=== PATIENT | female | born 1955 | race Caucasian/White ===

== ENCOUNTER 2018-08-04 16:24 | Emergency (ER) | payer OTHER ==
[~2018-08-04] VITALS: Ht 175.3 cm; Wt 81.7 kg
[2018-08-04] MEDS ORDERED: ACID REDUCER20 M1 PO (16:39)
[2018-08-04] MEDS ORDERED: BUPROPION XL300 MG PO (16:40)
[2018-08-04] MEDS ORDERED: OMEPRAZOLE20 MG PO (16:40)
[2018-08-04] MEDS ORDERED: ENALAPRIL-HCTZ1 EACH PO (16:40)
[2018-08-04] MEDS ORDERED: NITROFURANTOIN100 M1 PO (16:40)
--- NOTE | 2018-08-05 00:34 | EKG ---
[facility] [address] [facility] [place] [address] Signed Normal sinus rhythm Left axis deviation Pulmonary disease pattern Abnormal ECG No previous ECGs available Confirmed by NATE BEACH MD ([id number]) on 08/05/2018 12:34:41 AM Electronically Signed By: NATE BEACH MD 08/05/18 0034 PATIENT NAME: QAMAR VALDEZ Electrocardiogram DATE OF : 55 PHYSICIAN: NATE BEACH MD REPORT #: [id number] REPORT IS CONFIDENTIAL AND NOT TO BE RELEASED WITHOUT AUTHORIZATION
== END 2018-08-04 17:39 | disposition home or self-care (01) ==
LOC: ED 16:24
DX: R07.9 Chest pain, unspecified (principal); I10 Essential (primary) hypertension; Z85.3 Personal history of malignant neoplasm of breast; Z87.891 Personal history of nicotine dependence; Z88.2 Allergy status to sulfonamides; Z79.899 Other long term (current) drug therapy
CPT/HCPCS: 71045; 80053; 84484; 85025; 93005; 93010; 99285-25

== ENCOUNTER 2018-08-11 08:47 | Observation (INO) | payer OTHER ==
[~2018-08-11] VITALS: Ht 175.3 cm; Wt 86.8 kg
[~2018-08-11 08:47] MED LIST: ACID REDUCER20 M1 PO; BUPROPION XL300 MG PO; ENALAPRIL-HCTZ1 EACH PO; NITROFURANTOIN100 M1 PO; OMEPRAZOLE20 MG PO
--- OUTSIDE RECORDS SUMMARY | 2018-08-11 08:50 | XMS ---
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 Sanjana VISIT COUNT (12 MO.) 2 ELISE Nicolas HYanira TOTAL 2 NOTE: Visits indicate total known visits. ED/UCC VISIT TRACKING (12 MO.) 08/11/2018 08:47 ELISE Rocha [place] TYPE: Emergency COMPLAINT: - RAPID HEARTRATE 08/04/2018 16:24 ELISE Rocha [place] TYPE: Emergency COMPLAINT: - CHEST PAIN DIAGNOSES: - Personal history of nicotine dependence - Chest pain, unspecified - Precordial pain - Allergy status to sulfonamides status - Chest pain, unspecified - Personal history of malignant neoplasm of breast - Other skilled nursing (current) drug therapy - Essential (primary) hypertension INPATIENT VISIT TRACKING (12 MO.) No inpatient visits to display in this time frame [email or web address]
--- NOTE | 2018-08-11 12:50 | NUR ---
63 YR OLD FEMALE PATIENT ADMITTED TO CCU FROM ED VIA STRETCHER UNDER DR. FLYNN WITH DX OF AFIB W/RVR, PNEUMONIA PATIENT STATES SHE WOKE THIS AM AT APPROX 500 AM WITH NAUSEA, AND PALPATIONS. SHE RECIEVED CARDIZEM 10 MG IV PUSH IN ED AND STARTED ON CARDIZEM GTT. UPON ADMIT PATIENT IS AWAKE, ALERT AND COOPERATIVE. CARDIZEM GTT AT 10 MG/HR, INCREAED TO 15 MG HR 130. PATIENT DENIES CHAST PAIN, C/O MILD SOB. ADMISSION PROCESS STARTED.
--- NOTE | 2018-08-11 13:30 | NUR ---
TOOK 1/2 SANDWISH, DENIES NAUSEA. CARDIZEM GTT REMAINS AT 15 MG/HR.
--- NOTE | 2018-08-11 15:00 | NUR ---
CARDIZEM GTT DECREASED TO 10 MG HR. HR < 100. DENIES DIZZINESS.
--- NOTE | 2018-08-11 15:25 | NUR ---
UP TO COMMODE WITH ASSIST. HR WITH ACTIVITY 132, AT REST 100.
--- NOTE | 2018-08-11 16:47 | NUR ---
CARDIZEM GTT DECREASED TO 5 MG/HR.
--- NOTE | 2018-08-11 16:51 | NUR ---
LAB HERE FOR BLOOD DRAW. PATIENT DENEIS PROBLEMS.
--- NOTE | 2018-08-11 18:00 | NUR ---
CONTINUE WITH INCREASED WORK OF BREATHING. DR. DIEGO FLOREZ.
--- NOTE | 2018-08-11 19:00 | NUR ---
REPORT TO NEXT SHIFT. CARDIZEM GTT AT 5 MG/HR.
--- NOTE | 2018-08-11 19:45 | NUR ---
REPORT TO NEXT SHIFT.
--- NOTE | 2018-08-11 20:00 | NUR ---
PATIENT RESTFUL WITH EYES CLOSED, BREATHING IS EVEN AND UNLABORED. SPO2 98% ON 2L O2 VIA NC. HEART RATE WELL CONTROLLED, CARDIZEM GTT AT 5 MG/HR. CALL LIGHT WITHIN REACH.
--- NOTE | 2018-08-11 21:00 | NUR ---
PATIENT RESTFUL IN BED WATCHING TV, BREATHING IS EVEN AND UNLABORED, SPO2 98% ON 2L O2 VIA NC, TITRATED O2 TO 1L NC.PATIENT DENIES NEEDS AT THIS TIME, DENIES PAIN. ASSESSMENT DONE, ALERT AND ORIENTED X4, FOLLOWS COMMANDS, HEART RATE AND BP WNL, NOTED THAT PATIENT NOW IN SINUS RHYTHM, CARDIZEM GTT TURNED OFF. DR. CORTEZ IN UNIT, AWARE PATIENT IN SINUS RHYTHM, PO CARDIZEM DISCONTINUED. LUNGS ARE CLEAR THROUGHOUT, DIM IN BASES. IVF INFUSING PER ODER. CALL LIGHT WITHIN REACH.
--- NOTE | 2018-08-11 22:01 | NUR ---
PATIENT REMAINS RESTFUL, BREATHING IS EVEN AND UNLABORED. DENIES NEEDS AT THIS TIME. CALL LIGHT WITHIN REACH.
--- NOTE | 2018-08-11 23:55 | NUR ---
PATIENT ASSISTED TO BEDSIDE COMMODE, SBA, DENIES FEELING LIGHT HEADED WITH ACTIVITY. NOW RESTING COMFORTABLY IN BED AGAIN, BREATHING IS EVEN AND UNLABORED. SPO2 95% ON 1L O2 VIA NC, TURNED O2 OFF. DENIES FURTHER NEEDS AT THIS TIME. CALL LIGHT WITHIN REACH.
--- NOTE | 2018-08-12 00:58 | NUR ---
PATIENT SPO2 BETWEEN 88 AND 89% ON ROOM AIR, STARTED AGAIN ON 1L O2 VIA NC, RR 23, BREATHING IS EVEN AND UNLABORED. RESTFUL WITH EYES CLOSED. CALL LIGHT WITHIN REACH.
--- NOTE | 2018-08-12 02:11 | NUR ---
PATIENT REPOSITIONED IN BED. R BETWEEN 2 AND 30, SPO2 94% ON VAPOTHERM 30L, 70% FIO2, TITRATED TO 60% FIO2. FLACC SCORE 0, FASS SCORE 0. BROWN REMAINS INTACT, URINE OUTPUT INCREASING, IVF INFUSING AT 200 ML/HR. CALL LIGHT WITHIN REACH, WITHIN VIEW OF N FROM NURSE'S STATION.
--- NOTE | 2018-08-12 03:10 | NUR ---
PATIENT RESTFUL WITH EYES CLOSED, BREATHING IS EVEN AND UNLABORED, SPO2 94% ON 1L O2 VIA NC. FLACC SCORE OF 0. REMAINS IN SINUS RHYTHM. CALL LIGHT WITHIN REACH.
--- NOTE | 2018-08-12 04:30 | NUR ---
PATIENT RESTFUL WITH EYES CLOSED, BREATHING IS EVEN AND UNLABORED. CALL LIGHT WITHIN REACH.
--- NOTE | 2018-08-12 06:01 | NUR ---
SPO2 DOWN TO 82% AFTER PATIENT TAKES OFF VAPOTHERM, ONCE VAPOTHERM PUT BACK ON, SPO2 BETWEEN 86 AND 88, INCREASED FIO2 TO 70%. PATIENT NOW BETWEEN 90 AND 93%. REPOSITIONED IN BED. NO CHANGES IN BREATHING OR LUNG SOUNDS.
--- NOTE | 2018-08-12 06:36 | NUR ---
ASSISTED PATIENT TO BEDSIDE COMMODE, SBA, DENIES FEELING SOB, NO CHEST PAIN WITH ACTIVITY. NOW RESTING IN BED AGAIN, BREATHING IS EVEN AND UNLABORED. DENIES FURTHER NEEDS AT THIS TIME. CALL LIGHT WITHIN REACH.
--- NOTE | 2018-08-12 09:02 | NUR ---
PT SITTING UP IN BED ALERT AND ORIENTED X4. PT VISITING WITH DAUGHTER. PT DENIES PAIN, NAUSEA, AND SOB AT THIS TIME. PT ABLE TO DEMARIO 100% OF REGULAR BREAKFAST.
[2018-08-12] MEDS ORDERED: CRANBERRY CONC500 MG PO (10:05)
[2018-08-12] MEDS ORDERED: CALCIUM + VITA1 EACH PO (10:06)
[2018-08-12] MEDS ORDERED: ASPIR 8181 MG PO (10:07)
--- NOTE | 2018-08-12 10:07 | NUR ---
MED REC COMPLETE
--- NOTE | 2018-08-12 12:41 | NUR ---
IV SITE INTACT, NO SWELLING OR REDNESS NOTED, FLUSHES EASILY. PT DENIES PAIN WITH FLUSH. PT DENIES PAIN, NAUSEA, AND SOB AT THIS TIME. PT AWAKE AND ALERT X4, COOPERATIVE AND POLITE. PT DECLINES LUNCH AT THIS TIME, GIVEN HOUSE PHONE AND MENUE, EDUCATED ON HOW TO ORDER FOR SELF. PT AGREABLE TO THIS.
[2018-08-12] MEDS ORDERED: ASPIRIN325 MG PO (13:39)
--- NOTE | 2018-08-12 14:58 | NUR ---
PHARMACY HAS BEEN IN TO REVIEW ALL OF PTS MEDICATIONS. STUDENT NURSE TO D/C IVS FOR PT
--- NOTE | 2018-08-12 15:03 | NUR ---
PT GIVEN DISCHARGE INSTRUCTIONS. VERBALIZED UNDERSTANDING. PT DENIES QUESTIONS AT THIS TIME. STATES SHE UNDERSTANDS THE NEED TO START A FULL STRENGTH ASPIRIN. PT UNDERSTANDS SHE IS TO FOLLOW UP WITH HER PRIMARY CARE PROVIDER. PT TO DRESS AND CALL WHEN SHE IS READY FOR A RIDE.
--- NOTE | 2018-08-12 16:50 | EKG ---
[facility] [address] [facility] [place] [address] Signed Atrial fibrillation with rapid ventricular response Left axis deviation Moderate voltage criteria for LVH, may be normal variant Marked ST abnormality, possible lateral subendocardial injury Abnormal ECG When compared with ECG of 04-AUG-2018 16:34, Atrial fibrillation has replaced Sinus rhythm Vent. rate has increased BY [address] now depressed in Lateral leads T wave inversion now evident in Lateral leads Confirmed by CHU CORTEZ DO ([id number]) on 08/12/2018 4:50:29 PM Electronically Signed By: CHU CORTEZ DO 08/12/18 1650 PATIENT NAME: QAMAR VALDEZ Electrocardiogram DATE OF : 55 PHYSICIAN: CHU CORTEZ DO REPORT #: [id number] REPORT IS CONFIDENTIAL AND NOT TO BE RELEASED WITHOUT AUTHORIZATION
== END 2018-08-12 15:15 | disposition home or self-care (01) ==
LOC: ED 08:47 → CCU 08:48
PROVIDERS: ADMIT Internal Medicine
DX: I48.91 Unspecified atrial fibrillation (principal); R91.8 Other nonspecific abnormal finding of lung field; E87.6 Hypokalemia; K52.9 Noninfective gastroenteritis and colitis, unspecified; I10 Essential (primary) hypertension; E83.42 Hypomagnesemia; F39 Unspecified mood [affective] disorder; Z85.3 Personal history of malignant neoplasm of breast; Z87.891 Personal history of nicotine dependence; Z79.899 Other long term (current) drug therapy; Z88.2 Allergy status to sulfonamides; Z79.82 Long term (current) use of aspirin
CPT/HCPCS: 36415; 71045; 80048; 80053; 81001; 83605; 83735; 83880; 84484; 85025; 85379; 87040; 93005; 93010; 96361; 96367; 96372; 96374; 96375; 96376; 99285-25; G0378; J0456; J0696; J1650; J3475; J3480; J7030; J7050; J7120

== ENCOUNTER 2019-05-02 12:37 | Emergency (ER) | payer OTHER ==
[~2019-05-02] VITALS: Ht 175.3 cm; Wt 86.8 kg
--- OUTSIDE RECORDS SUMMARY | ~2019-05-02 | XMS | Encounter Summary ---
Demographics + + + | Address | [address] [facility] | | | [place] [address] | + + + | Home Phone | | + + + | Preferred Language | Unknown | + + + | Marital Status | | + + + | Mandaen Affiliation | UNK | + + + | Race | White | + + + | Ethnic Group | Not or | + + + Author + + + | Author | [facility] | + + + | Organization | [facility] | + + + | Address | Unknown | + + + | Phone | Unavailable | + + + Support + + + + + | Name | Relationship | Address | Phone | + + + + + ECON | Unknown | Unavailable | + + + + + | Kayla Meléndez | ECON | [address] | | | | | [place] | | | | | [address] | | + + + + + Care Team Providers + +------+ + | Care Police Inspector Name | Role | Phone | + +------+ + | Ayala Glasgow MD | PCP | | + +------+ + Encounter Details +--------+ + + + + | Date | Type | Department | Care Team | Description | +--------+ + + + + | 03/12/ | Procedure - | [facility] [address] | Juan Ballard | Operative Report | | 2006 | | E The | MD [address] | | | | Transcribed | [place] | [facility] [address] | | | | | [address] | [place] [address] | | | | | | [phone] | | | | | | | | +--------+ + + + + Social History + +-------+ +--------+------+ | Tobacco Use | Types | Packs/Day | Years | Date | | | | | Used | | + +-------+ +--------+------+ | Never Assessed | | | | | + +-------+ +--------+------+ + + + | Sex Assigned at | Date Recorded | | | | + + + | Not on file | | + + + + + + + | Job Start Date | Occupation | Industry | + + + + | Not on file | Not on file | Not on file | + + + + + + + + | Travel History | Travel Start | Travel End | + + + + + + | No recent travel history available. | + + documented as of this encounter Plan of Treatment Not on filedocumented as of this encounter Procedures + +--------+ + + + | Procedure Name | Priori | Date/Time | Associated Diagnosis | Comments | | | ty | | | | + +--------+ + + + | OPERATION RECORD | | 03/12/2007 | | Results for this | | | | 10:35 AM | | procedure are in the | | | | PDT | | results section. | + +--------+ + + + documented in this encounter Results OPERATION RECORD (03/12/2007 10:35 AM PDT) + + | Transcriptions | + + | Juan Ballard MD - 03/15/2007 8:20 AM [facility] | | REPORT OF [id number] [place] [id number] | | REGLA DANIEL EDATE OF OPERATION: 03/12/2007SURGEON: Juan | | Chandni BallardANESTHESIOLOGIST: CHERI DavisREPROCEDURE DIAGNOSIS: Acute calculous | | cholecystitis.POSTOPERATIVE DIAGNOSIS: Acute calculous cholecystitis.PROCEDURE: | | Laparoscopic cholecystectomy.SURGEON: Juan Ballard M.D.ANESTHESIA: General | | endotracheal.ESTIMATED BLOOD LOSS: Minimal.PREOPERATIVE ANTIBIOTICS: 1 gram of | | Ancef.SPECIMEN: Gallbladder.SPONGE, NEEDLE AND INSTRUMENT COUNTS: | | Correct.INTRAOPERATIVE COMPLICATIONS: Nil.DESCRIPTION OF THE PROCEDURE: The patient | | was taken to the operative suite and placedcomfortably in the supine position on the | | operative suite table. Bilateral lowerextremity compression stockings were put in place | | and activated. The patient thenunderwent general endotracheal anesthesia without | | difficulty. The lower chest, abdomenand pelvis were prepped and draped sterilely. A | | supraumbilical midline incision wasmade with a knife, and access was gained to the | | intra-abdominal cavity utilizing theopen Mendez technique. Pneumoperitoneum was | | established and under direct cameravisualization a 10-mm subxiphoid, and two 5-mm right | | upper quadrant trocars were placed.The gallbladder was identified and found to be | | markedly inflamed and distended and wasdecompressed with a large needle, aspirating | | approximately 100 mL of clear fluidconsistent with hydrops of the gallbladder. This | | needle was then removed and thegallbladder was then able to be grasped at the fundus and | | retracted in a cephaladlateral manner, allowing for dissection in the triangle of | | Calot. The cystic artery wasfirst identified controlled with two proximal clips and one | | distal clip, and dividedwith scissors. The cystic duct was then identified posterior | | to the artery, controlledwith three proximal clips, one distal clip and divided with | | scissors. The gallbladderwas then removed from its intrahepatic position, with a mild | | amount of difficulty due toperitoneal edema, with electrocautery and then removed | | through the umbilical incisionsite in an EndoCatch bag and sent for permanent section. | | The right upper quadrant wasirrigated with saline until the aspirate returned clear. | | The gallbladder fossa wasfound to be hemostatic, and the clips were found to be in good | | position on the cysticduct and arterial stumps. The sponge, needle and instrument | | counts were correct x2.The pneumoperitoneum was evacuated. The four working trocars | | were removed from theabdomen. The fascia was closed at the supraumbilical incision site | | with a REGLA Sinha [id number] DATE: 03/12/07eight 0 Vicryl | | suture. All four incisions were injected with 0.25% Marcaine withepinephrine for | | postoperative comfort and closed with subcuticular 4-0 Monocryl sutures.Sterile | | dressings were applied.The patient tolerated the procedure well, was extubated in the | | operative suite withoutdifficulty, and transferred to the recovery area where she | | remained in stable condition.LISSETTE/JuaniDD: 03/12/2007 22:36:05DT: 03/15/2007 08:09:50Job | | #: [id number]: Melinda Munoz | | Chandni | | | | | | Electronically | | Signed | | | | | | | | | | | | | | Juan BallardREGLA DANIEL [id number] DATE: | | 03/12/07 | |found to be hemostatic, and the clips were found to be in good position on the cystic | |duct and arterial stumps. The sponge, needle and instrument counts were correct x2. | |The pneumoperitoneum was evacuated. The four working trocars were removed from the | |abdomen. The fascia was closed at the supraumbilical incision site with a figure-of- | | | | | |REGLA DANIEL E | |[id number] | |[id number] | |ADMIT DATE: 03/12/07 | | | |eight 0 Vicryl suture. All four incisions were injected with 0.25% Marcaine with | |epinephrine for postoperative comfort and closed with subcuticular 4-0 Monocryl sutures. | |Sterile dressings were applied. | | | |The patient tolerated the procedure well, was extubated in the operative suite without | |difficulty, and transferred to the recovery area where she remained in stable condition. | | | | | | | |LISSETTE/Juani | | | | | | /[id number] | | | | | |cc: Melinda Munoz M.D. | | | | | | Electronically Signed | | | | | | | | Juan Ballard | | | | | | | | | | | | | | | | | | | | | | | | | | | | | | | | | | | | | | | | | | | | | | | | | | | | | | | | | | | | | | | | | | | | | | | | | |REGLA DANIEL | |[id number] | |[id number] | |ADMIT DATE: 03/12/07 | + + documented in this encounter Visit Diagnoses Not on filedocumented in this encounter"
--- OUTSIDE RECORDS SUMMARY | ~2019-05-02 | XMS | Encounter Summary ---
Demographics + + + | Address | [address] [facility] | | | [place] [address] | + + + | Home Phone | | + + + | Preferred Language | Unknown | + + + | Marital Status | | + + + | Mandaeism Affiliation | UNK | + + + | Race | White | + + + | Ethnic Group | Not or | + + + Author + + + | Author | [facility] | + + + | Organization | [facility] | + + + | Address | [...] [address] | | | | | [facility] | | | | | [address] | | + + + + + Care Team Providers + +------+ + | Care Bilingual Office Assistant Name | Role | Phone | + +------+ + | Loreta Pierre | PCP | | + +------+ + Encounter Details +--------+ + + + + | Date | Type | Department | Care Team | Description | +--------+ + + + + | 10/19/ | Document-Sc | UNKNOWN DEPARTMENT | Unknown . | | | 2013 | anned | [address] | | | | | | [address] | | | | | | [place] | | | | | | [address] | | | +--------+ + + + + Social History + +-------+ +--------+------+ | Tobacco Use | Types | Packs/Day | Years | Date | | | | | Used | | + +-------+ +--------+------+ | Former Smoker | | | | | + +-------+ +--------+------+ + +---+---+---+ | Smokeless Tobacco: | | | | | Never Used | | | | + +---+---+---+ + + + + + | Alcohol Use | Drinks/Week | oz/Week | Comments | + + + + + | Yes | 48-50 Standard | 40.0 - 41.7 | | | | drinks or equivalent | | | + + + + + + + + | Sex Assigned at [...] | + +--------+ + + + | LAB REPORTS | | 08/25/2012 | | Results for this | | | | 12:00 AM | | procedure are in the | | | | PST | | results section. | + +--------+ + + + | RADIOLOGY | | 07/26/2012 | | Results for this | | | | 12:00 AM | | procedure are in the | | | | PST | | results section. | + +--------+ + + + | PATHOLOGY | | 07/26/2012 | | Results for this | | | | 12:00 AM | | procedure are in the | | | | PST | | results section. | + +--------+ + + + documented in this encounter Results LAB REPORTS (08/25/2012 12:00 AM PST) + + + | Narrative | Performed At | + + + | | | | | | + + + + + | Procedure Note | + + | Richard De Jesus - 10/13/2012 4:06 PM PDT | + + PATHOLOGY (07/26/2012 12:00 AM PST) + + + | Narrative | Performed At | + + + | | | | | | + + + + + | Procedure Note | + + | Richard De Jesus - 10/13/2012 4:06 PM PDT | + + RADIOLOGY (07/26/2012 12:00 AM PST) + + + | Narrative | Performed At | + + + | | | | | | + + + + + | Procedure Note | + + | Richard eD Jesus - 10/13/2012 4:06 PM PDT | + + documented in this encounter Visit Diagnoses Not on filedocumented in this encounter"
--- OUTSIDE RECORDS SUMMARY | ~2019-05-02 | XMS | Encounter Summary ---
Demographics + + + | Address | [address] [facility] | | | [place] [address] | + + + | Home Phone | | + + + | Preferred Language | Unknown | + + + | Marital Status | | + + + | Advent Affiliation | UNK | + + + | Race | White | + + + | Ethnic Group | Not or | + + + Author + + + | Author | [facility] | + + + | Organization | [facility] | + + + | Address | [...] [address] | | | | | [facility] [place] | | | | | [address] | | + + + + + Care Team Providers + +------+ + | Care Ignition Mechanic Name | Role | Phone | + +------+ + | Loreta Pierre | PCP | | + +------+ + Encounter Details +--------+ + + + + | Date | Type | Department | Care Team | Description | +--------+ + + + + | 08/30/ | Results | NON-[facility] EPIC | Aileen Cuadra MD | | | 2015 | Only | Department | [address] | | | | | | [place] [address] | | | | | | [address] | | | | | | [place] [address] | | | | | | [phone] | | | | | | | [...] | + +--------+ + + + | MAMMOGRAPHY MAG VIEW | Routin | 08/30/2014 | | Results for this | | [place] [id number] | e | 10:04 AM | | procedure are in the | | | | PST | | results section. | + +--------+ + + + | UA, DIPSTICK ONLY | Routin | 08/30/2014 | | Results for this | | | e | 9:50 AM | | procedure are in the | | | | PST | | results section. | + +--------+ + + + | COMPLETE METABOLIC | Routin | 08/30/2014 | | Results for this | | SET | e | 9:50 AM | | procedure are in the | | (NA,K,CL,CO2,BUN,CRE | | PST | | results section. | | AT,GLUC,CA,AST,ALT,B | | | | | | STEVEN TOTAL,ALK | | | | | | PHOS,ALB,PROT TOTAL) | | | | | + +--------+ + + + documented in this encounter Results [facility] [id number] (08/30/2014 10:04 AM PST) + + | Specimen | + + | | + + + + + | Narrative | Performed At | + + + | EXAMINATION: ADDITIONAL MAMMOGRAPHIC VIEWS CLINICAL HISTORY: | [facility] | | Focal asymmetric density in the upper left breast on screening | DEPARTMENT OF | | mammogram COMPARISON: Screening mammogram from 08/23/2014. | RADIOLOGY | | TECHNIQUE: Spot compression MLO view and an ML view of the left | | | breast were obtained. FINDINGS: Spot compression MLO view | | | demonstrates effacement of the focal asymmetric density into normal | | | background parenchyma with no definite correlate on the MLO view. | | | Findings are likely secondary to underlying parenchymal artifact. | | | Scattered benign calcifications are present elsewhere within the | | | left breast. IMPRESSION: BIRADS 2 - Benign findings. Recommend | | | annual followup. BIRADS 2: BENIGN. The final assessment is a benign | | | finding, negative study. The findings reported have no likelihood of | | | malignancy. No further evaluation is needed at this time, however, | | | recommend routine annual screening mammography. A negative | | | mammography report should not delay biopsy if a dominant mass is | | | present. 15% of breast cancers are not identified by mammography. | | + + + + + | Procedure Note | + + | Interface, Radiology Results - 03/22/2015 11:04 AM PDT EXAMINATION: ADDITIONAL | | MAMMOGRAPHIC VIEWSCLINICAL HISTORY: Focal asymmetric density in the upper left breaston | | screening mammogramCOMPARISON: Screening mammogram from 08/23/2014.TECHNIQUE: Spot | | compression MLO view and an ML view of the leftbreast were obtained.FINDINGS: Spot | | compression MLO view demonstrates effacement of thefocal asymmetric density into normal | | background parenchyma with nodefinite correlate on the MLO view. Findings are likely | | secondary tounderlying parenchymal artifact. Scattered benign calcifications arepresent | | elsewhere within the left breast.IMPRESSION:BIRADS 2 - Benign findings. Recommend | | annual followup.BIRADS 2: BENIGN. The final assessment is a benign finding, | | negativestudy. The findings reported have no likelihood of malignancy. Nofurther | | evaluation is needed at this time, however, recommend routineannual screening | | mammography.A negative mammography report should not delay biopsy if a dominantmass is | | present. 15% of breast cancers are not identified bymammography. | |BIRADS 2: BENIGN. The final assessment is a benign finding, negative | |study. The findings reported have no likelihood of malignancy. No | |further evaluation is needed at this time, however, recommend routine | |annual screening mammography. | |A negative mammography report should not delay biopsy if a dominant | |mass is present. 15% of breast cancers are not identified by | |mammography. | + + + +---------+ + + | Performing | Address | City/State/Zipcode | Phone Number | | Organization | | | | + +---------+ + + | [facility] DEPARTMENT OF | | | | | RADIOLOGY | | | | + +---------+ + + UA, DIPSTICK ONLY (08/30/2014 9:50 AM PST) + + + + + + | Component | Value | Ref Range | Performed | Pathologist | | | | | At | Signature | + + + + + + | COLOR(UR) | Yellow | YELLOW | [facility] | | | | | | A MEDICAL | | | | | | CENTER | | + + + + + + | APPEARANCE | Clear | CLEAR | [facility] | | | | | | A MEDICAL | | | | | | CENTER | | + + + + + + | SPECIFIC | 1.007 | 1.005 - 1.030 | [facility] | | | GRAVITY | | | A MEDICAL | | | | | | CENTER | | + + + + + + | PH(UR) | 6.0 | 5.0 - 8.0 | [facility] | | | | | | A MEDICAL | | | | | | CENTER | | + + + + + + | PROTEIN, UA | NEG | NEGATIVE | [facility] | | | | | | A MEDICAL | | | | | | CENTER | | + + + + + + | GLUCOSE, UA | NEG | NEGATIVE | [facility] | | | | | | A MEDICAL | | | | | | CENTER | | + + + + + + | KETONES, UA | NEG | NEGATIVE | [facility] | | | | | | A MEDICAL | | | | | | CENTER | | + + + + + + | BILIRUBIN | NEG | NEGATIVE | [facility] | | | | | | A MEDICAL | | | | | | CENTER | | + + + + + + | BLOOD | NEG | NEGATIVE | [facility] | | | | | | A MEDICAL | | | | | | CENTER | | + + + + + + | NITRITES | NEG | NEGATIVE | [facility] | | | | | | A MEDICAL | | | | | | CENTER | | + + + + + + | LEUKOCYTE | NEG | NEGATIVE | [facility] | | | ESTERASE | | | A MEDICAL | | | | | | CENTER | | + + + + + + | UROBILINOGE | NEG | NEGATIVE MG/DL | [facility] | | | N | | | A MEDICAL | | | | | | CENTER | | + + + + + + | SOURCE | CLEAN CATCH | | [facility] | | | | | | A MEDICAL | | | | | | CENTER | | + + + + + + + + | Specimen | + + | | + + + + + + + | Performing | Address | City/State/Zipcode | Phone Number | | Organization | | | | + + + + + | [facility] | And | [place] [address] | [phone] | | MEDICAL [facility]ENTER | Streets | | | + + + + + COMPLETE METABOLIC SET (NA,K,CL,CO2,BUN,CREAT,GLUC,CA,AST,ALT,BILI TOTAL,ALK PHOS,ALB,PROT TOTAL) (08/30/2014 9:50 AM PST) + + + + + + | Component | Value | Ref Range | Performed | Pathologist | | | | | At | Signature | + + + + + + | SODIUM, | 142 | 137 - 146 MEQ/L | [facility] | | | PLASMA | | | A MEDICAL | | | (LAB) | | | CENTER | | + + + + + + | POTASSIUM, | 3.6 | 3.5 - 5.2 MEQ/L | [facility] | | | PLASMA | | | A MEDICAL | | | (LAB) | | | CENTER | | + + + + + + | CO2 | 32 (H) | 22 - 28 MEQ/L | [facility] | | | | | | A MEDICAL | | | | | | CENTER | | + + + + + + | CHLORIDE, | 105 | 98 - 106 MEQ/L | [facility] | | | PLASMA | | | A MEDICAL | | | (LAB) | | | CENTER | | + + + + + + | ANION GAP | 8.6 | 8 - 16 MEQ/L | [facility] | | | | | | A MEDICAL | | | | | | CENTER | | + + + + + + | GLUCOSE, | 83 | 70 - 105 MG/DL | [facility] | | | PLASMA | | | A MEDICAL | | | (LAB) | | | CENTER | | + + + + + + | BUN, PLASMA | 11 | 8 - 30 MG/DL | [facility] | | | (LAB) | | | A MEDICAL | | | | | | CENTER | | + + + + + + | CREATININE | 0.58 (L) | 0.6 - 1.1 MG/DL | [facility] | | | PLASMA | | | A MEDICAL | | | (LAB) | | | CENTER | | + + + + + + | BUN/CREATIN | 18 | 6 - 20 RATIO | [facility] | | | INE RATIO | | | A MEDICAL | | | | | | CENTER | | + + + + + + | CALCIUM, | 9.1 | 8.5 - 10.8 | [facility] | | | PLASMA | | MG/DL | A MEDICAL | | | (LAB) | | | CENTER | | + + + + + + | AST(SGOT) | 31 | 10 - 41 U/L | [facility] | | | | | | A MEDICAL | | | | | | CENTER | | + + + + + + | ALT (SGPT) | 34 | 7 - 51 U/L | [facility] | | | | | | A MEDICAL | | | | | | CENTER | | + + + + + + | ALK PHOS | 92 | 40 - 180 U/L | [facility] | | | | | | A MEDICAL | | | | | | CENTER | | + + + + + + | TOTAL | 7.0 | 6.7 - 8.5 G/DL | [facility] | | | PROTEIN, | | | A MEDICAL | | | PLASMA | | | CENTER | | | (LAB) | | | | | + + + + + + | ALBUMIN, | 4.1 | 3.5 - 5.0 G/DL | [facility] | | | PLASMA | | | A MEDICAL | | | (LAB) | | | CENTER | | + + + + + + | BILIRUBIN | 0.9 | 0.2 - 1.6 MG/DL | [facility] | | | TOTAL | | | A MEDICAL | | | | | | CENTER | | + + + + + + | TRIGLYCERID | 220 (H) | 45 - 150 MG/DL | [facility] | | | ES | | | A MEDICAL | | | | | | CENTER | | + + + + + + | CHOLESTEROL | 145 | 101 - 199 MG/DL | [facility] | | | (LAB) | | | A MEDICAL | | | | | | CENTER | | + + + + + + | HDL | 44 | 35 - 95 MG/DL | [facility] | | | CHOLESTEROL | | | A MEDICAL | | | | | | CENTER | | + + + + + + | LDL CHOLEST | 57 | 0 - 129 MG/DL | [facility] | | | | | | A MEDICAL | | | | | | CENTER | | + + + + + + | NON-HDL | 101 | | [facility] | | | CHOLESTEROL | | | A MEDICAL | | | | | | CENTER | | + + + + + + | VLDL | 44 (H) | 9 - 30 MG/DL | [facility] | | | CHOLESTEROL | | | A MEDICAL | | | | | | CENTER | | + + + + + + | CARDIAC | 3.3 | RATIO | [facility] | | | RISK RATIO | | | A MEDICAL | | | | | | CENTER | | + + + + + + | TSH | 0.42 | 0.34 - 5.6 | [facility] | | | | | UIU/ML | A MEDICAL | | | | | | CENTER | | + + + + + + | ESTIMATED | >60.0 | >60 | [facility] | | | GFR | | | A MEDICAL | | | | | | CENTER | | + + + + + + | FASTING? | 12 PC | HR | [facility] | | | | | | A MEDICAL | | | | | | CENTER | | + + + + + + + + | Specimen | + + | | + + + + + + + | Performing | Address | City/State/Zipcode | Phone Number | | Organization | | | | + + + + + | [facility] | And | [place] [address] | [phone] | | MEDICAL CENTER | Streets | | | + + + + + documented in this encounter Visit Diagnoses Not on filedocumented in this encounter"
--- OUTSIDE RECORDS SUMMARY | ~2019-05-02 | XMS | Encounter Summary ---
Demographics + + + | Address | [address] [facility] | | | [place] [address] | + + + | Home Phone | | + + + | Preferred Language | Unknown | + + + | Marital Status | | + + + | Mosque Affiliation | UNK | + + + | Race | White | + + + | Ethnic Group | Not or | + + + Author + + + | Author | [facility] | + + + | Organization | [facility] | + + + | Address | [...] [address] | | | | | [facility] [place] | | | | | [address] | | + + + + + Care Team Providers + +------+ + | Care Used Building Materials Yard Worker Name | Role | Phone | + +------+ + | Loreta Pierre | PCP | | + +------+ + Reason for Visit + + + | Reason | Comments | + + + | Prescription | | | Clarification | | + + + Encounter Details +--------+ + + + + | Date | Type | Department | Care Team | Description | +--------+ + + + + | 12/23/ | Telephone | Hematology/Medical | Hung, | Prescription | | 2012 | | Oncology at [facility] | Nayana Velásquez MD | Clarification | | | | [address] | | | | | | Mailcode: CH7M | | | | | | [facility] | | | | | | and Healing, | | | | | | Building | | | | | | Floor [place], [place] | | | | | | [address] | | | | | | [phone] | | | +--------+ + + + [...] Not on filedocumented as of this encounter Visit Diagnoses Not on filedocumented in this encounter"
--- OUTSIDE RECORDS SUMMARY | ~2019-05-02 | XMS | Encounter Summary ---
Demographics + + + | Address | [address] [facility] | | | [place] [address] | + + + | Home Phone | | + + + | Preferred Language | Unknown | + + + | Marital Status | | + + + | Buddhist Affiliation | UNK | + + + | Race | White | + + + | Ethnic Group | Not or | + + + Author + + + | Author | [facility] | + + + | Organization | [facility] | + + + | [...] [place] | | | | | [address] | | + + + + + Care Team Providers + +------+ + | Care Box Repairer Name | Role | Phone | + +------+ + | Ayala Glasgow MD | PCP | | + +------+ + Encounter Details +--------+ + + + + | Date | Type | Department | Care Team | Description | +--------+ + + + + | 03/09/ | Procedure - | EPIC AT [facility] [address] | Aileen Cuadra MD | Operative Report | | 2012 | | E The | [facility] | | | | Transcribed | [place] | [facility] [address] | | | | | [address] | [address] | | | | | | [place] [address] | | | | | | [phone] | | | | | | | [...] + + | OPERATION RECORD | | 03/09/2013 | | Results for this | | | | 8:07 AM | | procedure are in the | | | | PDT | | results section. | + +--------+ + + + documented in this encounter Results OPERATION RECORD (03/09/2013 8:07 AM PDT) + + | Transcriptions | + + | MD Khalif, Aileen - 03/09/2013 11:30 AM [facility] | | REPORT OF [id number] [place] [address] | | REGLA DANIEL EDATE OF OPERATION: 03/09/2013SURGEON: Aileen Cuadra, | | M.D.PREOPERATIVE DIAGNOSES:1. Failed proton pump inhibitors therapy with | | gastroesophageal reflux disease.2. Colorectal screening.POSTOPERATIVE DIAGNOSES:1. | | Failed proton pump inhibitors therapy with gastroesophageal reflux disease.2. Colorectal | | screening.3. Hiatal hernia.4. Gastritis.PROCEDURE PERFORMED:1. | | Esophagogastroduodenoscopy with biopsy of duodenum and gastric antrum, CLOtest for | | Helicobacter pylori.2. Colonoscopy.FINDINGS: Patient had an EGD performed. Posterior | | oropharynx was withoutsignificant abnormality. The esophagus was without significant | | abnormality alongits length. Upon entering the stomach, mild global gastritis was seen, | | worse inthe antrum and proximal. Passage into the duodenum was without difficulty. | | Nosignificant abnormalities were seen. Retroflexion revealed a moderate-sized | | hiatalhernia. Biopsies of duodenum, gastric antrum, CLOtest for H pylori were | | obtained.A colonoscopy was completed from the anal verge to the cecal valve. No | | masses,polyps, diverticula or other significant abnormalities were noted throughout | | theentire colon. The patient had an excellent prep.REASON FOR PROCEDURE: Regla is a very | | pleasant patient of [place] whohas failed PPI therapy with ongoing reflux | | disease who is also in need forcolorectal screening.PROCEDURE DETAIL:ANESTHESIA: IV | | sedation with fentanyl and Versed.PREOPERATIVE DISCUSSION: PAR conference was held with | | the patient and thepermission slip was signed prior to beginning the procedure and | | initial vital signswere recorded on the anesthesia record. Vital signs were stable | | throughout theprocedure.DESCRIPTION OF PROCEDURE: With the patient on the endoscopy | | table in the supineposition, an IV was started. The patient's sedation was titrated | | with fentanyl andVersed, as per the anesthesia record. The patient was monitored with | | the pulseoximeter, BP cuff and EKG. The patient was then placed in the left | | lateraldecubitus position. T he Pentax colonoscope was passed through the anus into | | REGLA Eugene [id number] : [id number] DATE:rectum and distally through | | the remainder of the colon until the cecum wasidentified. The cecum was identified by | | visualizing the ileocecal valve,coalescence of tinea and the appendiceal orifice, as | | well as localization of thelight in the right lower quadrant. The colonoscope was then | | gradually removed,examining the mucosa circumferentially. Please see findings for | | details ofabnormalities or any manipulations performed. After the colonoscope was | | completed,the scope was removed. The patient tolerated the procedure well.The patient | | was discharged home to the care of family without having suffered anyapparent | | complications. Followup arrangements were made. They were informed tocall us if there | | was any vomiting, fever or abdominal pain.AR/MedQDD: 03/09/2013 10:30:29DT: 03/09/2013 | | 11:03:02Job #: [id number] Signed 03/12/13 | | 0909 | | | | | | | | | | | | | | Aileen Cuadra, | | REGLA WALL [id number] : [id number] DATE: | |permission slip was signed prior to beginning the procedure and initial vital signs | |were recorded on the anesthesia record. Vital signs were stable throughout the | |procedure. | | | |DESCRIPTION OF PROCEDURE: With the patient on the endoscopy table in the supine | |position, an IV was started. The patient's sedation was titrated with fentanyl and | |Versed, as per the anesthesia record. The patient was monitored with the pulse | |oximeter, BP cuff and EKG. The patient was then placed in the left lateral | |decubitus position. T he Pentax colonoscope was passed through the anus into the | |REGLA DANIEL | |[id number] : 55 | |[id number] | |ADMIT DATE: | | | |rectum and distally through the remainder of the colon until the cecum was | |identified. The cecum was identified by visualizing the ileocecal valve, | |coalescence of tinea and the appendiceal orifice, as well as localization of the | |light in the right lower quadrant. The colonoscope was then gradually removed, | |examining the mucosa circumferentially. Please see findings for details of | |abnormalities or any manipulations performed. After the colonoscope was completed, | |the scope was removed. The patient tolerated the procedure well. | | | |The patient was discharged home to the care of family without having suffered any | |apparent complications. Followup arrangements were made. They were informed to | |call us if there was any vomiting, fever or abdominal pain. | | | | | |KARINA/Juani | | | | | | /[id number] | |Electronically Signed 03/12/13 0909 | | | | | | Aileen Cuadra MD | | | | | | | [...] | | | | |REGLA DANIEL | |[id number] : 55 | |[id number] | |ADMIT DATE: | + + documented in this encounter Visit Diagnoses Not on filedocumented in this encounter"
--- OUTSIDE RECORDS SUMMARY | ~2019-05-02 | XMS | Encounter Summary ---
Demographics + + + | Address | [address] [facility] | | | [place] [address] | + + + | Home Phone | | + + + | Preferred Language | Unknown | + + + | Marital Status | | + + + | Hinduism Affiliation | UNK | + + + | Race | White | + + + | Ethnic Group | Not or | + + + Author + + + | Author | [facility] | + + + | Organization | [facility] | + + + | [...] [place] | | | | | [address] | | + + + + + Care Team Providers + +------+ + | Care Dev Manager Name | Role | Phone | + +------+ + | Ayala Glasgow MD | PCP | | + +------+ + Encounter Details +--------+ + + + + | Date | Type | Department | Care Team | Description | +--------+ + + + + | 07/04/ | H&P-Transcr | EPIC AT [facility] [address] | Alexys Lu | History & Physical | | 2004 | ibed | [address] | M, MD [place] | | | | | [place], [place] | Orthopedics [facility] | | | | | [address] | [facility] [address] | | | | | | St [place], [place] | | | | | | [address] | | | | | | | [...]
--- OUTSIDE RECORDS SUMMARY | ~2019-05-02 | XMS | Encounter Summary ---
Demographics + + + | Address | [address] [facility] | | | [place] [address] | + + + | Home Phone | | + + + | Preferred Language | Unknown | + + + | Marital Status | | + + + | Buddhist Affiliation | UNK | + + + | Race | White | + + + | Ethnic Group | Not or | + + + Author + + + | Author | [facility] | + + + | Organization | [facility] | + + + | Address [...] [place] | | | | | [address] | | + + + + + Care Team Providers + +------+ + | Care Costume Cutter Name | Role | Phone | + +------+ + | Loreta Pierre | PCP | | + +------+ + Encounter Details +--------+ + + + + | Date | Type | Department | Care Team | Description | +--------+ + + + + | 03/13/ | Document-Sc | Dermatology at | Margaret Arriaga, | | | 2014 | anntheo | Syl Goodwin | ,PhD 1934 | | | | | Clinic [address] | [facility] [place] | | | | | [place] | [address] | | | | | [address] | [phone] | | | | | [phone] | | | +--------+ + + + [...]
--- OUTSIDE RECORDS SUMMARY | ~2019-05-02 | XMS | Clinical Summary ---
Demographics + + + | Address | [address] [facility] | | | [place] [address] | + + + | Home Phone | | + + + | Preferred Language | Unknown | + + + | Marital Status | | + + + | Anabaptism Affiliation | UNK | + + + | Race | White | + + + | Ethnic Group | Not or | + + + Author + + + | Author | [facility] | + + + | Organization | [facility] | + + + | Address | [...] [place] | | | | | [address] | | + + + + + Care Team Providers + +------+ + | Care Chief Estimator Name | Role | Phone | + +------+ + PCP | Unavailable | + +------+ + Source Comments JESSY is fully live on both EpicCare Ambulatory and EpicCare InPatient.[facility]ly [facility] Allergies + + + + + + | Active Allergy | Reactions | Severity | Noted | Comments | | | | | Date | | + + + + + + | Sulfa (Sulfonamide | | Medium | 10/20/19 | | | Antibiotics) | | | 13 | | + + + + + + Medications + + + +---------+------+------+-------+ | Medication | Sig | Dispensed | Refills | Star | End | Statu | | | | | | t | Date | s | | | | | | Date | | | + + + +---------+------+------+-------+ | Calcium | Take 1 tablet by | | 0 | 10/0 | | Activ | | Carbonate-Vitamin D2 | oral route daily | | | 01/15 | | e | | (OS-AURE 500+D) 500 | | | | 13 | | | | mg(1,250mg) -200 | | | | | | | | unit oral tablet | | | | | | | + + + +---------+------+------+-------+ | halobetasol | apply bid | | 0 | 02/2 | | Activ | | (ULTRAVATE) 0.05 % | | | | 20 | | e | | topical cream | | | | 15 | | | + + + +---------+------+------+-------+ | | TAKE 1 TABLET BY | 90 | 0 | 11/2 | | Activ | | ENALAPRIL-HYDROCHLOR | MOUTH DAILY FOR HIGH | tablet | | /20 | | e | | OTHIAZIDE 10-25 mg | BLOOD PRESSURE | | | 16 | | | | oral tablet | | | | | | | + + + +---------+------+------+-------+ | LORazepam 0.5 mg | | | 0 | 02/ | | Activ | | oral tablet | | | | 09/15 | | e | | | | | | 17 | | | + + + +---------+------+------+-------+ | nitroglycerin 0.4 | Place 1 tablet under | 25 | 3 | 02/1 | | Activ | | mg sublingual | tongue every five | tablet | | 6/20 | | e | | tablet, sublingual | minutes as needed | | | 17 | | | | | for chest pain. | | | | | | | | Place under tongue | | | | | | | | and allow to | | | | | | | | dissolve. | | | | | | | | Administer every 5 | | | | | | | | minutes, max of 3 | | | | | | | | doses in 15 minutes. | | | | | | + + + +---------+------+------+-------+ | | TAKE 1 TABLET BY | 30 | 1 | 06 | | Activ | | ENALAPRIL-HYDROCHLOR | MOUTH EVERY DAY FOR | tablet | | /20 | | e | | OTHIAZIDE 10-25 mg | HIGH BLOOD PRESSURE | | | 18 | | | | oral | | | | | | | | tabletIndications: | | | | | | | | Benign hypertension | | | | | | | + + + +---------+------+------+-------+ | BUPROPION XL 300 | TAKE 1 TABLET BY | 30 | 0 | 11/27 | | Activ | | mg oral tablet | MOUTH EVERY DAY | tablet | | 20 | | e | | extended release 24 | | | | 18 | | | | hrIndications: | | | | | | | | Anxiety, generalized | | | | | | | + + + +---------+------+------+-------+ | omeprazole 20 mg | Take 1 capsule by | 180 | 3 | 11/27 | | Activ | | oral capsule,delayed | mouth two times | capsule | | 5/20 | | e | | | daily before meals. | | | 18 | | | | release(DR/EC)Indica | | | | | | | | tions: Esophagitis, | | | | | | | | reflux | | | | | | | + + + +---------+------+------+-------+ Active Problems + + + | Problem | Noted Date | + + + | History of carcinoma in situ of breast | 05/06/2016 | + + + | Atypical ductal hyperplasia of breast | 07/28/2012 | + + + | Lung mass | 04/19/2010 | + + + | Benign hypertension | 04/12/2007 | + + + | Esophagitis, reflux | 04/12/2007 | + + + | Clinical depression | 04/12/2007 | + + + | Anxiety, generalized | 04/12/2007 | + + + Resolved Problems + + + + | Problem | Noted | Resolved | | | Date | Date | + + + + | DCIS (ductal carcinoma in situ) of breast | 10/20/19 | | | | 13 | 6 | + + + + | Carcinoma in situ, breast, ductal | 07/28/19 | | | | 13 | 6 | + + + + Immunizations + + + + | Name | Administration Dates | Next Due | + + + + | Influenza, | 03/20/2016, 04/02/2014 | | | injectable, | | | | quadrivalent, | | | | preservative free | | | | (IIV4) | | | + + + + | Influenza, seasonal, | 04/13/2013 | | | intradermal, | | | | preservative free | | | + + + + | Td (adult), 2 Lf | 10/16/2006 | | | tetanus toxoid, | | | | preservative free, | | | | adsorbed | | | + + + + Family History + + +------+ + | Medical History | Relation | Name | Comments | + + +------+ + | Depression | Brother | | | + + +------+ + | Psychiatry | Father | | Suicide | + + +------+ + | Diabetes | Mother | | | + + +------+ + | Hypertension | Mother | | | + + +------+ + | Stroke | Mother | | | + + +------+ + | Psychiatry | Other | | Suicide, neice | + + +------+ + | Psychiatry | Paternal | | Suicide | | | Uncle | | | + + +------+ + + +------+--------+ + | Relation | Name | Status | Comments | + +------+--------+ + | Brother | | | | + +------+--------+ + | Father | | | | + +------+--------+ + | Mother | | | | + +------+--------+ + | Other | | | | + +------+--------+ + | Paternal Uncle | | | | + +------+--------+ + Social History + +-------+ +--------+------+ | [...] 48-50 Standard | 40.0 - 41.7 | daily beer | | | drinks or equivalent | [...] recent travel history available. | + + Last Filed Vital Signs + + + + + | Vital Sign | Reading | Time Taken | Comments | + + + + + | Blood Pressure | 144/96 | 05/12/2017 1:07 PM | | | | | PST | | + + + + + | Pulse | 95 | 05/12/2017 1:07 PM | | | | | PST | | + + + + + | Temperature | 36.8 C (98.2 F) | 10/19/2012 10:13 AM | | | | | PDT | | + + + + + | Respiratory Rate | 20 | 05/12/2017 1:07 PM | | | | | PST | | + + + + + | Oxygen Saturation | 96% | 08/14/2016 7:41 AM | | | | | PST | | + + + + + | Inhaled Oxygen | - | - | | | Concentration | | | | + + + + + | Weight | 83.5 kg (184 lb) | 05/12/2017 1:07 PM | | | | | PST | | + + + + + | Height | 177.8 cm (5' 10") | 05/06/2016 10:25 AM | | | | | PST | | + + + + + | Body Mass Index | 26.4 | 05/06/2016 10:25 AM | | | | | PST | | + + + + + Plan of Treatment + + + + + | Health Maintenance | Due Date | Last Done | Comments | + + + + + | Influenza (Flu) | | 03/20/2016, 04/02/2014, | | | vaccination (#1) | 9 | 04/13/2013 | | + + + + + | COLON CANCER | | 03/20/2012 | | | SCREENING: | 2 | | | | COLONOSCOPY | | | | + + + + + | Pneumococcal | Aged Out | | No longer eligible | | vaccination | | | based on patient's | | | | | age to complete this | | | | | topic | + + + + + Results Not on filefrom Last 3 Months Insurance + +--------+ +--------+-------+---------+--------+ | Payer | Benefi | Subscriber | Effect | Phone | Address | Type | | | t Plan | ID | antonieta | | | | | | / | | Dates | | | | | | Group | | | | | | + +--------+ +--------+-------+---------+--------+ | [employer] | UNITED | xxxxxxxxx | 09/28/19 | | | PPO | | | | | 14-Pre | | | | | | HEALTH | | sent | | | | | | CARE | | | | | | + +--------+ +--------+-------+---------+--------+ | COMMERCIAL | INDIVI | [phone] | | | | Indemn | | INDIVIDUAL | DUAL | | 017-Pr | | | ity | | | COMMER | | esent | | | | | | CIAL | | | | | | + +--------+ +--------+-------+---------+--------+ + +--------+ +--------+ + + | Guarantor Name | Accoun | Relation to | Date | Phone | Billing Address | | | t Type | Patient | of | | | | | | | | | | + +--------+ +--------+ + + | Regla Daniel | Person | Self [birth year] | [address] | | | al/Fam | | 1955 | [phone] | [place], | | | [place] | | | [address] (Home) | [place] [address] | + +--------+ +--------+ + + | Regla Daniel | Person | Self | [birth year] | [address] | | | al/Fam | | 1955 | [phone] | [place], | | | [place] | | | [address] (Home) | [place] [address] | + +--------+ +--------+ + +
--- OUTSIDE RECORDS SUMMARY | ~2019-05-02 | XMS | Encounter Summary ---
Demographics + + + | Address | [address] [facility] | | | [place] [address] | + + + | Home Phone | | + + + | Preferred Language | Unknown | + + + | Marital Status | | + + + | Christianity Affiliation | UNK | + + + | Race | White | + + + | Ethnic Group | Not or | + + + Author + + + | Author | [facility] | + + + | Organization | [facility] | + + + | Address [...] [place] | | | | | [address] | | + + + + + Care Team Providers + +------+ + | Care Director Customer Name | Role | Phone | + +------+ + | Ayala Michelle MD | PCP | | + +------+ + Encounter Details +--------+ + + + + | Date | Type | Department | Care Team | Description | +--------+ + + + + | 10/16/ | Inside | [facility] | Ayala Michelle MD | | | 2017 | Referral | [facility] [address] | [address] | | | | Order | [address] | [place], [place] | | | | | [place], [place] | [address] | | | | | [address] | [phone] | | | | | | | [...] Not on filedocumented as of this encounter Results MA DIGITAL MAMMO SCREEN BILAT (11/27/2016 1:02 PM PDT) + + | Specimen | + + | | + + + + + | Narrative | Performed At | + + + | [address] [place] [address] | [facility] | | [place] [address] | DEPARTMENT | | [phone] Name: REGLA DANIEL Phys: | RADIOLOGY | | AYALA MICHELLE : 1955 Sex: F CSN: | | | [id number] MR# [id number] Exam Date: 11/27/2016 | | | EXAM: MA DIGITAL MAMMO SCREEN BILAT CLINICAL HISTORY: | | | 61-year-old asymptomatic female. History of right breast DCIS, | | | status post lumpectomy and radiation therapy. COMPARISON: | | | 10/17/2015, 08/30/2014, and 08/23/2014. TECHNIQUE: Bilateral MLO | | | and CC full field digital mammography was performed. R2 computer | | | aided detection (CAD) software was utilized in the interpretation of | | | this study. FINDINGS: The breasts are composed of scattered | | | fibroglandular tissue. There are stable postoperative changes | | | involving the right breast. There are no suspicious calcifications, | | | masses, or areas of architectural distortion in either breast. | | | There has been no change compared to the prior studies. | | | IMPRESSION: Benign findings with stable right breast postoperative | | | changes. No mammographic evidence of breast cancer. BI-RADS | | | ASSESSMENT: BI-RADS 2: BENIGN. The final assessment is a | | | benign finding, negative study. The findings reported have no | | | likelihood of malignancy. No further evaluation is needed at this | | | time, however, recommend routine annual screening mammography. A | | | negative mammography report should not delay biopsy if a dominant | | | mass is present. 15% of breast cancers are not identified by | | | mammography. REPORT SIGNED IN OTHER VENDOR SYSTEM 11/27/2016 | | | Reported by: Omero Johnson MD Electronically signed by: | | | Omero Johnsno MD Transcribed Date/Time: 11/27/2016 14:22 | | | Visiting Teacher: FLUENCY | | + + + + + | Procedure Note | + + | Interface, Radiology Results - 11/27/2016 2:27 PM PDT [address] | [address], [place] [address] | | Name: REGLA DANIEL Phys: AYALA MICHELLE : 1955 Sex: F CSN: | | [id number] MR# [id number] Exam Date: 11/27/2016 EXAM:MA DIGITAL MAMMO SCREEN | | BILAT CLINICAL HISTORY:61-year-old asymptomatic female. 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 COMPARISON:10/17/2015, 08/30/2014, | | and 08/23/2014. TECHNIQUE:Bilateral MLO and CC full field digital mammography was | | performed.[employer] computer aided detection (CAD) software was utilized in theinterpretation | | of this study. FINDINGS:The breasts are composed of scattered fibroglandular tissue. | | There are stable postoperative changes involving the right breast.There are no | | suspicious calcifications, masses, or areas ofarchitectural distortion in either breast. | | There has been no changecompared to the prior studies. IMPRESSION:Benign findings with | | stable right breast postoperative changes. Nomammographic evidence of breast cancer. | | BI-RADS ASSESSMENT: BI-RADS 2: BENIGN. The final assessment is a benign | | finding,negative study. The findings reported have no likelihood ofmalignancy. No | | further evaluation is needed at this time, however,recommend routine annual screening | | mammography. A negative mammography report should not delay biopsy if a dominantmass is | | present. 15% of breast cancers are not identified bymammography. REPORT SIGNED IN | | OTHER VENDOR SYSTEM 11/27/2016 Reported by: Omero Johnson MD Electronically signed by: | | Omero Johnson MD Transcribed Date/Time: 11/27/2016 14:22Transcriptionist: FLUENCY | |10/17/2015, 08/30/2014, and 08/23/2014. | | | |TECHNIQUE: | |Bilateral MLO and CC full field digital mammography was performed. | |R2 computer aided detection (CAD) software was utilized in the | |interpretation of this study. | | | |FINDINGS: | |The breasts are composed of scattered fibroglandular tissue. | | | |There are stable postoperative changes involving the right breast. | |There are no suspicious calcifications, masses, or areas of | |architectural distortion in either breast. There has been no change | |compared to the prior studies. | | | |IMPRESSION: | |Benign findings with stable right breast postoperative changes. No | |mammographic evidence of breast cancer. | | | | | |BI-RADS ASSESSMENT: | | | | | |BI-RADS 2: BENIGN. The final assessment is a benign finding, | |negative study. The findings reported have no likelihood of | |malignancy. No further evaluation is needed at this time, however, | |recommend routine annual screening mammography. | | | |A negative mammography report should not delay biopsy if a dominant | |mass is present. 15% of breast cancers are not identified by | |mammography. | | | | | | REPORT SIGNED IN OTHER VENDOR SYSTEM 11/27/2016 | |Reported by: Omero Johnson MD | | | |Electronically signed by: Omero Johnson MD | | | |Transcribed Date/Time: 11/27/2016 14:22 | |Visiting Teacher: FLUENCY | | | | | | | + + + +---------+ + + | Performing | Address | City/State/Zipcode | Phone Number | | Organization | | | | + +---------+ + + | [facility]MENT OF | | | | | RADIOLOGY | | | | + +---------+ + + documented in this encounter Visit Diagnoses + + | Diagnosis | + + | Visit for screening mammogram - Primary Other screening mammogram | + + documented in this encounter"
--- OUTSIDE RECORDS SUMMARY | ~2019-05-02 | XMS | Encounter Summary ---
Demographics + + + | Address | [address] [facility] | | | [place] [address] | + + + | Home Phone | | + + + | Preferred Language | Unknown | + + + | Marital Status | | + + + | Episcopal Affiliation | UNK | + + + | Race | White | + + + | Ethnic Group | Not or | + + + Author + + + | Author | [facility] | + + + | Organization | [facility] | + + + | [...] [place] | | | | | [address] | | + + + + + Care Team Providers + +------+ + | Care Senior Information Security Engineer Name | Role | Phone | + +------+ + | Ayala Glasgow MD | PCP | | + +------+ + Reason for Visit + + + | Reason | Comments | + + + | Medication | | | reconciliation | | + + + Encounter Details +--------+---------+ + + + | Date | Type | Department | Care Team | Description | +--------+---------+ + + + | 03/20/ | Office | [facility] | Ayala Glasgow MD | Benign hypertension | | 2016 | Visit | Medicine [address] | (Primary Dx); | | | | [address] [place], | [place], [place] | Anxiety, | | | | [place] [address] | [address] | generalized; Needs | | | | [phone] | [phone] | flu shot; Need for | | | | | | hepatitis C | | | | | | screening test; | | | | | | Esophagitis, reflux | +--------+---------+ + + + Social History + +-------+ [...] + + documented as of this encounter Last Filed Vital Signs + + + + + | Vital Sign | Reading | Time Taken | Comments | + + + + + | Blood Pressure | 96/60 | 03/20/2016 11:19 AM | | | | | PDT | | + + + + + | Pulse | 66 | 03/20/2016 11:19 AM | | | | | PDT | | + + + + + | Temperature | - | - | | + + + + + | Respiratory Rate | - | - | | + + + + + | Oxygen Saturation | 95% | 03/20/2016 11:19 AM | | | | | PDT | | + + + + + | Inhaled Oxygen | - | - | | | Concentration | | | | + + + + + | Weight | 85.1 kg (187 lb 9.6 | 03/20/2016 11:19 AM | | | | oz) | PDT | | + + + + + | Height | - | - | | + + + + + | Body Mass Index | 26.54 | 04/10/2015 11:35 AM | | | | | PDT | | + + + + + documented in this encounter Patient Instructions Patient Instructions Ayala Glasgow MD - 03/20/2016 12:00 PM PDTPlease return FASTING (Not sherie but water, black coffee or tea after midnight) to have your blood work checked. The lab here at [facility] is open at 8:00 a.m. Thursday, 7:00 a.m. Thursday - and 10:00 on Thursday. You do not need an appointment, just check in at the vest front presser. documented in this encounter Progress Notes Ayala Glasgow MD - 03/20/2016 12:01 PM PDT Chief Complaint Patient presents with Medication reconciliation Subjective She is also here to establish care Patient Active Problem List Diagnosis DCIS (ductal carcinoma in situ) of breast Benign hypertension Carcinoma in situ, breast, ductal Lung mass Esophagitis, reflux Clinical depression Atypical ductal hyperplasia of breast Anxiety, generalized Past Medical History Diagnosis Date Psoriasis 2000 drug therapy Menorrhagia 1996 hysterectomy Cyst of cervix 1996 hysterectomy Hypertension medication management Ductal carcinoma in situ (DCIS) of right breast 06.23.2012 right lumpectomy Esophagitis 2003 drug therapy Depression drug therapy Screening for colon cancer 2011 small bowel, NOS, colonoscopy with biopsy Cholecystitis 03.12.2007 cholecystectomy Breast mass 06.24.2012 US guided biopsy Anxiety Skin tag 04-10-15 Benign (Shave Biopsy) Past Surgical History Procedure Laterality Date Right breast lumpectomy 06.23.2012 Core needle biopsy of right breast with ultrasound guidance 06.24.2012 Colonoscopy with biopsy 2012 Egd (esophagogastroduodenoscopy) 2012 negative for h-pylori Cholecystectomy 03.12.2007 Brief prevention review - Cancer: seeivonne Villalta for breast cancer follow up; had colonoscopy within 10 years, s/p h yst, see derm - Heart disease - see below - ID - tetanus within 10 years - AT - uses seat belts - metabolic - takes Calcium/D Anxiety well controlled at present. GERD asymptomatic. HYPERTENSION = = = = = = = = = = BP Readings from Last 3 Encounters: 03/20/16 96/60 10/19/12 140/83 Patient's goal met? ===== BP <140/90 Yes Adherence HTN meds Yes Diet Yes Exercise Yes Target Organ Damage Lab Lab Results Component Value Date CR 0.6 01/29/2015 CR 0.6 01/29/2015 Other ASCVD risk factors/Labs History Smoking status Former Smoker Smokeless tobacco Never Used Lab Results Component Value Date CHOL 177 01/29/2015 CHOL 177 01/29/2015 LDL 92 01/29/2015 LDL 92 01/29/2015 HDL 52 01/29/2015 HDL 52 01/29/2015 TRI 165 01/29/2015 TRI 165 01/29/2015 No results found for: GLUCOSE No results found for: A1C Body mass index is 26.53 kg/(m^2). Wt Readings from Last 3 Encounters: 03/20/16 85.095 kg (187 lb 9.6 oz) 04/10/15 81.738 kg (180 lb 3.2 oz) 10/19/12 90.992 kg (200 lb 9.6 oz) Immunizations - will do today Immunization History Administered Date(s) Administered Influenza Injectable Quadrivalent (IIV4 P-Free) 04/02/2014 Influenza, seasonal, intradermal pfree 04/13/2013 Td (adult), adsorbed 10/16/2006 Reviewed and updated allergies, medications, past and family/social history, problem list. Objective Physical Exam BP 96/60 | Pulse 66 | Wt 85.095 kg (187 lb 9.6 oz) | SpO2 95% | BMI 26.53 kg/(m^2) General : 61 y.o. female well developed, well nourished and in no acute distress HEENT: normocephalic, atraumatic. PER, mucus membranes moist Neck: supple, symmetrical, t rachea midline, no adenopathy, thyroid normal, No carotid bruit Lungs: Clear to auscultation bilaterally and no wheezes, rubs or rales Heart: RRR, S1, S2 normal, no murmur, click, rub or gallop Abdomen: Soft, non-tender. Bowel sounds normal. No masses, noorganomegaly Musculoskeletal: symmetrical with no deformity, with normal posture Pulses: 3+ and symmetric Ext: no pedal edema, no clubbing or cyanosis Neuro: Grossly normal, non-focal Assessment Assessment / Plan HYPERTENSION Controlled ? Yes Regla was seen today for medication reconciliation. Diagnoses and all orders for this visit: Benign hypertension - Enalapril-Hydrochlorothiazide 10-25 mg oral tablet; Take 1 tablet by mouth once daily . Indications: HYPERTENSION - LIPID SET (TRIG, T CHOL, HDL, CALC LDL); Future - BASIC METABOLIC SET (NA, K, CL, TCO2, BUN, CR, GLU, CA); Future Anxiety, generalized - buPROPion XL 300 mg oral tablet extended release 24 hr; Take 1 tablet by mouth once d aily. Needs flu shot - STAFF TO GIVE: INFLUENZA VACC, QUADRIVALENT, 3+ YEARS, IM Need for hepatitis C screening test - HEPATITIS C ANTIBODY; Future Esophagitis, reflux - omeprazole 20 mg oral capsule,delayed release(DR/EC); Take 1 capsule by mouth two quan es daily before meals. Return in about 1 year (around 03/20/2017) for Hypertension follow up. Patient Instructions Please return FASTING (Nothing but water, black coffee or tea after midnight) to have your blood work checked. The lab here at [facility] is open at 8:00 a.m. Thursday, 7:00 a.m. Thursday - and 10:00 on Thursday. You do not need an appointment, just check in at the vest front presser. Discussed self-monitoring Yes Gave Pt Self-Management Educational Materials Yes Goal documented on AVS and Overview note Yes Jennifer Stout MA - 03/20/2016 11:10 AM PDT Regla Daniel is a 61 y.o. female who is in clinic today alone. Denies any concerns. The patient was screened for the following contraindications to influenza vaccine and respo nses were as follows: Febrile illness today? No Allergy to eggs? No Prior history of a reaction to flu vaccine? No Prior history of Guillain-Riley syndrome? No Chief Complaint Patient presents with Medication reconciliation Health Maintenance Due Topic HEPATITIS C SCREENING INFLUENZA VACCINE (FLU SHOT) Health Maintenance (Actions taken) Health maintenance not supported in this visit type and will address at next regular office visit. documented in this en counter Plan of Treatment Not on filedocumented as of this encounter Visit Diagnoses + + | Diagnosis | + + | Benign hypertension - Primary Essential hypertension, benign | + + | Anxiety, generalized Generalized anxiety disorder | + + | Needs flu shot Need for prophylactic vaccination and inoculation against influenza | + + | Need for hepatitis C screening test Special screening examination for other specified | | viral diseases | + + | Esophagitis, reflux Reflux esophagitis | + + documented in this encounter"
--- OUTSIDE RECORDS SUMMARY | ~2019-05-02 | XMS | Encounter Summary ---
Demographics + + + | Address | [address] [facility] | | | [place] [address] | + + + | Home Phone | | + + + | Preferred Language | Unknown | + + + | Marital Status | | + + + | Scientologist Affiliation | UNK | + + + | Race | White | + + + | Ethnic Group | Not or | + + + Author + + + | Author | [facility] | + + + | Organization | [facility] | + + + | Address [...] [place] | | | | | [address] | | + + + + + Care Team Providers + +------+ + | Care Electrical Technology Instructor Name | Role | Phone | + +------+ + | Ayala Glasgow MD | PCP | | + +------+ + Reason for Visit + + + | Reason | Comments | + + + | Refill Request | bupropion | + + + Encounter Details +--------+--------+ + + + | Date | Type | Department | Care Team | Description | +--------+--------+ + + + | 11/12/ | Refill | [facility] | Ayala Glasgow MD | Refill Request | | 2015 | | Medicine [address] | (bupropion) | | | | [address] [place], | [place], [place] | | | | | [place] [address] | [address] | | | | | [phone] | [phone] | | | | | | | | +--------+--------+ + + + Social History + +-------+ [...]
--- OUTSIDE RECORDS SUMMARY | ~2019-05-02 | XMS | Encounter Summary ---
Demographics + + + | Address | [address] [facility] | | | [place] [address] | + + + | Home Phone | | + + + | Preferred Language | Unknown | + + + | Marital Status | | + + + | Sabianist Affiliation | UNK | + + + | Race | White | + + + | Ethnic Group | Not or | + + + Author + + + | Author | [facility] | + + + | Organization | [facility] | + + + | [...] [place] | | | | | [address] | | + + + + + Care Team Providers + +------+ + | Care Swager Operator Name | Role | Phone | + +------+ + | Ayala Glasgow MD | PCP | | + +------+ + Encounter Details +--------+ + + + + | Date | Type | Department | Care Team | Description | +--------+ + + + + | 03/12/ | H&P-Transcr | [facility] [address] | Juan Ballard | History & Physical | | 2006 | ibed | E The | MD Veto [address] | | | | | [place] | [facility] [address] | | | | | [address] | [place] [address] | | | | | | [phone] | | | | | | | [...]
--- OUTSIDE RECORDS SUMMARY | ~2019-05-02 | XMS | Encounter Summary ---
Demographics + + + | Address | [address] [facility] | | | [place] [address] | + + + | Home Phone | | + + + | Preferred Language | Unknown | + + + | Marital Status | | + + + | Zoroastrian Affiliation | UNK | + + + | Race | White | + + + | Ethnic Group | Not or | + + + Author + + + | Author | [facility] | + + + | Organization | [facility] | + + + | Address [...] [address] | | | | | [place], [place] | | | | | [address] | | + + + + + Care Team Providers + +------+ + | Care Diversity Manager Name | Role | Phone | + +------+ + | Loreta Pierre | PCP | | + +------+ + Encounter Details +--------+ + + + + | Date | Type | Department | Care Team | Description | +--------+ + + + + | 05/13/ | Results | NON[facility] | [place], | | | 2009 | Only | Department | [address] | | | | | | [address] | | | | | | [place] [address] | | | | | | [phone] | | | | | | | [...] | + +--------+ + + + | SCREENING MAMMO | Routin | 05/13/2010 | | Results for this | | [id number] | e | 3:32 PM | | procedure are in the | | | | PST | | results section. | + +--------+ + + + documented in this encounter Results SCREENING MAMMO [id number] (05/13/2010 3:32 PM PST) + + | Specimen | + + | | + + + + + | Narrative | Performed At | + + + | EXAM: SCREENING MAMMOGRAM CLINICAL HISTORY: Screening, no family | [facility] | | history of breast cancer. COMPARISON: 10/06/2008 and 08/28/2006. | DEPARTMENT OF | | TECHNIQUE: CC and MLO views of both breasts were obtained utilizing | RADIOLOGY | | full field digital technique. R2 computer aided detection (CAD) | | | software was utilized in the interpretation of this study. FINDINGS: | | | Scattered fibroglandular densities are visualized throughout both | | | breasts. A skin lesion is marked within the upper far posterior | | | left breast. There is no new dominant mass, suspicious clustered | | | microcalcifications or new area of architectural distortion. Benign | | | right breast calcifications are identified. IMPRESSION: BIRADS 2 - | | | Benign findings. Recommend annual followup. BIRADS 2: BENIGN. The | | | final assessment is a benign finding, negative study. The findings | | | reported have no likelihood of malignancy. No further evaluation is | | | needed at this time, however, recommend routine annual screening | | | mammography. A negative mammography report should not delay biopsy if | | | a dominant mass is present. 15% of breast cancers are not identified | | | by mammography. | | + + + + + | Procedure Note | + + | Interface, Radiology Results - 02/12/2015 1:51 PM PDT EXAM: SCREENING MAMMOGRAM | | CLINICAL HISTORY: Screening, no family history of breast cancer. | | COMPARISON: 10/06/2008 and 08/28/2006. | | TECHNIQUE: CC and MLO views of both breasts were obtained utilizing | | full field digital technique. R2 computer aided detection (CAD) | | software was utilized in the interpretation of this study. | | FINDINGS: Scattered fibroglandular densities are visualized | | throughout both breasts. A skin lesion is marked within the upper | | far posterior left breast. There is no new dominant mass, suspicious | | clustered microcalcifications or new area of architectural | | distortion. Benign right breast calcifications are identified. | | IMPRESSION: | | BIRADS 2 - Benign findings. Recommend annual followup. | | BIRADS 2: BENIGN. The final assessment is a benign finding, negative | | study. The findings reported have no likelihood of malignancy. No | | further evaluation is needed at this time, however, recommend routine | | annual screening mammography. | | A negative mammography report should not delay biopsy if a dominant | | mass is present. 15% of breast cancers are not identified by | | mammography. | + + + +---------+ + + [...]
--- OUTSIDE RECORDS SUMMARY | ~2019-05-02 | XMS | Encounter Summary ---
Demographics + + + | Address | [address] [facility] | | | [place] [address] | + + + | Home Phone | | + + + | Preferred Language | Unknown | + + + | Marital Status | | + + + | Druze Affiliation | UNK | + + + | Race | White | + + + | Ethnic Group | Not or | + + + Author + + + | Author | [facility] | + + + | Organization | [facility] | + + + | [...] [place] | | | | | [address] | | + + + + + Care Team Providers + +------+ + | Care Curriculum Supervisor Name | Role | Phone | + [...] Dx); | | | | [address] [place], | [place], [place] | Anxiety, | | | | [place] [address] | [address] | generalized; Needs | | | | [phone] | [phone] | flu shot; Need for | | [...] blood work checked. The lab here at [facility] is open at 8:00 a.m. Thursday, 7:00 a.m. Thursday - and 10:00 on Thursday. You do not need an appointment, just check in at the commercial front load operator. documented in this encounter Progress Notes Ayala [...] blood work checked. The lab here at [facility] is open at 8:00 a.m. Thursday, 7:00 a.m. Thursday - and 10:00 on Thursday. You do not need an appointment, just check in at the commercial front load operator. Discussed self-monitoring Yes Gave Pt Self-Management Educational [...] to flu vaccine? No Prior history of Guillain-[place] syndrome? No Chief Complaint Patient presents with [...]
--- OUTSIDE RECORDS SUMMARY | ~2019-05-02 | XMS | Encounter Summary ---
Demographics + + + | Address | [address] [facility] | | | [place] [address] | + + + | Home Phone | | + + + | Preferred Language | Unknown | + + + | Marital Status | | + + + | Jainism Affiliation | UNK | + + + | Race | White | + + + | Ethnic Group | Not or | + + + Author + + + | Author | [facility] | + + + | Organization | [facility] | + + + | Address [...] [address] | | | | | [place] | | | | | [address] | | + + + + + Care Team Providers + +------+ + | Care Screening Unit Registered Nurse Name | Role | Phone | + +------+ + | Loreta Pierre | PCP | | + +------+ + Encounter Details +--------+ + + + + | Date | Type | Department | Care Team | Description | +--------+ + + + + | 08/28/ | Results | NON[facility] | Alexys Cavanaugh, | | | 2006 | Only | Department | [facility] | | | | [facility] [address] | | | | | [address] [place], | | | | | | [place] [address] | | | | | | [phone] | | | | | | | [...] + | SCREENING MAMMO | Routin | 08/28/2006 | | Results for this | | [id number] | e | 2:39 PM | | procedure are in the | | | | PST | | results section. | + +--------+ + + + documented in this encounter Results SCREENING MAMMO [id number] (08/28/2006 2:39 PM PST) + + | Specimen | + + | | + + + + + | Narrative | Performed At | + + + | BILATERAL SCREENING MAMMOGRAM: INDICATION: Screening, | [facility] | | asymptomatic. On HRT. FINDINGS: Bilateral MLO and CC views are | DEPARTMENT OF | | compared to outside studies from 09/13/02 and 07/06/01 done in | RADIOLOGY | | [place], [place]. There is no evidence of evolving mass or | | | spiculated distortion, increasing asymmetry, clustered malignant-type | | | microcalcifications or other signs of malignancy. A skin lesion | | | was marked on the left CC view posterolaterally. IMPRESSION: | | | BI-RADS: 1. Annual mammographic follow-up is recommended. BI-RADS | | | 1: The final assessment is negative. There is nothing to suggest | | | the presence of malignancy at this time. A negative x-ray report | | | should not delay biopsy if a dominant mass is present. 10% of | | | cancers are not identified by x-ray. #[id number] | | + + + + + | Procedure Note | + + | Interface, Radiology Results - 02/16/2015 1:35 PM PDT BILATERAL SCREENING MAMMOGRAM: | | INDICATION: Screening, asymptomatic. On HRT. | | FINDINGS: Bilateral MLO and CC views are compared to outside studies | | from 09/13/02 and 07/06/01 done in [place], [place]. There is | | no evidence of evolving mass or spiculated distortion, increasing | | asymmetry, clustered malignant-type microcalcifications or other signs | | of malignancy. A skin lesion was marked on the left CC view | | posterolaterally. | | IMPRESSION: | | BI-RADS: 1. Annual mammographic follow-up is recommended. | | BI-RADS 1: The final assessment is negative. There is nothing to | | suggest the presence of malignancy at this time. | | A negative x-ray report should not delay biopsy if a dominant mass is | | present. 10% of cancers are not identified by x-ray. | | #[id number] | + + + +---------+ + + [...]
--- OUTSIDE RECORDS SUMMARY | ~2019-05-02 | XMS | Encounter Summary ---
Demographics + + + | Address | [address] [facility] | | | [place] [address] | + + + | Home Phone | | + + + | Preferred Language | Unknown | + + + | Marital Status | | + + + | Anglican Affiliation | UNK | + + + | Race | White | + + + | Ethnic Group | Not or | + + + Author + + + | Author | [facility] | + + + | Organization | [facility] | + + + [...] [place] | | | | | [address] | | + + + + + Care Team Providers + +------+ + | Care Industrial Real Estate Agent Name | Role | Phone | + +------+ + | Ayala Glasgow MD | PCP | | + +------+ + Reason for Visit + + + | Reason | Comments | + + + | Refill Request | | + + + Encounter Details +--------+--------+ + + + | Date | Type | Department | Care Team | Description | +--------+--------+ + + + | 12/10/ | Refill | [facility] | Ayala Glasgow MD | Refill Request | | 2017 | | Medicine [address] | [address] | | | | | [address] [place], | [place], [place] | | | | | [place] [address] | [address] | | | | | [phone] | [phone] | | | | | | | [...] + | Diagnosis | + + | Anxiety, generalized Generalized anxiety disorder | + + documented in this encounter"
--- OUTSIDE RECORDS SUMMARY | ~2019-05-02 | XMS | Encounter Summary ---
Demographics + + + | Address | [address] [facility] | | | [place] [address] | + + + | Home Phone | | + + + | Preferred Language | Unknown | + + + | Marital Status | | + + + | Jain Affiliation | UNK | + + + | Race | White | + + + | Ethnic Group | Not or | + + + Author + + + | Author | [facility] | + + + | Organization | [facility] | + + + | Address [...] [place] | | | | | [address] | | + + + + + Care Team Providers + +------+ + | Care Central Sterile Tech Name | Role | Phone | + +------+ + | Ayala Glasgow MD | PCP | | + +------+ + Reason for Visit + + + | Reason | Comments | + + + | Refill Request | [email or web address] | + + + Encounter Details +--------+--------+ + + + | Date | Type | Department | Care Team | Description | +--------+--------+ + + + | 12/11/ | Refill | [facility] | Ayala Glasgow MD | Refill Request | | 2017 | | Medicine [address] | [address] | (omeprazole) | | | | [address] [place], | [place], [place] | | | | | [place] [address] | [address] | | | | | [phone] | [phone] | | | | | | | [...] + | Diagnosis | + + | Esophagitis, reflux Reflux esophagitis | + + documented in this encounter"
--- OUTSIDE RECORDS SUMMARY | ~2019-05-02 | XMS | Encounter Summary ---
Demographics + + + | Address | [address] [facility] | | | [place] [address] | + + + | Home Phone | | + + + | Preferred Language | Unknown | + + + | Marital Status | | + + + | Rastafarian Affiliation | UNK | + + + | Race | White | + + + | Ethnic Group | Not or | + + + Author + + + | Author | [facility] | + + + | Organization | [facility] | + + + | Address [...] [address] | | | | | [place], [place] | | | | | [address] | | + + + + + Care Team Providers + +------+ + | Care Cell Tester Name | Role | Phone | + +------+ + | Loreta Pierre | PCP | | + +------+ + Encounter Details +--------+ + + + + | Date | Type | Department | Care Team | Description | +--------+ + + + + | 03/07/ | Results | NON[facility] | [place], | | | 2009 | Only | Department | [address] | | | | | | [address] | | | | | | [place] [address] | | | | | | [phone] | | | | | | | [...] | + +--------+ + + + | CHEST WITH CONTRAST | Routin | 03/07/2010 | | Results for this | | [id number]+ | e | 8:03 AM | | procedure are in the | | | | PDT | | results section. | + +--------+ + + + documented in this encounter Results CHEST WITH CONTRAST [id number] (03/07/2010 8:03 AM PDT) + + | Specimen | + + | | + + + + + | Narrative | Performed At | + + + | EXAM: CT CHEST WITH CONTRAST CLINICAL HISTORY: Cough, normal chest | [facility] | | x-ray, benign hypertension and history of smoking. TECHNIQUE: | DEPARTMENT OF | | Multiple contiguous axial 5.0 mm images were obtained through the | RADIOLOGY | | chest following the administration of IV contrast. Coronal and | | | sagittal reformats were obtained. COMPARISON: Chest x-ray from | | | 03/01/2010 FINDINGS: There is a pleural based spiculated mass within | | | the periphery of the anterior right upper lobe with a central area of | | | cavitation identified, measuring approximately 2.4 cm transverse x | | | 2.0 cm AP x 2.9 cm craniocaudal. There are adjacent areas of pleural | | | thickening with extension to involve the visceral pleura. There | | | are adjacent satellite areas of ill-defined ground-glass opacity, at | | | least two separate foci within the right upper lobe, which may | | | represent metastatic spread. Within the right lower lobe, there are | | | also at least three separate areas of ill-defined ground-glass | | | opacity which do not form a discrete mass and the area cannot be | | | accurately measured. Linear areas of scarring are seen within the | | | inferior right middle lobe. There is no airway narrowing identified | | | centrally or more distally. There are a few tiny mediastinal lymph | | | nodes, none of which measure more than 1 cm in short axis diameter. | | | The largest node lies in the precarinal region measuring 1.1 cm x | | | 0.6 cm. No hilar lymph nodes are visualized. The heart size is | | | normal. There is no pericardial or pleural effusion seen. No | | | adrenal masses are identified. The gallbladder is surgically | | | absent. No significant adenopathy is visualized within the upper | | | abdomen. IMPRESSION: Pleural based spiculated mass within the | | | anterior right upper lobe with a central area of cavitation and | | | involvement of the visceral pleura, likely representing underlying | | | neoplasm. Recommend CT guided percutaneous biopsy for further | | | evaluation. Adjacent ill-defined non mass-like areas of | | | ground-glass attenuation within the right upper lobe and right lower | | | lobe may possibly represent satellite areas of involvement. No | | | significant mediastinal adenopathy. No adrenal mass. Findings | | | were discussed with Josie Pierre PA-C on 03/08/2010. | | + + + + + | Procedure Note | + + | Interface, Radiology Results - 02/12/2015 1:51 PM PDT EXAM: CT CHEST WITH CONTRAST | | CLINICAL HISTORY: Cough, normal chest x-ray, benign hypertension and | | history of smoking. | | TECHNIQUE: Multiple contiguous axial 5.0 mm images were obtained | | through the chest following the administration of IV contrast. | | Coronal and sagittal reformats were obtained. | | COMPARISON: Chest x-ray from 03/01/2010 | | FINDINGS: There is a pleural based spiculated mass within the | | periphery of the anterior right upper lobe with a central area of | | cavitation identified, measuring approximately 2.4 cm transverse x | | 2.0 cm AP x 2.9 cm craniocaudal. There are adjacent areas of pleural | | thickening with extension to involve the visceral pleura. There are | | adjacent satellite areas of ill-defined ground-glass opacity, at | | least two separate foci within the right upper lobe, which may | | represent metastatic spread. Within the right lower lobe, there are | | also at least three separate areas of ill-defined ground-glass | | opacity which do not form a discrete mass and the area cannot be | | accurately measured. Linear areas of scarring are seen within the | | inferior right middle lobe. | | There is no airway narrowing identified centrally or more distally. | | There are a few tiny mediastinal lymph nodes, none of which measure | | more than 1 cm in short axis diameter. The largest node lies in the | | precarinal region measuring 1.1 cm x 0.6 cm. No hilar lymph nodes | | are visualized. | | The heart size is normal. There is no pericardial or pleural | | effusion seen. No adrenal masses are identified. The gallbladder is | | surgically absent. No significant adenopathy is visualized within | | the upper abdomen. | | IMPRESSION: | | Pleural based spiculated mass within the anterior right upper lobe | | with a central area of cavitation and involvement of the visceral | | pleura, likely representing underlying neoplasm. Recommend CT guided | | percutaneous biopsy for further evaluation. Adjacent ill-defined non | | mass-like areas of ground-glass attenuation within the right upper | | lobe and right lower lobe may possibly represent satellite areas of | | involvement. No significant mediastinal adenopathy. No adrenal | | mass. Findings were discussed with Josie Pierre PA-C on | | 03/08/2010. | + + + +---------+ + + [...]
--- OUTSIDE RECORDS SUMMARY | ~2019-05-02 | XMS | Encounter Summary ---
Demographics + + + | Address | [address] [facility] | | | [place] [address] | + + + | Home Phone | | + + + | Preferred Language | Unknown | + + + | Marital Status | | + + + | Mosque Affiliation | UNK | + + + | Race | White | + + + | Ethnic Group | Not or | + + + Author + + + | Author | [facility] | + + + | Organization | [facility] | + + + | [...] [place] | | | | | [address] | | + + + + + Care Team Providers + +------+ + | Care Management Developer Name | Role | Phone | + +------+ + | Ayala Glasgow MD | PCP | | + +------+ + Encounter Details +--------+ + + + + | Date | Type | Department | Care Team | Description | +--------+ + + + + | 02/18/ | ED Progress | [facility] [address] | Yung Kemp, | ED Progress Note | | 2005 | | [address] | MD [address] | | | | Note-Transc | [place], [place] | [place], [place] | | | | ribed | [address] | [address] | | | | | | [phone] | | | | | | | [...]
--- OUTSIDE RECORDS SUMMARY | ~2019-05-02 | XMS | Encounter Summary ---
Demographics + + + | Address | [address] [facility] | | | [place] [address] | + + + | Home Phone | | + + + | Preferred Language | Unknown | + + + | Marital Status | | + + + | Church Affiliation | UNK | + + + [...] [place] | | | | | [address] | | + + + + + Care Team Providers + +------+ + | Care Job Developer Name | Role | Phone | [...] Description | +--------+--------+ + + + | 12/15/ | Refill | [facility] | Ayala Glasgow MD | Refill Request | | 2015 | | Medicine [address] | [address] | (omeprazole) | | | | St [place], | [place], [place] | | | | | [place] [address] | [address] | | | | | [phone] | [phone] | | | | | | | [...]
--- OUTSIDE RECORDS SUMMARY | ~2019-05-02 | XMS | Encounter Summary ---
Demographics + + + | Address | [address] [facility] | | | [place] [address] | + + + | Home Phone | | + + + | Preferred Language | Unknown | + + + | Marital Status | | + + + | Episcopalian Affiliation | UNK | + + + | Race | White | + + + | Ethnic Group | Not or | + + + Author + + + | Author | [facility] | + + + | Organization | [facility] | + + + [...] [place] | | | | | [address] | | + + + + + Care Team Providers + +------+ + | Care Human Resource Adviser Name | Role | Phone | + +------+ + | Ayala Glasgow MD | PCP | | + +------+ + Encounter Details +--------+ + + + + | Date | Type | Department | Care Team | Description | +--------+ + + + + | 03/20/ | Telephone | [facility] | Eusebio Goodrich MD | | | 2017 | | Medical Clinic | [address] | | | | | Cardiology [address] | [place], | | | | | [address] | [place] [address] | | | | | [place], [place] | [phone] | | | | | [address] | | | | | | [phone] | | | +--------+ + + + [...]
--- OUTSIDE RECORDS SUMMARY | ~2019-05-02 | XMS | Encounter Summary ---
Demographics + + + | Address | [address] [facility] | | | [place] [address] | + + + | Home Phone | | + + + | Preferred Language | Unknown | + + + | Marital Status | | + + + | Pentecostal Affiliation | UNK | + + + | Race | White | + + + | Ethnic Group | Not or | + + + Author + + + | Author | [facility] | + + + | Organization | [facility] | + + + | [...] [place] | | | | | [address] | | + + + + + Care Team Providers + +------+ + | Care Sales And Service Representative Name | Role | Phone | + [...] 2017 | | Medical Clinic | [address] | | | | | Cardiology [address] | [place], | | | | | [address] | [place] [address] | | | | | [place], [place] | [phone] | | | | | [address] | | | | | | [phone] | | | +--------+ + + + [...]
--- OUTSIDE RECORDS SUMMARY | ~2019-05-02 | XMS | Encounter Summary ---
Demographics + + + | Address | [address] [facility] | | | [place] [address] | + + + | Home Phone | | + + + | Preferred Language | Unknown | + + + | Marital Status | | + + + | Confucianism Affiliation | UNK | + + + | Race | White | + + + | Ethnic Group | Not or | + + + Author + + + | Author | [facility] | + + + | Organization | [facility] | + + + [...] [place] | | | | | [address] | | + + + + + Care Team Providers + +------+ + | Care Director Clinical Pharmacology Name | Role | Phone | + [...] | | | | | [address] [place], | [place], [place] | | | | | [place] [address] | [address] | | | | | [phone] | [phone] | | | | | | | [...]
--- OUTSIDE RECORDS SUMMARY | ~2019-05-02 | XMS | Encounter Summary ---
Demographics + + + | Address | [address] [facility] | | | [place] [address] | + + + | Home Phone | | + + + | Preferred Language | Unknown | + + + | Marital Status | | + + + | Spiritism Affiliation | UNK | + + + | Race | White | + + + | Ethnic Group | Not or | + + + Author + + + | Author | [facility] | + + + | Organization | [facility] | + + + | [...] [place] | | | | | [address] | | + + + + + Care Team Providers + +------+ + | Care Nib Inspector Name | Role | Phone | + +------+ + | Ayala Michelle MD | PCP | | + +------+ + Reason for Visit +--------+ + | Reason | Comments | +--------+ + | Lesion | Pt presents for a spot on the left side of her nose. Pt states | | | that she has a few other spots that she would like provider to | | | look at. Pt states that one is on her left hip and the other is | | | on her left thigh, right side of her neck and has a skin tag | | | under her eye. Pt denies any family skin of skin cancer. | +--------+ + Encounter Details +--------+---------+ + + + | Date | Type | Department | Care Team | Description | +--------+---------+ + + + | 04/10/ | Office | Dermatology at | Margaret Arriaga, | Neoplasm of | | 2015 | Visit | Syl Goodwin | ,PhD 1934 | uncertain behavior | | | | Clinic [address] | [address] [place], [place] | of skin (Primary | | | | [place] | [address] | Dx); Skin tag; | | | | [address] | [phone] | Seborrheic | | | | [phone] | | keratosis; Angioma | | | | | | of skin | +--------+---------+ + + + Social History [...] + + + | Blood Pressure | - | - | | + + + + + | Pulse | - | - | | + + + + + | Temperature | - | - | | + + + + + | Respiratory Rate | - | - | | + + + + + | Oxygen Saturation | - | - | | + + + + + | Inhaled Oxygen | - | - | | | Concentration | | | | + + + + + | Weight | 81.7 kg (180 lb 3.2 | 04/10/2015 11:35 AM | | | | oz) | PDT | | + + + + + | Height | 179.1 cm (5' 10.5") | 04/10/2015 11:35 AM | | | | | PDT | | + + + + + | Body Mass Index | 25.49 | 04/10/2015 11:35 AM | | | | | PDT | | + + + + + documented in this encounter Patient Instructions Patient Instructions Margaret Arriaga MD,PhD - 04/10/2015 12:50 PM PDTSUNSCREEN APPLICATIO N AND UV PROTECTION ? Exposure to ultraviolet radiation is the leading cause of premature aging, and skin cance rs including melanoma. ? The [place] [employer]at[employer] (AAD) recommends you wear a wide-brimmed hat, sun gla sses and sun protective clothing. If you must be in the sun, it is recommended to use a Bro ad spectrum sunscreen (blocking both UVA and UVB) with a sun protection factor (SPF) of 30+ (even on cloudy days) and reapply every two hours, or after swimming or heavy perspiration. ? Sunscreens should be applied generously and evenly. One fluid ounce (or the equivalent o f a full shot glass) is the approximate amount of sunscreen required for each person each ti me sunscreen is applied. ? Sunscreens have an expiration date and once that date is reached, they may lose effective ness and should be discarded. ? Sunscreen is also important for blocking reflected UVR (Ultraviolet Radiation). Sand, con crete, snow, water, and other surfaces reflect UVR which has the same effect to your skin as direct sunlight. THE "ABCDE" RULE AND MELANOMA DETECTION Asymmetry - compare one half of the growth to the other half to determine if the halves are equal in size and appearance. Border - If the mole's border is irregular, notched, scalloped, or indistinct, it should be checked by a doctor. Color - Variation of color (e.g., more than one color or shade) within a mole is a suspicio us finding. Diameter - Any mole that has a diameter larger than a pencil's eraser should be checked by a doctor. Evolving - If a mole is changing in size, shape, color, elevation, surface texture or becom es itchy or painful, it should be checked by a doctor. Additional sunscreen and melanoma information is available at the following websites: http://www.[facility]/xd/health/services/dermatology/for-patients/health_info.cfm - [facility] Derm atology http://www.aad.org/public/sun/smart.html - AAD Website documented in this encounter Progress Notes Josie Delacruz MA - 04/11/2015 9:57 AM PDT oAyala harvey MD - 04/10/2015 5:04 PM PDTReviewed. ..........................................AYALA MICHELLE MD , 5:04 PM 04/10/2015 iMargaret michelle MD,P hD - 04/10/2015 11:38 AM PDT DERMATOLOGY NEW PATIENT VISIT CHIEF COMPLAINT: Lesion PCP: Ayala Michelle MD HISTORY OF PRESENT ILLNESS: Regla Daniel is a 60 y.o. female who presents for evaluation of Lesion She has no persona l history of skin cancer but does enjoy being outside, camping and hiking. She has the foll owing concerns: --Some skin tags around her neck and on her eyelids that are interfering occasionally with vision and causing pruritus --A white rough spot on the left side of her nose that was noted by her radiation oncologis t --A mole on her left lower back that has been present for many decades, but frequently catc hes along her waistline and causes discomfort She has no known family history of skin cancer. She does not sunburn easily. The patient's dermatology intake form was reviewed, signed, and dated. Her relevant PMH, F H, and SH includes: PAST MEDICAL HISTORY: Past Medical History Diagnosis Date Psoriasis 2000 drug therapy Menorrhagia 1996 hysterectomy Cyst of cervix 1996 hysterectomy Hypertension medication management Ductal carcinoma in situ (DCIS) of right breast 06.23.2012 right lumpectomy Esophagitis 2003 drug therapy Depression drug therapy Screening for colon cancer 2011 small bowel, NOS, colonoscopy with biopsy Cholecystitis 03.12.2007 cholecystectomy Breast mass 06.24.2012 US guided biopsy Anxiety PAST SURGICAL HISTORY: Past Surgical History Procedure Laterality Date Right breast lumpectomy 06.23.2012 Core needle biopsy of right breast with ultrasound guidance 06.24.2012 Colonoscopy with biopsy 2012 Egd (esophagogastroduodenoscopy) 2012 negative for h-pylori Cholecystectomy 03.12.2007 FAMILY HISTORY: family history includes Depression in her brother; Diabetes in her mother; Hypertension in her mother; Psychiatry in her father (Suicide), paternal uncle, and another family member; a nd Stroke in her mother. SOCIAL HISTORY: Patient reports that she has quit smoking. She has never used smokeless tobacco. She repor ts that she drinks about 24.0 - 25.0 oz of alcohol per week. MEDICATIONS: Current Medication List Name Sig BUPROPION HCL XL 300 MG 24 HR TABLET, EXTENDED RELEASE Take by mouth. BUSPIRONE 15 MG TABLET Take by mouth. CALCIUM CARB-ERGOCALCIFEROL (VIT D2) 500 MG (1,250 MG)-200 UNIT TABLET Take 1 tablet by ora l route daily CYCLOBENZAPRINE 10 MG TABLET take 1 tablet by oral route at bedtime as needed. ENALAPRIL 10 MG-HYDROCHLOROTHIAZIDE 25 MG TABLET HALOBETASOL PROPIONATE 0.05 % TOPICAL CREAM apply bid OMEPRAZOLE 20 MG CAPSULE,DELAYED RELEASE ALLERGIES: -- Sulfa (Sulfonamide Antibiotics) REVIEW OF SYSTEMS: Please see HPI and PMH. In addition, she denies fever, chills, sweats, weight loss or loss of appetite, and has no further skin complaints. PHYSICAL EXAMINATION: Ht 1.791 m (5' 10.5") | Wt 81.738 kg (180 lb 3.2 oz) | BMI 25.48 kg/(m^2) Well-developed, well-nourished female in no acute distress. Awake, alert and oriented. Pl easant and cooperative mood. A skin examination was performed including the scalp, face, eyelids, ears, neck, chest, ba ck, abdomen, buttocks, bilateral arms and legs, bilateral hands and feet, and nails. 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 Biopsy by shave technique performed today; will contact patient with results and arrange f or further care if needed. Procedure Note - Biopsy by shave technique Location: A) L hip, ddx: nevus, neurofibroma Prior to beginning the procedure the team paused to verify the patient's identity, as well as the procedure to be performed and the excision site. All equipment required was ready an d available. The patient was positioned appropriately. A team pause was performed prior to the procedure. After PARQ addressed and scar factors discussed, the areas were prepped with an isopropyl a lcohol pad. Anesthesia was obtained by subcutaneous infusion of buffered 1% lidocaine with 1 :100,000 epinephrine. Biopsy was performed by shave technique. Blood loss was minimal. Th e sites were dressed with white petrolatum jelly and a bandage. Verbal and written wound car e instructions were given to the patient. Patient reports no pain after the procedure. Skin tags, SK (lesion of concern on the L cheek/nose), and angioma Comment: scattered tags on face and neck Plan: ID DESTRUC BENIGN LESION, UP TO 14 LESIONS After PARQ and risk of scarring/hypo/hyperpigmentation discussed, one or two rounds of LN w ere applied to the SKs X 1. Skin tags and angioma removed by snip technique. Expected bliste ring reaction and potential for incomplete treatment was explained and aftercare instruction s provided. Although these lesions are benign, if there are further concerns they were instr ucted to return for re-evaluation. The pt agreed with the plan and showed good understanding . Seborrheic keratosis Comment: L leg Plan: -Pt reassured as to the benign nature, does not require treatment unless symptomatic or repeatedly traumatized. Like any lesion, should it not be stable in size or appearance, or become symptomatic, it should be biopsied to confirm benign nature. Pt instructed to retu rn with any change or concern. RETURN VISIT: Return in about 1 year (around 04/10/2016). Margaret Arriaga MD, PhD Inspector Balance Wheel Motion Department of Dermatology [facility] 04/10/2015 documented in th is encounter Plan of Treatment Not on filedocumented as of this encounter Procedures + +--------+ + + + | Procedure Name | Priori | Date/Time | Associated Diagnosis | Comments | | | ty | | | | + +--------+ + + + | ID DESTRUC BENIGN | Routin | 04/10/2015 | Skin tag | | | LESION, UP TO 14 | e | 12:50 PM | | | | LESIONS | | PDT | | | + +--------+ + + + | ID BIOPSY OF SKIN | Routin | 04/10/2015 | Neoplasm of | | | LESION | e | 12:50 PM | uncertain behavior | | | | | PDT | of skin | | + +--------+ + + + | PATHOLOGY | | 04/10/2015 | | Results for this | | | | 12:00 AM | | procedure are in the | | | | PDT | | results section. | + +--------+ + + + | PATHOLOGY | | 04/10/2015 | | Results for this | | | | 12:00 AM | | procedure are in the | | | | PDT | | results section. | + +--------+ + + + documented in this encounter Results PATHOLOGY (04/10/2015 12:00 AM PDT) + + + | Narrative | Performed At | + + + | | | + + + PATHOLOGY (04/10/2015 12:00 AM PDT) + + + | Narrative | Performed At | + + + | | | + + + documented in this encounter Visit Diagnoses + + | Diagnosis | + + | Neoplasm of uncertain behavior of skin - Primary | + + | Skin tag Unspecified hypertrophic and atrophic condition of skin | + + | Seborrheic keratosis Other seborrheic keratosis | + + | Angioma of skin Hemangioma of skin and subcutaneous tissue | + + documented in this encounter
--- OUTSIDE RECORDS SUMMARY | ~2019-05-02 | XMS | Encounter Summary ---
Demographics + + + | Address | [address] [facility] | | | [place] [address] | + + + | Home Phone | | + + + | Preferred Language | Unknown | + + + | Marital Status | | + + + | Mu-Ism Affiliation | UNK | + + + [...] [place] | | | | | [address] | | + + + + + Care Team Providers + +------+ + | Care Inspectors And Regulatory Officers Name | Role | Phone | + [...] Description | +--------+--------+ + + + | 08/22/ | Refill | [facility] | Ayala Glasgow MD | Refill Request | | 2015 | | Medicine [address] | | | | | [address] [place], | [place], [place] | | | | | [place] [address] | [address] | | | | | [phone] | [phone] | | | | | | | [...]
--- OUTSIDE RECORDS SUMMARY | ~2019-05-02 | XMS | Encounter Summary ---
Demographics + + + | Address | [address] [facility] | | | [place] [address] | + + + | Home Phone | | + + + | Preferred Language | Unknown | + + + | Marital Status | | + + + | Mandaen Affiliation | UNK | + + + | Race | White | + + + | Ethnic Group | Not or | + + + Author + + + | Author | [facility] | + + + | Organization | [facility] | + + + | [...] [address] | | | | | [address] [place] [address] [place] | | | | | [address] | | + + + + + Care Team Providers + +------+ + | Care Inserting Operator Name | Role | Phone | + +------+ + | Ayala Glasgow MD | PCP | | + +------+ + Encounter Details +--------+ + + + + | Date | Type | Department | Care Team | Description | +--------+ + + + + | 02/18/ | Results | NON-[facility] EPIC | Yung Kemp, | | | 2005 | Only | Department | [address] | | | | | [place] | | | | | | [address] | | | | | | [phone] | | | | | | | [...] | + +--------+ + + + | DAB PANEL | Routin | 02/18/2006 | | Results for this | | | e | 8:18 PM | | procedure are in the | | | | PDT | | results section. | + +--------+ + + + | CBC W/DIFF, REFLEX | Routin | 02/18/2006 | | Results for this | | | e | 7:30 PM | | procedure are in the | | | | PDT | | results section. | + +--------+ + + + | BASIC METABOLIC SET | Routin | 02/18/2006 | | Results for this | | (NA, K, CL, TCO2, | e | 7:30 PM | | procedure are in the | | BUN, CR, GLU, CA) | | PDT | | results section. | + +--------+ + + + documented in this encounter Results DAB PANEL (02/18/2006 8:18 PM PDT) + + + + + + | Component | Value | Ref Range | Performed | Pathologist | | | | | At | Signature | + + + + + + | BARBITURATE | NEGATIVE | | [facility] | | | SCREEN, | | | A MEDICAL | | | URINE | | | CENTER | | + + + + + + | COCAINE | NEGATIVE | | [facility] | | | URINE | | | A MEDICAL | | | SCREEN | | | CENTER | | + + + + + + | AMPHETAMINE | NEGATIVE | | [facility] | | | URINE | | | A MEDICAL | | | SCREEN | | | CENTER | | + + + + + + | OPIATE | NEGATIVE | | [facility] | | | URINE | | | A MEDICAL | | | | | | CENTER | | + + + + + + | CANNABINOID | NEGATIVE | | [facility] | | | UR | | | A MEDICAL | | | | | | CENTER | | + + + + + + | PCP URINE | NEGATIVE | | [facility] | | | | | | A MEDICAL | | | | | | CENTER | | + + + + + + | BENZODIAZEP | NEGATIVE | | [facility] | | | INE SCR, UR | | | A MEDICAL | | | | | | CENTER | | + + + + + + | PROPOXYPHEN | NEGATIVE | NG/ML | [facility] | | | E | | | A MEDICAL | | | | | | CENTER | | + + + + + + | METHADONE | NEGATIVE | NG/ML | [facility] | | | SCR, UR | | | A MEDICAL | | | | | | CENTER | | + + + + + + | METHAQUALON | NEGATIVE | NG/ML | [facility] | | | E | | | A MEDICAL | | | | | | CENTER | | + + + + + + + + | Specimen | + + | | + + + + + + + | Performing | Address | City/State/Zipcode | Phone Number | | Organization | | | | + + + + + | [facility] | | | | | LABORATORY | | | | + + + + + | [facility] | [address] | [place] [address] | | | MEDICAL CENTER | [address] | | | + + + + + CBC W/DIFF, REFLEX (02/18/2006 7:30 PM PDT) + + + + + + | Component | Value | Ref Range | Performed | Pathologist | | | | | At | Signature | + + + + + + | WHITE BLOOD | 6.8 | 4.3 - 11.0 X10 | [facility] | | | CELL COUNT | | 3/ul | A MEDICAL | | | | | | CENTER | | + + + + + + | HEMOGLOBIN | 14.4 | 12.0 - 16.0 | [facility] | | | | | g/dL | A MEDICAL | | | | | | CENTER | | + + + + + + | RED BLOOD | 4.82 | 4.2 - 5.4 X10 | [facility] | | | CELL COUNT | | 6/uL | A MEDICAL | | | | | | CENTER | | + + + + + + | HEMATOCRIT | 43.6 | 38.0 - 47.0 % | [facility] | | | | | | A MEDICAL | | | | | | CENTER | | + + + + + + | MCV | 90.5 | 82 - 100 fl | [facility] | | | | | | A MEDICAL | | | | | | CENTER | | + + + + + + | MCH | 29.8 | 28.0 - 32.0 pg | [facility] | | | | | | A MEDICAL | | | | | | CENTER | | + + + + + + | MCHC | 33.0 | 32 - 36 g/dL | [facility] | | | | | | A MEDICAL | | | | | | CENTER | | + + + + + + | RDW | 11.7 (L) | 12 - 15 fL | [facility] | | | | | | A MEDICAL | | | | | | CENTER | | + + + + + + | PLATELET | 279 | 150 - 450 X10 3 | [facility] | | | COUNT | | | A MEDICAL | | | | | | CENTER | | + + + + + + | MPV | 7.5 (L) | 9.0 - 12.0 fL | [facility] | | | | | | A MEDICAL | | | | | | CENTER | | + + + + + + | NEUTROPHIL | 70.2 | 40 - 80 % | [facility] | | | % | | | A MEDICAL | | | | | | CENTER | | + + + + + + | LYMPHOCYTE | 20.2 | 10 - 45 % | [facility] | | | % | | | A MEDICAL | | | | | | CENTER | | + + + + + + | EOS % | 1.9 | 0 - 5 % | [facility] | | | | | | A MEDICAL | | | | | | CENTER | | + + + + + + | BASO % | 1.0 | 0 - 1 % | [facility] | | | | | | A MEDICAL | | | | | | CENTER | | + + + + + + | MONOCYTE % | 6.7 | 2 - 10 % | [facility] | | | | | | A MEDICAL | | | | | | CENTER | | + + + + + + | BANDS % | RECYCLING PROGRAM MANAGER | 0 - 7 % | [facility] | | | | | | A MEDICAL | | | | | | CENTER | | + + + + + + | CBC | ERROR FLAGS -HEMATOLOGY | | [facility] | | | COMMENTS | INSTR. RECYCLING PROGRAM MANAGER | | A MEDICAL | | | | | | CENTER | | + + + + + + | CBC | DEFINITIVE FLAG RECYCLING PROGRAM MANAGER | | [facility] | | | COMMENTS | | | A MEDICAL | | | | | | CENTER | | + + + + + + | CBC | SUSPECT FLAG RECYCLING PROGRAM MANAGER | | [facility] | | | COMMENTS | | | A MEDICAL | | | | | | CENTER | | + + + + + + | CBC | CONDITIONAL FLAG 1 | | [facility] | | | COMMENTS | Comment: | | A MEDICAL | | | | Abnormal WBC Pop | | CENTER | | | | Abnormal RBC Pop | | | | | | Normal PLT Pop | | | | | | | | | | + + + + + + + + | Specimen | + + | | + + + + + + + | Performing | Address | City/State/Zipcode | Phone Number | | Organization | | | | + + + + + | [facility] | | | | | LABORATORY | | | | + + + + + | [facility] | [address] | [place] [address] | | | MEDICAL CENTER | Streets | | | + + + + + BASIC METABOLIC SET (NA, K, CL, TCO2, BUN, CR, GLU, CA) (02/18/2006 7:30 PM PDT) + + + + + + | Component | Value | Ref Range | Performed | Pathologist | | | | | At | Signature | + + + + + + | SODIUM, | 137 | 137 - 146 MEQ/L | [facility] | | | PLASMA | | | A MEDICAL | | | (LAB) | | | CENTER | | + + + + + + | POTASSIUM, | 3.7 | 3.5 - 5.2 MEQ/L | [facility] | | | PLASMA | | | A MEDICAL | | | (LAB) | | | CENTER | | + + + + + + | CO2 | 27 | 22 - 28 MEQ/L | [facility] | | | | | | A MEDICAL | | | | | | CENTER | | + + + + + + | CHLORIDE, | 104 | 98 - 106 MEQ/L | [facility] | | | PLASMA | | | A MEDICAL | | | (LAB) | | | CENTER | | + + + + + + | ANION GAP | 9.7 | 8 - 16 MEQ/L | [facility] | | | | | | A MEDICAL | | | | | | CENTER | | + + + + + + | GLUCOSE, | 95 | 70 - 105 MG/DL | [facility] | | | PLASMA | | | A MEDICAL | | | (LAB) | | | CENTER | | + + + + + + | BUN, PLASMA | 9 | 8 - 30 MG/DL | [facility] | | | (LAB) | | | A MEDICAL | | | | | | CENTER | | + + + + + + | CREATININE | 0.60 (L) | 0.9 - 2.2 MG/DL | [facility] | | | PLASMA | | | A MEDICAL | | | (LAB) | | | CENTER | | + + + + + + | BUN/CREATIN | 15 | 6 - 20 RATIO | [facility] | | | INE RATIO | | | A MEDICAL | | | | | | CENTER | | + + + + + + | CALCIUM, | 8.8 | 8.5 - 10.8 | [facility] | | | PLASMA | | MG/DL | A MEDICAL | | | (LAB) | | | CENTER | | + + + + + + | SALICYLATE | <4.0 | <20.0 MG/DL | [facility] | | | | | | A MEDICAL | | | | | | CENTER | | + + + + + + | ACETAMINOPH | 2.0 (L) | 10.0 - 25.0 | [facility] | | | EN | | MCG/ML | A MEDICAL | | | CONCENTRATI | | | CENTER | | | ON | | | | | + + + + + + | ALCOHOL, | <0.01Comment: THE RESULT | 0.00 - 0.01 | [facility] | | | BLOOD | IS LOWER THAN THE | G/DL | A MEDICAL | | | | DETECTABLE LIMIT | | CENTER | | | | (0.01)FOR THIS ASSAY. | | | | | | | | | | + + + + + + | FASTING? | UNKNOWN | HR | [facility] | | | | | | A MEDICAL | | | | | | CENTER | | + + + + + + | LAST DOSE | NO | | [facility] | | | KNOWN | | | A MEDICAL | | | | | | CENTER | | + + + + + + | LAST DOSE | RECYCLING PROGRAM MANAGER | | [facility] | | | DATE | | | A MEDICAL | | | | | | CENTER | | + + + + + + | LAST DOSE | RECYCLING PROGRAM MANAGER | | [facility] | | | TIME | | | A MEDICAL | | | | | | CENTER | | + + + + + + | LAST DOSE | NO | | [facility] | | | KNOWN | | | A MEDICAL | | | | | | CENTER | | + + + + + + | LAST DOSE | RECYCLING PROGRAM MANAGER | | [facility] | | | DATE | | | A MEDICAL | | | | | | CENTER | | + + + + + + | LAST DOSE | RECYCLING PROGRAM MANAGER | | [facility] | | | TIME | | | A MEDICAL | | | | | | CENTER | | + + + + + + + + | Specimen | + + | | + + + + + + + | Performing | Address | City/State/Zipcode | Phone Number | | Organization | | | | + + + + + | [facility] | | | | | LABORATORY | | | | + + + + + | [facility] | [address] | [place] [address] | | | [facility] | [place] | | | + + + + + documented in this encounter Visit Diagnoses Not on filedocumented in this encounter"
--- OUTSIDE RECORDS SUMMARY | ~2019-05-02 | XMS | Encounter Summary ---
Demographics + + + | Address | [address] [facility] | | | [place] [address] | + + + | Home Phone | | + + + | Preferred Language | Unknown | + + + | Marital Status | | + + + | Sikh Affiliation | UNK | + + + | Race | White | + + + | Ethnic Group | Not or | + + + Author + + + | Author | [facility] | + + + | Organization | [facility] | + + + [...] [place] | | | | | [address] | | + + + + + Care Team Providers + +------+ + | Care Parole Board Member Name | Role | Phone | + [...] | (omeprazole) | | | | [address], | [place], [place] | | | | | [place] [address] | [address] | | | | | [phone] | [phone] | | | | | | | [...]
--- OUTSIDE RECORDS SUMMARY | ~2019-05-02 | XMS | Encounter Summary ---
Demographics + + + | Address | [address] [facility] | | | [place] [address] | + + + | Home Phone | | + + + | Preferred Language | Unknown | + + + | Marital Status | | + + + | Orthodox Affiliation | UNK | + + + | Race | White | + + + | Ethnic Group | Not or | + + + Author + + + | Author | [facility] | + + + | Organization | [facility] | + + + | [...] [address] | | | | | [place], [place] | | | | | [address] | | + + + + + Care Team Providers + +------+ + | Care Ware Carrier Name | Role | Phone | + +------+ + | Loreta Pierre | PCP | | + +------+ + Encounter Details +--------+ + + + + | Date | Type | Department | Care Team | Description | +--------+ + + + + | 03/01/ | Results | [facility] | [place], | | | 2009 | Only | Department | [address] | | | | | | [address] | | | | | | [place] [address] | | | | | | [phone] | | | | | | | [...] | + +--------+ + + + | [facility] CHEST TWO | Routin | 03/01/2010 | | Results for this | | VIEW [id number] | e | 4:02 PM | | procedure are in the | | | | PDT | | results section. | + +--------+ + + + documented in this encounter Results [facility] CHEST TWO VIEW [id number] (03/01/2010 4:02 PM PDT) + + | Specimen | + + | | + + + + + | Narrative | Performed At | + + + | EXAM: TWO VIEW CHEST X-RAY CLINICAL HISTORY: Cough COMPARISON: | [facility] | | 03/10/2007 TECHNIQUE: PA and lateral views of the chest were | DEPARTMENT OF | | obtained. FINDINGS: The heart size is normal. There is an oval | RADIOLOGY | | shaped area of consolidation within the anterior right upper lobe | | | with suggestion of spiculated borders measuring approximately 3.7 cm | | | in largest extent. Recommend CT scan of the chest for further | | | evaluation to exclude underlying mass. Linear areas of atelectasis | | | are noted within the left lateral costophrenic angle and there is | | | ectasia of the thoracic aorta. No pneumothorax, effusion or | | | congestion of the pulmonary vessels is identified. There are early | | | moderate bilateral hypertrophic changes of the AC joints. | | | IMPRESSION: Oval area of consolidation within the anterior right | | | upper lobe with suggestion of spiculated borders. Recommend CT scan | | | of the chest for follow up to exclude underlying mass. | | + + + + + | Procedure Note | + + | Interface, Radiology Results - 02/13/2015 4:02 PM PDT EXAM: TWO VIEW CHEST X-RAY | | CLINICAL HISTORY: Cough | | COMPARISON: 03/10/2007 | | TECHNIQUE: PA and lateral views of the chest were obtained. | | FINDINGS: The heart size is normal. There is an oval shaped area of | | consolidation within the anterior right upper lobe with suggestion of | | spiculated borders measuring approximately 3.7 cm in largest extent. | | Recommend CT scan of the chest for further evaluation to exclude | | underlying mass. Linear areas of atelectasis are noted within the | | left lateral costophrenic angle and there is ectasia of the thoracic | | aorta. No pneumothorax, effusion or congestion of the pulmonary | | vessels is identified. There are early moderate bilateral | | hypertrophic changes of the AC joints. | | IMPRESSION: Oval area of consolidation within the anterior right | | upper lobe with suggestion of spiculated borders. Recommend CT scan | | of the chest for follow up to exclude underlying mass. | + + + +---------+ + + [...]
--- OUTSIDE RECORDS SUMMARY | ~2019-05-02 | XMS | Clinical Summary ---
Demographics + + + | Address | [address] [facility] | | | [place] [address] | + + + | Home Phone | | + + + | Preferred Language | Unknown | + + + | Marital Status | | + + + | Restorationism Affiliation | UNK | + + + [...] [place] | | | | | [address] | | + + + + + Care Team Providers + +------+ + | Care Lap Welder Name | Role | Phone | + +------+ + PCP | Unavailable | + +------+ + Source Comments JESSY is fully live on both Epic[facility] Ambulatory and Epic[facility] InPatient.[facility] Allergies + + + + + + [...] | | | [address] (Home) | [place] [address] | + +--------+ +--------+ + + | Regla Daniel | Person | Self | [birth year] | [address] | | | al/Fam | | [phone] | [phone] | [place], | | | jewel | | | [address] (Home) | [place] [address] | + +--------+ +--------+ + +
--- OUTSIDE RECORDS SUMMARY | ~2019-05-02 | XMS | Encounter Summary ---
Demographics + + + | Address | [address] [facility] | | | [place] [address] | + + + | Home Phone | | + + + | Preferred Language | Unknown | + + + | Marital Status | | + + + | Pentecostalism Affiliation | UNK | + + + | Race | White | + + + | Ethnic Group | Not or | + + + Author + + + | Author | [facility] | + + + | Organization | [facility] | + + [...] [place] | | | | | [phone] | | + + + + + Care Team Providers + +------+ + | Care Roving Inspector Name | Role | Phone | + +------+ + | Ayala Glasgow MD | PCP | | + +------+ + Encounter Details +--------+ + + + + | Date | Type | Department | Care Team | Description | +--------+ + + + + | 08/24/ | Office | [facility] | Vimal Villalta, | Progress Note | | 2012 | Visit-Trans | E The | MD [address] | | | | cribed | [place], [place] | [place], [place] | | | | | [address] | [id number] | | | | | | [phone] | | | | | | | [...] + + documented as of this encounter Progress Notes Vimal Villalta MD - 09/20/2012 8:08 PM [facility] 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 TREATMENT DATES: 08/30/2012 through 09/20/2012. TECHNIQUE: The right breast was treated with segmented conformal radiation montoya using a combination of 6 and 15 MV x-rays. DOSE: Dose of 4256 cGy in 16 treatments of 266 cGy each over 21 elapsed days. COURSE: The patient's DCIS was a very focal site within papilloma containing admixed atypical ductal hyperplasia. There was not enough specimen to determine hormone receptors or for consideration of enrollment on NSABP trial B53. The patient tolerated the radiation treatments reasonably well. She had some fatigue and grade 1 dermatitis that remained stable during the last week of her radiation. There was no desquamation. FOLLOWUP: The patient is going to follow up with Dr. Whitman to discuss tamoxifen. She told me she was likely not to pursue treatment with tamoxifen. In addition, I talked to her about pentoxifylline plus vitamin E for a 6-month course to reduce breast fibrosis, but she declined that. She will return to see me in about 2 months and will be due for her next bilateral mammogram in May. KS/MedQ /[id number] cc: Chandni De M.D. Kathleen Pickering, PA Electronically Signed 09/21/12 0828 MD COURTNEY Murrell SUE E [id number] : 55 [id number] ADMIT DATE: Christen Pan MD - 09/20/2012 3:53 PM [facility] [address] [place] [address] REGLA VALDEZ DATE OF SERVICE: September 20, 2012 REASON FOR VISIT: Followup for ductal carcinoma in situ status post resection and radiation therapy. HISTORY OF PRESENT ILLNESS: Ms. Regla Valdez is a 57-year-old female who I first saw on August 24, 2012. Please see my dictation from that date regarding how the patient came to be diagnosed and my initial recommendations regarding management. Since I last saw her on August 24, 2012, the patient has completed adjuvant radiotherapy. She returns to clinic today to discuss possible adjuvant hormonal therapy. Upon entering the exam room, I asked the patient if she had completed radiation and she replied that she had. I asked her if she had an opportunity to read the informational materials I had provided her about tamoxifen (from [employer]'s CareNotes and [facility]'s web site). She said that she had. I asked her if she had an opportunity to think about our conversation regarding the risks and benefits of hormonal therapy. She replied that she had. The patient then told me that she had decided not to take tamoxifen, principally because she felt that her risk of invasive recurrence was so low, and because she did not want to have any more hot flashes than she is having now. I told the patient that, although her chance of invasive breast cancer recurrence was indeed low, data had shown that this risk could be further lowered by taking 5 years of tamoxifen. I acknowledged her concern regarding the possibility of increased hot flashes on tamoxifen, and offered to prescribe her venlafaxine to suppress her hot flashes before trying tamoxifen. The patient told me that she had JUST restarted Wellbutrin, and was not interested in taking another antidepressant. I acknowledged her concern about taking >1 antidepressants and asked, since she had literally just restarted Welbutrin, if she might be open to the possibility of trying venlafaxine in its place (since it is also FDA-approved for the treatment of depression but, unlike Welbutrin, it can suppress hot flashes). The patient said she did not wish to take either tamoxifen or venlafaxine. I told the patient that, while I was fine with her not taking adjuvant hormonal therapy, I just needed to make sure that she understood the risk that this decision would entail. I told the patient that part of the reason we prescribe tamoxifen for the adjuvant treatment of DCIS is to prevent not only LOCAL invasive recurrences, but also DISTANT invasive recurrences. I told her that distant invasive recurrences (for example, in the liver, lungs, bones or brain) were, by definition, not curable. I told the patient that a trial of tamoxifen now would be undertaken with curative intent, but that if and when she developed a distant invasive recurrence, medicines could only slow the cancer down at best. The patient told me that she did not like scare tactics and left the room. Somewhere between her arrival and her (abrupt) departure, I did ask her if she would like to return for active surveillance. She told me that Dr. Cuadra and Dr. Villalta could take care of this. Immediately after the patient left, I told the patient's partner to please apologize to the patient on my behalf if she had perceived what I had said as a scare tactic, and clarified that this was not at all my intention. I told the patient's partner that I would be glad to see the patient if I could be of further assistance. She told me that they would let me know. REGLA VALDEZ [id number] : 55 [id number] SERVICE DATE: 09/20/12 KARLA/Juani /[id number] cc: Aileen Cuadra M.D. Vimal Villalta M.D., Ph.D. KARLA Cota Electronically Signed 09/24/12 1706 MD COURTNEY Mckeon SUE E [id number] : 55 [id number] SERVICE DATE: 09/20/12 Vimal Cervantes MD - 09/17/2012 2:[address] [facility] [address] [place] [address] REGLA VALDEZ DATE OF SERVICE: September 17, 2012 This patient has received 3990 cGy in 15 treatments to the right breast for DCIS. She has 1 more planned treatment. She has mild fatigue and some itchiness of the seborrheic keratosis as noted last week on the lateral aspect of her breast. She has rarely used the hydrocortisone cream that I recommended for that. She continues to use Myoderm regularly. Her weight is 200 pounds which is stable with blood pressure 131/86, heart rate 81, respiratory rate 20. She has grade 1 dermatitis with erythema within the radiation volume over the right breast and no desquamation. She is tolerating the treatments well and is scheduled to complete them after 1 more dose. She will follow up with Dr. Whitman the same day she completes her radiation to discuss tamoxifen. She told me she was leaning away from taking the medication. I previously discussed the option of pentoxifylline plus vitamin E for a 6 month course to reduce breast fibrosis. She declined that today. After she completes her treatments, she will return to see me in about 2 months. She will be due for her next bilateral mammogram in May. I reviewed portal imaging. TEMO/Juani /[id number] Electronically Signed 09/17/12 1507 MD COURTNEY Murrell SUE E [id number] : 55 [id number] ADMIT DATE: Vimal Cervantes MD - 09/10/2012 2:[address] [facility] [address] [place] [address] REGLA VALDEZ DATE OF SERVICE: September 10, 2012 This patient is receiving radiation treatments to the right breast for ductal carcinoma in situ. She has reached a dose of 2660 cGy in 10 treatments in a hypofractionated whole-breast regimen. She notices some tenderness of the breast and has some fatigue. Her depression is doing better this week than last. Her weight is 200 pounds, which is up 4 pounds from a week ago, with blood pressure 149/92, heart rate 65, respiratory rate 18. She has grade 1 dermatitis with skin erythema and no desquamation. She does have a seborrheic keratosis laterally on the breast that is a bit flaky. She stated that it itches intermittently and is being exacerbated by the radiation. The patient is tolerating the treatments well and will continue them as planned. I advised that she use hydrocortisone 1% over- the-counter cream to the irritated seborrheic keratosis 3 times per day. I also talked to her about the option for using pentoxifylline plus vitamin E for a 6- month course after she completes radiation with the goal of decreasing breast fibrosis. She will consider that. She also has a follow-up visit with Dr. Whitman right after she finishes the radiation to again discuss tamoxifen. She told me she is fairly certain at this point that she will not take hormone modulatory therapy. I reviewed portal imaging. Jac /[id number] Electronically Signed 09/10/12 1519 MD COURTNEY Murrell SUE E [id number] : 55 [id number] ADMIT DATE: Vimal Cervantes MD - 09/03/2012 2:50 PM [facility] [address] [place] [address] REGLA VALDEZ DATE OF SERVICE: September 03, 2012 This patient has received 1330 cGy in 5 treatments to the right breast for ductal carcinoma in situ. She is getting a hypofractionated whole-breast regimen with no plan for a boost. She is fatigued and feels depressed. She has had some depression in the past and has a family history of depression. She is not on any antidepressant medication. Her weight is 196 pounds, which is down 5 pounds since 08/24/2012, with blood pressure 134/89, heart rate 73, respiratory rate 18. She is tolerating the radiation itself well, but is having some depression. I asked if she would speak with our social media sr strategy manager, or if I could get her help with another counselor. She declined at this time. However, she reassured me that she would notify either me or another member of our staff if she is willing to in the future. She will continue the radiation treatments as planned. I reviewed portal imaging. Jac /[id number] Electronically Signed 09/06/12 0836 MD COURTNEY Murrell SUE E [id number] : 55 [id number] ADMIT DATE: Vimal Cervantes MD - 08/30/2012 6:42 PM [facility] [address] [place] [address] REGLA VALDEZ DATE OF SERVICE: August 30, 2012 RE: REGLA VALDEZ This patient will be charged a special treatment procedure due to the increased complexity associated with the planning and delivery of segmented conformal radiation montoya that I designed myself in order to enhance dose homogeneity. TEMO/Juani /[id number] Electronically Signed 08/31/12 0813 MD COURTNEY Murrell SUE E [id number] : 55 [id number] ADMIT DATE: Vimal Oleary MD - 08/30/2012 6:29 PM [facility] [address] [place] [address] REGLA VALDEZ DATE OF SERVICE: August 30, 2012 I did a field verification simulation on this patient. Patient was positioned on the treatment table. I held time-out with the therapist to confirm the patient's identity by name and photograph and the site of treatment. Cone-beam CT imaging was acquired. This was registered with her treatment planning CT scan. I prescribed the shifts as indicated by that registration which were then carried out. Field verification images were acquired for each treatment field. I compared those images with DRRs and confirmed the isocenter position, field sizes, and orientation of the MLC blocking. I also confirmed the light field projection directly on the patient's skin. TEMO/Juani /[id number] Electronically Signed 08/31/12 0813 MD COURTNEY Murrell SUE E [id number] : 55 [id number] ADMIT DATE: Vimal Oleary MD - 08/25/2012 3:24 PM [facility] [address] [place] [address] REGLA VALDEZ DATE OF SERVICE: August 25, 2012 RE: REGLA VALDEZ This note will serve as a clinical treatment planning note. DIAGNOSIS: Breast tumor. TREATMENT SITE: Right breast. INTENT OF TREATMENT: Curative adjuvant. MODALITY: Photon. DOSE AND FRACTIONATION: Dose of 4256 cGy in 16 treatments. CONTEMPLATED TECHNIQUE: 3D conformal. TEMO/Juani /[id number] Electronically Signed 08/26/12 1146 MD COURTNEY Murrell SUE E [id number] : 55 [id number] ADMIT DATE: Vmial Oleary MD - 08/25/2012 3:21 PM [facility] [address] [place] [address] REGLA VALDEZ DATE OF SERVICE: August 25, 2012 I simulated this patient in preparation for treating her right-sided ductal carcinoma in situ of the breast. After consent was obtained, the patient was positioned supine on the simulator table with her arms above her head on a wing board. I held a time-out with the therapist to confirm the patient's identity by name and date, as well as the site of treatment being the right breast. I delineated the desired field borders on the patient's skin. AP and lateral simulation images were acquired at the origin position. The patient was permanently marked in that position and she will have a CT scan for 3-dimensional computerized treatment planning. TEMO/Juani /[id number] Electronically Signed 08/26/12 1146 Vimal Villalta MD REGLA VALDEZ [id number] : 55 [id number] ADMIT DATE: Christen Morris MD - 08/24/2012 8:28 PM [facility] [address] [address] REGLA VALDEZ DATE OF SERVICE: August 24, 2012 DIAGNOSIS: Ductal carcinoma in situ (DCIS), papilloma, usual ductal hyperplasia, and atypical ductal hyperplasia, all within the same right lumpectomy specimen (collected July 26, 2012). REASON FOR REFERRAL: Recommendations regarding the above. PRESENT ILLNESS: Ms. Regla Valdez is a 57-year-old female who underwent bilateral routine screening mammography on June 16, 2012. This study showed an area of thickening in the central right breast that resulted in this study's classification as BI-RADS 0. The patient underwent additional views on June 23, 2012. This study was also classified as BI-RADS 0. Same day ultrasound revealed an irregular 1.7 x 0.7 x 1.1 cm hypoechoic mass present in the retroareolar area. This study was categorized as BI-RADS 4. Ultrasound-guided biopsy was performed on June 24, 2012. Pathology report from this procedure described only fragments of papilloma with no atypia. The patient underwent right lumpectomy on July 26, 2012. This specimen was submitted to [facility] ([facility]) for review. The final pathology report describes the right lumpectomy specimen as containing "papilloma with usual ductal hyperplasia, admixed atypical ductal hyperplasia, and focal ductal carcinoma in situ." Within the comments section of this pathology report, the following statement is made: "while the foci most concerning for DCIS appear excised, generally with a margin of 0.2 cm, the papillary neoplasm is within 0.2 cm of margin." No hormone receptor status is included in this pathology report. It is my impression that there may not have been enough DCIS component available for hormone receptor testing. The patient reports that she has generally recovered well from her surgery. She saw my colleague, Dr. Vimal Villalta, earlier today. He recommended 4256 cGy in 16 fractions of the right breast for adjuvant treatment of DCIS. She comes to my clinic to discuss possible adjuvant hormonal therapy. When I ask the patient if she has recently experienced any constitutional symptoms, the patient replies that she has not, specifically denying any recent unintentional weight loss, drenching night sweats, or profound fatigue. Prior to her surgery, the patient noticed no obvious skin changes or nipple discharge. She reports that her wound is healing well. PAST MEDICAL HISTORY: Significant for: 1. Hypertension. 2. Gastroesophageal reflux disease. 3. Major depression. 4. Hot flashes, for which the patient took Premarin for around 13-14 years (with discontinuation in late 2011). PAST SURGICAL HISTORY: Significant for: 1. Appendectomy. 2. Hysterectomy. 3. Hemorrhoidectomy. 4. Cholecystectomy. REGLA VALDEZ [id number] : 55 [id number] SERVICE DATE: 08/24/12 5. Left rotator cuff repair. FAMILY HISTORY: Positive for an unknown malignancy in the patient's maternal grandfather. 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 She comes to clinic today accompanied by her domestic partner (and soon to be ), Villa Morgan. They are both outdoors enthusiasts and enjoy camping together near the [facility]. The patient endorses a 13-[id number] history of cigarette smoking from ages [age]. She endorses a longstanding history of regular alcohol consumption. She currently drinks around 4 days a week, consuming 1-3 six-packs of beer on those days. The patient has never used illicit drugs. REVIEW OF SYSTEMS: Negative for any recent unintentional weight loss, drenching night sweats, profound fatigue, cough, shortness of breath, chest pain, palpitations, lower extremity edema, abdominal pain, nausea or vomiting. Positive for occasional constipation alternating with diarrhea. Negative for any melena, bright red blood per rectum, dysuria, hematuria, skin rashes, seizures, syncope or vertigo. MEDICATIONS: Outpatient medications currently include: 1. Prilosec 20 mg p.o. b.i.d. 2. Enalapril 10 mg p.o. daily. 3. Os-Victor M 500 mg p.o. daily. ALLERGIES: INCLUDE ADVERSE DRUG REACTIONS FOLLOWING ADMINISTRATION OF SULFONAMIDES. VITAL SIGNS: Included a temperature of 98.3, heart rate of 58, blood pressure 150/88, oxygen saturation of 93% on room air. The patient weighed 199.8 pounds. She measured 69-1/4 inches in height. PHYSICAL EXAMINATION: GENERAL: This is a 57-year-old female, awake, alert, oriented, and in no acute distress. HEAD AND EYES: Atraumatic normocephalic. Pupils equally round, reactive to light and accommodation. Extraocular muscles intact. EARS, NOSE, THROAT: Negative for any thrush, mucositis or other identifiable abnormality. NECK: Without thyromegaly, jugular venous distention or cervical lymphadenopathy. Likewise, she has no palpable supraclavicular, axillary or inguinal lymphadenopathy. CHEST: Clear to auscultation bilaterally with no wheezes, rales or rhonchi. CARDIOVASCULAR: She has a regular rate and rhythm with no murmurs, gallops or rubs. BREASTS: Significant for a periareolar incision on the inferior aspect of the right breast, which is almost completely healed. There is some slight soft-tissue thickening underlying the incision, but I am unable to identify any other abnormality in either breast. ABDOMEN: Nontender, nondistended x4, with normal bowel sounds present. EXTREMITIES: Without clubbing, cyanosis or edema. REGLA VALDEZ [id number] : 55 [id number] SERVICE DATE: 08/24/12 SKIN: Without rash or jaundice. NEUROLOGIC: Her cranial nerves are grossly intact and she is able to move all 4 extremities with no focal deficits. LABORATORY: Values are currently pending. I have ordered a baseline complete blood count, complete metabolic panel, and viral hepatitis panel (since the patient's partner, Villa, has a history of viral hepatitis, which she was told may have been related to an adverse drug reaction when she had to take tamoxifen for her breast cancer). DIAGNOSTIC IMAGING STUDIES: As described in the history of present illness. ASSESSMENT AND PLAN: Ms. Regla Valdez is a 57-year-old female from [place], [place] with newly diagnosed ductal carcinoma in situ, status-post right lumpectomy on July 26, 2012. As above, the patient will soon be undergoing adjuvant radiation. I explained to her that the standard of care for ductal carcinoma in situ after excision and radiation would be 5 years of tamoxifen therapy. I explained to her and her partner the potential side effects associated with this medicine, including (but not limited to) increased frequency or severity of hot flashes, endometrial cancer (in patients with an intact uterus, which she does not have), and venous thromboembolic disease. I provided her with informational handouts from [employer] and [facility]'s website regarding tamoxifen. The patient was understandably concerned that tamoxifen may precipitate either frequent and/or severe hot flashes. I discussed with her the utility of venlafaxine in this setting. I added that this may offer benefit with regard to her major depression as well. I provided her with an informational handout from [employer] regarding venlafaxine and encouraged her to read all the above materials between now and when she finishes radiation. I also told her that, if she was considering cutting back on her drinking, now might be a good time to try that (given the hepatic metabolism of tamoxifen). I reassured the patient that I would not recommend this therapy if I was not confident that the overall benefit far outweighed the overall risks. I will schedule Ms. Valdez to see me back shortly after she finishes radiation to discuss this further. I encouraged the patient to contact us should she develop any new physical symptoms of concern or should questions arise between now and the time of her followup appointment date. The patient voiced understanding of the above plan and wished to proceed. All her questions and those of her partner were answered to their mutual satisfaction. I will look forward to seeing them upon her return. KARLA/Juani /[id number] cc: Chandni Jansen PA Electronically Signed 08/29/12 1647 MD COURTNEY Mckeon SUE E [id number] : 55 [id number] SERVICE DATE: 08/24/12 Vimal Oleary MD - 08/24/2012 1:37 PM [facility] [address] [place] [address] REGLA VALDEZ DATE OF SERVICE: August 24, 2012 RE: REGLA VALDEZ CHIEF COMPLAINT: Breast tumor. HISTORY OF PRESENT ILLNESS: This is a 57-year-old woman resort referred by Dr. Aileen Benedict regarding possible radiation treatments for recently diagnosed ductal carcinoma in situ (DCIS) of the right breast. She did not notice any breast abnormalities. She had a screening mammogram on 06/16/2012. That showed an area of thickening in the central right breast. She came in for magnification views and ultrasound on 06/23/2012. That demonstrated thickening about 3 cm behind the right nipple on the magnification view. The ultrasound showed a 1.7 x 0.7 x 1.1 cm hypoechoic mass in the retroareolar region highly suspicious for carcinoma. Ultrasound-guided core biopsy was done on 06/24/2012 with clip placement verified in the mass. Biopsy showed fragments of papilloma with no atypia. The patient was evaluated by Dr. Benedict and it was elected to undergo resection. This was done on 07/26/2012. The pathology was reviewed at [facility] ([facility] The final diagnosis is papilloma with usual ductal hyperplasia admixed with atypical ductal hyperplasia and focal ductal carcinoma in situ. The specimen showed a margin on the DCIS of 0.2 cm. The papillary neoplasm was within 0.2 cm of the margin. I do not have any hormone receptors nor do I know if it is even possible to get on this specimen. The patient reports healing up very well after her surgery. She underwent menarche at age 14. Age at first was 24. history is G4. P2. She had a ADELA/BSO at age of 43 for uterine fibroids. She was on Premarin replacement from 1996 to 2009. She quit at that time and has had hot flashes and night sweats. She has no family history of breast cancer. The only cancer that she knows of was in 1 of her grandfathers, who in his 90s of an unknown type of cancer. PAST MEDICAL HISTORY: 1. Appendectomy in 1990. 2. ADELA/BSO in 1996. 3. Shoulder surgery in 2000. 4. Laparoscopic cholecystectomy in 2006. 5. GERD. 6. Hypertension. MEDICATIONS: 1. Omeprazole. 2. Enalapril. 3. Calcium. ALLERGIES: SULFA. FAMILY HISTORY: Noncontributory, see above. REGLA VALDEZ [id number] : 55 [id number] ADMIT DATE: SOCIAL HISTORY: The patient lives in [place] with her domestic partner. She works at the [employer] in [place]. She has about a [id number] history of smoking and quit 14 years ago. REVIEW OF SYSTEMS: A 14-point system review form was completed by the patient and is on file in her Radiation Oncology chart. In addition to the items noted above, it was positive for depression. She is not having any headache, new musculoskeletal pain or new lung symptoms. She has not noticed any enlarged lymph nodes. EXAMINATION: GENERAL: Overweight woman in no acute distress. VITAL SIGNS: Her weight is 201 pounds with blood pressure 145/99, heart rate 56. LYMPHATICS: No cervical, supraclavicular or axillary lymphadenopathy. LUNGS: Clear to auscultation and percussion. MUSCULOSKELETAL: No tenderness over the spine or ribs. BREASTS: The right breast has a periareolar incision on the inferior aspect that is well healed. It has about a 3 x 1.5 cm region of ill-defined induration deep to it. There are no masses elsewhere in the breast. The left breast has no masses. HEART: Regular rate and rhythm without murmur. ABDOMEN: Soft, nontender, without masses or hepatomegaly. EXTREMITIES: No edema. NEURO: Fully alert and oriented. Speech is normal. Gait is normal. 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 The DCIS involved focal disease within a papilloma having atypical ductal hyperplasia. The closest surgical margin on the DCIS was 2 mm. The papilloma margin was also within 2 mm. I understand from Dr. Benedict that it is felt this represents adequate surgery from the benign portion of the neoplasm and certainly is adequate for the DCIS. We talked about the use of radiation to reduce the risk of in-breast recurrence of either invasive or noninvasive disease. The patient is interested in pursuing such treatment. I talked to her about the different forms of radiation. She does not fit a standard diagnosis for accelerated partial-breast radiation. She could either consider conventionally fractionated external beam radiation or a hypofractionated whole- breast regimen. The patient is very much interested in pursuing the hypofractionated regimen given their travel plans and distance from where they live to the treatment center. I explained that there is some extrapolation of results from invasive disease to DCIS with the hypofractionated regimen, but it is considered a standard form of treatment for this disease now. Consequently, I recommended 4256 cGy in 16 fractions to the right breast. I had a PARQ conference with the patient in the presence of her domestic partner in which I described the rationale for radiation, logistics of therapy, and potential acute and chronic risks. My explanation of risk included, among other things, skin redness and peeling, fatigue, long-term darkening of the skin with breast fibrosis and poor cosmetic outcome, inflammation of the lung, arm swelling, secondary tumor from the radiation, and the possibility that the tumor comes back locally or distantly despite the treatments. These risks were put in perspective and the patient has consented to treatment. In addition, she will be meeting with Dr. Whitman to discuss the role of systemic treatment. I failed to note above that her maximum separation for the radiation beams would be 22.5 cm, which is well within the standard inclusion criteria. TEMO/Juani REGLA VALDEZ [id number] : 55 [id number] ADMIT DATE: /[id number] cc: Chandni Jansen M.D. Kathleen Pickering, PA Electronically Signed 08/24/12 1502 MD COURTNEY MurrellREGLA E [id number] : 55 [id number] ADMIT DATE: documente d in this encounter Plan of Treatment Not on filedocumented as of this encounter Visit Diagnoses Not on filedocumented in this encounter
--- OUTSIDE RECORDS SUMMARY | ~2019-05-02 | XMS | Encounter Summary ---
Demographics + + + | Address | [address] [facility] | | | [place] [address] | + + + | Home Phone | | + + + | Preferred Language | Unknown | + + + | Marital Status | | + + + | Gnosticist Affiliation | UNK | + + + [...] | + + + + + | Kyala Meléndez | ECON | [address] | | | | | [place] | | | | | [address] | | + + + + + Care Team Providers + +------+ + | Care Cable Television Technician Name | Role | Phone | + +------+ + | Ayala Michelle MD | PCP | | + +------+ + Encounter Details +--------+ + + + + | Date | Type | Department | Care Team | Description | +--------+ + + + + | 11/27/ | Hospital | Mammography at | Ayala Michelle MD | | | 2017 | Encounter | [facility] [address] | [address] | | | | | [address] | [place], [place] | | | | | [place], [place] | [address] | | | | | [address] | [phone] | | | | | | | [...] + + documented as of this encounter Medications at Time of Discharge + + + +---------+ + + | Medication | Sig | Dispensed | Refills | Start | End Date | | | | | | Date | | + + + +---------+ + + | Calcium | Take 1 tablet by | | 0 | 04/04/20 | | | Carbonate-Vitamin D2 | oral route daily | | | 13 | | | (OS-AURE 500+D) 500 | | | | | | | mg(1,250mg) -200 | | | | | | | unit oral tablet | | | | | | + + + +---------+ + + | | TAKE 1 TABLET BY | 90 | 0 | 05/19/20 | | | ENALAPRIL-HYDROCHLOR | MOUTH DAILY FOR HIGH | tablet | | 16 | | | OTHIAZIDE 10-25 mg | BLOOD PRESSURE | | | | | | oral tablet | | | | | | + + + +---------+ + + | halobetasol | apply bid | | 0 | 08/23/19 | | | (ULTRAVATE) 0.05 % | | | | 15 | | | topical cream | | | | | | + + + +---------+ + + | LORazepam 0.5 mg | | | 0 | 08/11/19 | | | oral tablet | | | | 17 | | + + + +---------+ + + | nitroglycerin 0.4 | Place 1 tablet under | 25 | 3 | 08/14/19 | | | mg sublingual | tongue every five | tablet | | 17 | | | tablet, sublingual | minutes as needed | | | | | | | for chest [...] 15 minutes. | | | | | + + + +---------+ + + documented as of this encounter Progress Notes Ayala Michelle MD - 11/27/2016 4:27 PM PDTLetter sent .....................AYALA MICHELLE MD, 1:52 PM 04/27/2015 Tdocumented in this encounter Plan of Treatment Not on filedocumented as of this encounter Procedures + +--------+ + + + | Procedure Name | Priori | Date/Time | Associated Diagnosis | Comments | | | ty | | | | + +--------+ + + + | [place] DIGITAL MAMMO | Routin | 11/27/2016 | Visit for | Results for this | | SCREEN BILAT | e | 1:02 PM | screening mammogram | procedure are in the | | | | PDT | | results section. | + +--------+ + + + documented in this encounter Results [place] DIGITAL MAMMO SCREEN BILAT (11/27/2016 1:02 PM PDT) + + | Specimen | + + | | + + + + + | Narrative | Performed At | + + + | [address] [place] [address] | [facility] | | [place] [address] DEPARTMENT | | [phone] Name: REGLA DANIEL Phys: | RADIOLOGY | | MIGUEL ANGELAYALA : 1955 Sex: F CSN: | | | [id number] MR# [id number] Exam Date: 11/27/2016 | | | EXAM: [place] DIGITAL MAMMO SCREEN BILAT CLINICAL HISTORY: | [...] Electronically signed by: | | | Omero Johnson MD Transcribed Date/Time: 11/27/2016 14:22 | | | Hull Inspector: JENNIE | | + + + + + | Procedure Note | + + | Interface, Radiology Results - 11/27/2016 2:27 PM PDT [address] | | [address] [place] [address] | | Name: REGLA DANIEL Phys: AYALA MICHELLE : 1955 Sex: F CSN: | | [id number] MR# [id number] Exam Date: 11/27/2016 EXAM:[place] DIGITAL MAMMO SCREEN | | BILAT CLINICAL HISTORY:61-year-old asymptomatic female. 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 COMPARISON:10/17/2015, 08/30/2014, | | and 08/23/2014. TECHNIQUE:Bilateral MLO and CC full field digital mammography was | | performed.[employer] computer aided detection (CAD) software was utilized [...] | | |Transcribed Date/Time: 11/27/2016 14:22 | |Hull Inspector: FLUENCY | | | | | | [...] + + | Visit for screening mammogram Other screening mammogram | + + documented in this encounter"
--- OUTSIDE RECORDS SUMMARY | ~2019-05-02 | XMS | Encounter Summary ---
Demographics + + + | Address | [address] [facility] | | | [place] [address] | + + + | Home Phone [...] [place] | | | | | [address] | | + + + + + Care Team Providers + +------+ + | Care Manager Library Name | Role | Phone | + +------+ + | Ayala Glasgow MD | PCP | | + +------+ + Encounter Details +--------+ + + + + | Date | Type | Department | Care Team | Description | +--------+ + + + + | 03/19/ | Abstract | [facility] | [place], | | | 2014 | | Medicine [address] | [address] | | | | | [address] [place], | [place] | | | | | [place] [address] | [place] [address] | | | | | [phone] | [phone] | | | | | | | [...]
--- OUTSIDE RECORDS SUMMARY | ~2019-05-02 | XMS | Encounter Summary ---
Demographics + + + | Address | [address] [facility] | | | [place] [address] | + + + | Home Phone | | + + + | Preferred Language | Unknown | + + + | Marital Status | | + + + | Denominational Affiliation | UNK | + + + | Race | White | + + + | Ethnic Group | Not or | + + + Author + + + | Author | [facility] | + + + | Organization | [facility] | + + + [...] [place] | | | | | [address] | | + + + + + Care Team Providers + +------+ + | Care Noodle Maker Name | Role | Phone | + +------+ + | Ayala Glasgow MD | PCP | | + +------+ + Reason for Visit + + + | Reason | Comments | + + + | New Patient Visit | Abnormal EKG | + + + Encounter Details +--------+---------+ + + + | Date | Type | Department | Care Team | Description | +--------+---------+ + + + | 08/14/ | Office | [facility] | Eusebio Goodrich MD | Abnormal EKG | | 2017 | Visit | Medical Clinic | [address] | (Primary Dx) | | | | Cardiology [address] | [address] [place], | | | | | [address] | [place] [address] | | | | | [place], [place] | [phone] | | | | | [address] | | | | | | [phone] | | | +--------+---------+ + + + Social History [...] + + + | Blood Pressure | 128/88 | 08/14/2016 7:41 AM | left arm | | | | PST | | + + + + + | Pulse | 76 | 08/14/2016 7:41 AM | | | [...] + + + + | Weight | 90.3 kg (199 lb) | 08/14/2016 7:41 AM | | | | | PST | | + + + + + | Height | - | - | | + + + + + | Body Mass Index | 28.55 | 05/06/2016 10:25 AM | | | | | PST | | + + + + + documented in this encounter Patient Instructions Patient Instructions Eusebio Goodrich MD - 08/14/2016 8:00 AM PST1. Chest pain - There is a possibility that the intermittent chest pains are due to spasm of smooth muscl e - e.g. Spasm of the esophagus, or even of the arteries of the heart - Next time you get chest pain, you can try taking a nitroglycerin tablet under your tongue . If the nitroglycerin consistently works, then we could try putting you on a long-acting n itroglycerin tablet. - Return to cardiology in 3 months 8 :28 AM PST documented in this encounter Progress Notes Ayala Glasgow MD - 08/14/2016 8:00 AM PSTNoted and agree .....................AYALA LOZADA MD, 10:50 AM 08/14/2016 ei, Eusebio Meehan MD - 8:00 AM PST Regla Daniel is a 61 y.o. female referred by Ayala Glasgow MD and Aileen Cuadra MD in [facility] for evaluation of chest pain. History of present illness Ms. Daniel has had intermittent epigastric/chest pains for > 10 years. She says that the pain is "deep and sharp" and very severe when it happens. She has tried multiple things to relieve the pain over the years, and the only thing that consistently works is drinking cold water. If she does not drink water, the pain can last for 20 - 30 min. It is not associat ed with water brash, and the pain is not relieved with antacids (Tums). She has been on ome prazole for years, which has helped prevent GERD symptoms at night, but has not made any dif ference to the sporadic episodes of severe chest pain. The pain can develop at any time - a t rest, during activity, waking her up from sleep, and is totally unpredictable. She does n ot endorse any history of dysphagia or odynophagia - but she does feel that when she drinks cold water it feels like "something relaxes" inside. The patient drinks 10 - 12 beers/night. She drinks more when she is not working, and she h as not been working for the last 2 months. She has not noticed any relationship between ETO H intake and chest pain. She denies using any illicit drugs. She is status post cholecyste ctomy. 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 She has never had exert ionally provoked chest discomfort or SOB. She had a stress ECG performed for the same chest pain she is complaining about now on 05/31/04 which was negative. She never had an ECG perf ormed during chest pain. She has left axis deviation from left anterior fascicular block - There is no change between the ECGs done in 2006 versus 2016 and no evidence of infarction. She denies orthopnea, PND, ankle edema, palpitations, presyncope or syncope. Cardiac risk factors: +Hypertension (well controlled with medical Rx). No diabetes. Lip ids - TC 177, TG 165, HDL 52, LDL 92 - 01/29/15. No family history early CAD. Past Medical/Surgical History Past Medical History Diagnosis Date Anxiety Breast mass 06.24.2012 US guided biopsy Cholecystitis 03.12.2007 cholecystectomy Cyst of cervix 1996 hysterectomy Depression drug therapy Ductal carcinoma in situ (DCIS) of right breast 06.23.2012 right lumpectomy Esophagitis 2002 drug therapy Hypertension medication management Menorrhagia 1996 hysterectomy Psoriasis 2000 drug therapy Screening for colon cancer 2011 small bowel, NOS, colonoscopy with biopsy Skin tag 04-10-15 Benign (Shave Biopsy) Past Surgical History Procedure Laterality Date Right breast lumpectomy 06.23.2012 Core needle biopsy of right breast with ultrasound guidance 06.24.2012 Colonoscopy with biopsy 2012 Egd (esophagogastroduodenoscopy) 2012 negative for h-pylori Cholecystectomy 03.12.2007 Current Medication List Current Outpatient Prescriptions Medication Sig BUPROPION XL 300 mg oral tablet extended release 24 hr TAKE 1 TABLET BY MOUTH EVERY DAY Calcium Carbonate-Vitamin D2 (OS-AURE 500+D) 500 mg(1,250mg) -200 unit oral tablet Take 1 tablet by oral route daily ENALAPRIL-HYDROCHLOROTHIAZIDE 10-25 mg oral tablet TAKE 1 TABLET BY MOUTH DAILY FOR HIG H BLOOD PRESSURE halobetasol (ULTRAVATE) 0.05 % topical cream apply bid LORazepam 0.5 mg oral tablet omeprazole 20 mg oral capsule,delayed release(DR/EC) Take 1 capsule by mouth two times daily before meals. No current facility-administered medications for this visit. Allergies Allergies Allergen Reactions Sulfa (Sulfonamide Antibiotics) Family History Family History Problem Relation Depression Brother Psychiatry Father Suicide Hypertension Mother Diabetes Mother Stroke Mother Psychiatry Other Suicide, neice Psychiatry Paternal Uncle Suicide Social History Social History Social History Marital status: Spouse name: N/A Number of children: N/A Years of education: N/A Occupational History Not on file. Social History Main Topics Smoking status: Former Smoker Smokeless tobacco: Never Used Alcohol use 24.0 - 25.0 oz/week 48 - 50 Standard drinks or equivalent per week Comment: daily beer Drug use: Not on file Sexual activity: Not on file Other Topics Concern Not on file Social History Narrative Review of Systems Constitution: Negative for decreased appetite, weight gain and weight loss. HENT: Negative for congestion, headaches and hearing loss. Cardiovascular: Positive for chest pain and palpitations. Respiratory: Negative for cough and shortness of breath. Hematologic/Lymphatic: Positive for bleeding problem. Bruises/bleeds easily. Musculoskeletal: Positive for arthritis. Negative for back pain and neck pain. Jaw pain Gastrointestinal: Positive for heartburn and nausea. Negative for abdominal pain and vomiti ng. Genitourinary: Negative for frequency and urgency. Neurological: Positive for numbness. Negative for dizziness and light-headedness. Psychiatric/Behavioral: Negative for memory loss. The patient has insomnia. Physical Examination Vital Signs BP 128/88[left arm[ | Pulse 76 | Wt 90.3 kg (199 lb) | SpO2 96% | BMI 28.55 kg/(m^2) Constitutional: The patient appears their stated age, and is in no distress. There is no cyanosis, pallor, clubbing or jaundice. HEENT: Within normal limits. Respiratory system: Percussion of the chest is normal. There is good air-entry bilaterall y with no adventitious sounds heard. Cardiovascular system: The JVP is 1 cm above sternal angle with normal waveforms. The car otid upstroke and volume are normal. There are no carotid bruits. Marble beat not palpable. There were no lifts, heaves or thrills. Auscultation revealed normal S1 and S2. There was no S3 or S4, and no murmurs, clicks or rubs were noted. Abdominal: The abdomen is soft and non-tender. Normal bowel sounds were heard. There we re no renal, aortic, iliac or femoral bruits. There was no obvious organomegaly or pulsatil e masses. Periphery: There is no peripheral edema. Bilateral posterior tibial and dorsalis pedis pu lses were palpable. Neurologic: The patient is alert and oriented x 3. Grossly normal tone and power noted in both upper and lower extremities bilaterally. Laboratory ECG - Normal sinus rhythm, left axis deviation c/w left anterior hemiblock. No other abnor malities. Assessment and Plan 1. Chest pain - The patient has a long history of intermittent chest pain. The fact that the pain seems to respond to drinking H2O makes me lean towards a GI cause. 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 - She is being worked up by Dr. Cuadra for GI causes and she is cleared to proceed with endos copy/colonoscopy from the cardiac standpoint. - The patient's history is suggestive of esophageal dysmotility or spasm. She has never saavedra d a swallow study. She has no symptoms to suggest fixed CAD and I think it is less likely t hat her pain is due to coronary vasospasm. I am going to give the patient some SL NTG and s ee if it effectively resolves chest pain. - Return to clinic in 3 months after EGD/colonoscopy to reassess. 2. Hypertension - Adequately controlled. Revised Medication List Current Outpatient Prescriptions Medication Sig BUPROPION XL 300 mg oral tablet extended release 24 hr TAKE 1 TABLET BY MOUTH EVERY DAY Calcium Carbonate-Vitamin D2 (OS-AURE 500+D) 500 mg(1,250mg) -200 unit oral tablet Take 1 tablet by oral route daily ENALAPRIL-HYDROCHLOROTHIAZIDE 10-25 mg oral tablet TAKE 1 TABLET BY MOUTH DAILY FOR HIG H BLOOD PRESSURE halobetasol (ULTRAVATE) 0.05 % topical cream apply bid LORazepam 0.5 mg oral tablet nitroglycerin 0.4 mg sublingual tablet, sublingual Place 1 tablet under tongue every fi ve minutes as needed for chest pain. Place under tongue and allow to dissolve. Administer e very 5 minutes, max of 3 doses in 15 minutes. omeprazole 20 mg oral capsule,delayed release(DR/EC) Take 1 capsule by mouth two times daily before meals. No current facility-administered medications for this visit. Isadora Moran MA - 07/30 8:00 AM PST Review of Systems Constitution: Negative for decreased appetite, weight gain and weight loss. HENT: Negative for congestion, headaches and hearing loss. Cardiovascular: Positive for chest pain and palpitations. Respiratory: Negative for cough and shortness of breath. Hematologic/Lymphatic: Positive for bleeding problem. Bruises/bleeds easily. Musculoskeletal: Positive for arthritis. Negative for back pain and neck pain. Jaw pain Gastrointestinal: Positive for heartburn and nausea. Negative for abdominal pain and vomiti ng. Genitourinary: Negative for frequency and urgency. Neurological: Positive for numbness. Negative for dizziness and light-headedness. Psychiatric/Behavioral: Negative for memory loss. The patient has insomnia. Isadora Moran MA - 8:00 AM PST School Leader to be present for visit? No, patient declined having a section gang during the visit . Patient brought medication bottles to appointment today. Medications were reconciled today. documented in this enco unter Plan of Treatment Not on filedocumented as of this encounter Procedures + +--------+ + + + | Procedure Name | Priori | Date/Time | Associated Diagnosis | Comments | | | ty | | | | + +--------+ + + + | EKG/ECG GLOBAL | Routin | 08/14/2016 | Abnormal EKG | Results for this | | | e | 12:00 AM | | procedure are in the | | | | PST | | results section. | + +--------+ + + + documented in this encounter Results EKG/ECG GLOBAL (08/14/2016 12:00 AM PST) + + + | Narrative | Performed At | + + + | | | + + + documented in this encounter Visit Diagnoses + + | Diagnosis | + + | Abnormal EKG - Primary Nonspecific abnormal electrocardiogram (ECG) (EKG) | + + documented in this encounter
--- OUTSIDE RECORDS SUMMARY | ~2019-05-02 | XMS | Encounter Summary ---
Demographics + + + | Address | [address] [facility] | | | [place] [address] | + + + | Home Phone | | + + + | Preferred Language | Unknown | + + + | Marital Status | | + + + | Taoism Affiliation | UNK | + + + | Race | White | + + + | Ethnic Group | Not or | + + + Author + + + | Author | [facility] | + + + | Organization | [facility] | + + + | [...] [place] | | | | | [address] | | + + + + + Care Team Providers + +------+ + | Care Abrasives Sales Representative Name | Role | Phone | [...] Description | +--------+--------+ + + + | 06/12/ | Refill | [facility] | Ayala Glasgow MD | Refill Request | | 2016 | | Medicine [address] | [address] | | | | | [address] [place], | [place], [place] | | | | | [place] [address] | [address] | | | | | [phone] | [phone] | | | | | | | [...] Diagnosis | + + | Benign hypertension Essential hypertension, benign | + + | Anxiety, generalized Generalized anxiety disorder | + + documented in this encounter"
--- OUTSIDE RECORDS SUMMARY | ~2019-05-02 | XMS | Encounter Summary ---
Demographics + + + | Address | [address] [facility] | | | [place] [address] | + + + | Home Phone | | + + + | Preferred Language | Unknown | + + + | Marital Status | | + + + | [employer] Affiliation | UNK | + + + [...] [place] | | | | | [address] | | + + + + + Care Team Providers + +------+ + | Care Pathology Assistant Name | Role | Phone | [...] Description | +--------+--------+ + + + | 09/17/ | Refill | [facility] | Ayala Glasgow MD | Refill Request | | 2015 | | Medicine [address] | [address] | | | | | [address] [place], | [place], [place] | | | | | [place] [address] | [address] | | | | | [phone] | | | | | | | [...]
--- OUTSIDE RECORDS SUMMARY | ~2019-05-02 | XMS | Encounter Summary ---
Demographics + + + | Address | [address] [facility] | | | [place] [address] | + + + | Home Phone | | + + + | Preferred Language | Unknown | + + + | Marital Status | | + + + | Advent Affiliation | UNK | + + + | Race | White | + + + | Ethnic Group | Not or | + + + Author + + + | Author | [facility] | + + + | Organization | [facility] | + + + | Address [...] [address] | | | | | [facility] [place] | | | | | [address] | | + + + + + Care Team Providers + +------+ + | Care Pharmacy Clinical Coordinator Name | Role | Phone | + [...] | | 2012 | | Oncology at [facility] | Nayana Velásquez MD | Clarification | | | | [address] | | | | | | Mailcode: CH7M | | | | | | [facility] | | | | | | and Healing, | | | | | | Building | | | | | | Floor [place], [place] | | | | | | [address] | | | | | | [phone] | | | +--------+ + + + [...]
--- OUTSIDE RECORDS SUMMARY | ~2019-05-02 | XMS | Encounter Summary ---
Demographics + + + | Address | [address] [facility] | | | [place] [address] | + + + | Home Phone [...] + + + | Author | [facility] | + + + | Organization | [facility] | + + + | [...] [address] | | | | | [address] [place] [address] [place] | | | | | [address] | | + + + + + Care Team Providers + +------+ + | Care Gas Leak Tester Name | Role | Phone | + +------+ + | Loreta Pierre | PCP | | + +------+ + Encounter Details +--------+ + + + + | Date | Type | Department | Care Team | Description | +--------+ + + + + | 12/15/ | Telephone | Hematology/Medical | Hung, | | | 2012 | | Oncology at [facility] | Nayana Velásquez MD | | | | | [address] | | | | | | Mailcode: CH7M | | | | | | [facility] | | | | | | and [place], | | | | | | [facility] | | | | | | [place], [place] | | | | | | [address] | | | | | | [phone] | | | +--------+ + + + [...] + | Diagnosis | + + | DCIS (ductal carcinoma in situ) of breast - Primary Carcinoma in situ of breast | + + documented in this encounter"
--- OUTSIDE RECORDS SUMMARY | ~2019-05-02 | XMS | Encounter Summary ---
Demographics + + + | Address | [address] [facility] | | | [place] [address] | + + + | Home Phone [...] [address] | | | | | [address] [place] [address] [place] | | | | | [address] | | + + + + + Care Team Providers + +------+ + | Care Sales Operations Analyst Name | Role | Phone | + +------+ + PCP | Unavailable | + +------+ + Encounter Details +--------+ + + + + | Date | Type | Department | Care Team | Description | +--------+ + + + + | 07/26/ | Hospital | LAB SURGICAL | | | | 2012 | Encounter | PATHOLOGY [address] | | | | | | [address] | | | | | | [place] | | | | | | [address] | | | +--------+ + + + [...] + +--------+ + + + | PATHOLOGY CONSULT - | Routin | 07/26/2012 | | Results for this | | REVIEW OUTSIDE | e | | | procedure are in the | | SLIDES | | | | results section. | + +--------+ + + + documented in this encounter Results PATHOLOGY CONSULT - REVIEW OUTSIDE SLIDES (07/26/2012) + + + + + + | Component | Value | Ref Range | Performed | Pathologist | | | | | At | Signature | + + + + + + | PATHOLOGY | THIS IS AN AMENDED | | [facility] | | | CONSULT - | REPORT SOURCE OF | | DEPARTMENT | | | SLIDES | SPECIMEN:A Right breast | | OF | | | | tissue Materials | | PATHOLOGY | | | | Received:Referring | | | | | | Institution: | | | | | | [facility] | | | | | | [place] | | | | | | [id number] Accession | | | | | | Number: [id number] | | | | | | Collection Date: | | | | | | 07/26/2012Sublabeled | | | | | | H&E IHCA1 | | | | | | to A12 12 | | | | | | 7 | | | | | | Additional Materials | | | | | | Received: | | | | | | (08/13/2012)Referring | | | | | | Institution: | | | | | | [facility] | | | | | | Center, [place], [place] | | | | | | [id number] Accession | | | | | | Number: [id number] | | | | | | Collection Date: | | | | | | 07/26/2012Sublabeled | | | | | | [id number], | | | | | | A11 & A12 3 | | | | | | Additional Materials | | | | | | Received per | | | | | | request/amendment | | | | | | (10/27/12):Referring | | | | | | Institution: | | | | | | [facility] | | | | | | Center, [place], [place] | | | | | | [id number] Accession | | | | | | Number: [id number] | | | | | | Collection Date: | | | | | | 07/26/2012Sublabeled | | | | | | H&E IHC BlocksA1 | | | | | | to A12 14 4 | | | | | | 12 Final | | | | | | Pathologic | | | | | | Diagnosis:Amended | | | | | | report: Dr. Zavaleta | | | | | | Hung requested ER | | | | | | and [place] testing on DCIS. | | | | | | Theslides and blocks are | | | | | | provided by | | | | | | [facility] for | | | | | | selection of tissue | | | | | | forimmunostaining. | | | | | | Please see amendment | | | | | | comment. The diagnosis | | | | | | is unchanged. 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 | | | | | | Sections from the | | | | | | lumpectomy specimen show | | | | | | multiplepapillomas with | | | | | | epithelial | | | | | | proliferation that is | | | | | | largely comprised | | | | | | ofoverlapping nuclei and | | | | | | with slit like spaces; | | | | | | however, focally there | | | | | | is agreater degree of | | | | | | nuclear atypia (ADH), | | | | | | and at least 1 focus | | | | | | meets criteriafor DCIS. | | | | | | Breast parenchyma | | | | | | adjacent to papillomas | | | | | | has ducts involved | | | | | | withatypical ductal | | | | | | hyperplasia (A4, A9, | | | | | | A11) in the setting of | | | | | | fibrocysticchange. | | | | | | The breast "triple | | | | | | stain" provided for | | | | | | slides A10-A12 are | | | | | | reviewedand demonstrate | | | | | | myoepithelial cells | | | | | | within the papillomas. | | | | | | While the focimost | | | | | | concerning for DCIS | | | | | | appear excised, | | | | | | generally with a margin | | | | | | of 0.2 cm,the papillary | | | | | | neoplasm is within 0.2 | | | | | | cm of margin (theresa. | | | | | | green, yellowinked). | | | | | | However, there is a | | | | | | collection of small | | | | | | glands in cellular | | | | | | stroma (presumedbiopsy | | | | | | tract, A11) that are | | | | | | darkly stained brown on | | | | | | triple stain,precluding | | | | | | definitive | | | | | | interpretation of | | | | | | myoepithelial markers. | | | | | | We haveperformed p63, | | | | | | SMMHC, SMA, calponin and | | | | | | CD10 in attempt to | | | | | | furthercharacterize this | | | | | | focus and distinguish | | | | | | epithelium entrapped in | | | | | | biopsysite, and from | | | | | | invasive carcinoma. | | | | | | There are scant | | | | | | associated | | | | | | myoepithelialcells, seen | | | | | | best on p63 and SMA | | | | | | stains. Deeper levels | | | | | | also show foreignbody | | | | | | type giant cells, | | | | | | supporting biopsy site. | | | | | | Carney sections were | | | | | | reviewedin detail with | | | | | | Dr. Fitzgerald. | | | | | | (Analyte specific | | | | | | reagents are used in | | | | | | many laboratory tests | | | | | | necessary forstandard | | | | | | medical care and | | | | | | generally do not require | | | | | | FDA approval. This | | | | | | testwas developed and | | | | | | its performance | | | | | | characteristics | | | | | | determined by | | | | | | [facility]. It has | | | | | | not been cleared or | | | | | | approved by the U.S. | | | | | | Food and | | | | | | DrugAdministration.) | | | | | | Case seen | | | | | | by:Joann Perry, | | | | | | M.D./Surgical Pathology | | | | | | Randy Bell, | | | | | | M.D., Ph.D/Surgical | | | | | | Pathologist | | | | | | Amendment comment: ER, | | | | | | [place] tests | | | | | | Immunohistochemical | | | | | | stains are performed on | | | | | | formalin-fixed, | | | | | | paraffinembedded tissue, | | | | | | using a biotin-free | | | | | | protocol ([place] | | | | | | Ultraview) thatincludes | | | | | | appropriate positive and | | | | | | negative controls. | | | | | | Stain (Block # | | | | | | A12 DCIS/ADH in | | | | | | papilloma) | | | | | | ResultEstrogen Receptor | | | | | | (ER, clone [id number]) | | | | | | Positive (70%, | | | | | | moderate)Progesterone | | | | | | Receptor ([place], clone [id number]) | | | | | | Positive | | | | | | (variable 10-80%, | | | | | | avg50%, moderate) | | | | | | Ischemic and Formalin | | | | | | fixation time: | | | | | | unknownInternal controls | | | | | | for ER, [place]: presentOf | | | | | | note, the focal DCIS is | | | | | | difficult to distinguish | | | | | | from ADH in | | | | | | thiscase/stains. | | | | | | The [place], [place] | | | | | | immunohistochemical | | | | | | stains are performed | | | | | | with FDA status | | | | | | 510(k)cleared kits from | | | | | | [place] with appropriate | | | | | | controls. The ER and [place] | | | | | | stainsare considered | | | | | | positive if there is | | | | | | moderate to strong | | | | | | nuclear staining inat | | | | | | least 1% of the tumor | | | | | | cells. Inadequate | | | | | | specimens are not | | | | | | reported.[facility] | | | | | | participates in | | | | | | proficiency testing for | | | | | | [place], [place] and | | | | | | Her-2/neuimmunohistochem | | | | | | istry. References: | | | | | | CAITLIN Hanson et al. | | | | | | EBONY Fitzpatrick et al. | | | | | | [place] Society | | | | | | ofClinical | | | | | | Oncology/College of | | | | | | [place] Pathologists | | | | | | GuidelineRecommendations | | | | | | for Immunohistochemical | | | | | | Testing of Estrogen | | | | | | andProgesterone | | | | | | Receptors in Breast | | | | | | Cancer. Arch Pathol Lab | | | | | | Med 134(6):[phone]. | | | | | | Amendment seen | | | | | | by:Giselle Segura | | | | | | Kevin Lin/Surgical | | | | | | Pathology Randy Garcia | | | | | | Chandni Bell, Ph.D. | | | | | | /Pathologist | | | | | | Clinical History:The | | | | | | patient is a 57 year old | | | | | | woman with a recent | | | | | | breast biopsy. My | | | | | | electronic signature | | | | | | indicates that I have | | | | | | personally reviewed | | | | | | alldiagnostic slides, | | | | | | the gross and/or | | | | | | microscopic portion of | | | | | | thisreport and | | | | | | formulated the final | | | | | | diagnosis. | | | | | | Rendering Diagnostician: | | | | | | Jennifer Bell M.D. | | | | | | Ph.D.PathologistElectron | | | | | | icallwilliam Signed 11/03/2012 | | | | | | 3:56PM | | | | + + + + + + + + | Specimen | + + | | + + + + + + + | Performing | Address | City/State/Zipcode | Phone Number | | Organization | | | | + + + + + | [facility] | [address] | [place] [address] | | | PATHOLOGY | [address] | | | + + + + + documented in this encounter Visit Diagnoses Not on filedocumented in this encounter
--- OUTSIDE RECORDS SUMMARY | ~2019-05-02 | XMS | Encounter Summary ---
Demographics + + + | Address | [address] [facility] | | | [place] [address] | + + + | Home Phone [...] + + + | Author | [facility] | + + + | Organization | [facility] | + + + [...] [place] | | | | | [address] | | + + + + + Care Team Providers + +------+ + | Care Film Flat Inspector Name | Role | Phone | [...] Description | +--------+--------+ + + + | 12/09/ | Refill | [facility] | Ayala Glasgow MD | Refill Request | | 2017 | | Medicine [address] | | | | | [address] [place], | [place], [place] | | | | | [place] [address] | [address] | | | | | [phone] | [phone] | | | | | | | [...] hypertension Essential hypertension, benign | + + documented in this encounter"
--- OUTSIDE RECORDS SUMMARY | ~2019-05-02 | XMS | Encounter Summary ---
Demographics + + + | Address | [address] [facility] | | | [place] [address] | + + + | Home Phone | | + + + | Preferred Language | Unknown | + + + | Marital Status | | + + + | Uatsdin Affiliation | UNK | + + + [...] [place] | | | | | [address] | | + + + + + Care Team Providers + +------+ + | Care Youth Care Worker Name | Role | Phone | + +------+ + | Aayla Michelle MD | PCP | | + [...] skin (Primary | | | | [place], [place] | [address] | Dx); Skin tag; | | | | [address] | [phone] | Seborrheic | | | | [phone] | | keratosis; Angioma | | | [...] skin cance rs including melanoma. ? The [place] Academy [employer]at[employer] (AAD) recommends you wear [...] information is available at the following websites: http://www.[facility]/xd/health/services/dermatology/for-patients/health_info.cfm - [facility] Derm atology http://www.aad.org/public/sun/smart.html - AAD Website documented [...] diagnosis) Comment: L hip Plan: DERM PATHOLOGY, SC BIOPSY OF SKIN LESION Neoplasm of uncertain [...] scattered tags on face and neck Plan: SC DESTRUC BENIGN LESION, UP TO 14 LESIONS [...] year (around 04/10/2016). Margaret Arriaga MD, PhD Resaw Tailer Department of Dermatology [facility] 04/10/2015 documented in th is encounter Plan of Treatment Not on filedocumented as of this encounter Procedures + +--------+ + + + | Procedure Name | Priori | Date/Time | Associated Diagnosis | Comments | | | ty | | | | + +--------+ + + + | SC DESTRUC BENIGN | Routin | 04/10/2015 | Skin tag | | | LESION, UP TO 14 | e | 12:50 PM | | | | LESIONS | | PDT | | | + +--------+ + + + | SC BIOPSY OF SKIN | Routin | 04/10/2015 [...]
--- OUTSIDE RECORDS SUMMARY | ~2019-05-02 | XMS | Encounter Summary ---
Demographics + + + | Address | [address] [facility] | | | [place] [address] | + + + | Home Phone | | + + + | Preferred Language | Unknown | + + + | Marital Status | | + + + | Scientology Affiliation | UNK | + + + | Race | White | + + + | Ethnic Group | Not or | + + + Author + + + | Author | [facility] | + + + | Organization | [facility] | + + + | Address [...] [address] | | | | | [address] [place] [address] [place] | | | | | [address] | | + + + + + Care Team Providers + +------+ + | Care Health Safety Coordinator Name | Role | Phone | [...] [address] | | | | | | [place] | | | | | | [address] | | | +--------+ + + + [...] Institution: | | | | | | [facility] | | | | | | [place] | | | | | | [id number] Accession | | | | | | Number: [id number] | | | | | | Collection [...] Institution: | | | | | | [facility] | | | | | | Center, [place], [place] | | | | | | [id number] Accession | | | | | | Number: [id number] | | | | | | Collection Date: | | | | | | 07/26/2012Sublabeled | | | | | | [id number], | | | | | | A11 & A12 3 | | | | | | Additional Materials | | | | | | Received per | | | | | | request/amendment | | | | | | (10/27/12):Referring | | | | | | Institution: | | | | | | [facility] | | | | | | Center, [place], [place] | | | | | | [id number] Accession | | | | | | Number: [id number] | | | | | | Collection [...] | | | | | | and [place] testing on DCIS. | | | | | | Theslides and blocks are | | | | | | provided by | | | | | | [facility] for | | | | | | [...] ER, | | | | | | [place] tests | | | | | | Immunohistochemical | | | | | | stains are performed on | | | | | | formalin-fixed, | | | | | | paraffinembedded tissue, | | | | | | using a biotin-free | | | | | | protocol ([place] | | | | | | Ultraview) [...] | | | | | | Receptor ([place], clone [id number]) | | | | | | Positive | | | | | | (variable 10-80%, | | | | | | avg50%, moderate) | | | | | | Ischemic and Formalin | | | | | | fixation time: | | | | | | unknownInternal controls | | | | | | for ER, [place]: presentOf | | | | | | note, the focal DCIS is | | | | | | difficult to distinguish | | | | | | from ADH in | | | | | | thiscase/stains. | | | | | | The ER, [place] | | | | | | immunohistochemical | | | | | | stains are performed | | | | | | with FDA status | | | | | | 510(k)cleared kits from | | | | | | [place] with appropriate | | | | | | controls. The ER and [place] | | | | | | stainsare [...] | | | | | | ER, [place] and | | | | | | Her-2/neuimmunohistochem | | | | | | istry. References: | | | | | | CAITLIN Hanson et al. | | | | | | EBONY Fitzpatrick et al. | | | | | | [place] [employer] | | | | | | ofClinical | | | | | | Oncology/College of | | | | | | [place] Pathologists | | | | | | [...] | + + + + + | [facility] | [address] | [place] [address] | | | PATHOLOGY | [address] | | | + + + + + documented in this encounter Visit Diagnoses Not on filedocumented in this encounter
--- OUTSIDE RECORDS SUMMARY | ~2019-05-02 | XMS | Encounter Summary ---
Demographics + + + | Address | [address] [facility] | | | [place] [address] | + + + | Home Phone [...] + + + | Author | [facility] | + + + | Organization | [facility] | + + + | [...] [address] | | | | | [facility] | | | | | [address] | | + + + + + Care Team Providers + +------+ + | Care Improvement Coordinator Name | Role | Phone | + +------+ + | Ayala Michelle MD | PCP | | + +------+ + Encounter Details +--------+---------+ + + + | Date | Type | Department | Care Team | Description | +--------+---------+ + + + | 04/10/ | Office | [facility] | Grady Delgado MD | Benign neoplasm of | | 2015 | Visit | [facility] | [address] | lacrimal gland, left | | | | [address] [place], [place] | (Primary Dx); | | | | [facility] | [address] | Stenosis of | | | | Clinic [place], | [phone] | nasolacrimal duct, | | | | [place] [address] | | acquired, left | | | | [phone] | | | +--------+---------+ + + + [...] encounter Progress Notes Ayala Michelle MD - 04/10/2015 5:03 PM PDTReviewed. ..................................... .....AYALA MICHELLE MD, 5:03 PM 04/10/2015 Grady Bowens MD - 3:56 PM PDT Regla Daniel is a 60 y.o. female. Referred by: Yung Freeman Pain: No pain (0 of 0-10) Patient referred for evaluation of left upper eyelid mass. She noticed it a few months ago when examining her eye in the mirror. She indicates a clear cystic mass in the superotemporal left upper fornix as the area of concern. She occasionall y gets eye irritation, and this is what prompted her to examine the eye more closely in the mirror. It doesn't seem to have changed since then. She also reports chronic recurrent bouts of tearing from the left eye. Some days the tears well up and drip down the cheek if she doesn't dab frequently. Mucus and crusting are not a significant issue. No history of nose or sinus disease Denies bleeding, no pain. No personal history of skin cancer. Visual Acuity: Vasc Vacc VAph RE LE 20/30 20/40 Pupil Exam: ERL & No APD Motility: RE LE 0 0 0 0 0 0 0 0 Lid Measurements: RE (mm) LE (mm) Sup SS Crease HT VPF 8 8 LF MRDI 3 3 Inf SS Lag 0 0 Facial Exam: Everted left upper lid reveals 2 x 2mm clear cyst in the lacrimal gland. No malignant featu res Adenopathy: none Slit Lamp Exam: RE LE Lid Margins: Normal Conjunctiva: Normal Cornea: Normal AC: Deep and quiet Iris: Normal Lid Margins: Normal Conjunctiva: Normal Cornea: Normal AC: Deep and quiet Iris: Normal Basal Tear Secretion Test: RE 9, LE 9 Carreon Testing Procedure Note: 04/10/15 After instillation of topical anesthesia, a Carreon dilator was used to dilate the left upper and lower puncta, and the canaliculi were probed with a 0-00 Aguirre probe. Saline on a syri nge with lacrimal cannula was used to irrigate the lacrimal system without complication. Res ults are as follows: Puncta: normal left upper and lower Canaliculi: Normal left upper and lower Lacrimal Sac: normal on left Carreon Testing: RE LE DRT NT Pos Primary NT Neg Secondary NT +regurg of dye thru upper with irrigation of lower, then abrupt release with e asy flow into the nose Nasal exam: Right Left Deviated septum with tight view, otherwise OK OK Impression: 1. Left lacrimal gland cyst, appears benign and minimally symptomatic. Removal of this risk s damage to the lacrimal gland ductules with worsening of dry eye 2. Left partial nasolacrimal duct obstruction with intermittent chronic tearing. There was complete obstruction initially today, then release and free flow, perhaps indicating passage of an obstructive crust or small dacryolith Plan: Observe F/u with Dr. Freeman for eye care RTC with me if mass changes or tearing persists/worsens to consider surgical options Physician attestation: I have reviewed and edited history and delivery technician documentation, and performed all elements to above examination documentation. Grady Delgado M.D. [facility] Op[facility]mic Facial Plastic and Reconstructive Surgery documented in this encounter Plan of Treatment Not on filedocumented as of this encounter Procedures + +--------+ + + + | Procedure Name | Priori | Date/Time | Associated Diagnosis | Comments | | | ty | | | | + +--------+ + + + | AK PROBE | Routin | 04/10/2015 | Stenosis of | | | NASOLACRIMAL DUCT | e | 4:19 PM | nasolacrimal duct, | | | | | PDT | acquired, left | | + +--------+ + + + documented in this encounter Visit Diagnoses + + | Diagnosis | + + | Benign neoplasm of lacrimal gland, left - Primary | + + | Stenosis of nasolacrimal duct, acquired, left | + + documented in this encounter"
--- OUTSIDE RECORDS SUMMARY | ~2019-05-02 | XMS | Encounter Summary ---
Demographics + + + | Address | [address] [facility] | | | [place] [address] | + + + | Home Phone | | + + + | Preferred Language | Unknown | + + + | Marital Status | | + + + | Episcopalian Affiliation | UNK | + + + | Race | White | + + + | Ethnic Group | Not or | + + + Author + + + | Author | [facility] | + + + | Organization | [facility] | + + + | Address [...] [address] | | | | | [address] [place] [address] [place] | | | | | [address] | | + + + + + Care Team Providers + +------+ + | Care Roll Contour Grinder Name | Role | Phone | + +------+ + | Ayala Glasgow MD | PCP | | + +------+ + Encounter Details +--------+ + + + + | Date | Type | Department | Care Team | Description | +--------+ + + + + | 12/14/ | Results | [facility] | Alexys Cavanaugh, | | | 2007 | Only | Department | [facility] | | | [facility] [address] | | | | | [address] [place], | | | | | | [place] [address] | | | | | | [phone] | | | | | | | [...] | + +--------+ + + + | GABRIELAAZJULIANN ONLY | Routin | 12/15/2007 | | Results for this | | | e | 9:08 AM | | procedure are in the | | | | PDT | | results section. | + +--------+ + + + documented in this encounter Results GABRIELAAZJULIANN ONLY (12/15/2007 9:08 AM PDT) + + + + + + | Component | Value | Ref Range | Performed | Pathologist | | | | | At | Signature | + + + + + + | COLOR(UR) | YELLOW | | [facility] | | | [facility] A [facility] | | | | | | [facility] | | + + + + + + | APPEARANCE | CLOUDY | CLEAR | [facility] | | | | | | A [facility] | | | | | | CENTER | | + + + + + + | SPECIFIC | 1.015 | 1.005 - 1.030 | [facility] | | | GRAVITY | | | A MEDICAL | | | | | | CENTER | | + + + + + + | PH(UR) | 5.5 | 5.0 - 8.0 | [facility] | | | | | | A [facility] | | | | | | CENTER | | + + + + + + | PROTEIN, UA | 2+ | NEGATIVE | [facility] | | | [...] + + + + | BLOOD | 3+ | NEGATIVE | [facility] | | | | | | A [facility] | | | | | | CENTER | | + + + + + + | NITRITES | POS | NEGATIVE | [facility] | | | | | | [facility] | | | | | | CENTER | | + + + + + + | LEUKOCYTE | POS | NEGATIVE | [facility] | | | ESTERASE | | | A MEDICAL | | | | | | CENTER | | + + + + + + | UROBILINOGE | NORMAL | NORMAL DORITA | [facility] | | | N | | | A MEDICAL | | | | | | CENTER | | + + + + + + | WHITE CELLS | 0-2 | 0 - 2 HPF | [facility] | | | | | | A [facility] | | | | | | CENTER | | + + + + + + | RED CELLS | 0-3 | 0 - 3 HPF | [facility] | | | | | | [facility] | | | | | | CENTER | | + + + + + + | EPITHELIAL | FEW | RARE-MOD LPF | [facility] | | | CELLS | | | A MEDICAL | | | | | | CENTER | | + + + + + + | BACTERIA | NEG | NEG HPF | [facility] | | | | | | A [facility]ICAL | | | | | | CENTER | | + + + + + + | OTHER | NEG | | [facility] | | | | [...] | + + + + + | [facility] | | [place] [address] | | | [facility] | [facility] | | | + + + + + documented in this encounter Visit Diagnoses Not on filedocumented in this encounter"
--- OUTSIDE RECORDS SUMMARY | ~2019-05-02 | XMS | Encounter Summary ---
Demographics + + + | Address | [address] [facility] | | | [place] [address] | + + + | Home Phone | | + + + | Preferred Language | Unknown | + + + | Marital Status | | + + + | Lutheran Affiliation | UNK | + + + | Race | White | + + + | Ethnic Group | Not or | + + + Author + + + | Author | [facility] | + + + | Organization | [facility] | + + + [...] [place] | | | | | [address] | | + + + + + Care Team Providers + +------+ + | Care Roller Picker Name | Role | Phone | + [...] Description | +--------+--------+ + + + | 11/17/ | Refill | [facility] | Ayala Glasgow MD | Refill Request | | 2015 | | Medicine [address] | | | | | [address] [place], | [place], [place] | | | | | [place] [address] | [address] | | | | | [phone] | | | | | | | [...]
--- OUTSIDE RECORDS SUMMARY | ~2019-05-02 | XMS | Encounter Summary ---
Demographics + + + | Address | [address] [facility] | | | [place] [address] | + + + | Home Phone | | + + + | Preferred Language | Unknown | + + + | Marital Status | | + + + | Uatsdin Affiliation | UNK | + + + | Race | White | + + + | Ethnic Group | Not or | + + + Author + + + | Author | [facility] | + + + | Organization | [facility] | + + + | [...] [place] | | | | | [address] | | + + + + + Care Team Providers + +------+ + | Care Manager Lpn Name | Role | Phone | + +------+ + | Ayala Glasgow MD | PCP | | + +------+ + Encounter Details +--------+ + + + + | Date | Type | Department | Care Team | Description | +--------+ + + + + | 08/09/ | ED Progress | [facility] [address] | Melinda Munoz, | ED Progress Note | | 2005 | | [address] | MD [address] | | | | Note-Transc | [place], [place] | [place], [place] | | | | ribed | [address] | [address] | | | | | | [phone] | | | | | | | [...]
--- OUTSIDE RECORDS SUMMARY | ~2019-05-02 | XMS | Encounter Summary ---
Demographics + + + | Address | [address] [facility] | | | [place] [address] | + + + | Home Phone [...] [address] | | | | | [facility] [place] | | | | | [address] | | + + + + + Care Team Providers + +------+ + | Care Dispatcher Clerk Name | Role | Phone | + +------+ + | Loreta Pierre | PCP | | + +------+ + Encounter Details +--------+ + + + + | Date | Type | Department | Care Team | Description | +--------+ + + + + | 08/16/ | Results | [facility] | Aileen Cuadra MD | | | 2013 | Only | Department | [facility] | | | | | | [place] [address] | | | | | | [address] | | | | | | [place] [address] | | | | | | [phone] | | | | | | | [...] + | SCREENING MAMMO | Routin | 08/16/2013 | | Results for this | | [address] | e | 10:40 AM | | procedure are in the | | | | PST | | results section. | + +--------+ + + + documented in this encounter Results SCREENING MAMMO [id number] (08/16/2013 10:40 AM PST) + + | Specimen | + + | | + + + + + | Narrative | Performed At | + + + | EXAM: SCREENING MAMMOGRAM CLINICAL HISTORY: Screening, personal | [facility] | | history of right breast cancer at age 57, lumpectomy and radiation. | DEPARTMENT OF | | COMPARISON: 06/16/2012, 05/21/2011, 05/13/2010 and 10/06/2008. | RADIOLOGY | | TECHNIQUE: CC and MLO views of both breasts were obtained utilizing | | | full field digital technique. [employer] computer aided detection (CAD) | | | software was utilized in the interpretation of this study. FINDINGS: | | | Scattered fibroglandular densities are visualized throughout both | | | breasts. Postsurgical changes within the right retroareolar region | | | are present with skin thickening, dimpling and architectural | | | distortion. A superficial skin lesion is marked within the left | | | breast. Bilateral benign calcifications are present. There is no | | | developing dominant mass, new spiculated lesion, suspicious | | | microcalcifications, area of increasing architectural distortion or | | | other secondary sign of malignancy. IMPRESSION: BIRADS 2 - Benign | | | findings. Recommend annual followup. BIRADS 2: BENIGN. The final | | | assessment is a benign finding, negative study. The findings reported | | | have no likelihood of malignancy. No further evaluation is needed at | | | this time, however, recommend routine annual screening mammography. | | | A negative mammography report should not delay biopsy if a dominant | | | mass is present. 15% of breast cancers are not identified by | | | mammography. | | + + + + + | Procedure Note | + + | Interface, Radiology Results - 03/22/2015 10:57 AM PDT EXAM: SCREENING MAMMOGRAM | | CLINICAL HISTORY: Screening, personal history of right breast cancer | | at age 57, lumpectomy and radiation. | | COMPARISON: 06/16/2012, 05/21/2011, 05/13/2010 and 10/06/2008. | | TECHNIQUE: CC and MLO views of both breasts were obtained utilizing | | full field digital technique. R2 computer aided detection (CAD) | | software was utilized in the interpretation of this study. | | FINDINGS: Scattered fibroglandular densities are visualized | | throughout both breasts. Postsurgical changes within the right | | retroareolar region are present with skin thickening, dimpling and | | architectural distortion. A superficial skin lesion is marked within | | the left breast. Bilateral benign calcifications are present. There | | is no developing dominant mass, new spiculated lesion, suspicious | | microcalcifications, area of increasing architectural distortion or | | other secondary sign of malignancy. | | IMPRESSION: | | BIRADS 2 [...]
--- OUTSIDE RECORDS SUMMARY | ~2019-05-02 | XMS | Encounter Summary ---
Demographics + + + | Address | [address] [facility] | | | [place] [address] | + + + | Home Phone | | + + + | Preferred Language | Unknown | + + + | Marital Status | | + + + | Amish Affiliation | UNK | + + + | Race | White | + + + | Ethnic Group | Not or | + + + Author + + + | Author | [facility] | + + + | Organization | [facility] | + + + [...] [place] | | | | | [address] | | + + + + + Care Team Providers + +------+ + | Care Cigar Head Holer Name | Role | Phone | + +------+ + PCP | Unavailable | + +------+ + Encounter Details +--------+ + + + + | Date | Type | Department | Care Team | Description | +--------+ + + + + | 12/14/ | Document-Sc | [facility] | Ayala Glasgow MD | | | 2018 | anned | Medicine [address] | | | | | [address] [place], | [place] | | | | | [place] [address] | [address] | | | | | [phone] | [phone] | | | | | | | [...]
--- OUTSIDE RECORDS SUMMARY | ~2019-05-02 | XMS | Encounter Summary ---
Demographics + + + | Address | [address] [facility] | | | [place] [address] | + + + | Home Phone | | + + + | Preferred Language | Unknown | + + + | Marital Status | | + + + | Oriental Orthodox Affiliation | UNK | + + + | Race | White | + + + | Ethnic Group | Not or | + + + Author + + + | Author | [facility] | + + + | Organization | [facility] | + + + | [...] [address] | | | | | [facility] | | | | | [address] | | + + + + + Care Team Providers + +------+ + | Care Timber Management Professor Name | Role | Phone | + +------+ + | Loreta Pierre | PCP | | + +------+ + Encounter Details +--------+ + + + + | Date | Type | Department | Care Team | Description | +--------+ + + + + | 09/02/ | Results | [facility] | Alexys Lu | | | 2010 | Only | Department | MD Kayli Son | | | | | | Orthopedics The | | | | | | [place] [address] | | | | | | [place], [place] | | | | | | [address] | | | | | | | [...] | + +--------+ + + + | POTASSIUM, PLASMA | Routin | 09/02/2010 | | Results for this | | | e | 11:45 AM | | procedure are in the | | | | PST | | results section. | + +--------+ + + + documented in this encounter Results POTASSIUM, PLASMA (09/02/2010 11:45 AM PST) + +-------+ + + + | Component | Value | Ref Range | Performed | Pathologist | | | | | At | Signature | + +-------+ + + + | POTASSIUM, | 3.5 | 3.5 - 5.2 MEQ/L | [facility] | | | PLASMA | | | A MEDICAL | | | (LAB) | | | CENTER | | + +-------+ + + + + + | Specimen [...] | [facility] | And | [place] [address] | | | [facility] | [place] | | | + + + + + documented in this encounter Visit Diagnoses Not on filedocumented in this encounter"
--- OUTSIDE RECORDS SUMMARY | ~2019-05-02 | XMS | Encounter Summary ---
Demographics + + + | Address | [address] [facility] | | | [place] [address] | + + + | Home Phone | | + + + | Preferred Language | Unknown | + + + | Marital Status | | + + + | Sabianism Affiliation | UNK | + + + | Race | White | + + + | Ethnic Group | Not or | + + + Author + + + | Author | [facility] | + + + | Organization | [facility] | + + + [...] [place] | | | | | [address] | | + + + + + Care Team Providers + +------+ + | Care Automobile Parts Assembler Name | Role | Phone | + +------+ + | Ayala Glasgow MD | PCP | | + +------+ + Reason for Visit + + + | Reason | Comments | + + + | Follow-up visit | | + + + Consultation (Routine) + +--------+ + + + + | Status | Reason | Specialty | Diagnoses / | Referred By | Referred To | | | | | Procedures | Contact | Contact | + +--------+ + + + + | Authorized | | Radiation | Diagnoses | Aileen Cuadra | [facility] | | | | Oncology | Carcinoma | MD Adelaida | [address] | | | | | in situ of | [place] | E | | | | | breast | [place] | [place], | | | | | | [facility] | [place] [address] | | | | | | [address] | Phone: | | | | | | [address] | [phone] | | | | | | [place], | Fax: | | | | | | [place] [address] | [phone] | | | | | | Phone: | | | | | | | [phone] | | | | | | | Fax: | | | | | | | [phone] | | + +--------+ + + + + Encounter Details +--------+---------+ + + + | Date | Type | Department | Care Team | Description | +--------+---------+ + + + | 05/06/ | Office | [facility] | Vimal Villalta, | History of carcinoma | | 2016 | Visit | Center - Radiation | MD [address] | in situ of breast | | | | Oncology [address] | [place], [place] | (Primary Dx) | | | | St [place], | [address] | | | | | [place] [address] | [phone] | | | | | [phone] | | | +--------+---------+ + + + [...] + + + | Blood Pressure | 133/80 | 05/06/2016 2:30 PM | | | | | PST | | + + + + + | Pulse | 74 | 05/06/2016 2:30 PM | | | | | PST | | + + + + + | Temperature | - | - | | + + + + + | Respiratory Rate | 20 | 05/06/2016 2:30 PM | | | | | PST | | + + + + + | Oxygen Saturation | - | - | | + + + + + | Inhaled Oxygen | - | - | | | Concentration | | | | + + + + + | Weight | 85.7 kg (189 lb) | 05/06/2016 2:30 PM | | | | | PST | | + + + + + | Height | - | - | | + + + + + | Body Mass Index | 27.12 | 05/06/2016 10:25 AM | | | | | PST | | + + + + + documented in this encounter Progress Notes Ayala Glasgow MD - 05/07/2016 9:10 AM PSTNoted and agree .....................AYALA LOZADA MD, 9:10 AM 05/07/2016 Vimal Oleary MD - 05/06/2016 4:11 PM PSTDATE OF SERVICE: May 06, 2016 RE: REGLA DANIEL CHIEF COMPLAINT: History of DCIS of the right breast. 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 It was ER positive, AR positive , and HER2 negative. She had lumpectomy and radiation therapy. She initiated tamoxifen, bu t discontinued it because of hot flashes. She has not noticed any breast masses, enlarged l ymph nodes, or new sites of pain. She is getting regular dermatologic followup. She had a mammogram on 10/17/2015 that was read as benign. MEDICATIONS: I reviewed her updated medication list on the EMR. EXAMINATION: GENERAL: Overweight woman in no acute distress. VITAL SIGNS: Weight is 189 pounds, which is up 10 pounds from about a year ago, with blood pressure 133/80, heart rate 74, respiratory rate 20. LYMPHATICS: No cervical, supraclavicular, or axillary lymphadenopathy. LUNGS: Clear to auscultation and percussion. MUSCULOSKELETAL: No tenderness over the spine or ribs. BREASTS: The right breast has barely detectable postsurgical and postradiation changes. T here is minimal fibrosis. There are no masses palpable in either breast. ABDOMEN: No hepatomegaly. IMPRESSION/PLAN: No evidence of breast tumor recurrence. I will have her follow up with Fernando Cuadra in about 6 months and with me in 1 year. We can continue that followup interval unt il she is out 5 years, after which she can follow up with one of us annually. She will get her next mammogram in September 2016. Vimal Villalta M.D., Ph.D. TEMO/STEF /[id number] signed by Vimal Villalta MD at 05/07/2016 8:32 AM PSTdocumented in this encounter Plan of Treatment Not on filedocumented as of this encounter Visit Diagnoses + + | Diagnosis | + + | History of carcinoma in situ of breast - Primary Personal history of malignant | | neoplasm of breast | + + documented in this encounter"
--- OUTSIDE RECORDS SUMMARY | ~2019-05-02 | XMS | Encounter Summary ---
Demographics + + + | Address | [address] [facility] | | | [place] [address] | + + + | Home Phone [...] + + + | Author | [facility] | + + + | Organization | [facility] | + + + | Address [...] [address] | | | | | [facility] [place] | | | | | [address] | | + + + + + Care Team Providers + +------+ + | Care Management Analyst Name | Role | Phone | + +------+ + | Loreta Pierre | PCP | | + +------+ + Encounter Details +--------+ + + + + | Date | Type | Department | Care Team | Description | +--------+ + + + + | 08/23/ | Results | [facility] | Aileen Cuadra MD | | | 2015 | Only | Department | [address] | | | | | | [place] [address] | | | | | | [address] | | | | | | [place] [address] | | | | | | [phone] | | | | | | | [...] + | SCREENING MAMMO | Routin | 08/23/2014 | | Results for this | | [address] | e | 12:34 PM | | procedure are in the | | | | PST | | results section. | + +--------+ + + + documented in this encounter Results SCREENING MAMMO [id number] (08/23/2014 12:34 PM PST) + + | Specimen | + + | | + + + + + | Narrative | Performed At | + + + | EXAM: SCREENING MAMMOGRAM CLINICAL HISTORY: Screening, personal | [facility] | | history of right breast cancer at age 57. Lumpectomy and radiation | DEPARTMENT OF | | therapy in 2013. COMPARISON: 08/16/2013, 06/16/2012, 05/21/2011 and | RADIOLOGY | | 05/13/2010. TECHNIQUE: CC and MLO views of both breasts were | | | obtained utilizing full field digital technique. R2 computer aided | | | detection (CAD) software was utilized in the interpretation of this | | | study. FINDINGS: Scattered fibroglandular densities are visualized | | | throughout both breasts. Postsurgical/postradiation changes within | | | the right breast are present with skin thickening and parenchymal | | | scarring. There are bilateral benign calcifications, including | | | calcified oil cysts. A skin lesion is marked within the outer upper | | | left breast. Approximately 5.4 cm from the nipple in the upper left | | | breast, there is a more prominent oval focal asymmetric density with | | | circumscribed borders. Spot compression MLO view and a left ML | | | view with possible follow-up ultrasound are recommended for further | | | evaluation. IMPRESSION: BI-RADS CATEGORY 0: Incomplete. Needs | | | additional imaging evaluation. Recommended additional imaging: Spot | | | compression left MLO view and ML view of the left breast with | | | possible follow-up ultrasound. Findings within the right breast are | | | benign. | | + + + + + | Procedure Note | + + | Interface, Radiology Results - 03/22/2015 11:04 AM PDT EXAM: SCREENING MAMMOGRAM | | CLINICAL HISTORY: Screening, personal history of right breast cancer | | at age 57. Lumpectomy and radiation therapy in 2012. | | COMPARISON: 08/16/2013, 06/16/2012, 05/21/2011 and 05/13/2010. | | TECHNIQUE: CC and MLO views of both breasts were obtained utilizing | | full field digital technique. R2 computer aided detection (CAD) | | software was utilized in the interpretation of this study. | | FINDINGS: Scattered fibroglandular densities are visualized | | throughout both breasts. Postsurgical/postradiation changes within | | the right breast are present with skin thickening and parenchymal | | scarring. There are bilateral benign calcifications, including | | calcified oil cysts. A skin lesion is marked within the outer upper | | left breast. Approximately 5.4 cm from the nipple in the upper left | | breast, there is a more prominent oval focal asymmetric density with | | circumscribed borders. Spot compression MLO view and a left ML view | | with possible follow-up ultrasound are recommended for further | | evaluation. | | IMPRESSION: | | BI-RADS CATEGORY 0: Incomplete. Needs additional imaging evaluation. | | Recommended additional imaging: Spot compression left MLO view and ML | | view of the left breast with possible follow-up ultrasound. Findings | | within the right breast are benign. | + + + +---------+ + + [...]
--- OUTSIDE RECORDS SUMMARY | ~2019-05-02 | XMS | Encounter Summary ---
Demographics + + + | Address | [address] [facility] | | | [place] [address] | + + + | Home Phone | | + + + | Preferred Language | Unknown | + + + | Marital Status | | + + + | Mormon Affiliation | UNK | + + + | Race | White | + + + | Ethnic Group | Not or | + + + Author + + + | Author | [facility] | + + + | Organization | [facility] | + + + | Address | [...] [address] | | | | | [address] [place] [address] [place] | | | | | [address] | | + + + + + Care Team Providers + +------+ + | Care Senior Mechanical Technician Name | Role | Phone | + +------+ + | Ayala Glasgow MD | PCP | | + +------+ + Encounter Details +--------+ + + + + | Date | Type | Department | Care Team | Description | +--------+ + + + + | 07/12/ | Document-Sc | Health Information | Other, Faculty | | | 2015 | anned | Services [address] | [phone] | | | | | Wilmar Lee | | | | | | Mailcode: [id number] | | | | | | [facility] | | | | | | [place], [place] | | | | | | [address] | | | | | | [phone] | | | +--------+ + + + [...]
--- OUTSIDE RECORDS SUMMARY | ~2019-05-02 | XMS | Encounter Summary ---
Demographics + + + | Address | [address] [facility] | | | [place] [address] | + + + | Home Phone | | + + + | Preferred Language | Unknown | + + + | Marital Status | | + + + | Roman Catholic Affiliation | UNK | + + + | Race | White | + + + | Ethnic Group | Not or | + + + Author + + + | Author | [facility] | + + + | Organization | [facility] | + + + | [...] [address] | | | | | [facility] [place] | | | | | [address] | | + + + + + Care Team Providers + +------+ + | Care Third Rail Installer Name | Role | Phone | + +------+ + | Ayala Michelle MD | PCP | | + +------+ + Encounter Details +--------+---------+ + + + | Date | Type | Department | Care Team | Description | +--------+---------+ + + + | 04/10/ | Office | [facility] | Grady Delgado MD | 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 Grady Delgado M.D. [facility] Facial Plastic [facility] Reconstructive Surgery documented in this encounter Plan of Treatment Not on filedocumented as of this encounter Procedures + +--------+ + + + | Procedure Name | Priori | Date/Time | Associated Diagnosis | Comments | | | ty | | | | + +--------+ + + + | MT PROBE | Routin | 04/10/2015 | Stenosis [...]
--- OUTSIDE RECORDS SUMMARY | ~2019-05-02 | XMS | Encounter Summary ---
Demographics + + + | Address | [address] [facility] | | | [place] [address] | + + + | Home Phone [...] + + + | Author | [facility] | + + + | Organization | [facility] | + + + | Address [...] [address] | | | | | [facility] | | | | | [address] | | + + + + + Care Team Providers + +------+ + | Care Manager Semiconductor Name | Role | Phone | + +------+ + | Loreta Pierre | PCP | | + +------+ + Encounter Details +--------+ + + + + | Date | Type | Department | Care Team | Description | +--------+ + + + + | 07/16/ | Results | NON-[facility] | Briana Diaz, | | | 2010 | Only | Department | PA-C [place] | | | | | | Orthopedics [address] [place], | | | | | | [place] [address] | | | | | | [phone] | | | | | | | [...] | + +--------+ + + + | BORISYJTN | Routin | 07/16/2010 | | Results for this | | [id number] | e | 11:06 AM | | procedure are in the | | | | PST | | results section. | + +--------+ + + + documented in this encounter Results [id number] [id number] (07/16/2010 11:06 AM PST) + + | Specimen | + + | | + + + + + | Narrative | Performed At | + + + | EXAM: LEFT SHOULDER MRI HISTORY: Pain COMPARISON: None FINDINGS: | [facility] | | The following sequences were obtained: 1. Axial proton fat sat. 2. | DEPARTMENT OF | | Oblique coronal T2 fat sat, T1. 3. Oblique sagittal T2 fat sat, | RADIOLOGY | | T2. Moderate sized glenohumeral joint effusion containing loose | | | bodies and / or debris is noted (sequence two image 8). Small | | | amount of fluid is noted in the subacromial subdeltoid bursa | | | (sequence five image 4). No gross defect is noted in the articular | | | cartilages at the glenohumeral joint. No bony erosion is noted. No | | | evidence of a rotator cuff tear is demonstrated. Moderate | | | degenerative disease is seen at the acromioclavicular joint. Small | | | cysts are noted at the lateral humeral head (sequence five image 5). | | | The glenoid caio are intact. The long head of the biceps tendon | | | lies in the bicipital groove and is normal in appearance. IMPRESSION: | | | Moderate sized glenohumeral joint effusion containing loose bodies | | | and / or debris is noted (sequence five image 14) (sequence three | | | image 8). | | + + + + + | Procedure Note | + + | Interface, Radiology Results - 02/09/2015 12:00 PM PDT EXAM: LEFT SHOULDER MRI | | HISTORY: Pain | | COMPARISON: None | | FINDINGS: The following sequences were obtained: | | 1. Axial proton fat sat. | | 2. Oblique coronal T2 fat sat, T1. | | 3. Oblique sagittal T2 fat sat, T2. | | Moderate sized glenohumeral joint effusion containing loose bodies | | and / or debris is noted (sequence two image 8). Small amount of | | fluid is noted in the subacromial subdeltoid bursa (sequence five | | image 4). No gross defect is noted in the articular cartilages at the | | glenohumeral joint. No bony erosion is noted. | | No evidence of a rotator cuff tear is demonstrated. Moderate | | degenerative disease is seen at the acromioclavicular joint. Small | | cysts are noted at the lateral humeral head (sequence five image 5). | | The glenoid caio are intact. The long head of the biceps tendon | | lies in the bicipital groove and is normal in appearance. | | IMPRESSION: Moderate sized glenohumeral joint effusion | | containing loose bodies and / or debris is noted (sequence five image | | 14) (sequence three image 8). | + + + +---------+ + + | Performing | Address | City/State/Zipcode | Phone Number | | Organization | | | | + +---------+ + + | [facility] DEPARTMENT OF | | | | | RADIOLOGY | | | | + +---------+ + + documented in this encounter Visit Diagnoses Not on filedocumented in this encounter"
--- OUTSIDE RECORDS SUMMARY | ~2019-05-02 | XMS | Encounter Summary ---
Demographics + + + | Address | [address] [facility] | | | [place] [address] | + + + | Home Phone | | + + + | Preferred Language | Unknown | + + + | Marital Status | | + + + | Christianity Affiliation | UNK | + + + | Race | White | + + + | Ethnic Group | Not or | + + + Author + + + | Author | [facility] | + + + | Organization | [facility] | + + + | Address | [...] [address] | | | | | [place], [place] | | | | | [address] | | + + + + + Care Team Providers + +------+ + | Care Cook Specialty Foreign Food Name | Role | Phone | + +------+ + | Ayala Glasgow MD | PCP | | + +------+ + Encounter Details +--------+ + + + + | Date | Type | Department | Care Team | Description | +--------+ + + + + | 03/15/ | Results | [facility] | [place], | | | 2009 | Only | Department | [address] | | | | | | [address] | | | | | | [place] [address] | | | | | | [phone] | | | | | | | [...] | CBC W/DIFF, REFLEX | Routin | 03/15/2010 | | Results for this | | | e | 11:15 AM | | procedure are in the | | | | PDT | | results section. | + +--------+ + + + | INR | Routin | 03/15/2010 | | Results for this | | | e | 11:15 AM | | procedure are in the | | | | PDT | | results section. | + +--------+ + + + documented in this encounter Results MARLEN W/DIFF, REFLEX (03/15/2010 11:15 AM PDT) + +---------+ + + + | Component | Value | Ref Range | Performed | Pathologist | | | | | At | Signature | + +---------+ + + + | WHITE BLOOD | 5.6 | 4.4 - 10.8 X10 | [facility] | | | CELL COUNT | | 3/uL | A MEDICAL | | | | | | CENTER | | + +---------+ + + + | HEMOGLOBIN | 15.1 | 12.0 - 16.0 | [facility] | | | | | g/dL | A MEDICAL | | | | | | CENTER | | + +---------+ + + + | RED BLOOD | 5.07 | 4.2 - 5.4 X10 | [facility] | | | CELL COUNT | | 6/uL | A MEDICAL | | | | | | CENTER | | + +---------+ + + + | HEMATOCRIT | 45.0 | 37.0 - 47.0 % | [facility] | | | | | | A MEDICAL | | | | | | CENTER | | + +---------+ + + + | MCV | 88.7 | 82 - 100 fL | [facility] | | | | | | A MEDICAL | | | | | | CENTER | | + +---------+ + + + | MCH | 29.7 | 28.0 - 32.0 pg | [facility] | | | | | | A MEDICAL | | | | | | CENTER | | + +---------+ + + + | MCHC | 33.5 | 32 - 36 g/dL | [facility] | | | | | | A MEDICAL | | | | | | CENTER | | + +---------+ + + + | RDW | 14.0 | 11.5 - 14.5 fL | [facility] | | | | | | A MEDICAL | | | | | | CENTER | | + +---------+ + + + | PLATELET | 275 | 150 - 450 X10 3 | [facility] | | | COUNT | | | A MEDICAL | | | | | | CENTER | | + +---------+ + + + | MPV | 7.1 (L) | 9.0 - 12.0 fL | [facility] | | | | | | A MEDICAL | | | | | | CENTER | | + +---------+ + + + | NEUTROPHIL | 67.1 | 40 - 80 % | [facility] | | | % | | | A MEDICAL | | | | | | CENTER | | + +---------+ + + + | LYMPHOCYTE | 25.4 | 10 - 45 % | [facility] | | | % | | | A MEDICAL | | | | | | CENTER | | + +---------+ + + + | % MIXED | 7.5 | 0 - 15 % | [facility] | | | CELLS | | | A MEDICAL | | | | | | CENTER | | + +---------+ + + + + + | Specimen | + + | | + + + + + + + | Performing | Address | City/State/Zipcode | Phone Number | | Organization | | | | + + + + + | [facility] | | | | | LABORATORY | | | | + + + + + | [facility] | And | [place] [address] | | | [facility] | Streets | | | + + + + + INR (03/15/2010 11:15 AM PDT) + + + + + + | Component | Value | Ref Range | Performed | Pathologist | | | | | At | Signature | + + + + + + | PROTHROMBIN | 10.8 | 9.6 - 12.3 SEC | [facility] | | | TIME | | | A MEDICAL | | | | | | CENTER | | + + + + + + | INR | 1.0 | 1.0 - 1.1 | [facility] | | | | | | A MEDICAL | | | | | | CENTER | | + + + + + + | APTT | 31.9Comment: HEPARIN | 27.0 - 36.5 SEC | [facility] | | | | RESPONSE CURVE FILED IN | | A MEDICAL | | | | PHARMACY | | CENTER | | + + + + + + | ON | NO | | [facility] | | | COUMADIN? | | | A MEDICAL | | | | | | CENTER | | + + + + + + | COUMADIN | NO | | [facility] | | | CURRENT | | | A MEDICAL | | | DOSE | | | CENTER | | + + + + + + | LAST DOSE | CHIEF CONTRACT OFFICER | | [facility] | | | DATE | | | A MEDICAL | | | | | | CENTER | | + + + + + + | LAST DOSE | CHIEF CONTRACT OFFICER | | [facility] | | | TIME | | | A MEDICAL | | | | | | CENTER | | + + + + + + | LAST DOSE | CHIEF CONTRACT OFFICER | | [facility] | | | DATE | | | A MEDICAL | | | | | | CENTER | | + + + + + + | LAST DOSE | CHIEF CONTRACT OFFICER | | [facility] | | | TIME [...] [facility] | And [address] | [place] [address] | | | MEDICAL CENTER | Streets | | | + + + + + documented in this encounter Visit Diagnoses Not on filedocumented in this encounter"
--- OUTSIDE RECORDS SUMMARY | ~2019-05-02 | XMS | Encounter Summary ---
Demographics + + + | Address | [address] [facility] | | | [place] [address] | + + + | Home Phone | | + + + | Preferred Language | Unknown | + + + | Marital Status | | + + + | Buddhism Affiliation | UNK | + + + [...] [place] | | | | | [address] | | + + + + + Care Team Providers + +------+ + | Care Tribal Judge Name | Role | Phone | + +------+ + | Ayala Glasgow MD | PCP | | + +------+ + Reason for Visit + + + | Reason | Comments | + + + | Follow-up visit | | + + + Encounter Details +--------+---------+ + + + | Date | Type | Department | Care Team | Description | +--------+---------+ + + + | 05/12/ | Office | [facility] | Vimal Villalta, | History of carcinoma | | 2017 | Visit | Center - Radiation | MD [address] | in situ of breast | | | | Oncology [address] | [place], [place] | (Primary Dx) | | | | [place], | [address] | | | | | [place] [address] | [phone] | | | | | [phone] | | | +--------+---------+ + + + [...] encounter Progress Notes Ayala Glasgow MD - 05/12/2017 1:00 PM PSTNoted and agree .....................AYALA LOZADA MD, 4:34 PM 05/18/2017 imal Villalta MD - 05/12/2017 1:00 PM PSTCHIEF COMPLAINT: History of DCIS of the right breast. 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 It was ER positive, MO positive, and HER2 negative . She had lumpectomy and radiation therapy completed in August of 2012. She initiated tamox ifen, but discontinued it because of hot flashes. She has not noticed any breast masses, enlarged lymph nodes, or new sites of pain. She had a mammogram on 11/27/2016 that showed post treatment changes in the right breast an d was read as benign. She was evaluated by Cardiology for longstanding chest pains that wer e suspected to be GI in nature. She had upper and lower endoscopy by Dr. Cuadra. Pathology f rom the duodenum and gastric antrum/fundus did not show any abnormality. Polyps from the asc ending and sigmoid colon showed mild surface hyperplastic change. MEDICATIONS: I reviewed her updated medication list on the EMR. EXAMINATION: GENERAL: Overweight woman in no acute distress. VITAL SIGNS: Weight is 184 pounds, which is down 5 pounds from about a year ago, with bloo d pressure 144/96, heart rate 95, respiratory rate 20. LYMPHATICS: No cervical, supraclavicular, or axillary lymphadenopathy. LUNGS: Clear to auscultation and percussion. MUSCULOSKELETAL: No tenderness over the spine or ribs. BREASTS: The right breast continues to have barely detectable surgical and post radiation changes. There is slight soft tissue loss at the primary site centrally in the right breast. There were no masses palpable in either breast. ABDOMEN: No hepatomegaly. IMPRESSION/PLAN: No evidence of breast tumor recurrence approximately 4.5 years out from r adiation. Her next mammogram will be due in November of 2017. At this point, she could have [facility] breast examination and mammogram. She told me that she wishes to do that in [place] with Dr. Cuadra. She will arrange for that follow-up and I will be available in the future as needed. documented in this encounter Plan of Treatment Not on filedocumented as of this encounter Visit Diagnoses + + | Diagnosis | + + | History of carcinoma in situ of breast - Primary Personal history of malignant | | neoplasm of breast | + + documented in this encounter"
--- OUTSIDE RECORDS SUMMARY | ~2019-05-02 | XMS | Encounter Summary ---
Demographics + + + | Address | [address] [facility] | | | [place] [address] | + + + | Home Phone | | + + + | Preferred Language | Unknown | + + + | Marital Status | | + + + | Bahai Affiliation | UNK | + + + | Race | White | + + + | Ethnic Group | Not or | + + + Author + + + | Author | [facility] | + + + | Organization | [facility] | + + + | Address [...] [address] | | | | | [facility] [place] | | | | | [address] | | + + + + + Care Team Providers + +------+ + | Care Planting Machine Operator Name | Role | Phone | + +------+ + | Ayala Glasgow MD | PCP | | + +------+ + Encounter Details +--------+ + + + + | Date | Type | Department | Care Team | Description | +--------+ + + + + | 05/23/ | Results | NON[facility] | [place] | | | 2008 | Only | Department | [address] | | | | | | [address] | | | | | | [place] [address] | | | | | | [phone] | | | | | | | [...] | + +--------+ + + + | GABRIELAOSVALDO ONLY | Routin | 05/23/2009 | | Results for this | | | e | 8:30 AM | | procedure are in the | | | | PST | | results section. | + +--------+ + + + documented in this encounter Results OSVALDO OCHOA ONLY (05/23/2009 8:30 AM PST) + + + + + [...] + + + + | SPECIFIC | 1.005 | 1.005 - 1.030 | [facility] | [...] + + + | PROTEIN, UA | 1+ | NEGATIVE | [facility] | | | [...] + + + + | BLOOD | 2+ | NEGATIVE | [facility] | [...] + + + | WHITE CELLS | 10-20 | 0 - 2 HPF | [facility] | | | | | | A MEDICAL | | | | | | CENTER | | + + + + + + | RED CELLS | 3-5 | 0 - 3 HPF | [facility] [...] + + + + | BACTERIA | 2+ | NEG HPF | [facility] | | | | | | A MEDICAL | | | | | | CENTER | | + + + + + + | OTHER | PLANTING MACHINE OPERATOR | | [facility] | | | | [...] | + + + + + | [facility] | And | [place] [address] | | | [facility] | [facility] | | | + + + + + documented in this encounter Visit Diagnoses Not on filedocumented in this encounter"
--- OUTSIDE RECORDS SUMMARY | ~2019-05-02 | XMS | Encounter Summary ---
Demographics + + + | Address | [address] [facility] | | | [place] [address] | + + + | Home Phone [...] [place] | | | | | [address] | | + + + + + Care Team Providers + +------+ + | Care Radial Drill Press Operator For Plastic Name | Role | Phone | + [...] Description | +--------+--------+ + + + | 02/19/ | Refill | [facility] | Ayala Glasgow MD | Refill Request | | 2015 | | Medicine [address] | [address] | | | | | [address] [place], | [place], [place] | | | | | [place] [address] | [address] | | | | | [phone] | [phone] | | | | | | | [...]
--- OUTSIDE RECORDS SUMMARY | ~2019-05-02 | XMS | Encounter Summary ---
Demographics + + + | Address | [address] [facility] | | | [place] [address] | + + + | Home Phone | | + + + | Preferred Language | Unknown | + + + | Marital Status | | + + + | Taoist Affiliation | UNK | + + + | Race | White | + + + | Ethnic Group | Not or | + + + Author + + + | Author | [facility] | + + + | Organization | [facility] | + + + | Address [...] [place] | | | | | [address] | | + + + + + Care Team Providers + +------+ + | Care Server Support Technician Name | Role | Phone | + +------+ + | Ayala Michelle MD | PCP | | + +------+ + Encounter Details +--------+ + + + + | Date | Type | Department | Care Team | Description | +--------+ + + + + | 11/27/ | Hospital | Mammography at | Ayala Michelle MD | | | 2017 | Encounter | [facility] [address] | | | | | [address] | [place], [place] | | | | | [place], [place] | [address] | | | | | [address] | [phone] | | | | | | | [...] + + documented in this encounter Results MT DIGITAL MAMMO SCREEN BILAT (11/27/2016 1:02 PM PDT) + + | Specimen | + + | | + + + + + | Narrative | Performed At | + + + | [address] [place] [address] | [facility] | | [place] [address] DEPARTMENT | | [phone] Name: REGLA DANIEL Phys: | RADIOLOGY | | MIGUEL ANGELAYALA : 1955 Sex: F CSN: | | | [id number] MR# [id number] Exam Date: 11/27/2016 | | | EXAM: MT DIGITAL MAMMO SCREEN BILAT CLINICAL HISTORY: | [...] Transcribed Date/Time: 11/27/2016 14:22 | | | Scientific Photographer: JENNIE | | + + + + + | Procedure Note | + + | Interface, Radiology Results - 11/27/2016 2:27 PM PDT [address] | | [address] [place] [address] | | Name: REGLA DANIEL Phys: AYALA MICHELLE : 1955 Sex: F CSN: | | [id number] MR# [id number] Exam Date: 11/27/2016 EXAM:MA DIGITAL MAMMO SCREEN | | BILAT CLINICAL HISTORY:61-year-old asymptomatic female. 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 COMPARISON:10/17/2015, 08/30/2014, | | and 08/23/2014. TECHNIQUE:Bilateral MLO and CC full field digital mammography was | | performed.[employer] computer aided detection (CAD) software was utilized [...] | | |Transcribed Date/Time: 11/27/2016 14:22 | |Scientific Photographer: FLUENCY | | | | | | [...]
--- OUTSIDE RECORDS SUMMARY | ~2019-05-02 | XMS | Encounter Summary ---
Demographics + + + | Address | [address] [facility] | | | [place] [address] | + + + | Home Phone | | + + + | Preferred Language | Unknown | + + + | Marital Status | | + + + | Worship Affiliation | UNK | + + + | Race | White | + + + | Ethnic Group | Not or | + + + Author + + + | Author | [facility] | + + + | Organization | [facility] | + + + [...] [place] | | | | | [address] | | + + + + + Care Team Providers + +------+ + | Care Hearing Aid Specialist Name | Role | Phone | + +------+ + | Ayala Glasgow MD | PCP | | + +------+ + Reason for Visit + + + | Reason | Comments | + + + | Examination Of Skin | Regla is here today for her annual skin exam..Maureen GIRON | + + + Encounter Details +--------+---------+ + + + | Date | Type | Department | Care Team | Description | +--------+---------+ + + + | 05/06/ | Office | Dermatology at | Margaret Arriaga, | Multiple nevi | | 2016 | Visit | [facility] | ,PhD 1934 | (Primary Dx); | | | | Clinic [address] | [address] [place], [place] | Seborrheic | | | | [place], [place] | [address] | keratosis; Skin tag | | | | [address] | [phone] | | | | | [phone] | | | +--------+---------+ + + + [...] + + + | Blood Pressure | 144/78 | 05/06/2016 10:25 AM | | | | | PST | | + + + + + | Pulse | 70 | 05/06/2016 10:25 AM | | | | | PST | | + + + + + | Temperature | - | - | | + + + + + | Respiratory Rate | - | - | | + + + + + | Oxygen Saturation | 96% | 05/06/2016 10:25 AM | | | | | PST | | + + + + + | Inhaled Oxygen | - | - | | | Concentration | | | | + + + + + | Weight | 86 kg (189 lb 9.6 | 05/06/2016 10:25 AM | | | | oz) | PST | | + + + + + | Height | 177.8 cm (5' 10") | 05/06/2016 10:25 AM | | | | | PST | | + + + + + | Body Mass Index | 27.2 | 05/06/2016 10:25 AM | | | | | PST | | + + + + + documented in this encounter Patient Instructions Patient Instructions Cristina Joel MA - 05/06/2016 10:41 AM PSTSUNSCREEN APPLICATION AND U V PROTECTION ? Exposure to ultraviolet radiation is the leading cause of premature aging, and skin cance rs including melanoma. ? The [place] [employer] (AAD) recommends you wear [...] information is available at the following websites: http://www.[facility].edu/xd/health/services/dermatology/for-patients/health_info.cfm - [facility] Derm atology http://www.aad.org/public/sun/smart.html - AAD Website documented in this encounter Progress Notes Ayala Glasgow MD - 05/06/2016 1:45 PM PSTNoted and agree .....................AYALA LOZADA MD, 1:45 PM 05/06/2016 iter, Margaret Macdonald MD,P hD - 05/06/2016 10:21 AM PST [facility] DERMATOLOGY FOLLOW-UP VISIT (Last Appointment in [facility] DERMATOLOGY CC was on 04/18/15 with Margaret Arriaga MD,PhD.) Dermatology History -- Skin tags (Bx/removal from low back 2014) -- Seborrehic keratosis SUBJECTIVE: Regla Daniel is a 61 y.o. female here for follow-up her her annual skin exam. Regla sta harpreet that she only has one area of concern and that would be her chest. Regla states that when she was younger every summer that area would always become sun burned. She states that she u ses photoprotective clothing now and the occasional sun screen. She has been enjoying life, camping, cutting firewood and sitting next to a fire. ROS: Other than those stated above, the patient denies any fevers, chills, night sweats, w eight loss, loss of appetite or other skin complaints. PAST MEDICAL HISTORY: Past Medical History Diagnosis [...] Anxiety Skin tag 04-10-15 Benign (Shave Biopsy) PHYSICAL EXAMINATION: BP 144/78 | Pulse 70 | Ht 1.778 m (5' 10") | Wt 86.002 kg (189 lb 9.6 oz) | SpO2 96% | BMI 27.2 kg/(m^2) Well-developed, well-nourished female in no acute distress. Awake, alert and oriented. Pl easant and cooperative mood. A skin examination was performed including the scalp, face, eyelids, ears, lips, teeth, ton umu, oral mucosa, neck, chest, back, abdomen, buttocks, bilateral arms and legs, bilateral h ands and feet, and nails. Findings were within normal limits except for the following: --Back: generally symmetric light/medium brown pigmented macules and papules. --Chest, Arms and Back: waxy hyperkeratotic walsh/brown stuck on papules and plaques with pse udocysts --Right neck: skin colored soft pedunculated small papules ASSESSMENT AND PLAN: Multiple nevi (primary encounter diagnosis) Comment: Back ( Skin tag) Plan: -ABCDEs of melanoma were discussed as well as the findings seen with non-melanoma sk in cancer. Routine use of sunscreen and skin-protective clothing was also discussed. Month ly self-examination was recommended in addition to annual skin exams Seborrheic keratosis Comment: Chest, Arms, Back Plan: -Pt reassured as to the benign nature, does not require treatment unless symptomatic or repeatedly traumatized. Like any lesion, should it not be stable in size or appearance, or become symptomatic, it should be biopsied to confirm benign nature. Pt instructed to retu rn with any change or concern. Skin tag Comment: Right neck Plan: -Pt reassured as to the benign nature, does not require treatment unless symptomatic or repeatedly traumatized. Like any lesion, should it not be stable in size or appearance, or become symptomatic, it should be biopsied to confirm benign nature. Pt instructed to retu rn with any change or concern. RETURN VISIT: Return if symptoms worsen or fail to improve. Margaret Arriaga M.D. Ph.D. Sales Representative [employer] Department of Dermatology [facility] ([facility]) Dermatology documented in th is encounter Plan of Treatment Not on filedocumented as of this encounter Visit Diagnoses + + | Diagnosis | + + | Multiple nevi - Primary Benign neoplasm of skin, site unspecified | + + | Seborrheic keratosis Other seborrheic keratosis | + + | Skin tag Unspecified hypertrophic and atrophic condition of skin | + + documented in this encounter
--- OUTSIDE RECORDS SUMMARY | ~2019-05-02 | XMS | Encounter Summary ---
Demographics + + + | Address | [address] [facility] | | | [place] [address] | + + + | Home Phone | | + + + | Preferred Language | Unknown | + + + | Marital Status | | + + + | Congregational Affiliation | UNK | + + + | Race | White | + + + | Ethnic Group | Not or | + + + Author + + + | Author | [facility] | + + + | Organization | [facility] | + + + [...] [place] | | | | | [address] | | + + + + + Care Team Providers + +------+ + | Care Special Skills Officer Name | Role | Phone | + [...] (Primary Dx) | | | | [place], | [address] | | | | | [place] [address] | [phone] | | | | | [phone] | | | +--------+---------+ + + + [...] the right breast. It was ER positive, AK positive, and HER2 negative . She had [...] At this point, she could have [facility] breast examination and mammogram. She told me that she wishes to do that in [place] with Dr. Cuadra. She will arrange for [...]
--- OUTSIDE RECORDS SUMMARY | ~2019-05-02 | XMS | Encounter Summary ---
Demographics + + + | Address | [address] [facility] | | | [place] [address] | + + + | Home Phone | | + + + | Preferred Language | Unknown | + + + | Marital Status | | + + + | Episcopal Affiliation | UNK | + + + | Race | White | + + + | Ethnic Group | Not or | + + + Author + + + | Author | [facility] | + + + | Organization | [facility] | + + + | [...] [address] | | | | | [facility] | | | | | [address] | | + + + + + Care Team Providers + +------+ + | Care Furnace Hand Name | Role | Phone | + [...] [address] | | | | | | [place], [place] | | | | | | [address] | | | | | | | [...] 3.5 | 3.5 - 5.2 MEQ/L | [facility] | | | PLASMA | | | [...] | [place] | And | [place] [address] | | | [facility] | [place] | | | + + + + + documented in this encounter Visit Diagnoses Not on filedocumented in this encounter"
--- OUTSIDE RECORDS SUMMARY | ~2019-05-02 | XMS | Encounter Summary ---
Demographics + + + | Address | [address] [facility] | | | [place] [address] | + + + | Home Phone [...] [place] | | | | | [address] | | + + + + + Care Team Providers + +------+ + | Care Fire Equipment Operator Name | Role | Phone | + +------+ + | Ayala Glasgow MD | PCP | | + +------+ + Encounter Details +--------+ + + + + | Date | Type | Department | Care Team | Description | +--------+ + + + + | 03/12/ | Office | [facility] | Vimal Villalta, | Progress Note | | 2015 | Visit-Trans | [address] | MD [address] | | | | soraida | [place], [place] | [place], [place] | | | | | [address] | [address] | | | | | | [phone] | | | | | | | [...] encounter Progress Notes Vimal Villalta MD - 03/12/2015 6:59 PM [facility] [address] [place] [id number] REGLA DANIEL DATE OF SERVICE: March 12, 2015 RE: REGLA DANIEL CHIEF COMPLAINT: Breast cancer. INTERVAL HISTORY: This is a 60-year-old woman diagnosed in June 2012 with ductal carcinoma in situ of the right breast, that was ER positive, PA positive, and HER2 negative. She had lumpectomy, followed by hypofractionated radiation of the right breast completed in August 2012. She initiated tamoxifen, but discontinued that because of significant hot flashes. She had a mammogram on August 13, 2014 that showed posttreatment changes in the right breast, with a density in the upper aspect of the left breast. She had spot compression views on August 30, 2014, in which the area effaced and was considered benign, most likely an artifactual finding. The patient has not noticed any breast masses, enlarged lymph nodes, or new sites of pain. MEDICATIONS: I reviewed her updated medication list on the EMR. EXAMINATION: GENERAL: Wgys-hzqgqrjbj-qamlmxhen woman in no acute distress. VITAL SIGNS: Weight is 179 pounds, which is down 15 pounds since May 23, 2014, with blood pressure 142/82, heart rate 67, respiratory rate 18. LYMPHATICS: No cervical, supraclavicular, or axillary lymphadenopathy. LUNGS: Clear to auscultation and percussion. MUSCULOSKELETAL: No tenderness over the spine or ribs. BREASTS: The right breast has minimal hyperpigmentation and subcutaneous fibrosis after radiation. There were no palpable masses. The left breast had no masses. ABDOMEN: No hepatomegaly. SKIN: The left medial cheek adjacent to the nose has about a 2 x 3 mm area of white crusting. IMPRESSION/PLAN: No evidence of breast cancer recurrence. She will follow up with Dr. Cuadra in about 6 months and get her next mammogram in July 2015. She will return to see me in 1 year. Her weight loss is explained by a time when she had some anorexia, but that has resolved and her weight has now stabilized. She is content at her current weight. She has a small crusting lesion on the left cheek that is somewhat concerning for squamous cell cancer of the skin. The patient states it has been there for several months. I will arrange consultation with Dr. Arriaga. KS/MedQ /[id number] REGLA DANIEL [id number] : 55 [id number] ADMIT DATE: cc: Margaret Arriaga MD PhD KARLA Cota Electronically Signed 03/13/15 0842 Vimal Villalta MD, PhD REGLA DANIEL [id number] : 55 [id number] ADMIT DATE: documente d in this encounter Plan of Treatment Not on filedocumented as of this encounter Visit Diagnoses Not on filedocumented in this encounter"
--- OUTSIDE RECORDS SUMMARY | ~2019-05-02 | XMS | Encounter Summary ---
Demographics + + + | Address | [address] [facility] | | | [place] [address] | + + + | Home Phone | | + + + | Preferred Language | Unknown | + + + | Marital Status | | + + + | Restorationist Affiliation | UNK | + + + | Race | White | + + + | Ethnic Group | Not or | + + + Author + + + | Author | [facility] | + + + | Organization | [facility] | + + + | [...] [address] | | | | | [place], [place] | | | | | [address] | | + + + + + Care Team Providers + +------+ + | Care Is Project Manager Name | Role | Phone | + +------+ + | Loreta Pierre | PCP | | + +------+ + Encounter Details +--------+ + + + + | Date | Type | Department | Care Team | Description | +--------+ + + + + | 05/21/ | Results | [facility] | [place], | | | 2010 | Only | Department | KARLA [address] | | | | | | [address] | | | | | | [place] [address] | | | | | | [phone] | | | | | | | [...] + | SCREENING MAMMO | Routin | 05/21/2011 | | Results for this | | [id number] | e | 3:41 PM | | procedure are in the | | | | PST | | results section. | + +--------+ + + + documented in this encounter Results SCREENING MAMMO [id number] (05/21/2011 3:41 PM PST) + + | Specimen | + + | | + + + + + | Narrative | Performed At | + + + | EXAM: BILATERAL MAMMOGRAM HISTORY: Follow-up screening COMPARISON: | [facility] | | 10/06/2008, 08/28/2006, 05/13/2010 FINDINGS: Two views of each | DEPARTMENT OF | | breast were obtained. No clustered microcalcifications or dominant | RADIOLOGY | | mass lesion is seen. There are benign-appearing calcifications | | | present. Routine follow-up is recommended. IMPRESSION: Benign | | | findings. BIRADS II. Routine follow-up. BIRADS 2: BENIGN. The | | | [...] not identified | | | by mammography. Interpretation was made in conjunction with CAD. | | | The patient has been entered into the reminder log. | | + + + + + | Procedure Note | + + | Interface, Radiology Results - 02/09/2015 12:00 PM PDT EXAM: BILATERAL MAMMOGRAM | | HISTORY: Follow-up screening | | COMPARISON: 10/06/2008, 08/28/2006, 05/13/2010 | | FINDINGS: Two views of each breast were obtained. No clustered | | microcalcifications or dominant mass lesion is seen. There are | | benign-appearing calcifications present. Routine follow-up is | | recommended. | | IMPRESSION: Benign findings. BIRADS II. Routine follow-up. | | BIRADS 2: BENIGN. The final [...] not identified by | | mammography. | | Interpretation was made in conjunction with CAD. The patient has | | been entered into the reminder log. | + + + +---------+ + + [...]
--- OUTSIDE RECORDS SUMMARY | ~2019-05-02 | XMS | Encounter Summary ---
Demographics + + + | Address | [address] [facility] | | | [place] [address] | + + + | Home Phone [...] + + + | Author | [facility] | + + + | Organization | [facility] | + + + [...] [place] | | | | | [address] | | + + + + + Care Team Providers + +------+ + | Care Admissions Officer Name | Role | Phone | + +------+ + | Ayala Glasgow MD | PCP | | + +------+ + Encounter Details +--------+ + + + + | Date | Type | Department | Care Team | Description | +--------+ + + + + | 05/23/ | Office | [facility] | Vimal Villalta, | Progress Note | | 2013 | Visit-Trans | E The | MD [address] | | | | soraida | [place], [place] | [place], [place] | | | | | [address] | [address] | | | | | | [phone] | | | | | | | [...] encounter Progress Notes Vimal Villalta MD - 05/23/2014 4:38 PM [facility] [address], [place] [address] REGLA DANIEL DATE OF SERVICE: May 23, 2014 RE: REGLA DANIEL CHIEF COMPLAINT: Breast cancer. 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 It was located in the periareolar area. It was ER positive, IN positive, and HER2 negative. She completed a hypofractionated right breast radiation regimen on 09/20/2012 following lumpectomy. She was on tamoxifen but discontinued that because of almost continuous severe hot flashes while on that medication. Currently she is feeling well with no pain, fatigue or breast masses. She had a mammogram on 08/16/2013 that showed the post treatment changes in the right breast as well as benign calcifications and was read as benign. She is already set up for her next mammogram in July of 2014. MEDICATIONS: I reviewed her updated medication list on the EMR. PHYSICAL EXAMINATION: GENERAL: An overweight woman in no acute distress. Weight is 194 pounds which is down 13 pounds since 11/29/2012. VITAL SIGNS: Blood pressure 105/69, heart rate 75, respiratory rate 16. LYMPHATICS: No cervical, supraclavicular, or axillary lymphadenopathy. LUNGS: Clear to auscultation and percussion. MUSCULOSKELETAL: No tenderness over the spine or ribs. BREASTS: The right breast has minimal hyperpigmentation after radiation. She has minimal postradiation fibrosis and no palpable masses. The left breast had no masses. ABDOMEN: No hepatomegaly. IMPRESSION/PLAN: No evidence of breast cancer recurrence. She will follow up with Dr. Cuadra in July after her next mammogram. She will return to see me in January such that Dr. Cuadra and I are alternating visits with her every 6 months until she is out 5 years. TEMO/REGLA Hand [id number] : 55 [id number] ADMIT DATE: /[id number] cc: KARLA Cota Electronically Signed 05/24/14 0840 Vimal Villalta MD, PhD REGLA DANIEL [id number] : 55 [id number] ADMIT DATE: documente d in this encounter Plan of Treatment Not on filedocumented as of this encounter Visit Diagnoses Not on filedocumented in this encounter"
--- OUTSIDE RECORDS SUMMARY | ~2019-05-02 | XMS | Clinical Summary ---
Demographics + + + | Address | [address] | | | [place] [address] | + + + | Home Phone | | + + + | Preferred Language | Unknown | + + + | Marital Status | Unknown | + + + | Congregation Affiliation | Unknown | + + + | Race | Unknown | + + + | Ethnic Group | Unknown | + + + Author + + + | Author | [facility] (Historical as of | | | 02-12-19) | + + + | Organization | [facility] (Historical as of | | | 02-12-19) | + + + | Address | Unknown | + + + | Phone | Unavailable | + + + Care Team Providers + +------+ + | Care Revenue Agent Name | Role | Phone | + +------+ + | Chuyita Gtz MD | PP | | + +------+ + Allergies Not on File Current Medications Not on file Active Problems Not on file Social History + +-------+ +--------+------+ | Tobacco [...] on file | | + + + Plan of Treatment + + + + + | Health Maintenance | Due Date | Last Done | Comments | + + + + + | Vaccine: | | | | | Dtap/Tdap/Td (1 - | 4 | | | | Tdap) | | | | + + + + + | Cervical Cancer | | | | | Screening (Pap) | 5 | | | + + + + + | Vaccine: Zoster (1 | | | | | of 2) | 5 | | | + + + + + | Vaccine: Influenza | | | | | (#1) | 9 | | | + + + + + Results Not on filefrom Last 3 Months Insurance + +--------+ +------+-------+---------+ | Payer | Benefi | Subscriber | Type | Phone | Address | | | t Plan | ID | | | | | | / | | | | | | | Group | | | | | + +--------+ +------+-------+---------+ | [employer] | FC-NET | [id number] | | | | | | WORK | | | | | + +--------+ +------+-------+---------+ + +--------+ +--------+ + + | Guarantor Name | Accoun | Relation to | Date | Phone | Billing Address | | | t Type | Patient | of | | | | | | | | | | + +--------+ +--------+ + + | REGLA DANIEL | Person | Self [birth year] Home: | [address] [facility] [address] [address] | | | al/Fam | | [phone] | [place] | | | jewel | | [phone] | [address] | + +--------+ +--------+ + +"
--- OUTSIDE RECORDS SUMMARY | ~2019-05-02 | XMS | Encounter Summary ---
Demographics + + + | Address | [address] [facility] | | | [place] [address] | + + + | Home Phone [...] [address] | | | | | [address] [place] [address] [place] | | | | | [address] | | + + + + + Care Team Providers + +------+ + | Care Splicing Supervisor Name | Role | Phone | + +------+ + | Loreta Pierre | PCP | | + +------+ + Encounter Details +--------+ + + + + | Date | Type | Department | Care Team | Description | +--------+ + + + + | 12/15/ | Telephone | Hematology/Medical | Hung, | | | 2012 | | Oncology at [facility] | Nayana Velásquez MD | | | | | [address] | | | | | | Mailcode: CH7M | | | | | | [facility] | | | | | | and [place], | | | | | | [facility] | | | | | | [place], [place] | | | | | | [address] | | | | | | [phone] | | | +--------+ + + + [...]
--- OUTSIDE RECORDS SUMMARY | ~2019-05-02 | XMS | Encounter Summary ---
Demographics + + + | Address | [address] [facility] | | | [place] [address] | + + + | Home Phone [...] [place] | | | | | [address] | | + + + + + Care Team Providers + +------+ + | Care Commodities Broker Name | Role | Phone | + [...] [place] | | | | [place] | [address] | [address] | | | | | | [phone] | | | | | | | [...]
--- OUTSIDE RECORDS SUMMARY | ~2019-05-02 | XMS | Encounter Summary ---
Demographics + + + | Address | [address] [facility] | | | [place] [address] | + + + | Home Phone | | + + + | Preferred Language | Unknown | + + + | Marital Status | | + + + | Latter-Day Affiliation | UNK | + + + [...] [place] | | | | | [address] | | + + + + + Care Team Providers + +------+ + | Care Orthopaedic Surgeon Name | Role | Phone | + [...] | | | | | [address] [place], | [place], [place] | | | | | [place] [address] | [address] | | | | | [phone] | [phone] | | | | | | | [...]
--- OUTSIDE RECORDS SUMMARY | ~2019-05-02 | XMS | Encounter Summary ---
Demographics + + + | Address | [address] [facility] | | | [place] [address] | + + + | Home Phone | | + + + | Preferred Language | Unknown | + + + | Marital Status | | + + + | Caodaism Affiliation | UNK | + + + [...] [place] | | | | | [address] | | + + + + + Care Team Providers + +------+ + | Care Geography Teacher Name | Role | Phone | + [...] | | | | | [address] [place], | [place], [place] | | | | | [place] [address] | [address] | | | | | [phone] | [phone] | | | | | | | [...]
--- OUTSIDE RECORDS SUMMARY | ~2019-05-02 | XMS | Encounter Summary ---
Demographics + + + | Address | [address] [facility] | | | [place] [address] | + + + | Home Phone | | + + + | Preferred Language | Unknown | + + + | Marital Status | | + + + | Judaism Affiliation | UNK | + + + | Race | White | + + + | Ethnic Group | Not or | + + + Author + + + | Author | [facility] | + + + | Organization | [facility] | + + + | Address [...] [address] | | | | | [place], [place] | | | | | [address] | | + + + + + Care Team Providers + +------+ + | Care Church Business Administrator Name | Role | Phone | + [...] [address] | | | | | | [place] [address] | | | | | | [phone] | | | | | | | [...] | | Results for this | | [address] | e | 3:32 PM | | procedure are in the | | | | PST | | results section. | + +--------+ + + + documented in this encounter Results SCREENING MAMMO [id number] (05/13/2010 3:32 PM PST) + + | [...]
--- OUTSIDE RECORDS SUMMARY | ~2019-05-02 | XMS | Encounter Summary ---
Demographics + + + | Address | [address] [facility] | | | [place] [address] | + + + | Home Phone [...] + + | Author | [facility] | + + + | Organization | [facility] | + + + | Address [...] [address] | | | | | [place], [place] | | | | | [address] | | + + + + + Care Team Providers + +------+ + | Care Supervisor Rubber Covering Name | Role | Phone | + [...] [address] | | | | | | [place] [address] | | | | | | [phone] | | | | | | | [...] | | Results for this | | [address] | e | 3:41 PM | | procedure are in the | | | | PST | | results section. | + +--------+ + + + documented in this encounter Results SCREENING MAMMO [id number] (05/21/2011 3:41 PM PST) + + | [...]
--- OUTSIDE RECORDS SUMMARY | ~2019-05-02 | XMS | Encounter Summary ---
Demographics + + + | Address | [address] [facility] | | | [place] [address] | + + + | Home Phone [...] [place] | | | | | [address] | | + + + + + Care Team Providers + +------+ + | Care Scanner Supervisor Name | Role | Phone | + +------+ + | Ayala Glasgow MD | PCP | | + +------+ + Encounter Details +--------+ + + + + | Date | Type | Department | Care Team | Description | +--------+ + + + + | 02/18/ | Discharge | [facility] | Jadon Rojo, | Discharge Summaries | | 2006 | Summary-Tra | [address] | JESSICA TAN | | | | nscribed | [place] | [facility] | | | | | [address] | [address] | | | | | | [place] [address] | | | | | | [phone] | | | | | | | [...] + + documented as of this encounter Discharge Summaries Jadon Rojo - 02/19/2006 9:55 AM [facility] SHORT STAY SUMMARY [address] [place] [address] DATE OF ADMISSION: 02/18/2006 DATE OF DISCHARGE: 02/19/2006 HISTORY: The patient is a 50-year-old woman who has a history of chronic depression, has been having increasing problems coping with job stresses and has been increasingly depressed. She has been tried on a number of different antidepressants by her primary care physician, Dr. Cavanaugh, without success. The patient had a crisis at work. 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 As she was doing this her domestic partner came home, saw what she was doing and took her to the emergency room where she was admitted for a short stay because of the overdose. She did not take any other of the medications at the time and she had not been drinking any alcohol at that time. She was admitted and observed overnight and I am now seeing her this morning. The patient states that she continues to be depressed and when asked if she would do this again if I discharge her at this point she said that she would indeed make another attempt. PAST MEDICAL HISTORY: The patient has had several other suicide attempts. She has a very strong family history of depression and has had suicide in her father and some uncles and cousins and has had some siblings and uncles with depression and being treated for depression as well. She says that looking back on her life she has always had problems with being dejesus or depressed but has only been treated for depression in the past 5 years, since the of her father. Other medical problems include hypertension, dyspepsia or acid reflux disease. CURRENT MEDICATIONS: Cozaar 50 mg daily, Vaseretic 10/25 one daily, Premarin 0.625 daily, Wellbutrin 300 mg daily, Ativan 0.5 mg daily and Lexapro 10 mg daily, although the patient states that she did discontinue the Lexapro recently because of untoward side effects. ALLERGIES: SULFA. PAST SURGICAL HISTORY: Hysterectomy for fibroid uterus, ganglionectomy of the right wrist, appendectomy. HABITS: She is a nonsmoker now for the past 8 years but has a 64-djvs-upiw history of smoking in the past. She does drink alcohol, from 1 to 6 beers a night. SOCIAL HISTORY: The patient and her domestic partner live in [place]. 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 The patient feels somewhat trapped in the fact that she is unable to find other work in the area and that if she quit work she would lose all of her benefits and could not be covered under her partners benefits since the company does not recognize same-sex domestic partners as dependents. REVIEW OF SYSTEMS: GASTROINTESTINAL: The patient has no nausea, vomiting, diarrhea, constipation. CARDIOPULMONARY: No shortness of breath, PND or orthopnea. NEUROLOGIC: She is not sleepy or dizzy at this point. REGLA DANIEL [id number] ADMIT DATE: 02/18/06 OBJECTIVE: GENERAL: The patient is alert and oriented x3. She has somewhat of a flat affect. Occasionally will smile but rarely. She is able to give a clear, concise history and has adequate memory. HEENT: Head is normocephalic. Eyes: PERRL. EOM intact. Mouth is with moist mucous membranes. NECK: Supple, nontender. No masses, no bruits and no lymphadenopathy. CHEST: Clear to auscultation. No rales, rubs, rhonchi or wheezes. ABDOMEN: Soft, nontender. No organomegaly is noted. EXTREMITIES: Without any edema or deformity. NEUROLOGIC: No focal or motor sensory deficits. She has normal coordination and gait. Normal strength bilaterally. ASSESSMENT: 1. Overdose of lorazepam, now medically stationary. 2. Chronic depression with acute exacerbation. The patient continues to be suicidal. PLAN: A [facility] consult will be obtained and if arrangements can be made for the patient to have adequate outpatient followup, that will be arranged as well. She will be continued on her current medications, including Cozaar 50 mg daily, Vaseretic 10-25 daily, Premarin 0.625 daily. Her antidepressant medications will be adjusted as the [facility] recommends. Followup will hopefully be through [facility] and Dr. Cavanaugh. CORRINA/Juani /[id number] Electronically Signed MD COURTNEY Nguyen SUE E [id number] ADMIT DATE: 02/18/06 doc umented in this encounter Plan of Treatment Not on filedocumented as of this encounter Visit Diagnoses Not on filedocumented in this encounter"
--- OUTSIDE RECORDS SUMMARY | ~2019-05-02 | XMS | Encounter Summary ---
Demographics + + + | Address | [address] [facility] | | | [place] [address] | + + + | Home Phone | | + + + | Preferred Language | Unknown | + + + | Marital Status | | + + + | Yarsani Affiliation | UNK | + + + | Race | White | + + + | Ethnic Group | Not or | + + + Author + + + | Author | [facility] | + + + | Organization | [facility] | + + + [...] [place] | | | | | [address] | | + + + + + Care Team Providers + +------+ + | Care Chrome Tanning Drum Operator Name | Role | Phone | + +------+ + | Ayala Galsgow MD | PCP | | + +------+ [...] | Transcribed | [place] | [facility] Med [address] | | | | | [address] | [address] | | | | | | [place] [address] | | | | | | [phone] | | | | | | | [...] MD Khalif, Aileen - 03/09/2013 11:30 AM [facility] | | REPORT OF [id number] [address] [place] [address] | | REGLA DANIEL EDATE OF OPERATION: [...] a very | | pleasant patient of [place] whohas failed PPI therapy with ongoing reflux [...] the anus into | | REGLA Eugene [id number] : [id number] DATE:rectum and distally through | | the [...] 03/09/2013 10:30:29DT: 03/09/2013 | | 11:03:02Job #: [id number] Signed 03/12/13 | | 0909 | | | | | | | | | | | | | | Aileen Cuadra, | | REGLA WALL [id number] : [id number] DATE: | |permission slip was signed prior [...] anus into the | |REGLA DANIEL | |[id number] : 55 | |[id number] | |ADMIT DATE: | | | |rectum [...] |KARINA/Juani | | | | | | /[id number] | |Electronically Signed 03/12/13 0909 | | [...] | | | | |REGLA DANIEL | |[id number] : 55 | |[id number] | |ADMIT DATE: | + + documented in this encounter Visit Diagnoses Not on filedocumented in this encounter"
--- OUTSIDE RECORDS SUMMARY | ~2019-05-02 | XMS | Encounter Summary ---
Demographics + + + | Address | [address] [facility] | | | [place] [address] | + + + | Home Phone | | + + + | Preferred Language | Unknown | + + + | Marital Status | | + + + | Alevism Affiliation | UNK | + + + | Race | White | + + + | Ethnic Group | Not or | + + + Author + + + | Author | [facility] | + + + | Organization | [facility] | + + + | Address | [...] [address] | | | | | [place], [place] | | | | | [address] | | + + + + + Care Team Providers + +------+ + | Care Professor Of Management Name | Role | Phone | + +------+ + | Ayala Glasgow MD | PCP | | + +------+ + Encounter Details +--------+ + + + + | Date | Type | Department | Care Team | Description | +--------+ + + + + | 08/18/ | Results | NON-[facility] EP[facility] | [place], | | | 2009 | Only | Department | [address] | | | | | | [address] | | | | | | [place] [address] | | | | | | [phone] | | | | | | | [...] + | COMPLETE METABOLIC | Routin | 08/18/2009 | | Results for this | | SET | e | 11:16 AM | | procedure are in the | | (NA,K,CL,CO2,BUN,CRE | | PST | | results section. | | AT,GLUC,CA,AST,ALT,B | | | | | | STEVEN TOTAL,ALK | | | | | | PHOS,ALB,PROT TOTAL) | | | | | + +--------+ + + + documented in this encounter Results COMPLETE METABOLIC SET (NA,K,CL,CO2,BUN,CREAT,GLUC,CA,AST,ALT,BILI TOTAL,ALK PHOS,ALB,PROT TOTAL) (08/18/2009 11:16 AM PST) + + + + + + | Component | Value | Ref Range | Performed | Pathologist | | | | | At | Signature | + + + + + + | SODIUM, | 138 | 137 - 146 MEQ/L | [facility] | | | PLASMA | | | A MEDICAL | | | (LAB) | | | CENTER | | + + + + + + | POTASSIUM, | 3.5 | 3.5 - 5.2 MEQ/L | [facility] | | | PLASMA | | | A MEDICAL | | | (LAB) | | | CENTER | | + + + + + + | CO2 | 29 (H) | 22 - 28 MEQ/L | [facility] | | | | | | A MEDICAL | | | | | | CENTER | | + + + + + + | CHLORIDE, | 99 | 98 - 106 MEQ/L | [facility] | | | PLASMA | | | A MEDICAL | | | (LAB) | | | CENTER | | + + + + + + | GLUCOSE, | 99 | 70 - 105 MG/DL | [facility] | | | PLASMA | | | A MEDICAL | | | (LAB) | | | CENTER | | + + + + + + | BUN, PLASMA | 14 | 8 - 30 MG/DL | [facility] | | | (LAB) | | | A MEDICAL | | | | | | CENTER | | + + + + + + | CREATININE | 0.63 | 0.6 - 1.1 MG/DL | [facility] | | | PLASMA | | | A MEDICAL | | | (LAB) | | | CENTER | | + + + + + + | BUN/CREATIN | 22 (H) | 6 - 20 RATIO | [facility] | | | INE RATIO | | | A MEDICAL | | | | | | CENTER | | + + + + + + | CALCIUM, | 9.2 | 8.5 - 10.8 | [facility] | | | PLASMA | | MG/DL | A MEDICAL | | | (LAB) | | | CENTER | | + + + + + + | AST(SGOT) | 43 (H) | 10 - 41 U/L | [facility] | | | | | | A MEDICAL | | | | | | CENTER | | + + + + + + | ALT (SGPT) | 56 (H) | 7 - 51 U/L | [facility] | | | | | | A MEDICAL | | | | | | CENTER | | + + + + + + | ALK PHOS | 97 | 40 - 180 U/L | [facility] | | | | | | A MEDICAL | | | | | | CENTER | | + + + + + + | TOTAL | 7.3 | 6.7 - 8.5 G/DL | [facility] | | | PROTEIN, | | | A MEDICAL | | | PLASMA | | | CENTER | | | (LAB) | | | | | + + + + + + | ALBUMIN, | 4.0 | 3.5 - 5.0 G/DL | [facility] | | | PLASMA | | | A MEDICAL | | | (LAB) | | | CENTER | | + + + + + + | BILIRUBIN | 1.6 | 0.2 - 1.6 MG/DL | [facility] | | | TOTAL | | | A MEDICAL | | | | | | CENTER | | + + + + + + | TRIGLYCERID | 104 | 45 - 150 MG/DL | [facility] | | | ES | | | A MEDICAL | | | | | | CENTER | | + + + + + + | CHOLESTEROL | 185 | 101 - 199 MG/DL | [facility] | | | (LAB) | | | A MEDICAL | | | | | | CENTER | | + + + + + + | HDL | 47 | 35 - 90 MG/DL | [facility] | | | CHOLESTEROL | | | A MEDICAL | | | | | | CENTER | | + + + + + + | NON-HDL | 138Comment: The goal for | | [facility] | | | CHOLESTEROL | non-HDL cholesterol is | | A MEDICAL | | | | a level 30 mg/dL hthan | | CENTER | | | | that for LDL | | | | | | cholesterol. | | | | + + + + + + | LDL DIRECT | 110 | 0 - 129 MG/DL | [facility] | | | | | | A MEDICAL | | | | | | CENTER | | + + + + + + | VLDL | 21 | 9 - 30 MG/DL | [facility] | | | CHOLESTEROL | | | A MEDICAL | | | | | | CENTER | | + + + + + + | CARDIAC | 3.9 | RATIO | [facility] | | | RISK RATIO | | | A MEDICAL | | | | | | CENTER | | + + + + + + | TSH | 0.24 (L) | 0.34 - 5.6 | [facility] | [...] + + + + | FASTING? | 15 PC | HR | [facility] | | [...] + + | [facility] | [address] | [place] [address] | | | [facility] | [facility] | | | + + + + + documented in this encounter Visit Diagnoses Not on filedocumented in this encounter"
--- OUTSIDE RECORDS SUMMARY | ~2019-05-02 | XMS | Encounter Summary ---
Demographics + + + | Address | [address] [facility] | | | [place] [address] | + + + | Home Phone | | + + + | Preferred Language | Unknown | + + + | Marital Status | | + + + | Voodoo Affiliation | UNK | + + + [...] [place] | | | | | [address] | | + + + + + Care Team Providers + +------+ + | Care Landscape Architecture Teacher Name | Role | Phone | [...] Description | +--------+--------+ + + + | 08/14/ | Refill | [facility] | Eusebio Goodrich MD | Refill Request | | 2017 | | Medical Clinic | [address] | | | | | Cardiology [address] | [address] [place], | | | | | [address] | [place] [address] | | | | | [place], [place] | [phone] | | | | | [address] | | | | | | [phone] | | | +--------+--------+ + + + [...]
--- OUTSIDE RECORDS SUMMARY | ~2019-05-02 | XMS | Encounter Summary ---
Demographics + + + | Address | [address] [facility] | | | [place] [address] | + + + | Home Phone [...] [place] | | | | | [address] | | + + + + + Care Team Providers + +------+ + | Care Medical Staff Coordinator Name | Role | Phone | + +------+ + | Ayala Michelle MD | PCP | | + +------+ + Encounter Details +--------+ + + + + | Date | Type | Department | Care Team | Description | +--------+ + + + + | 10/16/ | Inside | [facility] | Ayala Michelle MD | | | 2017 | Referral | [facility] [address] | [address] | | | | Order | [address] | [place], [place] | | | | | [place], [place] | [address] | | | | | [address] | [phone] | | | | | | | [...] | + + + | [address] [place] [address] | [facility] | | [place] [address] | DEPARTMENT | | [phone] Name: REGLA DANIEL Phys: | RADIOLOGY | | AYALA MICHELLE : 1955 Sex: F CSN: | | | [id number] MR# [id number] Exam Date: 11/27/2016 | | | EXAM: [...] Transcribed Date/Time: 11/27/2016 14:22 | | | Outsole Molder: FLUENCY | | + + + + + | Procedure Note | + + | Interface, Radiology Results - 11/27/2016 2:27 PM PDT [address] | | [place], [place] [address] | | Name: REGLA DANIEL Phys: AYALA MICHELLE : 1955 Sex: F CSN: | | [id number] MR# [id number] Exam Date: 11/27/2016 EXAM:MA DIGITAL MAMMO SCREEN | | BILAT CLINICAL HISTORY:61-year-old asymptomatic female. 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 COMPARISON:10/17/2015, 08/30/2014, | | and 08/23/2014. TECHNIQUE:Bilateral MLO and CC full field digital mammography was | | performed.LUVHAN computer aided detection (CAD) software was utilized [...] | | |Transcribed Date/Time: 11/27/2016 14:22 | |Outsole Molder: FLUENCY | | | | | | [...]
--- OUTSIDE RECORDS SUMMARY | ~2019-05-02 | XMS | Clinical Summary ---
Demographics + + + | Address | [address] | | | [place] [address] | + + + | Home Phone | | + + + | Preferred Language | Unknown | + + + | Marital Status | Unknown | + + + | Yazidism Affiliation | Unknown | + + + | Race | Unknown | + + + | Ethnic Group | Unknown | + + + Author + + + | Author | [facility] | | | and [place] | + + + | Organization | [facility] | | | and [place] | + + + | Address | Unknown | + + + | Phone | Unavailable | + + + Care Team Providers + +------+ + | Care Civil Engineering Professor Name | Role | Phone | + +------+ + | Chuyita Gtz MD | PCP | | + +------+ + Allergies Not on File Medications Not on file Active Problems Not [...] | + + Last Filed Vital Signs Not on file Plan of Treatment + + + + [...] | + + + + + | Breast Cancer | | | | | Screening | 0 | | | + + + + + | Vaccine: Influenza | | | | | (#1) | 9 | | | + + + + + Results Not on filefrom Last 3 Months"
--- OUTSIDE RECORDS SUMMARY | ~2019-05-02 | XMS | Encounter Summary ---
Demographics + + + | Address | [address] [facility] | | | [place] [address] | + + + | Home Phone [...] Author + + + | Author | [facility] | + + + | Organization | [facility] | + + + | Address [...] [address] | | | | | [facility] [place] | | | | | [address] | | + + + + + Care Team Providers + +------+ + | Care Senior Logistics Manager Name | Role | Phone | [...] [address] | | | | | | [place] [address] | | | | | | [address] | | | | | | [place] [address] | | | | | | [phone] | | | | | | | [...] | | Results for this | | [address] | e | 12:34 PM | | procedure are in the | | | | PST | | results section. | + +--------+ + + + documented in this encounter Results SCREENING MAMMO [id number] (08/23/2014 12:34 PM PST) + + | [...]
--- OUTSIDE RECORDS SUMMARY | ~2019-05-02 | XMS | Encounter Summary ---
Demographics + + + | Address | [address] [facility] | | | [place] [address] | + + + | Home Phone [...] [place] | | | | | [address] | | + + + + + Care Team Providers + +------+ + | Care Bingo Usher Name | Role | Phone | + +------+ + PCP | Unavailable | + +------+ + Encounter Details +--------+ + + + + | Date | Type | Department | Care Team | Description | +--------+ + + + + | 02/03/ | Orders Only | [facility] | Ayala Glasgow MD | | | 2014 | | Medicine [address] | [address] [place] [address] | | | | | [address] [place], | [place] | | | | | [place] [address] | [address] | | | | | [phone] | [phone] | | | | | | | [...]
--- OUTSIDE RECORDS SUMMARY | ~2019-05-02 | XMS | Encounter Summary ---
Demographics + + + | Address | [address] [facility] | | | [place] [address] | + + + | Home Phone | | + + + | Preferred Language | Unknown | + + + | Marital Status | | + + + | Moravian Affiliation | UNK | + + + | Race | White | + + + | Ethnic Group | Not or | + + + Author + + + | Author | [facility] | + + + | Organization | [facility] | + + + [...] [place] | | | | | [address] | | + + + + + Care Team Providers + +------+ + | Care Home Child Care Provider Name | Role | Phone | + +------+ + | Ayala Glasgow MD | PCP | | + +------+ + Encounter Details +--------+ + + + + | Date | Type | Department | Care Team | Description | +--------+ + + + + | 07/26/ | Procedure - | EPIC [facility] | Aileen Cuadra MD | Operative Report | | 2012 | | E The | [facility] | | | | Transcribed | [place] | Health [facility] [address] | | | | | [address] | [address] | | | | | | [place] [address] | | | | | | [phone] | | | | | | | [...] + + | OPERATION RECORD | | 07/26/2012 | | Results for this | | | | 9:55 AM | | procedure are in the | | | | PST | | results section. | + +--------+ + + + documented in this encounter Results OPERATION RECORD (07/26/2012 9:55 AM PST) + + | Transcriptions | + + | MD Khalif, Aileen - 07/26/2012 12:02 PM [facility] | | REPORT OF [id number] [place] [address] | | REGLA DANIEL EDATE OF OPERATION: 07/26/2012SURGEON: Aileen Benedict, | | Ara.PREOPERATIVE DIAGNOSIS: Right breast mass, papilloma.POSTOPERATIVE DIAGNOSIS: | | Right breast mass, papilloma.PROCEDURE PERFORMED:1. Ultrasound of the right breast.2. | | Ultrasound-guided wire localization.3. Wire localization lumpectomy.4. Two-view specimen | | mammogram.FINDINGS: Clip was within lesion on the two-view specimen | | mammogram.SPECIMEN: Right breast lumpectomy marked with Vector surgical margin | | markers.ESTIMATED BLOOD LOSS: 20 cc.REASON FOR PROCEDURE: Regla is a very pleasant, | | 57-year-old female patient who hadsubareolar lesion that underwent biopsy and was found | | to have a small fragment ofpapilloma from a 1.7 cm mass. We discussed options of | | re-biopsy following andsurgical excision. After discussing the procedures in detail, | | the risks of eachand addressing the alternatives and answering her and her significant | | othersquestions, she desired to proceed with excision of the lesion, performed | | whilelocalization identified the lesion.PROCEDURE DETAIL: The patient was marked in the | | preoperative area on the rightbreast. She was taken back to the operating room, placed | | in supine position, given1 g of Ancef for perioperative antibiotics and sequential | | compression devices wereplaced on bilateral extremities for DVT prophylaxis. She was | | then placed underanesthesia. She was then prepped and draped in a sterile fashion. A | | formal time-out was held, indicating patient's name, identification, procedure | | performed,confirmation of perioperative antibiotics and DVT prophylaxis, review of | | herallergies, and was agreed upon by the entire operative crew. Ultrasound of theright | | breast was performed that revealed the lesion in the subareolar space. Wirelocalization | | from an inferior approach at 6 o'clock position was performed. Localanesthetic was | | infused in the area and a circumareolar incision running from 5 to 9o'clock position was | | created. Soft tissue flaps were uplifted using Bovie cautery,and the lumpectomy was | | performed around the wire. The lumpectomy specimen was thenmarked with Vector surgical | | margin marker and a two-view specimen mammogram of thespecimen was obtained, which | | revealed the clip within the lesion. Hemostasis wasthen obtained. Soft tissue flaps | | were then closed using 3-0 Vicryl interruptedsutures to release the dimpling at the | | skin. Skin flaps were created in all 4directions. The skin flaps were then closed | | using 3-0 Vicryl deep interruptedsutures and 4-0 Monocryl in a running subcuticular | | stitch. The wound was cleanedand dried, and a sterile dressing was placed over the | | incision site. The drapeswere removed. The patient was awakened in the operating room, | | transferred torecovery without complication. All sponge, sharp, and instrument counts | | REGLA Mcmillan [id number] : [id number] DATE:correct. Patient tolerated | | procedure without difficulty./MedQDD: 07/26/2012 11:29:03DT: 07/26/2012 11:49:35Job | | #: [id number] Signed 07/28/12 | | 1029 | | | | | | | | | | | | | | Aileen Benedict, | | MDREGLA DANIEL [id number] : [id number] DATE: | |marked with Vector surgical margin marker and a two-view specimen mammogram of the | |specimen was obtained, which revealed the clip within the lesion. Hemostasis was | |then obtained. Soft tissue flaps were then closed using 3-0 Vicryl interrupted | |sutures to release the dimpling at the skin. Skin flaps were created in all 4 | |directions. The skin flaps were then closed using 3-0 Vicryl deep interrupted | |sutures and 4-0 Monocryl in a running subcuticular stitch. The wound was cleaned | |and dried, and a sterile dressing was placed over the incision site. The drapes | |were removed. The patient was awakened in the operating room, transferred to | |recovery without complication. All sponge, sharp, and instrument counts were | |REGLA DANIEL E | |[id number] : 55 | |[id number] | |ADMIT DATE: | | | |correct. Patient tolerated procedure without difficulty. | | | | | |WALDEMAR/Juani | | | | | | /[id number] | |Electronically Signed 07/28/12 1029 | | | | | | Aileen Benedict MD | | | | | | [...] | | | | | |REGLA DANIEL José | |[id number] : 55 | |[id number] | |ADMIT DATE: | + + documented in this encounter Visit Diagnoses Not on filedocumented in this encounter"
--- OUTSIDE RECORDS SUMMARY | ~2019-05-02 | XMS | Encounter Summary ---
Demographics + + + | Address | [address] [facility] | | | [place] [address] | + + + | Home Phone | | + + + | Preferred Language | Unknown | + + + | Marital Status | | + + + | Amish Affiliation | UNK | + + + | Race | White | + + + | Ethnic Group | Not or | + + + Author + + + | Author | [facility] | + + + | Organization | [facility] | + + + | [...] [place] | | | | | [address] | | + + + + + Care Team Providers + +------+ + | Care Water Gas Operator Name | Role | Phone | + +------+ + | Loreta Pierre | PCP | | + +------+ + Encounter Details +--------+ + + + + | Date | Type | Department | Care Team | Description | +--------+ + + + + | 09/02/ | Procedure - | [facility] [address] | Alexys Lu | Operative Report | | 2010 | | [address] | [place] | | | | Transcribed | [place], [place] | Orthopedics The | | | | | [id number] | [place] [address] | | | | | | [address] [place], [place] | | | | | | [address] | | | | | | | [...] + + | OPERATION RECORD | | 09/02/2010 | | Results for this | | | | 11:30 AM | | procedure are in the | | | | PST | | results section. | + +--------+ + + + documented in this encounter Results OPERATION RECORD (09/02/2010 11:30 AM PST) + + | Transcriptions | + + | 09/02/2010 4:[address] [facility] | | REPORT OF [id number] [place] [address] | | REGLA DANIEL EDATE OF OPERATION: 09/02/2010SURGEON: Alexys Lu M.D.NEWS CLERK: | | KARLA Vargas-CANESTHESIOLOGIST: Brad Madison M.D.PREOPERATIVE DIAGNOSIS: Left | | shoulder impingement, bursitis, degenerative disease,labral tear and potential loose | | body.POSTOPERATIVE DIAGNOSIS: Left shoulder impingement, bursitis, degenerativedisease, | | labral tear, plus extensive synovitis.PROCEDURE:1. Left shoulder arthroscopic | | acromioplasty.2. Left shoulder arthroscopic labral repair.3. Extensive synovectomy.4. | | Application of On-Q pain pump for postoperative pain control.ANESTHESIA: General.BLOOD | | LOSS: Minimal.COMPLICATIONS: None.PREOPERATIVE ANTIBIOTICS: Given.Application of On-Q | | Pain Buster Pump, 100-mL reservoir, dispensing at 2 mL an hourof Sensorcaine | | 0.5%.CRAYON PAINTER: The presence of the volunteer services assistant on this procedure | | waspivotal in being able to complete the procedure in a timely and effective | | manner.OPERATIVE FINDINGS: The patient's glenohumeral joint noted severe grade 3 | | changesover the entire humeral head. There were degenerative changes of the labrum | | fromthe posterior midportion all the way over the top to the front corner where therewas | | a labral tear from the 10-12 o'clock position. The glenohumeral ligament wasintact. | | The subscapularis was intact. The biceps was intact. The under surfaceof the cuff was | | intact. There was extensive synovitis along the anterior capsule,rotator cuff interval, | | undersurface of the cuff and posterior capsule.PROCEDURE IN DETAIL: The patient was | | properly identified, the operative siteinitialed and taken to the operative suite and | | given a general anesthetic andpreoperative antibiotics. A time-out was held. The | | patient turned to her rightside, left shoulder over up and bolstered appropriately. The | | left arm was placedin the arm philippe with 10 pounds longitudinal traction. She was | | prepped and drapedsterilely. Standard posterior thoracic portal was established, | | inserting thecamera through the glenohumeral joint. Noted the above-mentioned changes. | | Ananterior portal was made, inserting the cannula through the rotator cuff | | interval.DANIELREGLA [id number] : [id number] DATE:We then performed | | extensive synovectomy. Searched for loose bodies and were unableto find any. We then | | prepared the edge of the labral tear and placed a central biosuture tack Arthrex anchor. | | After preparation and with a bird beak passed thesuture through the labral tissue | | which was beefy from the chronic inflammation. Rick arthroscopically tied it down to | | its bed perfectly and arthroscopically tiedthat knot and cut the suture. We then | | debrided the remainder of the frayed labrum,redirected to the subacromial space where a | | lateral portal was made and extensivebursitis and impingement was encountered. | | Extensive bursectomy was followed bythree-stage acromioplasty. The bone was quite soft. | | We then arthroscopicallyevaluated the cuff and found it to be intact. We | | arthroscopically guided theapplication of our On-Q catheter into subacromial space and | | then the camera wasremoved. The On-Q was primed. The portals were closed with 4-0 | | Monocryl, Mastisoland Steri-Strips. Sterile dressing was applied. The patient placed | | in theshoulder immobilizer, awakened and taken to the recovery room in stable | | condition./MedQDD: 09/02/2010 15:49:03DT: 09/02/2010 16:48:59Job #: | | [id number] Signed 09/04/10 | | 0746 | | | | | | | | | | | | | | Alexys | | MAE Lu SUE [id number] : [id number] DATE: | |in the arm philippe with 10 pounds longitudinal traction. She was prepped and draped | |sterilely. Standard posterior thoracic portal was established, inserting the | |camera through the glenohumeral joint. Noted the above-mentioned changes. An | |anterior portal was made, inserting the cannula through the rotator cuff interval. | |REGLA DANIEL E | |[id number] : [id number] | |[id number] | |ADMIT DATE: | | | |We then performed extensive synovectomy. Searched for loose bodies and were unable | |to find any. We then prepared the edge of the labral tear and placed a central bio | |suture tack Arthrex anchor. After preparation and with a bird beak passed the | |suture through the labral tissue which was beefy from the chronic inflammation. We | |then arthroscopically tied it down to its bed perfectly and arthroscopically tied | |that knot and cut the suture. We then debrided the remainder of the frayed labrum, | |redirected to the subacromial space where a lateral portal was made and extensive | |bursitis and impingement was encountered. Extensive bursectomy was followed by | |three-stage acromioplasty. The bone was quite soft. We then arthroscopically | |evaluated the cuff and found it to be intact. We arthroscopically guided the | |application of our On-Q catheter into subacromial space and then the camera was | |removed. The On-Q was primed. The portals were closed with 4-0 Monocryl, Mastisol | |and Steri-Strips. Sterile dressing was applied. The patient placed in the | |shoulder immobilizer, awakened and taken to the recovery room in stable condition. | | | | | |/Juani | | | | | | /[id number] | |Electronically Signed 09/04/10 0746 | | | | | | Alexys Lu MD | | | | | | [...] | | | | |REGLA DANIEL | |[id number] : 55 | |[id number] | |ADMIT DATE: | + + documented in this encounter Visit Diagnoses Not on filedocumented in this encounter"
--- OUTSIDE RECORDS SUMMARY | ~2019-05-02 | XMS | Encounter Summary ---
Demographics + + + | Address | [address] [facility] | | | [place] [address] | + + + | Home Phone [...] + + + | Author | [facility] | + + + | Organization | [facility] | + + + | Address [...] [address] | | | | | [facility] [place] | | | | | [address] | | + + + + + Care Team Providers + +------+ + | Care Results Engineer Name | Role | Phone | + +------+ + | Loreta Pierre | PCP | | + +------+ + Encounter Details +--------+ + + + + | Date | Type | Department | Care Team | Description | +--------+ + + + + | 08/25/ | Results | NON-[facility] | Santo Whitman, | | | 2012 | Only | Department | [address] | | | [address] | | | | | | [place] [address] | | | | | | [phone] | | | | | | (Fax) | | +--------+ + + + + [...] | + +--------+ + + + | HEPATITIS C AB | Routin | 08/25/2012 | | Results for this | | SCREEN, REFLEX TO | e | 11:26 AM | | procedure are in the | | RNA QUANT | | PST | | results section. | + +--------+ + + + | CBC W/DIFF, REFLEX | Routin | 08/25/2012 | | Results for this | | | e | 11:26 AM | | procedure are in the | | | | PST | | results section. | + +--------+ + + + | COMPLETE METABOLIC | Routin | 08/25/2012 | | Results for this | | SET | e | 11:26 AM | | procedure are in the | | (NA,K,CL,CO2,BUN,CRE | | PST | | results section. | | AT,GLUC,CA,AST,ALT,B | | | | | | STEVEN TOTAL,ALK | | | | | | PHOS,ALB,PROT TOTAL) | | | | | + +--------+ + + + documented in this encounter Results HEPATITIS C ANTIBODY (08/25/2012 11:26 AM PST) + + + + + + | Component | Value | Ref Range | Performed | Pathologist | | | | | At | Signature | + + + + + + | HEP C AB | NON-REACTIVE | NON-REACTIV | [facility] | | | | | | [facility] | | | | | | -[place] | | + + + + + + | HEP C | 0.02Comment: Test | <1.00 | [facility] | | | CUTOFF | performed at [facility] | | [facility] | | | | DI[facility]NOSTICS-[id number] | | -[place] | | | | [address] | | | | | | [address], [place] | | | | | | [address]Qwuvqhiw: | | | | | | AUGUSTA FLYNN MD | | | | + + + + + + | HEP B COREEN | NON-REACTIVEComment: | NON-REACTIV | [facility] | | | AG | Test performed at [facility] | | [facility] | | | | DI[facility]NOSTICS-[id number] | | -[facility] | | | | [address] | | | | | | [address], [place] | | | | | | [address]Rjkalnkf: | | | | | | AUGUSTA FLYNN MD | | | | + + + + + + | HEP B SURF | <5Comment: Patient does | SEE COMMENT | [facility] | | | AB QUANT | not have immunity to | mIU/mL | DIAGNOSTICS | | | | hepatitis B virus.Test | | [facility] | | | | performed at [facility] | | | | | | DIAGNOSTICS-[id number] | | | | | | [address] | | | | | | [address], [place] | | | | | | [address]Zgongjtv: | | | | | | AUGUSTA FLYNN MD | | | | + + + + + + | HEPATITIS B | NON-REACTIVEComment: | NON-REACTIV | [facility] | | | CORE AB, | Test performed at [facility] | | [facility] | | | SERUM | DIAGNOSTICS-[id number] | | -[place] | | | | [address] | | | | | | [address], [place] | | | | | | [address]Yyibyuuh: | | | | | | AUGUSTA FLYNN MD | | | | + + + + + + + + | Specimen | + + | | + + + + + + + | Performing | Address | City/State/Zipcode | Phone Number | | Organization | | | | + + + + + | [facility] | [address] [facility] | [place] [address] | [phone] | | [facility] | | | | + + + + + MARLEN Ibanez/HANS DEVRIES (08/25/2012 11:26 AM PST) + +---------+ + + + | Component | Value | Ref Range | Performed | Pathologist | | | | | At | Signature | + +---------+ + + + | WHITE BLOOD | 5.3 | 4.3 - 11.0 X10 | [facility] | | | CELL COUNT | | 3/uL | A MEDICAL | | | | | | CENTER | | + +---------+ + + + | HEMOGLOBIN | 15.0 | 12.0 - 16.0 | [facility] | | | | | g/dL | A MEDICAL | | | | | | CENTER | | + +---------+ + + + | RED BLOOD | 4.84 | 4.2 - 5.4 X10 | [facility] | | | CELL COUNT | | 6/uL | A MEDICAL | | | | | | CENTER | | + +---------+ + + + | HEMATOCRIT | 44.1 | 38.0 - 47.0 % | [facility] | | | | | | A MEDICAL | | | | | | CENTER | | + +---------+ + + + | MCV | 91.0 | 82 - 100 fl | [facility] | | | | | | A MEDICAL | | | | | | CENTER | | + +---------+ + + + | MCH | 31.0 | 28.0 - 32.0 pg | [facility] | | | | | | A MEDICAL | | | | | | CENTER | | + +---------+ + + + | MCHC | 33.9 | 32 - 36 g/dL | [facility] | | | | | | A MEDICAL | | | | | | CENTER | | + +---------+ + + + | RDW | 12.7 | 12 - 15 fL | [facility] | | | | | | A MEDICAL | | | | | | CENTER | | + +---------+ + + + | PLATELET | 273 | 150 - 450 X10 3 | [facility] | | | COUNT | | | A MEDICAL | | | | | | CENTER | | + +---------+ + + + | MPV | 7.9 (L) | 9.0 - 12.0 fL | [facility] | | | | | | A MEDICAL | | | | | | CENTER | | + +---------+ + + + | NEUTROPHIL | 62.2 | 40 - 80 % | [facility] | | | % | | | A MEDICAL | | | | | | CENTER | | + +---------+ + + + | NEUTROPHIL | 3.3 | 1.9 - 8.0 x10 | [facility] | | | # | | 3/UL | A MEDICAL | | | | | | CENTER | | + +---------+ + + + | LYMPHOCYTE | 26.7 | 20 - 50 % | [facility] | | | % | | | A MEDICAL | | | | | | CENTER | | + +---------+ + + + | LYMPHOCYTE | 1.4 | 0 - 6 x10 3/UL | [facility] | | | # | | | A MEDICAL | | | | | | CENTER | | + +---------+ + + + | EOS % | 6.2 (H) | 0 - 5 % | [facility] | | | | | | A MEDICAL | | | | | | CENTER | | + +---------+ + + + | EOS # | 0.3 | 0 - 0.3 x10 | [facility] | | | | | 3/UL | A MEDICAL | | | | | | CENTER | | + +---------+ + + + | BASO % | 0.7 | 0 - 1 % | [facility] | | | | | | A MEDICAL | | | | | | CENTER | | + +---------+ + + + | BASO # | 0.0 | 0 - 0.1 x10 | [facility] | | | | | 3/UL | A MEDICAL | | | | | | CENTER | | + +---------+ + + + | MONOCYTE % | 4.2 | 2 - 10 % | [facility] | | | | | | A MEDICAL | | | | | | CENTER | | + +---------+ + + + | MONOCYTE # | 0.2 | 0 - 0.6 x10 | [facility] | | | | | 3/UL | A MEDICAL | | | | | | CENTER | | + +---------+ + + + | BANDS % | 0.5 | 0 - 7 % | [facility] | | | | | | A MEDICAL | | | | | | CENTER | | + +---------+ + + + | BANDS # | 0.0 (L) | 0.00 - 0.70 x10 | [facility] | | | | | 3/UL | A MEDICAL | | | | | | CENTER | | + +---------+ + + + + + | Specimen | + + | | + + + + + + + | Performing | Address | City/State/Zipcode | Phone Number | | Organization | | | | + + + + + | [facility] | [address] | [place] [address] | [phone] | | [facility] | [facility] | | | + + + + + COMPLETE METABOLIC SET (NA,K,CL,CO2,BUN,CREAT,GLUC,CA,AST,ALT,BILI TOTAL,ALK PHOS,ALB,PROT TOTAL) (08/25/2012 11:26 AM PST) + + + + + [...] + + + + | CHLORIDE, | 103 | 98 - 106 MEQ/L | [facility] | | | PLASMA | | | A MEDICAL | | | (LAB) | | | CENTER | | + + + + + + | ANION GAP | 8.5 | 8 - 16 MEQ/L | [facility] | | | | | | A MEDICAL | | | | | | CENTER | | + + + + + + | GLUCOSE, | 84 | 70 - 105 MG/DL | [facility] [...] + + + + | CREATININE | 0.55 (L) | 0.6 - 1.1 MG/DL | [facility] | | | PLASMA | | | A MEDICAL | | | (LAB) | | | CENTER | | + + + + + + | BUN/CREATIN | 20 | 6 - 20 RATIO | [facility] [...] + + + + | AST(SGOT) | 40 | 10 - 41 U/L | [facility] | | | | | | A MEDICAL | | | | | | CENTER | | + + + + + + | ALT (SGPT) | 55 (H) | 7 - 51 U/L | [facility] | | | | | | A MEDICAL | | | | | | CENTER | | + + + + + + | ALK PHOS | 100 | 40 - 180 U/L | [facility] [...] + + + + | ALBUMIN, | 4.3 | 3.5 - 5.0 G/DL | [facility] | | | PLASMA | | | A MEDICAL | | | (LAB) | | | CENTER | | + + + + + + | BILIRUBIN | 1.1 | 0.2 - 1.6 MG/DL | [facility] | | | TOTAL | | | A MEDICAL | | | | | | CENTER | | + + + + + + | ESTIMATED | 121.1 | >60 | [facility] | | | GFR | | | A MEDICAL | | | | | | CENTER | | + + + + + + | FASTING? | UNK | HR | [facility] | | | | | | A MEDICAL | | | | | | CENTER | | + + + + + + + + | Specimen | + + | | + + + + + + + | Performing | Address | City/State/Zipcode | Phone Number | | Organization | | | | + + + + + | [facility] | And | [place] [address] | [phone] | | MEDICAL CENTER | Streets | | | + + + + + documented in this encounter Visit Diagnoses Not on filedocumented in this encounter"
--- OUTSIDE RECORDS SUMMARY | ~2019-05-02 | XMS | Encounter Summary ---
Demographics + + + | Address | [address] [facility] | | | [place] [address] | + + + | Home Phone | | + + + | Preferred Language | Unknown | + + + | Marital Status | | + + + | Temple Affiliation | UNK | + + + [...] [place] | | | | | [address] | | + + + + + Care Team Providers + +------+ + | Care Bit Sharpener Name | Role | Phone | + +------+ + | Loreta Pierre | PCP | | + +------+ + Encounter Details +--------+ + + + + | Date | Type | Department | Care Team | Description | +--------+ + + + + | 08/30/ | Results | [facility] | Kristopher Murillo, | | | 2009 | Only | Medicine [address] | | | | | [address] [place], | [facility] | | | | | [place] [address] | [place] [address] | | | | | [phone] | [address] | | | | | | [place] [address] | | | | | | [phone] | | | | | | | [...] + +--------+ + + + | LAB OTHER | Routin | 08/30/2009 | | Results for this | | | e | 9:30 AM | | procedure are in the | | | | PST | | results section. | + +--------+ + + + | FREE T3, SERUM | Routin | 08/30/2009 | | Results for this | | | e | 9:23 AM | | procedure are in the | | | | PST | | results section. | + +--------+ + + + | FREE T4 | Routin | 08/30/2009 | | Results for this | | | e | 9:23 AM | | procedure are in the | | | | PST | | results section. | + +--------+ + + + | ABD. ULTRASOUND | Routin | 08/30/2009 | | Results for this | | LIMITED [id number] | e | 9:10 AM | | procedure are in the | | | | PST | | results section. | + +--------+ + + + documented in this encounter Results LAB OTHER (08/30/2009 9:30 AM PST) + + + + + + | Component | Value | Ref Range | Performed | Pathologist | | | | | At | Signature | + + + + + + | MISC REF | Comment: TEST: | | [facility] | | | TEST RESULT | | | DI[facility] | | | | RESULT: | | -[facility] | | | | REFERENCET4 | | | | | | (THYROXINE), TOTAL | | | | | | 7.9 | | | | | | 4.5-12.5 m | | | | + + + + + + + + | Specimen | + + | | + + + + + + + | Performing | Address | City/State/Zipcode | Phone Number | | Organization | | | | + + + + + | [facility] | [address] | [place] [address] | [phone] | | [facility] | | | | + + + + + | [facility] | | | | | [facility] | | | | + + + + + FREE T3, SERUM (08/30/2009 9:23 AM PST) + + + + + + | Component | Value | Ref Range | Performed | Pathologist | | | | | At | Signature | + + + + + + | FREE T3 | 339Comment: Test | 230 - 420 pg/dL | [facility] | | | | performed at [facility] | | [facility] | | | | [id number] | | -[facility] | | | | [address] | | | | | [address], [place] | | | | | | [address]Hrquktzc: | | | | | | RIVKA BROOKS MD | | | | + + + + + + + + | Specimen | + + | | + + + + + + + | Performing | Address | City/State/Zipcode | Phone Number | | Organization | | | | + + + + + | [facility] | [address] | [place] [address] | [phone] | | [facility] | | | | + + + + + | [facility] | | | | | [facility] | | | | + + + + + FREE T4, SERUM (08/30/2009 9:23 AM PST) + +-------+ + + + | Component | Value | Ref Range | Performed | Pathologist | | | | | At | Signature | + +-------+ + + + | FREE T4, | 0.91 | 0.58 - 1.64 | [facility] | | | SERUM | | NG/DL | A MEDICAL | | | | | | CENTER | | + +-------+ + + + | THYROXINE ( | 8.1 | 4.5 - 12.0 | [facility] | | | T4) TOTAL | | MCG/DL | A MEDICAL | | | | [...] + + | [facility] | [address] | [place] [address] | | | MEDICAL CENTER | Streets | | | + + + + + ABD. ULTRASOUND LIMITED [id number] (08/30/2009 9:10 AM PST) + + | Specimen | + + | | + + + + + | Narrative | Performed At | + + + | Exam: Abdominal ultrasound limited. Indication: Abnormal LFTs, | [facility] | | question of fatty liver. Comparison: None available. Findings: | DEPARTMENT OF | | The gallbladder is surgically absent. Common duct measures 2.9 | RADIOLOGY | | mm, normal. No evidence of intrahepatic biliary dilatation. There | | | is a 2.3 x 1.9 x 2.0 cm focal echogenic lesion in right lobe of the | | | liver, likely an incidental hemangioma. No additional masses are | | | demonstrated. The liver does not show changes in echogenicity that | | | would be diagnostic for fatty infiltration. It measures 16.5 cm in | | | midclavicular line. Its margins are smooth. Normal pancreas. No | | | signs of ascites. Impression: Status post cholecystectomy. Normal | | | ducts. Focal 2.3 cm echogenic lesion in the liver, most likely a | | | hemangioma. Hemangioma protocol CT evaluation would be useful for | | | the focal mass as well as further evaluation of the parenchyma. | | + + + + + | Procedure Note | + + | Interface, Radiology Results - 02/12/2015 1:51 PM PDT Exam: Abdominal ultrasound | | limited.Indication: Abnormal LFTs, question of fatty liver.Comparison: None | | available.Findings: The gallbladder is surgically absent. Common ductmeasures 2.9 mm, | | normal. No evidence of intrahepatic biliarydilatation. There is a 2.3 x 1.9 x 2.0 cm | | focal echogenic lesion inright lobe of the liver, likely an incidental hemangioma. | | Noadditional masses are demonstrated. The liver does not show changesin echogenicity | | that would be diagnostic for fatty infiltration. Itmeasures 16.5 cm in midclavicular | | line. Its margins are smooth.Normal pancreas. No signs of ascites.Impression: Status | | post cholecystectomy. Normal ducts. Focal2.3 cm echogenic lesion in the liver, most | | likely a hemangioma.Hemangioma protocol CT evaluation would be useful for the focal | | massas well as further evaluation of the parenchyma. | |Impression: Status post cholecystectomy. Normal ducts. Focal | |2.3 cm echogenic lesion in the liver, most likely a hemangioma. | |Hemangioma protocol CT evaluation would be useful for the focal mass | |as well as further evaluation of the parenchyma. | + + + +---------+ + + [...]
--- OUTSIDE RECORDS SUMMARY | ~2019-05-02 | XMS | Encounter Summary ---
Demographics + + + | Address | [address] [facility] | | | [place] [address] | + + + | Home Phone | | + + + | Preferred Language | Unknown | + + + | Marital Status | | + + + | Jew Affiliation | UNK | + + + [...] [address] | | | | | [place], [place] | | | | | [address] | | + + + + + Care Team Providers + +------+ + | Care Dye Feeder Name | Role | Phone | + +------+ + | Loreta Pierre | PCP | | + +------+ + Encounter Details +--------+ + + + + | Date | Type | Department | Care Team | Description | +--------+ + + + + | 03/27/ | Results | [facility] | [place], | | | 2009 | Only | Department | [address] | | | | | | [address] | | | | | | [place] [address] | | | | | | [phone] | | | | | | | [...] | + +--------+ + + + | CT BX LUNG [id number] | Routin | 03/27/2010 | | Results for this | | | e | 2:41 PM | | procedure are in the | | | | PDT | | results section. | + +--------+ + + + documented in this encounter Results CT BX LUNG [id number] (03/27/2010 2:41 PM PDT) + + | Specimen | + + | | + + + + + | Narrative | Performed At | + + + | Exam: CT guided lung biopsy. Indication: Spiculated right upper | [facility] | | lobe mass on chest CT of March 07, 2010. Findings: CT guided | DEPARTMENT OF | | lung biopsy procedure was discussed in depth with the patient. An | RADIOLOGY | | informed consent was obtained. Localization CT images were then | | | obtained with the patient in LPO position. It was noted that the | | | previously noted spiculated lesion has substantially decreased in | | | size, now appearing as a smaller and linear density, extending | | | peripherally to a thickened pleura. There is also a much smaller, | | | now tiny, central lucency, or cavitary change. These changes are | | | consistent with a resolving inflammatory process. Incidentally noted | | | is a new strip of discoid atelectasis in the left lower lobe, | | | posterior to the major fissure. Impression: Biopsy procedure was | | | canceled since the previously noted lesion has become much smaller, | | | suggesting a resolving inflammatory process. Follow-up CT in 1 | | | month is recommended. I notified KARLA Cota. | | + + + + + | Procedure Note | + + | Interface, Radiology Results - 02/12/2015 1:51 PM PDT Exam: CT guided lung biopsy. | | Indication: Spiculated right upper lobe mass on chest CT of | | March 07, 2010. | | Findings: CT guided lung biopsy procedure was discussed in depth | | with the patient. An informed consent was obtained. Localization CT | | images were then obtained with the patient in LPO position. It was | | noted that the previously noted spiculated lesion has substantially | | decreased in size, now appearing as a smaller and linear density, | | extending peripherally to a thickened pleura. There is also a much | | smaller, now tiny, central lucency, or cavitary change. These | | changes are consistent with a resolving inflammatory process. | | Incidentally noted is a new strip of discoid atelectasis in the left | | lower lobe, posterior to the major fissure. | | Impression: Biopsy procedure was canceled since the previously | | noted lesion has become much smaller, suggesting a resolving | | inflammatory process. Follow-up CT in 1 month is recommended. | | I notified KARLA Cota. | + + + +---------+ + + [...]
--- OUTSIDE RECORDS SUMMARY | ~2019-05-02 | XMS | Encounter Summary ---
Demographics + + + | Address | [address] [facility] | | | [place] [address] | + + + | Home Phone | | + + + | Preferred Language | Unknown | + + + | Marital Status | | + + + | Jehovah'S Witness Affiliation | UNK | + + + | Race | White | + + + | Ethnic Group | Not or | + + + Author + + + | Author | [facility] | + + + | Organization | [facility] | + + + | [...] [address] | | | | | [address] [place] [address] [place] | | | | | [address] | | + + + + + Care Team Providers + +------+ + | Care Hydroelectric Operator Name | Role | Phone | [...] | | | | | | Drive [place], | | | | | | [place] [address] | | | | | | [phone] | | | | | | | [...] + + documented in this encounter Results GARBIELAAZJULIANN ONLY (12/15/2007 9:08 AM PDT) + + [...] | + + + + + | [facility] | | [place] [address] | | | [facility] | [facility] | | | + + + + + documented in this encounter Visit Diagnoses Not on filedocumented in this encounter"
--- OUTSIDE RECORDS SUMMARY | ~2019-05-02 | XMS | Encounter Summary ---
Demographics + + + | Address | [address] [facility] | | | [place] [address] | + + + | Home Phone | | + + + | Preferred Language | Unknown | + + + | Marital Status | | + + + | Hoahaoism Affiliation | UNK | + + + | Race | White | + + + | Ethnic Group | Not or | + + + Author + + + | Author | [facility] | + + + | Organization | [facility] | + + + | [...] [address] | | | | | [place] | | | | | [address] | | + + + + + Care Team Providers + +------+ + | Care Chief Architect Name | Role | Phone | + +------+ + | Loreta Pierre | PCP | | + +------+ + Reason for Visit + + + | Reason | Comments | + + + | New Patient Visit | | + + + Consultation (Routine) +--------+--------+ + + + + | Status | Reason | Specialty | Diagnoses / | Referred By | Referred To | | | | | Procedures | Contact | Contact | +--------+--------+ + + + + | Closed | | Hematology & | Diagnoses | [place], | Hung, | | | | Oncology | breast ca | Loreta Meehan, | Nayana Velásquez, | | | | | mamm and bx | [address] | | | | | [facility] | [address]ari [address] | Wilmar Ansari | | | | | [facility] | WH[address] | [address] | | | | | in [place] | [place], [place] | [place], [place] | | | | | JUN 2012, PT | [address] | [address] | | | | | HAD | Phone: | | | | | | LUMPECTOMY | [phone] | | | | | | [place] jul 26, | Fax: | | | | | | had | [phone] | | | | | | radiation | | | | | | | finished | | | | | | | 09/20. | | | | | | | Procedures | | | | | | | [place]EN[place]QUE | | | | | | | STELZER | | | | | | | [id number] | | | | | | | NPI | | | | | | | [phone] | | | | | | | A2K # | | | | | | | [id number] | | | | | | | Type | | | | | | | | | | | | | | Physician | | | | | | | | | | | | | | MyChart | | | | | | | Messages | | | | | | | This | | | | | | | provider is | | | | | | | not set up | | | | | | | to receive | | | | | | | MyChart | | | | | | | messages. | | | | | | | Phone | | | | | | | | | | | | | | [phone] | | | | | | | Fax | | | | | | | | | | | | | | [phone] | | | | | | | | | | | | | | Address | | | | | | | [facility] | | | | | | | [facility] | | | | | | | [facility] | | | | | | | [address] | | | | | | [address] | | | | | | | [place], [place] | | | | | | | [address] | | | | | | | [facility] | | | | | | | [id number] | | | | | | | NPI | | | | | | | | | | | | | | [phone] | | | | | | | A2K # | | | | | | | [id number] | | | | | | | Type | | | | | | | Physician | | | | | | | | | | | | | | MyChart | | | | | | | Messages | | | | | | | This | | | | | | | provider is | | | | | | | not set up | | | | | | | to receive | | | | | | | MyChart | | | | | | | messages. | | | | | | | Phone | | | | | | | | | | | | | | [phone] | | | | | | | Fax | | | | | | | | | | | | | | [phone] | | | | | | | | | | | | | | Address | | | | | | | [facility] | | | | | | | [facility] | | | | | | | [facility] | | | | | | | [address] | | | | | | [address] | | | | | | | [place], [place] | | | | | | | [address] | | | | | | | [place] | | | | | | | [place] | | | | | | | [phone] | | | | | | | NPI | | | | | | | [phone] | | | | | | | A2K # | | | | | | | [id number] | | | | | | | Type | | | | | | | | | | | | | | Physician | | | | | | | | | | | | | | MyChart | | | | | | | Messages | | | | | | | This | | | | | | | provider is | | | | | | | not set up | | | | | | | to receive | | | | | | | MyChart | | | | | | | messages. | | | | | | | Phone | | | | | | | | | | | | | | [phone] | | | | | | | Fax | | | | | | | | | | | | | | [phone] | | | | | | | | | | | | | | Address | | | | | | | [facility] | | | | | | | [facility] | | | | | | [facility] | | | | | | | [facility] | | | | | | | [facility] | | | | | | | Center | | | | | | | [address] | [address] | | [address] | | | | | | | [place], | | | | | | | [place] [address] | | | | | | | | | | +--------+--------+ + + + + Encounter Details +--------+---------+ + + + | Date | Type | Department | Care Team | Description | +--------+---------+ + + + | 10/19/ | Office | Hematology/Medical | Hung, | DCIS (ductal | | 2012 | Visit | Oncology at [facility] | Nayana Velásquez MD | carcinoma in situ) | | | | [address] | | of breast (Primary | | | | Mailcode: CH7M | | Dx) | | | | [facility] | | | | | | and Healing, | | | | | | Building | | | | | | Floor [place], [place] | | | | | | [address] | | | | | | [phone] | | | +--------+---------+ + + + [...] + + + | Blood Pressure | 140/83 | 10/19/2012 10:13 AM | | | | | PDT | | + + + + + | Pulse | 58 | 10/19/2012 10:13 AM | | | | | PDT | | + + + + + | Temperature | 36.8 C (98.2 F) | 10/19/2012 10:13 AM | | | | | PDT | | + + + + + | Respiratory Rate | 16 | 10/19/2012 10:13 AM | | | | | PDT | | + + + + + | Oxygen Saturation | 97% | 10/19/2012 10:13 AM | | | | | PDT | | + + + + + | Inhaled Oxygen | - | - | | | Concentration | | | | + + + + + | Weight | 91 kg (200 lb 9.6 | 10/19/2012 10:13 AM | | | | oz) | PDT | | + + + + + | Height | 177.8 cm (5' 10") | 10/19/2012 10:13 AM | | | | | PDT | | + + + + + | Body Mass Index | 28.78 | 10/19/2012 10:13 AM | | | | | PDT | | + + + + + documented in this encounter Progress Notes Nayana Persaud MD - 10/19/2012 10:19 AM PDTFormatting of this note might be differe nt from the original. 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 Daniel underwent a screening mammogram earlier this year which showed a suspicious rad iographic abnormality in the R breast. A biopsy showed a papilloma, but ultimately it was d ecided that she proceeded to a R lumpectomy. The lumpectomy specimen was reviewed here at [facility] and revealed elements of papiloma,atypica l ductal hyperplasia and DCIS. The DCIS component was completely excised with negative rese ction margins. The patient underwent radiaiton therapy to the R breast, completed in August. She has been hesitant to proceed with tamoxifen, despite a clear recommendation for this ap proach from Dr. Whitman of the [place], [place]. She is here to revisit this discussion. ECOG PERFORMANCE STATUS: Zero Review of Systems: General: No constitutional symptoms of fevers, fatigue, chills, weight loss or sweats. Eyes: No changes in vision, double vision, eye pain, eye irritation, discharge, blurred vi gladys or light sensitivity. Ears, Nose and Throat: No hearing loss, ringing in the ears, ear discharge, earache, noseb kayden, nasal congestion, difficulty swallowing, hoarseness or sore throat. Respiratory: No shortness of breath, coughing up blood, excessive sputum, cough, chest dis comfort or wheezing. Musculoskeletal: No joint pain, swelling, stiffness, back pain, arthritis, muscle aches, m uscle cramps or loss of strength. Cardiovascular: No chest pain, skipping beats, lightheadedness, difficulty breathing uprig ht or lying down, fatigue, near fainting or fainting, palpitations, weight gain, edema, leg cramps. Gastrointestinal: No loss of appetite, excessive appetite, indigestion, vomiting, nausea, constipation, gas, abdominal pain, hemorrhoids, diarrhea, bloating, bloody stools or dark ta rry stools. Genitourinary: No urinary frequency, blood in urine, difficulty in urination, discharge, p ainful urination, incontinence, urinary urgency or genital sores. Neurologic: No unusual headaches, inability to speak, poor balance, numbness, tingling, tr emors, memory loss, disturbances in coordination or sensation of room spinning. Skin: No itching, rash, poor wound healing, night sweats, changes in skin color, dryness, flushing or suspicious lesions. PAST MEDICAL HISTORY: Hypertension Appendectomy Cholecystectomy THBSO in 1992 for benign reasons FAMILY MEDICAL HISTORY: No immediate family members with cancer PERSONAL AND SOCIAL HISTORY: History Substance Use Topics Smoking status: Former Smoker Smokeless tobacco: Never Used Alcohol Use: 24.0 - 25.0 oz/week 48-50 drink(s) per week She is a former smoker of 30 years, quit 10 years ago. She has a partner, whom she will in a few weeks. She has two adult children, aged 31 and 24. 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 CHEST: clear to ausculatation bilaterally HEART: RRR ABDOMEN: soft, nontender, good bowel sounds EXT: no edema PERTINENT LABS: Reviewed IMAGING: No imaging ASSESSMENT AND PLAN: Ms. Daniel has undergone lumpectomy and radiation therapy for a R sided DCIS. We went over the avialable data regarding postoperative hormonal therapy in this setting. Large prospective clinical trials (including NSABP B-24) have compared tamoxifen to placebo, and shown a statistically significant reduction in breast cancer recurrence at 10 years. Th ere was no difference in survival in the two arms. We went over the drugs mechanism of action, side effects, duration of therapy (5 years). H er tumor has not been tested for ER NC status, although the majority of DCIS are ER NC + (an d NSABP B-24 included ER NC- tumors), there is less evidence that hormonal therapy benefits ER NC- tumors. Therefore, we will order ER NC testing, and call her with the results. She is willing to go forward with hormonal therapy and would like to do it after her wedding. I have recommende d follow up every 6 months while on hormonal therapy. She will need to continue annual bila teral screening mammography. She asked that I send a copy of this note to her PCP. NAYANA PERSAUD MD documented in t his encounter Plan of Treatment Not on filedocumented as of this encounter Visit Diagnoses + + | Diagnosis | + + | DCIS (ductal carcinoma in situ) of breast - Primary Carcinoma in situ of breast | + + documented in this encounter
--- OUTSIDE RECORDS SUMMARY | ~2019-05-02 | XMS | Encounter Summary ---
Demographics + + + | Address | [address] [facility] | | | [place] [address] | + + + | Home Phone | | + + + | Preferred Language | Unknown | + + + | Marital Status | | + + + | Episcopal Affiliation | UNK | + + + | Race | White | + + + | Ethnic Group | Not or | + + + Author + + + | Author | [facility] | + + + | Organization | [facility] | + + + [...] [place] | | | | | [address] | | + + + + + Care Team Providers + +------+ + | Care Lining Folder Name | Role | Phone | + [...] [place] | | | | ribed | [address] | [address] | | | | | | [phone] | | | | | | | [...]
--- OUTSIDE RECORDS SUMMARY | ~2019-05-02 | XMS | Encounter Summary ---
Demographics + + + | Address | [address] [facility] | | | [place] [address] | + + + | Home Phone | | + + + | Preferred Language | Unknown | + + + | Marital Status | | + + + | Evangelical Affiliation | UNK | + + + | Race | White | + + + | Ethnic Group | Not or | + + + Author + + + | Author | [facility] | + + + | Organization | [facility] | + + + | Address | [...] [address] | | | | | [address] [place] [address] [place] | | | | | [address] | | + + + + + Care Team Providers + +------+ + | Care Tack Maker Name | Role | Phone | + +------+ + | Ayala Glasgow MD | PCP | | + +------+ + Encounter Details +--------+ + + + + | Date | Type | Department | Care Team | Description | +--------+ + + + + | 03/09/ | Results | [facility] | Aileen Cuadra MD | | | 2012 | Only | Department | [facility] | | | | | | [facility] [address] | | | | | | [address] | | | | | | [place] [address] | | | | | | [phone] | | | | | | | [...] | + +--------+ + + + | H. PYLORI CLOTEST | Routin | 03/09/2013 | | Results for this | | | e | 9:30 AM | | procedure are in the | | | | PDT | | results section. | + +--------+ + + + documented in this encounter Results H. PYLORI CLOTEST (03/09/2013 9:30 AM PDT) + + + + + + | Component | Value | Ref Range | Performed | Pathologist | | | | | At | Signature | + + + + + + | CLOT[facility] | NEGATIVE | NEGATIVE | [facility] | | | INTERPRETAT | | | A MEDICAL | | | ION | | | CENTER | | + + + + + + | [facility] 20 | TNP | | [facility] | | | MIN READING | | | A MEDICAL | | | | | | CENTER | | + + + + + + | [facility] 1 | TNP | | [facility] | | | HR READING | | | A MEDICAL | | | | | | CENTER | | + + + + + + | [facility] 3 | TNP | | [facility] | | | HR READING | | | A MEDICAL | | | | | | CENTER | | + + + + + + | CLOTEST 24 | YELLOW:NEGATIVE | | [facility] | | | HR READING | | | A MEDICAL | | [...] | + + + + + | [facility] | And | [place] [address] | [phone] | | [facility] | [facility] | | | + + + + + documented in this encounter Visit Diagnoses Not on filedocumented in this encounter"
--- OUTSIDE RECORDS SUMMARY | ~2019-05-02 | XMS | Encounter Summary ---
Demographics + + + | Address | [address] [facility] | | | [place] [address] | + + + | Home Phone [...] Author | [facility] | + + + | Organization | [facility] | + + + | Address | [...] [address] | | | | | [facility] [place] [place] | | | | | [address] | | + + + + + Care Team Providers + +------+ + | Care Sediment Remediation Consultant Name | Role | Phone | + [...] | | | | | | [place] [address] | | | | | | [phone] | | | | | | | [...] + + + + | OTHER | [facility] | | [facility] | | | | [...] | + + + + + | [facility] | And | [place] [address] | | | [facility] | [facility] | | | + + + + + documented in this encounter Visit Diagnoses Not on filedocumented in this encounter"
--- OUTSIDE RECORDS SUMMARY | ~2019-05-02 | XMS | Encounter Summary ---
Demographics + + + | Address | [address] [facility] | | | [place] [address] | + + + | Home Phone | | + + + | Preferred Language | Unknown | + + + | Marital Status | | + + + | Temple Affiliation | UNK | + + + | Race | White | + + + | Ethnic Group | Not or | + + + Author + + + | Author | [facility] | + + + | Organization | [facility] | + + + | [...] [place] | | | | | [address] | | + + + + + Care Team Providers + +------+ + | Care End Worker Name | Role | Phone | + +------+ + | Ayala Glasgow MD | PCP | | + +------+ + Encounter Details +--------+ + + + + | Date | Type | Department | Care Team | Description | +--------+ + + + + | 03/12/ | ED Progress | [facility] [address] | Melinda Munoz, | ED Progress Note | | 2006 | | [address] | MD [address] | | | | Note-Transc | [place], [place] | [place], [place] | | | | ribed | [address] | [address] | | | | | | [phone] | | | | | | | [...]
--- OUTSIDE RECORDS SUMMARY | ~2019-05-02 | XMS | Encounter Summary ---
Demographics + + + | Address | [address] [facility] | | | [place] [address] | + + + | Home Phone | | + + + | Preferred Language | Unknown | + + + | Marital Status | | + + + | Islam Affiliation | UNK | + + + | Race | White | + + + | Ethnic Group | Not or | + + + Author + + + | Author | [facility] | + + + | Organization | [facility] | + + + [...] [place] | | | | | [address] | | + + + + + Care Team Providers + +------+ + | Care Insurance Marketing Specialist Name | Role | Phone | + +------+ + | Ayala Glasgow MD | PCP | | + +------+ + Encounter Details +--------+ + + + + | Date | Type | Department | Care Team | Description | +--------+ + + + + | 09/19/ | Inside | [facility] | Cirilo Cuadra MD | | | 2016 | Referral | [facility] [address] | [facility] | | | | Order | E The | [facility] [address] | | | | | [place] | [address] | | | | | [address] | [place] [address] | | | | | | [phone] | | | | | | | [...] encounter Results MA DIGITAL MAMMO SCREEN BILAT (10/17/2015 11:00 PM PDT) + + | Specimen | + + | | + + + + + | Narrative | Performed At | + + + | [address] [place] [address] | [facility] | | [place] [address] | DEPARTMENT | | [phone] Name: REGLA DANIEL Phys: | RADIOLOGY | | CIRILO CUADRA : 1955 Sex: F CSN: | | | [id number] MR# [id number] Exam Date: 10/17/2015 | | | EXAM: BILATERAL SCREENING MAMMOGRAM CLINICAL HISTORY: Screening, | | | personal history of right breast cancer with lumpectomy and | | | radiation therapy. COMPARISON: 08/23/2014, 08/16/2013, 06/16/2012 | | | and 05/21/2011. TECHNIQUE: CC and MLO views of both breasts were | | | obtained utilizing full field digital technique. R2 computer aided | | | detection (CAD) software was utilized in the interpretation of this | | | study. FINDINGS: The breasts are composed of scattered | | | fibroglandular tissue. A skin lesion is marked in the left breast. | | | Postsurgical changes from lumpectomy and radiation are present | | | with volume loss, skin thickening and increased parenchymal density. | | | No developing dominant mass, new spiculated lesion, suspicious | | | microcalcification or secondary sign of malignancy is noted. | | | IMPRESSION: Benign findings - BIRADS 2 Recommendation: Annual | | | mammographic follow-up. BI-RADS ASSESSMENT: BI-RADS 2: | | | BENIGN. The final assessment is a benign finding, negative study. | | | The findings reported have no likelihood of malignancy. No further | | | evaluation is needed at this time, however, recommend routine annual | | | screening mammography. A negative mammography report should not | | | delay biopsy if a dominant mass is present. 15% of breast cancers are | | | not identified by mammography. REPORT SIGNED IN OTHER | | | VENDOR SYSTEM 10/17/2015 Reported by: KAREN ANDRE MD | | | Electronically signed by: KAREN ANDRE MD Transcribed | | | Date/Time: 10/17/2015 23:00 Fashion Marketer: FLUENCY | | + + + + + | Procedure Note | + + | Interface, Radiology Results - 10/17/2015 11:05 PM PDT [address] | | [place] [address] | | Name: REGLA DANIEL Phys: ELOISACIRILO Adelaida : 1955 Sex: F CSN: | | [id number] MR# [id number] Exam Date: 10/17/2015 EXAM:BILATERAL SCREENING | | MAMMOGRAM CLINICAL HISTORY:Screening, personal history of right breast cancer with | | lumpectomyand radiation therapy. COMPARISON:08/23/2014, 08/16/2013, 06/16/2012 and | | 05/21/2011. TECHNIQUE:CC and MLO views of both breasts were obtained utilizing full | | fielddigital technique. R2 computer aided detection (CAD) software wasutilized in the | | interpretation of this study. FINDINGS:The breasts are composed of scattered | | fibroglandular tissue. A skin lesion is marked in the left breast. Postsurgical | | changesfrom lumpectomy and radiation are present with volume loss, skinthickening and | | increased parenchymal density. No developing dominant mass, new spiculated lesion, | | suspiciousmicrocalcification or secondary sign of malignancy is noted. IMPRESSION:Benign | | findings - BIRADS 2 Recommendation: Annual mammographic follow-up.BI-RADS ASSESSMENT: | | BI-RADS 2: BENIGN. The final assessment is a benign finding,negative study. The | | findings reported have no likelihood ofmalignancy. No further evaluation is needed at | | this time, however,recommend routine annual screening mammography. A negative | | mammography report should not delay biopsy if a dominantmass is present. 15% of breast | | cancers are not identified bymammography. REPORT SIGNED IN OTHER VENDOR SYSTEM | | 10/17/2015 Reported by: KAREN ANDRE MD Electronically signed by: KAREN | | MD THAI Transcribed Date/Time: 10/17/2015 23:00Transcriptionist: FLUENCY | | | |TECHNIQUE: | |CC and MLO views of both breasts were obtained utilizing full field | |digital technique. R2 computer aided detection (CAD) software was | |utilized in the interpretation of this study. | | | |FINDINGS: | |The breasts are composed of scattered fibroglandular tissue. | | | |A skin lesion is marked in the left breast. Postsurgical changes | |from lumpectomy and radiation are present with volume loss, skin | |thickening and increased parenchymal density. | | | |No developing dominant mass, new spiculated lesion, suspicious | |microcalcification or secondary sign of malignancy is noted. | | | |IMPRESSION: | |Benign findings - BIRADS 2 | | | |Recommendation: Annual mammographic follow-up. | |BI-RADS ASSESSMENT: | | | | [...] | REPORT SIGNED IN OTHER VENDOR SYSTEM 10/17/2015 | |Reported by: KAREN ANDRE MD | | | |Electronically signed by: KAREN ANDRE MD | | | |Transcribed Date/Time: 10/17/2015 23:00 | |Fashion Marketer: FLUENCY | | | | | | [...]
--- OUTSIDE RECORDS SUMMARY | ~2019-05-02 | XMS | Encounter Summary ---
Demographics + + + | Address | [address] [facility] | | | [place] [address] | + + + | Home Phone | | + + + | Preferred Language | Unknown | + + + | Marital Status | | + + + | Uatsdin Affiliation | UNK | + + + | Race | White | + + + | Ethnic Group | Not or | + + + Author + + + | Author | [facility] | + + + | Organization | [facility] | + + + | Address [...] [address] | | | | | [place], [place] | | | | | [address] | | + + + + + Care Team Providers + +------+ + | Care Design Checker Name | Role | Phone | + +------+ + | Loreta Pierre | PCP | | + +------+ + Encounter Details +--------+ + + + + | Date | Type | Department | Care Team | Description | +--------+ + + + + | 03/12/ | Results | NON-[facility] EP[facility] | Melinda Munoz, | | | 2006 | Only | Department | [address] | | | | | THE [place] | | | | | | [address] | | | | | | [phone] | | | | | | | [...] | + +--------+ + + + | ABDOMINAL ULTRASOUND | Routin | 03/12/2007 | | Results for this | | [id number] | e | 10:26 AM | | procedure are in the | | | | PDT | | results section. | + +--------+ + + + | BEAN OCHOAICK ONLY | Routin | 03/12/2007 | | Results for this | | | e | 9:45 AM | | procedure are in the | | | | PDT | | results section. | + +--------+ + + + | CBC W/DIFF, REFLEX | Routin | 03/12/2007 | | Results for this | | | e | 9:32 AM | | procedure are in the | | | | PDT | | results section. | + +--------+ + + + | COMPLETE METABOLIC | Routin | 03/12/2007 | | Results for this | | SET | e | 9:32 AM | | procedure are in the | | (NA,K,CL,CO2,BUN,CRE | | PDT | | results section. | | AT,GLUC,CA,AST,ALT,B | | | | | | STEVEN TOTAL,ALK | | | | | | PHOS,ALB,PROT TOTAL) | | | | | + +--------+ + + + documented in this encounter Results ABDOMINAL ULTRASOUND [id number] (03/12/2007 10:26 AM PDT) + + | Specimen | + + | | + + + + + | Narrative | Performed At | + + + | ABDOMINAL ULTRASOUND: INDICATION: RUQ pain. FINDINGS: There | [facility] | | are multiple small gallstones in the neck of the gallbladder, which | DEPARTMENT OF | | mastic floor layer mildly with decubitus positioning. The gallbladder is not | RADIOLOGY | | dilated and its wall is not thickened or striated. The patient was | | | tender to compression over the gallbladder with the transducer. | | | There is no pericholecystic fluid. Normal common duct at 4.2 mm. | | | Normal pancreas. In the right lobe of the liver, there is a 2 cm | | | focal echogenic lesion, likely a hemangioma. Normal pancreas, | | | spleen, and kidneys. IMPRESSION: Cholelithiasis. Positive Lanier's | | | sign. Normal common duct. 2 cm echogenic lesion in the liver, | | | R/O hemangioma. Dynamic CT can assess this further. #[id number] | | + + + + + | Procedure Note | + + | Interface, Radiology Results - 02/16/2015 1:35 PM PDT ABDOMINAL ULTRASOUND: | | INDICATION: RUQ pain. | | FINDINGS: There are multiple small gallstones in the neck of the | | gallbladder, which mastic floor layer mildly with decubitus positioning. The | | gallbladder is not dilated and its wall is not thickened or striated. | | The patient was tender to compression over the gallbladder with | | the transducer. There is no pericholecystic fluid. Normal common | | duct at 4.2 mm. Normal pancreas. In the right lobe of the liver, | | there is a 2 cm focal echogenic lesion, likely a hemangioma. Normal | | pancreas, spleen, and kidneys. | | IMPRESSION: | | Cholelithiasis. Positive Lanier's sign. Normal common duct. 2 cm | | echogenic lesion in the liver, R/O hemangioma. Dynamic CT can assess | | this further. | | #[id number] | + + + +---------+ + + | Performing | Address | City/State/Zipcode | Phone Number | | Organization | | | | + +---------+ + + | [facility] DEPARTMENT OF | | | | | RADIOLOGY | | | | + +---------+ + + UA, DIPSTICK ONLY (03/12/2007 9:45 AM PDT) + + + + + + | Component | Value | Ref Range | Performed | Pathologist | | | | | At | Signature | + + + + + + | COLOR(UR) | YELLOW | YELLOW | [facility] | | | | | | A MEDICAL | | | | | | CENTER | | + + + + + + | APPEARANCE | CLEAR | CLEAR | [facility] | | | | | | A MEDICAL | | | | | | CENTER | | + + + + + + | SPECIFIC | < 1.005 | 1.005 - 1.030 | [facility] | | | GRAVITY | | | A MEDICAL | | | | | | CENTER | | + + + + + + | PH(UR) | 5.0 | 5.0 - 8.0 | [facility] | [...] | [address] | [place] [address] | | | [facility]ICAL [place] | [facility] | | | + + + + + CBC W/HANS DEVRIES (03/12/2007 9:32 AM PDT) + + + + + + | Component | Value | Ref Range | Performed | Pathologist | | | | | At | Signature | + + + + + + | WHITE BLOOD | 8.1 | 4.3 - 11.0 X10 | [facility] | | | CELL COUNT | | 3/ul | A MEDICAL | | | | | | CENTER | | + + + + + + | HEMOGLOBIN | 15.7 | 12.0 - 16.0 | [facility] | | | | | g/dL | A MEDICAL | | | | | | CENTER | | + + + + + + | RED BLOOD | 5.06 | 4.2 - 5.4 X10 | [facility] | | | CELL COUNT | | 6/uL | A MEDICAL | | | | | | CENTER | | + + + + + + | HEMATOCRIT | 44.4 | 38.0 - 47.0 % | [facility] | | | | | | A MEDICAL | | | | | | CENTER | | + + + + + + | MCV | 87.8 | 82 - 100 fl | [facility] | | | | | | A MEDICAL | | | | | | CENTER | | + + + + + + | MCH | 31.0 | 28.0 - 32.0 pg | [facility] | | | | | | A MEDICAL | | | | | | CENTER | | + + + + + + | MCHC | 35.4 | 32 - 36 g/dL | [facility] | | | | | | A MEDICAL | | | | | | CENTER | | + + + + + + | RDW | 11.9 (L) | 12 - 15 fL | [facility] | | | | | | A MEDICAL | | | | | | CENTER | | + + + + + + | PLATELET | 253 | 150 - 450 X10 3 | [facility] | | | COUNT | | | A MEDICAL | | | | | | CENTER | | + + + + + + | MPV | [place] | 9.0 - 12.0 fL | [facility] | | | | | | A MEDICAL | | | | | | CENTER | | + + + + + + | NEUTROPHIL | 74.1 | 40 - 80 % | [facility] | | | % | | | A MEDICAL | | | | | | CENTER | | + + + + + + | LYMPHOCYTE | 23.0 | 10 - 45 % | [facility] | | | % | | | A MEDICAL | | | | | | CENTER | | + + + + + + | EOS % | 2.1 | 0 - 5 % | [facility] | | | | | | A MEDICAL | | | | | | CENTER | | + + + + + + | BASO % | 0.0 | 0 - 1 % | [facility] | | | | | | A MEDICAL | | | | | | CENTER | | + + + + + + | MONOCYTE % | 0.8 (L) | 2 - 10 % | [facility] | | | | | | A MEDICAL | | | | | | CENTER | | + + + + + + | BANDS % | [place] | 0 - 7 % | [facility] | | | | | | A MEDICAL | | | | | | CENTER | | + + + + + + | CBC | ERROR FLAGS -HEMATOLOGY | | [facility] | | | COMMENTS | INSTR. [place] | | A MEDICAL | | | | | | CENTER | | + + + + + + | CBC | DEFINITIVE FLAG [place] | | [facility] | | | COMMENTS | | | A MEDICAL | | | | | | CENTER | | + + + + + + | CBC | SUSPECT FLAG NPComment: | | [facility] | | | COMMENTS | Imm Grans/Bands1 | | A MEDICAL | | | | | | CENTER | | + + + + + + | CBC | CONDITIONAL FLAG [place] | | [facility] | | | COMMENTS | Comment: | | A MEDICAL | | | | Abnormal WBC Pop | | CENTER | | | | Normal RBC Pop | | | | | [...] + + + + | [facility] | [address] | [place] [address] | | | [facility] | Streets | | | + + + + + COMPLETE METABOLIC SET (NA,K,CL,CO2,BUN,CREAT,GLUC,CA,AST,ALT,BILI TOTAL,ALK PHOS,ALB,PROT TOTAL) (03/12/2007 9:32 AM PDT) + +---------+ + + + | Component | Value | Ref Range | Performed | Pathologist | | | | | At | Signature | + +---------+ + + + | SODIUM, | 142 | 137 - 146 MEQ/L | [facility] | | | PLASMA | | | A MEDICAL | | | (LAB) | | | CENTER | | + +---------+ + + + | POTASSIUM, | 4.0 | 3.5 - 5.2 MEQ/L | [facility] | | | PLASMA | | | A MEDICAL | | | (LAB) | | | CENTER | | + +---------+ + + + | CO2 | 27 | 22 - 28 MEQ/L | [facility] | | | | | | A MEDICAL | | | | | | CENTER | | + +---------+ + + + | CHLORIDE, | 105 | 98 - 106 MEQ/L | [facility] | | | PLASMA | | | A MEDICAL | | | (LAB) | | | CENTER | | + +---------+ + + + | GLUCOSE, | 109 (H) | 70 - 105 MG/DL | [facility] | | | PLASMA | | | A MEDICAL | | | (LAB) | | | CENTER | | + +---------+ + + + | BUN, PLASMA | 14 | 8 - 30 MG/DL | [facility] | | | (LAB) | | | A MEDICAL | | | | | | CENTER | | + +---------+ + + + | CREATININE | 0.70 | 0.6 - 1.1 MG/DL | [facility] | | | PLASMA | | | A MEDICAL | | | (LAB) | | | CENTER | | + +---------+ + + + | BUN/CREATIN | 20 | 6 - 20 RATIO | [facility] | | | INE RATIO | | | A MEDICAL | | | | | | CENTER | | + +---------+ + + + | CALCIUM, | 10.0 | 8.5 - 10.8 | [facility] | | | PLASMA | | MG/DL | A MEDICAL | | | (LAB) | | | CENTER | | + +---------+ + + + | AST(SGOT) | 36 | 10 - 41 U/L | [facility] | | | | | | A MEDICAL | | | | | | CENTER | | + +---------+ + + + | ALT (SGPT) | 50 | 7 - 51 U/L | [facility] | | | | | | A MEDICAL | | | | | | CENTER | | + +---------+ + + + | ALK PHOS | 123 | 40 - 180 U/L | [facility] | | | | | | A MEDICAL | | | | | | CENTER | | + +---------+ + + + | TOTAL | 7.3 | 6.7 - 8.5 G/DL | [facility] | | | PROTEIN, | | | A MEDICAL | | | PLASMA | | | CENTER | | | (LAB) | | | | | + +---------+ + + + | ALBUMIN, | 4.3 | 3.5 - 5.0 G/DL | [facility] | | | PLASMA | | | A MEDICAL | | | (LAB) | | | CENTER | | + +---------+ + + + | BILIRUBIN | 1.1 | 0.2 - 1.6 MG/DL | [facility] | | | TOTAL | | | A MEDICAL | | | | | | CENTER | | + +---------+ + + + | LIPASE | 19 | 5 - 57 U/L | [facility] | | | (LAB) | | | A MEDICAL | | | | | | CENTER | | + +---------+ + + + | FASTING? | UNK | HR | [facility] | | | [...] + + + | [facility] | [place] | [place] [address] | | | MEDICAL CENTER | Streets | | | + + + + + documented in this encounter Visit Diagnoses Not on filedocumented in this encounter"
--- OUTSIDE RECORDS SUMMARY | ~2019-05-02 | XMS | Encounter Summary ---
Demographics + + + | Address | [address] [facility] | | | [place] [address] | + + + | Home Phone | | + + + | Preferred Language | Unknown | + + + | Marital Status | | + + + | Congregation Affiliation | UNK | + + + | Race | White | + + + | Ethnic Group | Not or | + + + Author + + + | Author | [facility] | + + + | Organization | [facility] | + + + | [...] [address] | | | | | [place], [place] | | | | | [address] | | + + + + + Care Team Providers + +------+ + | Care Dining Room Host Name | Role | Phone | + +------+ + | Loreta Pierre | PCP | | + +------+ + Encounter Details +--------+ + + + + | Date | Type | Department | Care Team | Description | +--------+ + + + + | 09/17/ | Results | NON[facility] EP[facility] | [place], | | | 2009 | Only | Department | [address] | | | | | | [address] | | | | | | [place] [address] | | | | | | [phone] | | | | | | | [...] | + +--------+ + + + | ABDOMEN CT COMBINED | Routin | 09/17/2009 | | Results for this | | [id number] | e | 8:00 AM | | procedure are in the | | | | PDT | | results section. | + +--------+ + + + documented in this encounter Results ABDOMEN CT COMBINED [id number] (09/17/2009 8:00 AM PDT) + + | Specimen | + + | | + + + + + | Narrative | Performed At | + + + | EXAM: ABDOMINAL CT HISTORY: Lesion in the right lobe noted on | [facility] | | previous ultrasound COMPARISON: None and FINDINGS: CT scan of the | DEPARTMENT OF | | abdomen was performed with and without intravenous contrast. | RADIOLOGY | | Following intravenous contrast administration, scan were obtained | | | in three phases limited to the liver region. No oral contrast was | | | given. There is a 2 cm mass present in the right lobe of the liver | | | which is not identifiable on the unenhanced scan. Following | | | contrast administration. The mass is low in density and and there | | | is mild peripheral enhancement present. The mass most likely | | | represents a hemangioma. Follow-up by ultrasound in approximately 3 | | | months is recommended. The kidneys function normally. The the | | | spleen is normal in appearance. No pancreatic mass noted. A small | | | hiatal hernia is seen. The adrenal glands are normal in size and | | | the lung bases are clear. IMPRESSION: The small mass in the liver | | | most likely represents a hemangioma. Follow-up ultrasound in | | | approximate 3 months is recommended. | | + + + + + | Procedure Note | + + | Interface, Radiology Results - 02/12/2015 1:51 PM PDT EXAM: ABDOMINAL CT | | HISTORY: Lesion in the right lobe noted on previous ultrasound | | COMPARISON: None and | | FINDINGS: CT scan of the abdomen was performed with and without | | intravenous contrast. Following intravenous contrast administration, | | scan were obtained in three phases limited to the liver region. No | | oral contrast was given. | | There is a 2 cm mass present in the right lobe of the liver which is | | not identifiable on the unenhanced scan. Following contrast | | administration. The mass is low in density and and there is mild | | peripheral enhancement present. The mass most likely represents a | | hemangioma. Follow-up by ultrasound in approximately 3 months is | | recommended. | | The kidneys function normally. The the spleen is normal in | | appearance. No pancreatic mass noted. A small hiatal hernia is | | seen. The adrenal glands are normal in size and the lung bases are | | clear. | | IMPRESSION: The small mass in the liver most likely represents a | | hemangioma. Follow-up ultrasound in approximate 3 months is | | recommended. | + + + +---------+ + + [...]
--- OUTSIDE RECORDS SUMMARY | ~2019-05-02 | XMS | Encounter Summary ---
Demographics + + + | Address | [address] [facility] | | | [place] [address] | + + + | Home Phone | | + + + | Preferred Language | Unknown | + + + | Marital Status | | + + + | Hoahaoism Affiliation | UNK | + + + | Race | White | + + + | Ethnic Group | Not or | + + + Author + + + | Author | [facility] | + + + | Organization | [facility] | + + + [...] [address] | | | | | [place], [place] | | | | | [address] | | + + + + + Care Team Providers + +------+ + | Care Vacuum Conditioner Operator Name | Role | Phone | [...] [address] | | | | | | [place] [address] | | | | | | [phone] | | | | | | | [...] | | Results for this | | [id number] | e | 8:00 AM | | procedure are in the | | | | PDT | | results section. | + +--------+ + + + documented in this encounter Results ABDOMEN CT COMBINED [id number] (09/17/2009 8:00 AM PDT) + + | [...]
--- OUTSIDE RECORDS SUMMARY | ~2019-05-02 | XMS | Encounter Summary ---
Demographics + + + | Address | [address] [facility] | | | [place] [address] | + + + | Home Phone | | + + + | Preferred Language | Unknown | + + + | Marital Status | | + + + | Zoroastrianism Affiliation | UNK | + + + | Race | White | + + + | Ethnic Group | Not or | + + + Author + + + | Author | [facility] | + + + | Organization | [facility] | + + + | Address [...] [address] | | | | | [address] [place] [address] [place] | | | | | [address] | | + + + + + Care Team Providers + +------+ + | Care Mechanical Artist Name | Role | Phone | + +------+ + | Ayala Glasgow MD | PCP | | + +------+ + Encounter Details +--------+ + + + + | Date | Type | Department | Care Team | Description | +--------+ + + + + | 09/29/ | Results | [facility] | Alexys Cvaanaugh, | | | 2008 | Only | Department | [facility] | | | [facility] [address] | [address] [place], | | | | | | [place] [address] | | | | | | [phone] | | | | | | | [...] | + +--------+ + + + | VITAMIN D, | Routin | 09/29/2008 | | Results for this | | 25-HYDROXY, SERUM | e | 2:42 PM | | procedure are in the | | | | PDT | | results section. | + +--------+ + + + | COMPLETE METABOLIC | Routin | 09/29/2008 | | Results for this | | SET | e | 2:42 PM | | procedure are in the | | (NA,K,CL,CO2,BUN,CRE | | PDT | | results section. | | AT,GLUC,CA,AST,ALT,B | | | | | | STEVEN TOTAL,ALK | | | | | | PHOS,ALB,PROT TOTAL) | | | | | + +--------+ + + + | TSH | Routin | 09/29/2008 | | Results for this | | | e | 2:42 PM | | procedure are in the | | | | PDT | | results section. | + +--------+ + + + documented in this encounter Results TSH (09/29/2008 2:42 PM PDT) + +-------+ + + + | Component | Value | Ref Range | Performed | Pathologist | | | | | At | Signature | + +-------+ + + + | TSH | 0.48 | 0.34 - 5.6 | [facility] | [...] + + | [facility] | [address] | [place] [address] | | | [facility] | Streets | | | + + + + + VITAMIN D, 25-HYDROXY, SERUM (09/29/2008 2:42 PM PDT) + + + + + + | Component | Value | Ref Range | Performed | Pathologist | | | | | At | Signature | + + + + + + | VITAMIN D | 38Comment: | SEE COMMENT | [facility] | | | | | ng/mL | [facility] | | | | | | [facility] | | | | Reference Range: | | | | | | | | | | | | | | | | | | [id number] | | | | | | indicates both | | | | | | endogenous production | | | | | | andsupplementation. | | | | | | 25-OHD2 is an indicator | | | | | | of exogenoussources such | | | | | | as diet or | | | | | | supplementation. Therapy | | | | | | is bameasurement of | | | | | | Total 25-OHD, with | | | | | | levels <20 | | | | | | ng/mLindicative of | | | | | | Vitamin D deficiency, | | | | | | while levels betweng/mL | | | | | | and 30 ng/mL suggest | | | | | | insufficiency. Optimal | | | | | | leve>30 ng/mL. | | | | + + + + + + + + | Specimen | + + | | + + + + + + + | Performing | Address | City/State/Zipcode | Phone Number | | Organization | | | | + + + + + | [facility] | [address] | [place] [address] | [phone] | | [facility] | | | | + + + + + | [facility] | | | | | [facility] | | | | + + + + + COMPLETE METABOLIC SET (NA,K,CL,CO2,BUN,CREAT,GLUC,CA,AST,ALT,BILI TOTAL,ALK PHOS,ALB,PROT TOTAL) (09/29/2008 2:42 PM PDT) + + + + + + | Component | Value | Ref Range | Performed | Pathologist | | | | | At | Signature | + + + + + + | SODIUM, | 140 | 137 - 146 MEQ/L | [facility] | | | PLASMA | | | A MEDICAL | | | (LAB) | | | CENTER | | + + + + + + | POTASSIUM, | 3.8 | 3.5 - 5.2 MEQ/L | [facility] [...] + + + + | CHLORIDE, | 102 | 98 - 106 MEQ/L | [facility] | | | PLASMA | | | A MEDICAL | | | (LAB) | | | CENTER | | + + + + + + | GLUCOSE, | 102 | 70 - 105 MG/DL | [facility] [...] + + + | CREATININE | 0.60 | 0.6 - 1.1 MG/DL | [facility] | | | PLASMA | | | A MEDICAL | | | (LAB) | | | CENTER | | + + + + + + | BUN/CREATIN | 23 (H) | 6 - 20 RATIO | [facility] | | | INE RATIO | | | A MEDICAL | | | | | | CENTER | | + + + + + + | CALCIUM, | 9.9 | 8.5 - 10.8 | [facility] | [...] + + + | ALT (SGPT) | 43 | 7 - 51 U/L | [facility] | | | | | | A MEDICAL | | | | | | CENTER | | + + + + + + | ALK PHOS | 114 | 40 - 180 U/L | [facility] | | | | | | A MEDICAL | | | | | | CENTER | | + + + + + + | TOTAL | 6.8 | 6.7 - 8.5 G/DL | [facility] [...] + + + + | BILIRUBIN | 1.4 | 0.2 - 1.6 MG/DL | [facility] | | | TOTAL | | | A MEDICAL | | | | | | CENTER | | + + + + + + | TRIGLYCERID | 211 (H) | 45 - 150 MG/DL | [facility] | | | ES | | | A MEDICAL | | | | | | CENTER | | + + + + + + | CHOLESTEROL | 214 (H) | 101 - 199 MG/DL | [facility] | | | (LAB) | | | A MEDICAL | | | | | | CENTER | | + + + + + + | HDL | 38 | 35 - 90 MG/DL | [facility] | | | CHOLESTEROL | | | A MEDICAL | | | | | | CENTER | | + + + + + + | LDL CHOLEST | 134 (H) | 0 - 129 MG/DL | [facility] | | | | | | A MEDICAL | | | | | | CENTER | | + + + + + + | NON-HDL | 176Comment: The goal for | | [facility] | | | CHOLESTEROL | non-HDL cholesterol is | | A MEDICAL | | | | a level 30 mg/dL hthan | | CENTER | | | | that for LDL | | | | | | cholesterol. | | | | + + + + + + | VLDL | 42 (H) | 9 - 30 MG/DL | [facility] | | | CHOLESTEROL | | | A MEDICAL | | | | | | CENTER | | + + + + + + | CARDIAC | 5.6 | RATIO | [facility] | | | RISK RATIO | | | A MEDICAL | | | | | | CENTER | | + + + + + + | FASTING? | 12 HRS | HR | [facility] | | | [...] | + + + + + | [facility] | And | [place] [address] | | | [facility] | [facility] | | | + + + + + documented in this encounter Visit Diagnoses Not on filedocumented in this encounter"
--- OUTSIDE RECORDS SUMMARY | ~2019-05-02 | XMS | Encounter Summary ---
Demographics + + + | Address | [address] [facility] | | | [place] [address] | + + + | Home Phone [...] [place] | | | | | [address] | | + + + + + Care Team Providers + +------+ + | Care Nursing Program Manager Name | Role | Phone | [...] [place], [place] | | | | | [address] | [address] | | | | | | [phone] | | | | | | | [...] as of this encounter Progress Notes Vimal Vlilalta MD - 09/20/2012 8:08 PM [facility] RAD[facility]ATION ONCOLOGY [address] [place] [address] REGLA VALDEZ DATE OF SERVICE: September 20, [...] her next bilateral mammogram in May. [place]/MedQ /[id number] cc: Chandni De M.D. Kathleen Pickering, PA Electronically Signed 09/21/12 0828 MD COURTNEY Murrell SUE E [id number] : 55 [id number] ADMIT DATE: Christen Pan MD - 09/20/2012 3:53 PM [facility] MEDICAL ONCOLOGY [address] [place] [address] REGLA VALDEZ DATE OF SERVICE: September 20, [...] I had provided her about tamoxifen (from [employer] [employer] and [facility]'s web site). She said that she [...] they would let me know. REGLA VALDEZ [id number] : 55 [id number] SERVICE DATE: 09/20/12 KARLA/Juani /[id number] cc: Aileen Cuadra M.D. Vimal Villalta M.D., Ph.D. KARLA Cota Electronically Signed 09/24/12 1706 MD COURTNEY Mckeon SUE E [id number] : 55 [id number] SERVICE DATE: 09/20/12 Vimal Cervantes MD - 09/17/2012 2:51 PM [facility] RAD[facility]ATION ONCOLOGY [address] [place] [address] REGLA VALDEZ DATE OF SERVICE: September 17, [...] in May. I reviewed portal imaging. TEMO/Juani /[id number] Electronically Signed 09/17/12 1507 MD COURTNEY Murrell SUE E [id number] : 55 [id number] ADMIT DATE: Vimal Cervantes MD - 09/10/2012 2:19 PM [facility] [address] [place] [address] REGLA VALDEZ DATE OF SERVICE: September 10, [...] modulatory therapy. I reviewed portal imaging. Jac /[id number] Electronically Signed 09/10/12 1519 MD COURTNEY Murrell SUE E [id number] : 55 [id number] ADMIT DATE: Vimal Cervantes MD - 09/03/2012 2:50 PM [facility] [address] [place] [address] REGLA VALDEZ DATE OF SERVICE: September 03, [...] asked if she would speak with our child protective services social worker, or if I could get her help with another counselor. She declined at this time. However, she reassured me that she would notify either me or another member of our staff if she is willing to in the future. She will continue the radiation treatments as planned. I reviewed portal imaging. Jac /[id number] Electronically Signed 09/06/12 0836 MD COURTNEY Murrell SUE E [id number] : 55 [id number] ADMIT DATE: Vimal Cervantes MD - 08/30/2012 6:42 PM [facility] [address] [place] [address] REGLA VALDEZ DATE OF SERVICE: August 30, 2012 RE: REGLA VALDEZ This patient will be charged a special treatment procedure due to the increased complexity associated with the planning and delivery of segmented conformal radiation montoya that I designed myself in order to enhance dose homogeneity. TEMO/Juani /[id number] Electronically Signed 08/31/12 0813 MD COURTNEY Murrell SUE E [id number] : 55 [id number] ADMIT DATE: Vimal Oleary MD - 08/30/2012 6:29 PM [facility] [address] [place] [address] REGLA VALDEZ DATE OF SERVICE: August 30, [...] projection directly on the patient's skin. TEMO/Juani /[id number] Electronically Signed 08/31/12 0813 MD COURTNEY Murrell SUE E [id number] : 55 [id number] ADMIT DATE: Vimal Oleary MD - 08/25/2012 3:24 PM [facility] [address] [place] [address] REGLA VALDEZ DATE OF SERVICE: August 25, 2012 RE: REGLA VALDEZ This note will serve as a clinical treatment planning note. DIAGNOSIS: Breast tumor. TREATMENT SITE: Right breast. INTENT OF TREATMENT: Curative adjuvant. MODALITY: Photon. DOSE AND FRACTIONATION: Dose of 4256 cGy in 16 treatments. CONTEMPLATED TECHNIQUE: 3D conformal. TEMO/Juani /[id number] Electronically Signed 08/26/12 1146 MD COURTNEY Murrell SUE E [id number] : 55 [id number] ADMIT DATE: Vimal Oleary MD - 08/25/2012 3:21 PM [facility] [address] [place] [address] REGLA VALDEZ DATE OF SERVICE: August 25, [...] scan for 3-dimensional computerized treatment planning. TEMO/Juani /[id number] Electronically Signed 08/26/12 1146 Vimal Villalta MD REGLA VALDEZ [id number] : 55 [id number] ADMIT DATE: Christen Morris MD - 08/24/2012 8:28 PM [facility] MEDICAL ONCOLOGY [address] [address] REGLA VALDEZ DATE OF SERVICE: August 24, [...] 26, 2012. This specimen was submitted to [facility] ([facility]) for review. The final pathology report describes [...] Hysterectomy. 3. Hemorrhoidectomy. 4. Cholecystectomy. REGLA VALDEZ [id number] : 55 [id number] SERVICE DATE: 08/24/12 5. Left rotator cuff repair. FAMILY HISTORY: Positive for an unknown malignancy in the patient's maternal grandfather. 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 She comes to clinic today accompanied by her domestic partner (and soon to be ), Villa Morgan. They are both outdoors enthusiasts and enjoy camping together near the [facility]. The patient endorses a 09-sfld-hyaw history of cigarette smoking from ages [age]. [...] Without clubbing, cyanosis or edema. REGLA VALDEZ [id number] : 55 [id number] SERVICE DATE: 08/24/12 SKIN: Without rash or [...] Regla Valdez is a 57-year-old female from [place], [place] with newly diagnosed ductal carcinoma in [...] I provided her with informational handouts from [employer] and [facility]'s website regarding tamoxifen. The patient was understandably concerned that tamoxifen may precipitate either frequent and/or severe hot flashes. I discussed with her the utility of venlafaxine in this setting. I added that this may offer benefit with regard to her major depression as well. I provided her with an informational handout from [employer]'s [employer] regarding venlafaxine and encouraged her to read [...] to seeing them upon her return. KARLA/Juani /[id number] cc: Chandni Jansen PA Electronically Signed 08/29/12 1647 MD COURTNEY Mckeon SUE E [id number] : 55 [id number] SERVICE DATE: 08/24/12 Vimal Oleary MD - 08/24/2012 1:37 PM [facility] RADIATION ONCOLOGY [address] [place] [address] REGLA VALDEZ DATE OF SERVICE: August 24, 2012 RE: REGLA VALDEZ CHIEF COMPLAINT: Breast tumor. HISTORY OF PRESENT ILLNESS: This is a 57-year-old woman resort referred by Dr. Aielen Benedict regarding possible radiation treatments for recently [...] on 07/26/2012. The pathology was reviewed at [facility] ([facility]). 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 REGLA VALDEZ [id number] : 55 [id number] ADMIT DATE: SOCIAL HISTORY: The patient lives in [place] with her domestic partner. She works at the [employer] in [place]. She has about a 05-wovf-wdko history of smoking and quit 14 years [...] the standard inclusion criteria. TEMO/Juani REGLA VALDEZ [id number] : 55 [id number] ADMIT DATE: /[id number] cc: Chandni Jansen M.D. Kathleen Pickering, PA Electronically Signed 08/24/12 1502 MD COURTNEY MurrellREGLA E [id number] : 55 [id number] ADMIT DATE: documente d in this encounter Plan of Treatment Not on filedocumented as of this encounter Visit Diagnoses Not on filedocumented in this encounter
--- OUTSIDE RECORDS SUMMARY | ~2019-05-02 | XMS | Encounter Summary ---
Demographics + + + | Address | [address] [facility] | | | [place] [address] | + + + | Home Phone | | + + + | Preferred Language | Unknown | + + + | Marital Status | | + + + | Nondenominational Affiliation | UNK | + + + | Race | White | + + + | Ethnic Group | Not or | + + + Author + + + | Author | [facility] | + + + | Organization | [facility] | + + + | [...] [place] | | | | | [address] | | + + + + + Care Team Providers + +------+ + | Care [employer] Psychologist Name | Role | Phone | + +------+ + | Ayala Glasgow MD | PCP | | + +------+ + Encounter Details +--------+ + + + + | Date | Type | Department | Care Team | Description | +--------+ + + + + | 11/29/ | Office | [facility] | Vimal Villalta, | Progress Note | | 2012 | Visit-Trans | [address] | MD [address] | | | | sora[place] | [place], [place] | [place], [place] | | | | | [address] | [address] | | | | | | [phone] | | | | | | | [...] encounter Progress Notes Vimal Villalta MD - 11/29/2012 2:20 PM [facility] RAD[facility]ATION ONCOLOGY [address] [place] [address] REGLA DANIEL DATE OF SERVICE: November 29, 2012 RE: REGLA DANIEL CHIEF COMPLAINT: Breast tumor. INTERVAL HISTORY: This patient has a history of right-sided ductal carcinoma in situ. Initially estrogen and progesterone receptor status is not known because it was felt there was not enough of the actual DCIS to be tested reliably. She had lumpectomy of this periareolar lesion followed by radiation therapy completed on 09/20/2012, using a hypofractionated whole breast regimen. Since then, she saw to medical oncologists. The second one was at [facility] and they were able to obtain estrogen and progesterone receptor information on the tumor specimen, indicating estrogen receptor positivity. After that discussion, the patient decided to go ahead and initiate tamoxifen which she has done. She has occasional very brief pains in the right breast. She characterizes these as mild. She has not noticed any breast masses, enlarged lymph nodes or other sites of new pain. PHYSICAL EXAMINATION: GENERAL: Well developed, overweight woman in no acute distress. Her weight is 200 pounds which is stable with blood pressure 131/86, heart rate 81, respiratory rate 20. LYMPHATICS: No cervical, supraclavicular, or axillary lymphadenopathy. LUNGS: Clear to auscultation and percussion. BREASTS: The right breast has grade 1 hyperpigmentation. The periareolar incision is essentially invisible. She has grade 1 breast fibrosis. There is about a 1 cm rubbery nodule corresponding to the postoperative site at about the 7 o'clock position. This does not feel suspicious for tumor and feels more like postoperative fibrosis. There were no masses elsewhere in the breast. The left breast had no masses. IMPRESSION/PLAN: Good recovery after the radiation treatments for ductal carcinoma in situ of the right breast. She will continue on tamoxifen. She would like to have her followup such that she splits being seen between Dr. Cuadra and me every 6 months. She is due for her next mammogram in May which I have ordered. I will have her see Dr. Cuadra in May and me in 1 year. TEMO/Juani /[id number] cc: Chandni De SUE E [id number] : 55 [id number] ADMIT DATE: KARLA Cota Electronically Signed 11/29/12 1710 Vimal Villalta MD, PhD REGLA DANIEL [id number] : 55 [id number] ADMIT DATE: documente d in this encounter Plan of Treatment Not on filedocumented as of this encounter Visit Diagnoses Not on filedocumented in this encounter"
--- OUTSIDE RECORDS SUMMARY | ~2019-05-02 | XMS | Encounter Summary ---
Demographics + + + | Address | [address] [facility] | | | [place] [address] | + + + | Home Phone [...] [place] | | | | | [address] | | + + + + + Care Team Providers + +------+ + | Care Desktop Manager Name | Role | Phone | + +------+ + | Ayala Glagsow MD | PCP | | + +------+ [...] | | Transcribed | [place] | [facility] | | | | | [address] | [place] [address] | | | | | | [phone] | | | | | | | [...] Juan Ballard MD - 03/15/2007 8:20 AM [facility] | | REPORT OF [id number] [place] [address] | | REGLA DANIEL EDATE OF OPERATION: [...] site | | with a REGLA Sinha [id number] DATE: 03/12/07eight 0 Vicryl | | suture. [...] 03/12/2007 22:36:05DT: 03/15/2007 08:09:50Job | | #: [id number]: Melinda Munoz | | Chandni | | | | | | Electronically | | Signed | | | | | | | | | | | | | | Juan BallardREGLA DANIEL [id number] DATE: | | 03/12/07 | |found to [...] | | | |REGLA DANIEL E | |[id number] | |[id number] | |ADMIT DATE: 03/12/07 | | | [...] |LISSETTE/Juani | | | | | | /[id number] | | | | | |cc: Melinda [...] | | | | |REGLA DANIEL | |[id number] | |[id number] | |ADMIT DATE: 03/12/07 | + + documented in this encounter Visit Diagnoses Not on filedocumented in this encounter"
--- OUTSIDE RECORDS SUMMARY | ~2019-05-02 | XMS | Encounter Summary ---
Demographics + + + | Address | [address] [facility] | | | [place] [address] | + + + | Home Phone [...] Author + + + | Author | [facility] | + + + | Organization | [facility] | + + + [...] [place] | | | | | [address] | | + + + + + Care Team Providers + +------+ + | Care Cardiac Catheterization Technician Name | Role | Phone | [...] [place], [place] | | | | | [address] | [address] | | | | | | [phone] | | | | | | | [...] Vimal Villalta MD - 03/12/2015 6:59 PM [facility] RADIATION ONCOLOGY [address] [place] [address] REGLA DANIEL DATE OF SERVICE: March 12, 2015 RE: REGLA DANIEL CHIEF COMPLAINT: Breast cancer. INTERVAL HISTORY: This is a 60-year-old woman diagnosed in June 2012 with ductal carcinoma in situ of the right breast, that was ER positive, TN positive, and HER2 negative. She had lumpectomy, [...] medication list on the EMR. EXAMINATION: GENERAL: Jacr-ovexhhsbq-mosrrlucx woman in no acute distress. VITAL SIGNS: [...] will arrange consultation with Dr. Arriaga. [place]/MedQ /[id number] REGLA DANIEL [id number] : 55 [id number] ADMIT DATE: cc: Margaret Arriaga MD PhD KARLA Cota Electronically Signed 03/13/15 0842 Vimal Villalta MD, PhD REGLA DANIEL [id number] : 55 [id number] ADMIT DATE: documente d in this encounter Plan of Treatment Not on filedocumented as of this encounter Visit Diagnoses Not on filedocumented in this encounter"
--- OUTSIDE RECORDS SUMMARY | ~2019-05-02 | XMS | Encounter Summary ---
Demographics + + + | Address | [address] [facility] | | | [place] [address] | + + + | Home Phone | | + + + | Preferred Language | Unknown | + + + | Marital Status | | + + + | Anglican Affiliation | UNK | + + + | Race | White | + + + | Ethnic Group | Not or | + + + Author + + + | Author | [facility] | + + + | Organization | [facility] | + + + | [...] [address] | | | | | [place] | | | | | [address] | | + + + + + Care Team Providers + +------+ + | Care Geology Professor Name | Role | Phone | + +------+ + | Ayala Glasgow MD | PCP | | + +------+ + Encounter Details +--------+ + + + + | Date | Type | Department | Care Team | Description | +--------+ + + + + | 09/15/ | Results | [facility] | Sindy Keating, | | | 2007 | Only | Medical Clinic | COOKER MECHANIC [address] | | | | | Internal Medicine | [place] | | | | | [address] | [address] | | | | | [place], [place] | [phone] | | | | | [address] | | | | | | [phone] | | | +--------+ + + + [...] | + +--------+ + + + | OSVALDO OCHOA ONLY | Routin | 09/16/2007 | | Results for this | | | e | 3:29 PM | | procedure are in the | | | | PDT | | results section. | + +--------+ + + + documented in this encounter Results OSVALDO OCHOA ONLY (09/16/2007 3:29 PM PDT) + +--------+ + + + | Component | Value | Ref Range | Performed | Pathologist | | | | | At | Signature | + +--------+ + + + | COLOR(UR) | YELLOW | | [facility] | | | | | | A MEDICAL | | | | | | CENTER | | + +--------+ + + + | APPEARANCE | CLOUDY | CLEAR | [facility] | | | | | | A MEDICAL | | | | | | CENTER | | + +--------+ + + + | SPECIFIC | 1.010 | 1.005 - 1.030 | [facility] | | | GRAVITY | | | A MEDICAL | | | | | | CENTER | | + +--------+ + + + | PH(UR) | 7.0 | 5.0 - 8.0 | [facility] | | | | | | A MEDICAL | | | | | | CENTER | | + +--------+ + + + | PROTEIN, UA | NEG | NEGATIVE | [facility] | | | | | | A MEDICAL | | | | | | CENTER | | + +--------+ + + + | GLUCOSE, UA | NEG | NEGATIVE | [facility] | | | | | | A MEDICAL | | | | | | CENTER | | + +--------+ + + + | KETONES, UA | NEG | NEGATIVE | [facility] | | | | | | A MEDICAL | | | | | | CENTER | | + +--------+ + + + | BILIRUBIN | NEG | NEGATIVE | [facility] | | | | | | A MEDICAL | | | | | | CENTER | | + +--------+ + + + | BLOOD | 2+ | NEGATIVE | [facility] | | | | | | A MEDICAL | | | | | | CENTER | | + +--------+ + + + | NITRITES | NEG | NEGATIVE | [facility] | | | | | | A MEDICAL | | | | | | CENTER | | + +--------+ + + + | LEUKOCYTE | POS | NEGATIVE | [facility] | | | ESTERASE | | | A MEDICAL | | | | | | CENTER | | + +--------+ + + + | UROBILINOGE | NORMAL | NORMAL DORITA | [facility] | | | N | | | A MEDICAL | | | | | | CENTER | | + +--------+ + + + | WHITE CELLS | 3-5 | 0 - 2 HPF | [facility] | | | | | | A MEDICAL | | | | | | CENTER | | + +--------+ + + + | RED CELLS | NEG | 0 - 3 HPF | [facility] | | | | | | A MEDICAL | | | | | | CENTER | | + +--------+ + + + | EPITHELIAL | FEW | RARE-MOD LPF | [facility] | | | CELLS | | | A MEDICAL | | | | | | CENTER | | + +--------+ + + + | BACTERIA | TRACE | NEG HPF | [facility] | | | | | | A MEDICAL | | | | | | CENTER | | + +--------+ + + + | OTHER | NEG | | [facility] | | | | | | A MEDICAL | | | | | | CENTER | | + +--------+ + + + | SOURCE | RANDOM | | [facility] | | | | | | A MEDICAL | | | | | | CENTER | | + +--------+ + + + + + | Specimen | + + | | + + + + + + + | Performing | Address | City/State/Zipcode | Phone Number | | Organization | | | | + + + + + | [facility] | | | | | LABORATORY | | | | + + + + + | [facility] | [place] | [place] [address] | | | [facility] | [facility] | | | + + + + + documented in this encounter Visit Diagnoses Not on filedocumented in this encounter"
--- OUTSIDE RECORDS SUMMARY | ~2019-05-02 | XMS | Encounter Summary ---
Demographics + + + | Address | [address] [facility] | | | [place] [address] | + + + | Home Phone [...] [address] | | | | | [address] [place] [address] [place] | | | | | [address] | | + + + + + Care Team Providers + +------+ + | Care Cans Vacuum Tester Name | Role | Phone | [...] [place] | | | | | | [address] | | | | | | [phone] | | | | | | | [...] [facility] | [address] [place] | [place] [address] | | | MEDICAL CENTER | Streets [...] + + + | BANDS % | HEAD OF SALES PROMOTION | 0 - 7 % | [facility] | | | | | | A MEDICAL | | | | | | CENTER | | + + + + + + | CBC | ERROR FLAGS -HEMATOLOGY | | [facility] | | | COMMENTS | INSTR. HEAD OF SALES PROMOTION | | A MEDICAL | | | | | | CENTER | | + + + + + + | CBC | DEFINITIVE FLAG HEAD OF SALES PROMOTION | | [facility] | | | COMMENTS | | | A MEDICAL | | | | | | CENTER | | + + + + + + | CBC | SUSPECT FLAG HEAD OF SALES PROMOTION | | [facility] | | | COMMENTS [...] + + | [facility] | [address] [place] | [place] [address] | | | MEDICAL CENTER | Streets [...] + + + | LAST DOSE | HEAD OF SALES PROMOTION | | [facility] | | | DATE | | | A MEDICAL | | | | | | CENTER | | + + + + + + | LAST DOSE | HEAD OF SALES PROMOTION | | [facility] | | | TIME | | | A MEDICAL | | | | | | CENTER | | + + + + + + | LAST DOSE | NO | | [facility] | | | KNOWN | | | A MEDICAL | | | | | | CENTER | | + + + + + + | LAST DOSE | HEAD OF SALES PROMOTION | | [facility] | | | DATE | | | A MEDICAL | | | | | | CENTER | | + + + + + + | LAST DOSE | HEAD OF SALES PROMOTION | | [facility] | | | TIME [...] | [address] | [place] [address] | | | [facility] | [place] | | | + + + + + documented in this encounter Visit Diagnoses Not on filedocumented in this encounter"
--- OUTSIDE RECORDS SUMMARY | ~2019-05-02 | XMS | Encounter Summary ---
Demographics + + + | Address | [address] [facility] | | | [place] [address] | + + + | Home Phone | | + + + | Preferred Language | Unknown | + + + | Marital Status | | + + + | Evangelical Affiliation | UNK | + + + | Race | White | + + + | Ethnic Group | Not or | + + + Author + + + | Author | [facility] | + + + | Organization | [facility] | + + + | Address [...] [place] | | | | | [address] | | + + + + + Care Team Providers + +------+ + | Care Circuit Breaker Assembler Name | Role | Phone | + +------+ + | Ayala Glasgow MD | PCP | | + +------+ + Encounter Details +--------+ + + + + | Date | Type | Department | Care Team | Description | +--------+ + + + + | 04/18/ | Telephone | Dermatology at | Margaret Arriaga, | | | 2014 | | Syl Goodwin | ,PhD [address] | | | | [address] | [place], [place] | | | | | [place] | [address] | | | | | [address] | [phone] | | | | | [phone] | | | +--------+ + + + [...]
--- OUTSIDE RECORDS SUMMARY | ~2019-05-02 | XMS | Encounter Summary ---
Demographics + + + | Address | [address] [facility] | | | [place] [address] | + + + | Home Phone | | + + + | Preferred Language | Unknown | + + + | Marital Status | | + + + | Quaker Affiliation | UNK | + + + | Race | White | + + + | Ethnic Group | Not or | + + + Author + + + | Author | [facility] | + + + | Organization | [facility] | + + + [...] [place] | | | | | [address] | | + + + + + Care Team Providers + +------+ + | Care Classroom Monitor Name | Role | Phone | + [...] Description | +--------+--------+ + + + | 05/18/ | Refill | [facility] | Ayala Glasgow MD | Refill Request | | 2015 | | Medicine [address] | | | | | [address] [place], | [place], [place] | | | | | [place] [address] | [address] | | | | | [phone] | [phone] | | | | | | | [...]
--- OUTSIDE RECORDS SUMMARY | ~2019-05-02 | XMS | Encounter Summary ---
Demographics + + + | Address | [address] [facility] | | | [place] [address] | + + + | Home Phone [...] [place] | | | | | [address] | | + + + + + Care Team Providers + +------+ + | Care Hot Wort Settler Name | Role | Phone | + [...] (bupropion) | | | | [address] [place], | [place], [place] | | | | | [place] [address] | [address] | | | | | [phone] | [phone] | | | | | | | [...]
--- OUTSIDE RECORDS SUMMARY | ~2019-05-02 | XMS | Encounter Summary ---
Demographics + + + | Address | [address] [facility] | | | [place] [address] | + + + | Home Phone [...] [address] | | | | | [place], [place] | | | | | [address] | | + + + + + Care Team Providers + +------+ + | Care Manager Sports Name | Role | Phone | + [...] | | | | | | Dari JAMIES | | | | | | [place] [address] | | | | | | [phone] | | | | | | | [...] | + + + + + | [facility] | And | [place] [address] | | | [facility] | Streets | | | + [...] + + + | LAST DOSE | SUPERVISOR REFINING | | [facility] | | | DATE | | | A MEDICAL | | | | | | CENTER | | + + + + + + | LAST DOSE | SUPERVISOR REFINING | | [facility] | | | TIME | | | A MEDICAL | | | | | | CENTER | | + + + + + + | LAST DOSE | SUPERVISOR REFINING | | [facility] | | | DATE | | | A MEDICAL | | | | | | CENTER | | + + + + + + | LAST DOSE | SUPERVISOR REFINING | | [facility] | | | TIME [...] [facility] | [address] [place] | [place] [address] | | | MEDICAL CENTER | Streets | | | + + + + + documented in this encounter Visit Diagnoses Not on filedocumented in this encounter"
--- OUTSIDE RECORDS SUMMARY | ~2019-05-02 | XMS | Encounter Summary ---
Demographics + + + | Address | [address] [facility] | | | [place] [address] | + + + | Home Phone [...] [place] | | | | | [address] | | + + + + + Care Team Providers + +------+ + | Care Engraver Apprentice Decorative Name | Role | Phone | + [...] [place], [place] | | | | | [address] | [address] | | | | | | [phone] | | | | | | | [...] Vimal Villalta MD - 11/29/2012 2:20 PM [facility] ONCOLOGY [address] [place] [id number] REGLA DANIEL DATE OF SERVICE: November 29, [...] medical oncologists. The second one was at [facility] and they were able to obtain estrogen [...] May and me in 1 year. TEMO/Juani /[id number] cc: Chandni De SUE E [id number] : [id number] ADMIT DATE: KARLA Cota Electronically Signed 11/29/12 1710 Vimal Villalta MD, PhD REGLA DANIEL [id number] : 55 [id number] ADMIT DATE: documente d in this encounter Plan of Treatment Not on filedocumented as of this encounter Visit Diagnoses Not on filedocumented in this encounter"
--- OUTSIDE RECORDS SUMMARY | ~2019-05-02 | XMS | Encounter Summary ---
Demographics + + + | Address | [address] [facility] | | | [place] [address] | + + + | Home Phone | | + + + | Preferred Language | Unknown | + + + | Marital Status | | + + + | Caodaism Affiliation | UNK | + + + | Race | White | + + + | Ethnic Group | Not or | + + + Author + + + | Author | [facility] | + + + | Organization | [facility] | + + + [...] [place] | | | | | [address] | | + + + + + Care Team Providers + +------+ + | Care Pipe Line Walker Name | Role | Phone | + [...] [place] | | | | | [place], [place] | [address] | | | | | [address] | [phone] | | | | | [phone] | | | +--------+ + + + [...]
--- OUTSIDE RECORDS SUMMARY | ~2019-05-02 | XMS | Encounter Summary ---
Demographics + + + | Address | [address] [facility] | | | [place] [address] | + + + | Home Phone | | + + + | Preferred Language | Unknown | + + + | Marital Status | | + + + | Rastafarian Affiliation | UNK | + + + | Race | White | + + + | Ethnic Group | Not or | + + + Author + + + | Author | [facility] | + + + | Organization | [facility] | + + + [...] [place] | | | | | [address] | | + + + + + Care Team Providers + +------+ + | Care Stucco Applicator Name | Role | Phone | + [...] | | | | [place] | [facility] [address] | | | | | [address] | [place] [address] | | | | | | [phone] | | | | | | | [...]
--- OUTSIDE RECORDS SUMMARY | ~2019-05-02 | XMS | Encounter Summary ---
Demographics + + + | Address | [address] [facility] | | | [place] [address] | + + + | Home Phone [...] [address] | | | | | [facility] | | | | | [address] | | + + + + + Care Team Providers + +------+ + | Care Phone Circuit Operator Name | Role | Phone | + +------+ + | Loreta Pierre | PCP | | + +------+ + Encounter Details +--------+ + + + + | Date | Type | Department | Care Team | Description | +--------+ + + + + | 03/10/ | Results | [facility] | [place]a | | | 2006 | Only | Department | G, DO [address] | | | | | St [place] | | | | | | [address] | | | | | | [phone] | | | | | | | [...] | + +--------+ + + + | TROPONIN I, PLASMA | Routin | 03/10/2007 | | Results for this | | | e | 12:20 PM | | procedure are in the | | | | PDT | | results section. | + +--------+ + + + | CK, PLASMA | Routin | 03/10/2007 | | Results for this | | | e | 12:20 PM | | procedure are in the | | | | PDT | | results section. | + +--------+ + + + | CHEST 2 VIEW [id number] | Routin | 03/10/2007 | | Results for this | | | e | 9:04 AM | | procedure are in the | | | | PDT | | results section. | + +--------+ + + + | CBC W/DIFF, REFLEX | Routin | 03/10/2007 | | Results for this | | | e | 8:28 AM | | procedure are in the | | | | PDT | | results section. | + +--------+ + + + | TROPONIN I, PLASMA | Routin | 03/10/2007 | | Results for this | | | e | 8:28 AM | | procedure are in the | | | | PDT | | results section. | + +--------+ + + + | BASIC METABOLIC SET | Routin | 03/10/2007 | | Results for this | | (NA, K, CL, TCO2, | e | 8:28 AM | | procedure are in the | | BUN, CR, GLU, CA) | | PDT | | results section. | + +--------+ + + + | D-DIMER, (PE OR DIC) | Routin | 03/10/2007 | | Results for this | | | e | 8:28 AM | | procedure are in the | | | | PDT | | results section. | + +--------+ + + + documented in this encounter Results TROPONIN I, PLASMA (03/10/2007 12:20 PM PDT) + + + + + + | Component | Value | Ref Range | Performed | Pathologist | | | | | At | Signature | + + + + + + | TROPONIN I | 0.02Comment: Values less | NG/ML | [facility] | | | | than 0.04 are | | A MEDICAL | | | | normalValues greater | | CENTER | | | | than 0.04 are abnormal | | | | | | Values 0.04-0.5 are | | | | | | consistent with | | | | | | myocardial inju | | | | | | which may be reversible | | | | | | or irreversible (null | | | | | | zon Values greater | | | | | | than 0.5 suggestive of | | | | | | AMI.Method Note: The | | | | | | new method will result | | | | | | in fewer falspositives | | | | | | due to increased | | | | | | sensitivity and | | | | | | specificitythe assay. | | | | | | Information available on | | | | | | request. | | | | + + + + + + | SPECIMEN | PLASMA | | [facility] | | | TYPE | | | A MEDICAL | | [...] + + + | [facility] | [place] | [place] [address] | | | MEDICAL CENTER | Streets | | | + + + + + CK, PLASMA (03/10/2007 12:20 PM PDT) + +---------+ + + + | Component | Value | Ref Range | Performed | Pathologist | | | | | At | Signature | + +---------+ + + + | CK | 31 (L) | 32 - 184 U/L | [facility] | | | | | | A MEDICAL | | | | | | CENTER | | + +---------+ + + + | CKMB | 1.6 (L) | 5 - 17 U/L | [facility] | | | | | | A MEDICAL | | | | | | CENTER | | + +---------+ + + + | CKMB-INDEX | 5.1 (H) | 0.0 - 4.0 % | [facility] | | | | [...] | + + + + + | [facility] | [address] [place] | [place] [address] | | | [facility] | Streets | | | + + + + + CHEST 2 VIEW [id number] (03/10/2007 9:04 AM PDT) + + | Specimen | + + | | + + + + + | Narrative | Performed At | + + + | CHEST, TWO VIEWS: CLINICAL HISTORY: Chest pain. TECHNIQUE: PA | [facility] | | and lateral views of the chest were obtained. COMPARISON: None | DEPARTMENT OF | | available. FINDINGS: The lungs are slightly hyperinflated. The | RADIOLOGY | | heart size is normal. The lungs are clear and there is no effusion | | | or pneumothorax. The pulmonary vasculature is not congested. | | | IMPRESSION: No acute cardiopulmonary process. #[id number] | | + + + + + | Procedure Note | + + | Interface, Radiology Results - 02/16/2015 1:35 PM PDT CHEST, TWO VIEWS: | | CLINICAL HISTORY: Chest pain. | | TECHNIQUE: PA and lateral views of the chest were obtained. | | COMPARISON: None available. | | FINDINGS: The lungs are slightly hyperinflated. The heart size is | | normal. The lungs are clear and there is no effusion or pneumothorax. | | The pulmonary vasculature is not congested. | | IMPRESSION: | | No acute cardiopulmonary process. | | #[id number] | + + + +---------+ + + | Performing | Address | City[facility] | Phone Number | | Organization | | | | + +---------+ + + | [facility]PARTMENT OF | | | | | RADIOLOGY | | | | + +---------+ + + TROPONIN I, PLASMA (03/10/2007 8:28 AM PDT) + + + + + + | Component | Value | Ref Range | Performed | Pathologist | | | | | At | Signature | + + + + + + | TROPONIN I | 0.03Comment: Values less | NG/ML | [facility] | | | | than 0.04 are | | A MEDICAL | | | | normalValues greater | | CENTER | | | | than 0.04 are abnormal | | | | | | Values 0.04-0.5 are | | | | | | consistent with | | | | | | myocardial inju | | | | | | which may be reversible | | | | | | or irreversible (null | | | | | | zon Values greater | | | | | | than 0.5 suggestive of | | | | | | AMI.Method Note: The | | | | | | new method will result | | | | | | in fewer falspositives | | | | | | due to increased | | | | | | sensitivity and | | | | | | specificitythe assay. | | | | | | Information available on | | | | | | request. | | | | + + + + + + | SPECIMEN | PLASMA | | [facility] | | | TYPE | | | A MEDICAL | | [...] | [address] [place] | [place] [address] | | | MEDICAL CENTER | Streets | | | + + + + + D-DIMER, (PE OR DIC) (03/10/2007 8:28 AM PDT) + +-------+ + + + | Component | Value | Ref Range | Performed | Pathologist | | | | | At | Signature | + +-------+ + + + | D-DIMER | NEG | NEG < 0.06 | [facility] | | | QUAL | | MG/L | A MEDICAL | | | | [...] | + + + + + | [facility] | And | [place] [address] | | | MEDICAL CENTER | Streets | | | + + + + + CBC W/KAYCE REFLEX (03/10/2007 8:28 AM PDT) + +---------+ + + + | Component | Value | Ref Range | Performed | Pathologist | | | | | At | Signature | + +---------+ + + + | WHITE BLOOD | 6.9 | 4.3 - 11.0 X10 | [facility] | | | CELL COUNT | | 3/ul | A MEDICAL | | | | | | CENTER | | + +---------+ + + + | HEMOGLOBIN | 14.4 | 12.0 - 16.0 | [facility] | | | | | g/dL | A MEDICAL | | | | | | CENTER | | + +---------+ + + + | RED BLOOD | 4.78 | 4.2 - 5.4 X10 | [facility] | | | CELL COUNT | | 6/uL | A MEDICAL | | | | | | CENTER | | + +---------+ + + + | HEMATOCRIT | 42.1 | 38.0 - 47.0 % | [facility] | | | | | | A MEDICAL | | | | | | CENTER | | + +---------+ + + + | MCV | 87.9 | 82 - 100 fl | [facility] | | | | | | A MEDICAL | | | | | | CENTER | | + +---------+ + + + | MCH | 30.1 | 28.0 - 32.0 pg | [facility] | | | | | | A MEDICAL | | | | | | CENTER | | + +---------+ + + + | MCHC | 34.2 | 32 - 36 g/dL | [facility] | | | | | | A MEDICAL | | | | | | CENTER | | + +---------+ + + + | RDW | 12.0 | 12 - 15 fL | [facility] | | | | | | A MEDICAL | | | | | | CENTER | | + +---------+ + + + | PLATELET | 283 | 150 - 450 X10 3 | [facility] | | | COUNT | | | A MEDICAL | | | | | | CENTER | | + +---------+ + + + | MPV | 8.1 (L) | 9.0 - 12.0 fL | [facility] | | | | | | A MEDICAL | | | | | | CENTER | | + +---------+ + + + | NEUTROPHIL | 68.1 | 40 - 80 % | [facility] | | | % | | | A MEDICAL | | | | | | CENTER | | + +---------+ + + + | LYMPHOCYTE | 19.0 | 10 - 45 % | [facility] | | | % | | | A MEDICAL | | | | | | CENTER | | + +---------+ + + + | EOS % | 2.5 | 0 - 5 % | [facility] | | | | | | A MEDICAL | | | | | | CENTER | | + +---------+ + + + | BASO % | 1.9 (H) | 0 - 1 % | [facility] | | | | | | A MEDICAL | | | | | | CENTER | | + +---------+ + + + | MONOCYTE % | 8.5 | 2 - 10 % | [facility] | | | | | | A MEDICAL | | | | | | CENTER | | + +---------+ + + + | BANDS % | PICTURE BOOKER | 0 - 7 % | [facility] | | | | | | A [...] + + | [facility] | [address] [place] | [place] [address] | | | MEDICAL CENTER | Streets | | | + + + + + BASIC METABOLIC SET (NA, K, CL, TCO2, BUN, CR, GLU, CA) (03/10/2007 8:28 AM PDT) + +---------+ + + + | Component | Value | Ref Range | Performed | Pathologist | | | | | At | Signature | + +---------+ + + + | SODIUM, | 139 | 137 - 146 MEQ/L | [facility] | | | PLASMA | | | A MEDICAL | | | (LAB) | | | CENTER | | + +---------+ + + + | POTASSIUM, | 3.9 | 3.5 - 5.2 MEQ/L | [facility] | | | PLASMA | | | A MEDICAL | | | (LAB) | | | CENTER | | + +---------+ + + + | CO2 | 25 | 22 - 28 MEQ/L | [facility] | | | | | | A MEDICAL | | | | | | CENTER | | + +---------+ + + + | CHLORIDE, | 104 | 98 - 106 MEQ/L | [facility] | | | PLASMA | | | A MEDICAL | | | (LAB) | | | CENTER | | + +---------+ + + + | ANION GAP | 13.9 | 8 - 16 MEQ/L | [facility] | | | | | | A MEDICAL | | | | | | CENTER | | + +---------+ + + + | GLUCOSE, | 100 | 70 - 105 MG/DL | [facility] | | | PLASMA | | | A MEDICAL | | | (LAB) | | | CENTER | | + +---------+ + + + | BUN, PLASMA | 13 | 8 - 30 MG/DL | [facility] | | | (LAB) | | | A MEDICAL | | | | | | CENTER | | + +---------+ + + + | CREATININE | 0.60 | 0.6 - 1.1 MG/DL | [facility] | | | PLASMA | | | A MEDICAL | | | (LAB) | | | CENTER | | + +---------+ + + + | BUN/CREATIN | 21 (H) | 6 - 20 RATIO | [facility] | | | INE RATIO | | | A MEDICAL | | | | | | CENTER | | + +---------+ + + + | CALCIUM, | 9.4 | 8.5 - 10.8 | [facility] | | | PLASMA | | MG/DL | A MEDICAL | | | (LAB) | | | CENTER | | + +---------+ + + + | CK | 39 | 32 - 184 U/L | [facility] | | | | | | A MEDICAL | | | | | | CENTER | | + +---------+ + + + | CKMB | 2.3 (L) | 5 - 17 U/L | [facility] | | | | | | A MEDICAL | | | | | | CENTER | | + +---------+ + + + | CKMB-INDEX | 5.8 (H) | 0.0 - 4.0 % | [facility] | | | | | | A [facility] | | | | | | CENTER | | + +---------+ + + + | FASTING? | 9-12 | HR | [facility] | | | [...] + + + + | [facility] | [place] | [place] [address] | | | [facility] | [facility] | | | + + + + + documented in this encounter Visit Diagnoses Not on filedocumented in this encounter"
--- OUTSIDE RECORDS SUMMARY | ~2019-05-02 | XMS | Encounter Summary ---
Demographics + + + | Address | [address] [facility] | | | [place] [address] | + + + | Home Phone | | + + + | Preferred Language | Unknown | + + + | Marital Status | | + + + | Hoahaoism Affiliation | UNK | + + + | Race | White | + + + | Ethnic Group | Not or | + + + Author + + + | Author | [facility] | + + + | Organization | [facility] | + + + [...] [place] | | | | | [id number] | | + + + + + Care Team Providers + +------+ + | Care Clay Modeler Name | Role | Phone | + [...] | | | | | [address], | [place], [place] | | | | | [place] [address] | [phone] | | | | | [phone] | [phone] | | | | | | | [...]
--- OUTSIDE RECORDS SUMMARY | ~2019-05-02 | XMS | Encounter Summary ---
Demographics + + + | Address | [address] [facility] | | | [place] [address] | + + + | Home Phone | | + + + | Preferred Language | Unknown | + + + | Marital Status | | + + + | Taoist Affiliation | UNK | + + + | Race | White | + + + | Ethnic Group | Not or | + + + Author + + + | Author | [facility] | + + + | Organization | [facility] | + + + | [...] [address] | | | | | [place], [place] | | | | | [address] | | + + + + + Care Team Providers + +------+ + | Care Pharmacy Care Coordinator Name | Role | Phone | [...] [place] | | | | | | [address] | | | | | | [phone] | | | | | | | [...] | | Results for this | | [id number] | e | 10:26 AM | | [...] documented in this encounter Results ABDOMINAL ULTRASOUND [id number] (03/12/2007 10:26 AM PDT) + + | Specimen | + + | | + + + + + | Narrative | Performed At | + + + | ABDOMINAL ULTRASOUND: INDICATION: RUQ pain. FINDINGS: There | [facility] | | are multiple small gallstones in the neck of the gallbladder, which | DEPARTMENT OF | | mosaic layer mildly with decubitus positioning. The gallbladder [...] neck of the | | gallbladder, which mosaic layer mildly with decubitus positioning. The | [...] | [address] | [place] [address] | | | MEDICAL [place] | [facility] | | | + + + + [...] + + + + | MPV | SUPERVISOR EVAPORATOR | 9.0 - 12.0 fL | [facility] [...] + + + | BANDS % | SUPERVISOR EVAPORATOR | 0 - 7 % | [facility] | | | | | | A MEDICAL | | | | | | CENTER | | + + + + + + | CBC | ERROR FLAGS -HEMATOLOGY | | [facility] | | | COMMENTS | INSTR. SUPERVISOR EVAPORATOR | | A MEDICAL | | | | | | CENTER | | + + + + + + | CBC | DEFINITIVE FLAG SUPERVISOR EVAPORATOR | | [facility] | | | COMMENTS [...] + + | CBC | CONDITIONAL FLAG SUPERVISOR EVAPORATOR | | [facility] | | | COMMENTS [...] | [address] | [place] [address] | | | [facility] | Streets | | | + [...] + + + | [facility] | And [place] | [place] [address] | | | MEDICAL CENTER | Streets | | | + + + + + documented in this encounter Visit Diagnoses Not on filedocumented in this encounter"
--- OUTSIDE RECORDS SUMMARY | ~2019-05-02 | XMS | Encounter Summary ---
Demographics + + + | Address | [address] [facility] | | | [place] [address] | + + + | Home Phone | | + + + | Preferred Language | Unknown | + + + | Marital Status | | + + + | Christian Affiliation | UNK | + + + | Race | White | + + + | Ethnic Group | Not or | + + + Author + + + | Author | [facility] | + + + | Organization | [facility] | + + + | [...] [address] | | | | | [facility] | | | | | [address] | | + + + + + Care Team Providers + +------+ + | Care Sex Offender Treatment Professional Name | Role | Phone | + +------+ + | oLreta Pierre | PCP | | + +------+ [...] [place] | | | | | | [address] | | | | | | [phone] | | | | | | | [...] + + + | CHEST 2 VIEW [id number] | Routin | 03/10/2007 | | Results [...] + + + | [facility] | [place] | [place] [address] | | | MEDICAL CENTER | Streets [...] + + | [facility] | [address] | [place] [address] | | | [facility] | Streets | | | + + + + + CHEST 2 VIEW 51579 (03/10/2007 9:04 AM PDT) + + | [...] + + | Performing | Address | City/[facility] | Phone Number | | Organization [...] | [address] | [place] [address] | | | MEDICAL CENTER | Streets [...] | + + + + + | [facility] | And | [place] [address] | | | MEDICAL CENTER | Streets | | | + + + + + CBC W/KAYCE REFLEX (03/10/2007 8:28 AM PDT) + +---------+ + + + | Component | Value | Ref Range | Performed | Pathologist | | | | | At | Signature | + +---------+ + + + | WHITE BLOOD | 6.9 | 4.3 - 11.0 X10 | [facility] | | | CELL COUNT | | [...] + + + | BANDS % | OBSTETRICS AND GYNECOLOGY PROFESSOR | 0 - 7 % | [facility] | | | | | | A [...] + + | [facility] | [address] [place] | [place] [address] | | | MEDICAL CENTER | Streets [...] | + + + + + | [facility] | [place] | [place] [address] | | | [facility] | [facility] | | | + + + + + documented in this encounter Visit Diagnoses Not on filedocumented in this encounter"
--- OUTSIDE RECORDS SUMMARY | ~2019-05-02 | XMS | Encounter Summary ---
Demographics + + + | Address | [address] [facility] | | | [place] [address] | + + + | Home Phone | | + + + | Preferred Language | Unknown | + + + | Marital Status | | + + + | Anglican Affiliation | UNK | + + + | Race | White | + + + | Ethnic Group | Not or | + + + Author + + + | Author | [facility] | + + + | Organization | [facility] | + + [...] [place] | | | | | [address] | | + + + + + Care Team Providers + +------+ + | Care Hospital Carrier Name | Role | Phone | + +------+ + | Ayala Glasgow MD | PCP | | + +------+ + Encounter Details +--------+ + + + + | Date | Type | Department | Care Team | Description | +--------+ + + + + | 09/19/ | Inside | [facility] | Cirilo Cuadra MD | | | 2016 | Referral | [facility] [address] | [facility] | | | | Order | E The | Health [facility] Med [address] | | | | | [place] | [address] | | | | | [address] | [place] [address] | | | | | | [phone] | | | | | | | [...] | + + + | [address] [place] [address] | [facility] | | [place] [address] | DEPARTMENT | | [phone] Name: REGLA DANIEL Phys: | RADIOLOGY | | CIRILO CUADRA : 1955 Sex: F CSN: | | | [id number] MR# [id number] Exam Date: 10/17/2015 | | | EXAM: [...] Transcribed | | | Date/Time: 10/17/2015 23:00 Third Helper: FLUENCY | | + + + + + | Procedure Note | + + | Interface, Radiology Results - 10/17/2015 11:05 PM PDT [address] | | [place] [address] | | Name: REGLA DANIEL Phys: ELOISACIRILO Adelaida : 1955 Sex: F CSN: | | [id number] MR# [id number] Exam Date: 10/17/2015 EXAM:BILATERAL SCREENING | | [...] | | |Transcribed Date/Time: 10/17/2015 23:00 | |Third Helper: FLUENCY | | | | | | [...]
--- OUTSIDE RECORDS SUMMARY | ~2019-05-02 | XMS | Encounter Summary ---
Demographics + + + | Address | [address] [facility] | | | [place] [address] | + + + | Home Phone | | + + + | Preferred Language | Unknown | + + + | Marital Status | | + + + | Amish Affiliation | UNK | + + + | Race | White | + + + | Ethnic Group | Not or | + + + Author + + + | Author | [facility] | + + + | Organization | [facility] | + + + | [...] [place] | | | | | [address] | | + + + + + Care Team Providers + +------+ + | Care Surgical Oncologist Name | Role | Phone | + +------+ + | Ayala Glasgow MD | PCP | | + +------+ + Reason for Visit + + + | Reason | Comments | + + + | Appointment | | + + + Encounter Details +--------+ + + + + | Date | Type | Department | Care Team | Description | +--------+ + + + + | 01/20/ | Telephone | [facility] | Ayala Glasgow MD | Appointment | | 2016 | | Medicine [address] | [address] | | | | | [address] [place], | [place], [place] | | | | | [place] [address] | [address] | | | | | [phone] | [phone] | | | | | | | [...]
--- OUTSIDE RECORDS SUMMARY | ~2019-05-02 | XMS | Encounter Summary ---
Demographics + + + | Address | [address] [facility] | | | [place] [address] | + + + | Home Phone | | + + + | Preferred Language | Unknown | + + + | Marital Status | | + + + | Scientology Affiliation | UNK | + + + | Race | White | + + + | Ethnic Group | Not or | + + + Author + + + | Author | [facility] | + + + | Organization | [facility] | + + + | [...] [address] | | | | | [place], [place] | | | | | [address] | | + + + + + Care Team Providers + +------+ + | Care Wheelchair Driver Name | Role | Phone | + +------+ + | Loreta Pierre | PCP | | + +------+ + Encounter Details +--------+ + + + + | Date | Type | Department | Care Team | Description | +--------+ + + + + | 01/01/ | Results | [facility] | [place], | | | 2010 | Only | Department | [address] | | | | | | [address] | | | | | | [place] [address] | | | | | | [phone] | | | | | | | [...] | + +--------+ + + + | FINGER(S) [id number] | Routin | 01/01/2011 | | Results for this | | | e | 4:44 PM | | procedure are in the | | | | PDT | | results section. | + +--------+ + + + documented in this encounter Results FINGER(S) [id number] (01/01/2011 4:44 PM PDT) + + | Specimen | + + | | + + + + + | Narrative | Performed At | + + + | EXAM: THREE VIEWS OF THE LEFT MIDDLEFINGER CLINICAL HISTORY: | [facility] | | Crushed injury in the third distal phalanx, open wound 48 hours ago | DEPARTMENT OF | | COMPARISON: None available. TECHNIQUE: AP, oblique and lateral | RADIOLOGY | | views of the left middle finger were obtained. FINDINGS: There is | | | an obliquely oriented minimally-displaced fracture through the mid to | | | distal aspect of the distal phalanx of the middle finger with | | | associated soft tissue swelling. There is no intra-articular | | | involvement. IMPRESSION: Minimally displaced, obliquely oriented | | | fracture through the mid to distal aspect of the distal phalanx of | | | the middle finger. | | + + + + + | Procedure Note | + + | Interface, Radiology Results - 02/09/2015 12:00 PM PDT EXAM: THREE VIEWS OF THE LEFT | | MIDDLEFINGERCLINICAL HISTORY: Crushed injury in the third distal phalanx, openwound 48 | | hours agoCOMPARISON: None available.TECHNIQUE: AP, oblique and lateral views of the | | left middle fingerwere obtained.FINDINGS: There is an obliquely oriented | | minimally-displacedfracture through the mid to distal aspect of the distal phalanx ofthe | | middle finger with associated soft tissue swelling. There is nointra-articular | | involvement.IMPRESSION: Minimally displaced, obliquely oriented fracturethrough the mid | | to distal aspect of the distal phalanx of the middlefinger. | |the middle finger with associated soft tissue swelling. There is no | |intra-articular involvement. | |IMPRESSION: Minimally displaced, obliquely oriented fracture | |through the mid to distal aspect of the distal phalanx of the middle | |finger. | + + + +---------+ + + [...]
--- OUTSIDE RECORDS SUMMARY | ~2019-05-02 | XMS | Encounter Summary ---
Demographics + + + | Address | [address] [facility] | | | [place] [address] | + + + | Home Phone | | + + + | Preferred Language | Unknown | + + + | Marital Status | | + + + | Islam Affiliation | UNK | + + + | Race | White | + + + | Ethnic Group | Not or | + + + Author + + + | Author | [facility] | + + + | Organization | [facility] | + + [...] [place] | | | | | [address] | | + + + + + Care Team Providers + +------+ + | Care Stamping Press Operator Name | Role | Phone | [...] 2017 | | Medical Clinic | [address] | | | | | Cardiology [address] | [address] [place], | | | | | [address] | [place] [address] | | | | | [place], [place] | [phone] | | | | | [address] | | | | | | [phone] | | | +--------+--------+ + + + [...]
--- OUTSIDE RECORDS SUMMARY | ~2019-05-02 | XMS | Encounter Summary ---
Demographics + + + | Address | [address] [facility] | | | [place] [address] | + + + | Home Phone [...] + + + | Author | [facility] | + + + | Organization | [facility] | + + + | [...] [place] | | | | | [address] | | + + + + + Care Team Providers + +------+ + | Care Control Manager Name | Role | Phone | [...] | | | | | [address] [place], | [place], [place] | | | | | [place] [address] | [address] | | | | | [phone] | [phone] | | | | | | | [...]
--- OUTSIDE RECORDS SUMMARY | ~2019-05-02 | XMS | Encounter Summary ---
Demographics + + + | Address | [address] [facility] | | | [place] [address] | + + + | Home Phone | | + + + | Preferred Language | Unknown | + + + | Marital Status | | + + + | Buddhist Affiliation | UNK | + + + | Race | White | + + + | Ethnic Group | Not or | + + + Author + + + | Author | [facility] | + + + | Organization | [facility] | + + + | [...] [place] | | | | | [address] | | + + + + + Care Team Providers + +------+ + | Care Ferry Terminal Supervisor Name | Role | Phone | [...] Family | | | | | [place] [address] | [place] [address] | | | | | [phone] | [address] | | | | | | [place] [address] | | | | | | [phone] | | | | | | | [...] | Results for this | | LIMITED [address] | e | 9:10 AM | | [...] | | | | RESULT: | | -[facility] | | | | REFERENCET4 | | [...] + + + | [facility] | [address] [facility] | [place] [address] | [phone] | | [facility] | | | | + + + + + | [facility] | | | | | [facility] | | | | + + + [...] | | DIAGNOSTICS | | | | [id number] | | -[facility] | | | | [address] | | | | | | [place], [place] | | | | | | [address]Dahhrhxp: | | | | | | RIVKA BROOKS MD | | | | + + + + + + + + | Specimen | + + | | + + + + + + + | Performing | Address | City/State/Zipcode | Phone Number | | Organization | | | | + + + + + | [facility] | [address] [facility] | [place] [address] | [phone] | | [facility] | | | | + + + + + | [facility] | | | | | [facility] | | | | + + + + + FREE T4, SERUM (08/30/2009 9:23 AM PST) + +-------+ + + + | Component | Value | Ref Range | Performed | Pathologist | | | | | At | Signature | + +-------+ + + + | FREE T4, | 0.91 | 0.58 - 1.64 | [facility] | | | SERUM | [...] + + | [facility] | [address] | [place] [address] | | | MEDICAL CENTER | Streets | | | + + + + + ABD. ULTRASOUND LIMITED [address] (08/30/2009 9:10 AM PST) + + | [...]
--- OUTSIDE RECORDS SUMMARY | ~2019-05-02 | XMS | Encounter Summary ---
Demographics + + + | Address | [address] [facility] | | | [place] [address] | + + + | Home Phone | | + + + | Preferred Language | Unknown | + + + | Marital Status | | + + + | Muslim Affiliation | UNK | + + + [...] [place] | | | | | [address] | | + + + + + Care Team Providers + +------+ + | Care Rock Cutter Name | Role | Phone | [...] | | nscribed | [place] | [facility] | | | | | [address] | [address] [place] | | | | | | [place] [address] | | | | | | [phone] | | | | | | | [...] Summaries Jadon Rojo - 02/19/2006 9:55 AM [facility] SHORT STAY SUMMARY 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 She does drink alcohol, from 1 to 6 beers a night. SOCIAL HISTORY: The patient and her domestic partner live in [place]. 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 [...] or dizzy at this point. REGLA DANIEL [id number] ADMIT DATE: 02/18/06 OBJECTIVE: GENERAL: The patient [...] patient continues to be suicidal. PLAN: A [facility] consult will be obtained and if arrangements can be made for the patient to have adequate outpatient followup, that will be arranged as well. She will be continued on her current medications, including Cozaar 50 mg daily, Vaseretic 10-25 daily, Premarin 0.625 daily. Her antidepressant medications will be adjusted as the [facility] recommends. Followup will hopefully be through [facility] and Dr. Cavanaugh. CORRINA/Juani /[id number] Electronically Signed MD COURTNEY Nguyen SUE E [id number] ADMIT DATE: 02/18/06 doc umented in this encounter Plan of Treatment Not on filedocumented as of this encounter Visit Diagnoses Not on filedocumented in this encounter"
--- OUTSIDE RECORDS SUMMARY | ~2019-05-02 | XMS | Encounter Summary ---
Demographics + + + | Address | [address] [facility] | | | [place] [address] | + + + | Home Phone [...] [place] | | | | | [address] | | + + + + + Care Team Providers + +------+ + | Care Packing Line Worker Name | Role | Phone | [...] | | | | | [address], | [place], [place] | | | | | [place] [address] | [address] | | | | | [phone] | [phone] | | | | | | | [...]
--- OUTSIDE RECORDS SUMMARY | ~2019-05-02 | XMS | Encounter Summary ---
Demographics + + + | Address | [address] [facility] | | | [place] [address] | + + + | Home Phone | | + + + | Preferred Language | Unknown | + + + | Marital Status | | + + + | Christian Affiliation | UNK | + + + | Race | White | + + + | Ethnic Group | Not or | + + + Author + + + | Author | [facility] | + + + | Organization | [facility] | + + + [...] [place] | | | | | [address] | | + + + + + Care Team Providers + +------+ + | Care Multimedia Journalist Name | Role | Phone | + [...] | [address] | M, MD [place] | | | | | [place], [place] | Orthopedics The | | | | | [address] | [facility] [address] | | | | | | [address] [place], [place] | | | | | | [address] | | | | | | | [...]
--- OUTSIDE RECORDS SUMMARY | ~2019-05-02 | XMS | Encounter Summary ---
Demographics + + + | Address | [address] [facility] | | | [place] [address] | + + + | Home Phone [...] [place] | | | | | [address] | | + + + + + Care Team Providers + +------+ + | Care Carpenters Supervisor Name | Role | Phone | [...] | | | | | [address] [place], | [place], [place] | | | | | [place] [address] | [address] | | | | | [phone] | [phone] | | | | | | | [...]
--- OUTSIDE RECORDS SUMMARY | ~2019-05-02 | XMS | Encounter Summary ---
Demographics + + + | Address | [address] [facility] | | | [place] [address] | + + + | Home Phone [...] [address] | | | | | [address] [place] [address] [place] | | | | | [address] | | + + + + + Care Team Providers + +------+ + | Care Wood Machine Carver Name | Role | Phone | + [...] [address] | | | | | | [place] [address] | | | | | | [phone] | | | | | | | [...] | + + + + + | [facility] | And | [place] [address] | [phone] | | [facility] | [facility] | | | + + + + + documented in this encounter Visit Diagnoses Not on filedocumented in this encounter"
--- OUTSIDE RECORDS SUMMARY | ~2019-05-02 | XMS | Encounter Summary ---
Demographics + + + | Address | [address] [facility] | | | [place] [address] | + + + | Home Phone [...] [address] | | | | | [place] | | | | | [address] | | + + + + + Care Team Providers + +------+ + | Care Police Guard Name | Role | Phone | + +------+ + PCP | Unavailable | + +------+ + Encounter Details +--------+ + + + + | Date | Type | Department | Care Team | Description | +--------+ + + + + | 01/29/ | Results | [facility] | Ayala Glasgow MD | | | 2015 | Only | Medicine [address] | [address] [place] [address] | | | | | [address] [place], | [place] | | | | | [place] [address] | [address] | | | | | [phone] | [phone] | | | | | | | [...] + | COMPLETE METABOLIC | Routin | 01/29/2015 | | Results for this | | SET | e | 12:45 PM | | procedure are in the | | (NA,K,CL,CO2,BUN,CRE | | PDT | | results section. | | AT,GLUC,CA,AST,ALT,B | | | | | | STEVEN TOTAL,ALK | | | | | | PHOS,ALB,PROT TOTAL) | | | | | + +--------+ + + + | COMPLETE METABOLIC | Routin | 01/29/2015 | | Results for this | | SET | e | 12:45 PM | | procedure are in the | | (NA,K,CL,CO2,BUN,CRE | | PDT | | results section. | | AT,GLUC,CA,AST,ALT,B | | | | | | STEVEN TOTAL,ALK | | | | | | PHOS,ALB,PROT TOTAL) | | | | | + +--------+ + + + | LIPID SET (TRIG, T | Routin | 01/29/2015 | | Results for this | | CHOL, HDL, CALC LDL) | e | 12:45 PM | | procedure are in the | | | | PDT | | results section. | + +--------+ + + + documented in this encounter Results COMPLETE METABOLIC SET (NA,K,CL,CO2,BUN,CREAT,GLUC,CA,AST,ALT,BILI TOTAL,ALK PHOS,ALB,PROT TOTAL) (01/29/2015 12:45 PM PDT) + +---------+ + + + | Component | Value | Ref Range | Performed | Pathologist | | | | | At | Signature | + +---------+ + + + | SODIUM, | 142 | 137 - 146 | [facility] | | | PL[facility] | | mmol/L | A MEDICAL | | | (LAB) | | | CENTER | | + +---------+ + + + | POTASSIUM, | 3.6 | 3.5 - 5.2 | [facility] | | | PLASMA | | mmol/L | A MEDICAL | | | (LAB) | | | CENTER | | + +---------+ + + + | CO2 | 29 (H) | 20 - 27 mmol/L | [facility] | | | | | | A MEDICAL | | | | | | CENTER | | + +---------+ + + + | CHLORIDE, | 100 | 96 - 106 mmol/L | [facility] | | | PLASMA | | | A MEDICAL | | | (LAB) | | | CENTER | | + +---------+ + + + | ANION GAP | 13 | 12 - 20 MEQ/L | [facility] | | | | | | A MEDICAL | | | | | | CENTER | | + +---------+ + + + | GLUCOSE, | 98 | 70 - 105 mg/dL | [facility] | | | PLASMA | | | A MEDICAL | | | (LAB) | | | CENTER | | + +---------+ + + + | BUN, PLASMA | 13 | 6 - 26 mg/dL | [facility] | | | (LAB) | | | A MEDICAL | | | | | | CENTER | | + +---------+ + + + | CREATININE | 0.6 | 0.6 - 1.1 mg/dL | [facility] | | | PLASMA | [...] +---------+ + + + | CALCIUM, | 9.5 | 8.5 - 10.8 | [facility] | | | PLASMA | | mg/dL | A MEDICAL | | | (LAB) | | | CENTER | | + +---------+ + + + | AST(SGOT) | 32 | 10 - 41 U/L | [facility] | | | | | | A MEDICAL | | | | | | CENTER | | + +---------+ + + + | ALT (SGPT) | 37 | 7 - 51 U/L | [facility] | | | | | | A MEDICAL | | | | | | CENTER | | + +---------+ + + + | ALK PHOS | 84 | 32 - 180 U/L | [facility] | | | | | | A MEDICAL | | | | | | CENTER | | + +---------+ + + + | TOTAL | 7.0 | 5.8 - 8.5 g/dL | [facility] | | | PROTEIN, | | | A MEDICAL | | | PLASMA | | | CENTER | | | (LAB) | | | | | + +---------+ + + + | ALBUMIN, | 4.4 | 3.5 - 5.0 g/dL | [facility] | | | PLASMA | | | A MEDICAL | | | (LAB) | | | CENTER | | + +---------+ + + + | BILIRUBIN | 2.6 (H) | 0.2 - 1.2 mg/dL | [facility] | | | TOTAL | | | A MEDICAL | | | | | | CENTER | | + +---------+ + + + | TRIGLYCERID | 165 (H) | 45 - 150 mg/dL | [facility] | | | ES | | | A MEDICAL | | | | | | CENTER | | + +---------+ + + + | CHOLESTEROL | 177 | 101 - 199 mg/dL | [facility] | | | (LAB) | | | A MEDICAL | | | | | | CENTER | | + +---------+ + + + | HDL | 52 | >40 mg/dL | [facility] | | | CHOLESTEROL | | | A MEDICAL | | | | | | CENTER | | + +---------+ + + + | LDL CHOLEST | 92 | 0 - 129 MG/DL | [facility] | | | | | | A MEDICAL | | | | | | CENTER | | + +---------+ + + + | NON-HDL | 125 | | [facility] | | | CHOLESTEROL | | | A MEDICAL | | | | | | CENTER | | + +---------+ + + + | VLDL | 33 (H) | 9 - 30 MG/DL | [facility] | | | CHOLESTEROL | | | A MEDICAL | | | | | | CENTER | | + +---------+ + + + | CARDIAC | 3.4 | RATIO | [facility] | | | RISK RATIO | | | A MEDICAL | | | | | | CENTER | | + +---------+ + + + | ESTIMATED | >60.0 | >60 | [facility] | | | GFR | | | A MEDICAL | | | | | | CENTER | | + +---------+ + + + | FASTING? | 9 HR PC | HR | [facility] | | | | | | A [...] + + | [facility] | [address] | [place] [address] | [phone] | | [facility] | Streets | | | + + + + + COMPLETE METABOLIC SET (NA,K,CL,CO2,BUN,CREAT,GLUC,CA,AST,ALT,BILI TOTAL,ALK PHOS,ALB,PROT TOTAL) (01/29/2015 12:45 PM PDT) + +---------+ + + + | Component | Value | Ref Range | Performed | Pathologist | | | | | At | Signature | + +---------+ + + + | SODIUM, | 142 | 137 - 146 | [facility] | | | PLASMA | | mmol/L | [facility] | | | (LAB) | | | LABORATORY | | + +---------+ + + + | POTASSIUM, | 3.6 | 3.5 - 5.2 | [facility] | | | PLASMA | | mmol/L | [facility] | | | (LAB) | | | LABORATORY | | + +---------+ + + + | CO2 | 29 (A) | 20 - 27 mmol/L | [facility] | | | | | | [facility] | | | | | | LABORATORY | | + +---------+ + + + | CHLORIDE, | 100 | 96 - 106 mmol/L | [facility] | | | PLASMA | | | [facility] | | | (LAB) | | | LABORATORY | | + +---------+ + + + | ANION GAP | 13 | 12 - 20 MEQ/L | [facility] | | | | | | [facility] | | | | | | LABORATORY | | + +---------+ + + + | GLUCOSE, | 98 | 70 - 105 mg/dL | [facility] | | | PLASMA | | | [facility] | | | (LAB) | | | LABORATORY | | + +---------+ + + + | BUN, PLASMA | 13 | 6 - 26 mg/dL | [facility] | | | (LAB) | | | [facility] | | | | | | LABORATORY | | + +---------+ + + + | CREATININE | 0.6 | 0.6 - 1.1 mg/dL | [facility] | | | PLASMA | | | [facility] | | | (LAB) | | | LABORATORY | | + +---------+ + + + | BUN/CREATIN | 21 (A) | 6 - 20 RATIO | [facility] | | | INE RATIO | | | [facility] | | | | | | LABORATORY | | + +---------+ + + + | CALCIUM, | 9.5 | 8.5 - 10.8 | [facility] | | | PLASMA | | mg/dL | [facility] | | | (LAB) | | | LABORATORY | | + +---------+ + + + | AST(SGOT) | 32 | 10 - 41 U/L | [facility] | | | | | | [facility] | | | | | | LABORATORY | | + +---------+ + + + | ALT (SGPT) | 37 | 7 - 51 U/L | [facility] | | | | | | [facility] | | | | | | LABORATORY | | + +---------+ + + + | ALK PHOS | 84 | 32 - 180 U/L | [facility] | | | | | | [facility] | | | | | | LABORATORY | | + +---------+ + + + | TOTAL | 7.0 | 5.8 - 8.5 g/dL | [facility] | | | PROTEIN, | | | [facility] | | | PLASMA | | | LABORATORY | | | (LAB) | | | | | + +---------+ + + + | ALBUMIN, | 4.4 | 3.5 - 5.0 g/dL | [facility] | | | PLASMA | | | [facility] | | | (LAB) | | | LABORATORY | | + +---------+ + + + | BILIRUBIN | 2.6 (A) | 0.2 - 1.2 mg/dL | [facility] | | | TOTAL | | | [facility] | | | | | | LABORATORY | | + +---------+ + + + | ESTIMATED | >60.0 | >60 | [facility] | | | GFR | | | [facility] | | | | | | LABORATORY | | + +---------+ + + + | FASTING? | 9 HR PC | HR | [facility] | | | | | | [facility] | | | | | | LABORATORY | | + +---------+ + + + + + | Specimen | + + | | + + + +---------+ + + | Performing | Address | City/State/Zipcode | Phone Number | | Organization | | | | + +---------+ + + | [facility] | | | | | LABORAT[facility] | | | | + +---------+ + + LIPID SET (TRIG, T CHOL, HDL, CALC LDL) (01/29/2015 12:45 PM PDT) + + + + + + | Component | Value | Ref Range | Performed | Pathologist | | | | | At | Signature | + + + + + + | TRIGLYCERID | 165 (A) | 45 - 150 mg/dL | [facility] | | | ES | | | [facility] | | | | | | LABORATORY | | + + + + + + | CHOLESTEROL | 177 | 101 - 199 mg/dL | [facility] | | | (LAB) | | | [facility] | | | | | | LABORATORY | | + + + + + + | HDL | 52 | >40 mg/dL | [facility] | | | CHOLESTEROL | | | [facility] | | | | | | LABORATORY | | + + + + + + | LDL CHOLEST | 92 | 0 - 129 MG/DL | [facility] | | | | | | [facility] | | | | | | LABORATORY | | + + + + + + | NON-HDL | 125Comment: The goal for | | [facility] | | | CHOLESTEROL | non-HDL cholesterol is | | [facility] | | | | a level 30 mg/dL | | LABORATORY | | | | higherthan that for LDL | | | | | | cholesterol. | | | | + + + + + + | VLDL | 33 (A) | 9 - 30 MG/DL | [facility] | | | CHOLESTEROL | | | [facility] | | | | | | LABORATORY | | + + + + + + | CARDIAC | 3.4Comment: CARDIAC RISK | RATIO | [facility] | | | RISK RATIO | RATIO INTERPRETATION: | | [facility] | | | | | | LABORATORY | | | | --INTERPRETATION-- | | | | | | -- CARDIAC RISK | | | | | | RATIO-- | | | | | | BELOW AVERAGE RISK | | | | | | 0.0 - 3.4 | | | | | | ABOVE | | | | | | AVERAGE RISK | | | | | | 3.5 - 4.9 | | | | + + + + + + + + | Specimen | + + | | + + + +---------+ + + | Performing | Address | City/State/Zipcode | Phone Number | | Organization | | | | + +---------+ + + | [facility] | | | | | LABORATORY | | | | + +---------+ + + documented in this encounter Visit Diagnoses Not on filedocumented in this encounter"
--- OUTSIDE RECORDS SUMMARY | ~2019-05-02 | XMS | Encounter Summary ---
Demographics + + + | Address | [address] [facility] | | | [place] [address] | + + + | Home Phone [...] [place] | | | | | [address] | | + + + + + Care Team Providers + +------+ + | Care Story Writer Name | Role | Phone | + [...] | Visit | Medical Clinic | [address] | (Primary Dx) | | | | Cardiology [address] | [address] [place], | | | | | [address] | [place] [address] | | | | | [place], [place] | [phone] | | | | | [address] | | | | | | [phone] | | | +--------+---------+ + + + [...] Glasgow MD and Aileen Cuadra MD in [facility] for evaluation of chest pain. History of [...] are normal. There are no carotid bruits. [place] beat not palpable. There were no lifts, [...] Isadora Moran MA - 8:00 AM PST [employer] [place] to be present for visit? No, patient declined having a film library clerk during the visit . Patient brought medication [...]
--- OUTSIDE RECORDS SUMMARY | ~2019-05-02 | XMS | Encounter Summary ---
Demographics + + + | Address | [address] [facility] | | | [place] [address] | + + + | Home Phone [...] [place] | | | | | [address] | | + + + + + Care Team Providers + +------+ + | Care Irrigation Laborer Name | Role | Phone | + [...] 2007 | Only | Medical Clinic | CURB MACHINE OPERATOR [address] | | | | | Internal Medicine | [place] | | | | | [address] | [address] | | | | | [place], [place] | [phone] | | | | | [address] | | | | | | [phone] | | | +--------+ + + + [...] + | SOURCE | RANDOM | | [facility] [...] + + + | [facility] | [place] | [place] [address] | | | [facility] | [facility] | | | + + + + + documented in this encounter Visit Diagnoses Not on filedocumented in this encounter"
--- OUTSIDE RECORDS SUMMARY | ~2019-05-02 | XMS | Encounter Summary ---
Demographics + + + | Address | [address] [facility] | | | [place] [address] | + + + | Home Phone | | + + + | Preferred Language | Unknown | + + + | Marital Status | | + + + | Yazidi Affiliation | UNK | + + + | Race | White | + + + | Ethnic Group | Not or | + + + Author + + + | Author | [facility] | + + + | Organization | [facility] | + + + | [...] [place] | | | | | [address] | | + + + + + Care Team Providers + +------+ + | Care Medical Fee Clerk Name | Role | Phone | [...] Description | +--------+--------+ + + + | 01/16/ | Refill | [facility] | Ayala Glasgow MD | Refill Request | | 2015 | | Medicine [address] | | | | | [address] [place], | [place], [place] | | | | | [place] [address] | [address] | | | | | [phone] | | | | | | | [...]
--- OUTSIDE RECORDS SUMMARY | ~2019-05-02 | XMS | Encounter Summary ---
Demographics + + + | Address | [address] [facility] | | | [place] [address] | + + + | Home Phone [...] [place] | | | | | [address] | | + + + + + Care Team Providers + +------+ + | Care Spin Table Operator Name | Role | Phone | [...] | | | | | [address] [place], | [place], [place] | | | | | [place] [address] | [address] | | | | | [phone] | | | | | | | [...]
--- OUTSIDE RECORDS SUMMARY | ~2019-05-02 | XMS | Encounter Summary ---
Demographics + + + | Address | [address] [facility] | | | [place] [address] | + + + | Home Phone | | + + + | Preferred Language | Unknown | + + + | Marital Status | | + + + | Orthodoxy Affiliation | UNK | + + + | Race | White | + + + | Ethnic Group | Not or | + + + Author + + + | Author | [facility] | + + + | Organization | [facility] | + + + | [...] [place] | | | | | [address] | | + + + + + Care Team Providers + +------+ + | Care Lodging Facilities Manager Name | Role | Phone | [...] | | | | | [address] [place], | [place] | | | | | [place] [address] | [address] | | | | | [phone] | [phone] | | | | | | | [...]
--- OUTSIDE RECORDS SUMMARY | ~2019-05-02 | XMS | Encounter Summary ---
Demographics + + + | Address | [address] [facility] | | | [place] [address] | + + + | Home Phone [...] [address] | | | | | [place], [place] | | | | | [address] | | + + + + + Care Team Providers + +------+ + | Care Kitchen Cleaner Name | Role | Phone | + [...] [place] | | | | | | [place] [address] | | | | | | [phone] | | | | | | | [...] | + +--------+ + + + | [facility] CHEST TWO | Routin | 03/01/2010 | | Results for this | | VIEW [id number] | e | 4:02 PM | | procedure are in the | | | | PDT | | results section. | + +--------+ + + + documented in this encounter Results [facility] CHEST TWO VIEW [id number] (03/01/2010 4:02 PM PDT) + + | [...]
--- OUTSIDE RECORDS SUMMARY | ~2019-05-02 | XMS | Encounter Summary ---
Demographics + + + | Address | [address] [facility] | | | [place] [address] | + + + | Home Phone [...] [place] | | | | | [address] | | + + + + + Care Team Providers + +------+ + | Care Canal Boat Captain Name | Role | Phone | + [...] | | [place], [place] | [address] | | | | | [address] | [phone] | | | | | [phone] | | | +--------+ + + + [...]
--- OUTSIDE RECORDS SUMMARY | ~2019-05-02 | XMS | Encounter Summary ---
Demographics + + + | Address | [address] [facility] | | | [place] [address] | + + + | Home Phone [...] [address] | | | | | [place], [place] | | | | | [address] | | + + + + + Care Team Providers + +------+ + | Care Food Products Tester Name | Role | Phone | + +------+ + | Loreta Pierre | PCP | | + +------+ + Encounter Details +--------+ + + + + | Date | Type | Department | Care Team | Description | +--------+ + + + + | 05/06/ | Results | [facility] | [place], | | | 2009 | Only | Department | [address] | | | | | | [place] | | | | | | [place] [address] | | | | | | [phone] | | | | | | | [...] | CHEST WITH CONTRAST | Routin | 05/06/2010 | | Results for this | | [id number] | e | 12:25 PM | | procedure are in the | | | | PST | | results section. | + +--------+ + + + documented in this encounter Results CHEST WITH CONTRAST [id number] (05/06/2010 12:25 PM PST) + + | Specimen | + + | | + + + + + | Narrative | Performed At | + + + | CHEST CT INDICATION: Follow-up mass. TECHNIQUE: CT scan of the | [facility] | | chest was performed with intravenous contrast administration. | DEPARTMENT OF | | COMPARISON: Comparison is made to the study of 03/07/2010. | RADIOLOGY | | FINDINGS: Previously noted mass in the right upper lobe has markedly | | | decreased in size and now measures 6 x 3 mm. No other mass lesion | | | or infiltrate is demonstrated. A few irregular markings are noted | | | in the right cardiophrenic angle, probably inflammatory residual, | | | unchanged. Slight thickening of the left major fissure is seen. No | | | mediastinal mass or lymphadenopathy is demonstrated. No pleural | | | effusion or pericardial effusion is seen. The aorta is normal in | | | caliber. There is a small hiatal hernia present. The adrenal | | | glands are normal in size. IMPRESSION: 1. Decreased | | | size of the nodular density in the left upper lobe is | | | noted. No other pulmonary nodule or | | | infiltrate is seen. 2. Small hiatal hernia. [id number] | | + + + + + | Procedure Note | + + | Interface, Radiology Results - 02/12/2015 1:[address] | | INDICATION: Follow-up mass. | | TECHNIQUE: CT scan of the chest was performed with intravenous | | contrast administration. | | COMPARISON: Comparison is made to the study of 03/07/2010. | | FINDINGS: Previously noted mass in the right upper lobe has markedly | | decreased in size and now measures 6 x 3 mm. No other mass lesion or | | infiltrate is demonstrated. A few irregular markings are noted in the | | right cardiophrenic angle, probably inflammatory residual, unchanged. | | Slight thickening of the left major fissure is seen. No mediastinal | | mass or lymphadenopathy is demonstrated. No pleural effusion or | | pericardial effusion is seen. The aorta is normal in caliber. There | | is a small hiatal hernia present. The adrenal glands are normal in | | size. | | IMPRESSION: | | 1. Decreased size of the nodular density in the left upper lobe is | | noted. No other pulmonary nodule or infiltrate is seen. | | 2. Small hiatal hernia. | | [id number] | + + + +---------+ + + [...]
--- OUTSIDE RECORDS SUMMARY | ~2019-05-02 | XMS | Encounter Summary ---
Demographics + + + | Address | [address] [facility] | | | [place] [address] | + + + | Home Phone [...] [place] | | | | | [address] | | + + + + + Care Team Providers + +------+ + | Care Clinical Business Analyst Name | Role | Phone | [...] | | [address] [place], | [place] | | | | | [place] [address] | [place] [address] | | | | | [phone] | | | | | | | [...]
--- OUTSIDE RECORDS SUMMARY | ~2019-05-02 | XMS | Encounter Summary ---
Demographics + + + | Address | [address] [facility] | | | [place] [address] | + + + | Home Phone [...] [place] | | | | | [address] | | + + + + + Care Team Providers + +------+ + | Care Conservation Coordinator Name | Role | Phone | [...] | | | | | [address] [place], | [place], [place] | | | | | [place] [address] | [address] | | | | | [phone] | | | | | | | [...]
--- OUTSIDE RECORDS SUMMARY | ~2019-05-02 | XMS | Encounter Summary ---
Demographics + + + | Address | [address] [facility] | | | [place] [address] | + + + | Home Phone | | + + + | Preferred Language | Unknown | + + + | Marital Status | | + + + | Protestant Affiliation | UNK | + + + [...] [address] | | | | | [place] | | | | | [address] | | + + + + + Care Team Providers + +------+ + | Care Structural Design Engineer Name | Role | Phone | + +------+ + | Ayala Glasgow MD | PCP | | + +------+ + Encounter Details +--------+ + + + + | Date | Type | Department | Care Team | Description | +--------+ + + + + | 10/16/ | Hospital | Mammography at | | | | 2015 | Encounter | [facility] [address] | | | [address] | | | | | | [place] | | | | | | [address] | | | +--------+ + + + [...] | MA DIGITAL MAMMO | Routin | 10/17/2015 | Visit for | Results for this | | SCREEN BILAT | e | 11:00 PM | screening mammogram | procedure are in the | | | | PDT | | results section. | + +--------+ + + + documented in this encounter Results [facility] DIGITAL MAMMO SCREEN BILAT (10/17/2015 11:00 PM PDT) + + | Specimen | + + | | + + + + + | Narrative | Performed At | + + + | [address] [place] [address] | [facility] | | [place] [address] [facility] | | [phone] Name: REGLA DANIEL Phys: | RADIOLOGY | | CIRILO AMIN Adelaida : 1955 Sex: F CSN: | | | [id number] MR# [id number] Exam Date: 10/17/2015 | | | EXAM: [...] Transcribed | | | Date/Time: 10/17/2015 23:00 Order Department Supervisor: FLUENCY | | + + + + + | Procedure Note | + + | Interface, Radiology Results - 10/17/2015 11:05 PM PDT [address] | | [place] [address] | | Name: REGLA DANIEL Phys: CIRILO AMIN : 1955 Sex: F CSN: | | [id number] MR# [id number] Exam Date: 10/17/2015 EXAM:BILATERAL SCREENING | | [...] | | |Transcribed Date/Time: 10/17/2015 23:00 | |Order Department Supervisor: FLUENCY | | | | | | [...]
--- OUTSIDE RECORDS SUMMARY | ~2019-05-02 | XMS | Encounter Summary ---
Demographics + + + | Address | [address] [facility] | | | [place] [address] | + + + | Home Phone [...] + + + | Author | [facility] | + + + | Organization | [facility] | + + + [...] [place] | | | | | [address] | | + + + + + Care Team Providers + +------+ + | Care Travel Writer Name | Role | Phone | + +------+ + PCP | Unavailable | + +------+ + Encounter Details +--------+ + + + + | Date | Type | Department | Care Team | Description | +--------+ + + + + | 12/15/ | Document-Sc | [facility] | No Pcp Per Patient | | | 2018 | anned | Medicine [address] | NO PCP PER PATIENT | | | | | [address] [place], | | | | | | [place] [address] | | | | | | [phone] | | | +--------+ + + + [...]
--- OUTSIDE RECORDS SUMMARY | ~2019-05-02 | XMS | Encounter Summary ---
Demographics + + + | Address | [address] [facility] | | | [place] [address] | + + + | Home Phone [...] + + + | Author | [facility] | + + + | Organization | [facility] | + + + | Address [...] [address] | | | | | [facility] [place] | | | | | [address] | | + + + + + Care Team Providers + +------+ + | Care Administrative Executive Name | Role | Phone | + [...] [address] | | | | | | [place] [address] | | | | | | [address] | | | | | | [place] [address] | | | | | | [phone] | | | | | | | [...] | | Results for this | | [address] | e | 10:40 AM | | procedure are in the | | | | PST | | results section. | + +--------+ + + + documented in this encounter Results SCREENING MAMMO [id number] (08/16/2013 10:40 AM PST) + + | [...] | | | full field digital technique. [email or web address] computer aided detection (CAD) | | | [...]
--- OUTSIDE RECORDS SUMMARY | ~2019-05-02 | XMS | Encounter Summary ---
Demographics + + + | Address | [address] [facility] | | | [place] [address] | + + + | Home Phone [...] + + + | Author | [facility] | + + + | Organization | [facility] | + + [...] [address] | | | | | [facility] | | | | [address] | | + + + + + Care Team Providers + +------+ + | Care Blow Machine Tender Starch Spraying Name | Role | Phone | + +------+ + | Loreta Pierre | PCP | | + +------+ + Encounter Details +--------+ + + + + | Date | Type | Department | Care Team | Description | +--------+ + + + + | 07/16/ | Results | [facility] | Briana Diaz, | | | 2010 | Only | Department | PA-C [place] | | | | | | [facility] [address] [place], | | | | | | [place] [address] | | | | | | [phone] | | | | | | | [...] | | Results for this | | [id number] | e | 11:06 AM | | procedure are in the | | | | PST | | results section. | + +--------+ + + + documented in this encounter Results AMINATATREMITYJTN [id number] (07/16/2010 11:06 AM PST) + + | [...] | | + +---------+ + + | [facility] DEPARTMENT OF | | | | | RADIOLOGY | | | | + +---------+ + + documented in this encounter Visit Diagnoses Not on filedocumented in this encounter"
--- OUTSIDE RECORDS SUMMARY | ~2019-05-02 | XMS | Encounter Summary ---
Demographics + + + | Address | [address] [facility] | | | [place] [address] | + + + | Home Phone | | + + + | Preferred Language | Unknown | + + + | Marital Status | | + + + | Judaism Affiliation | UNK | + + + | Race | White | + + + | Ethnic Group | Not or | + + + Author + + + | Author | [facility] | + + + | Organization | [facility] | + + + | Address [...] [place] | | | | | [address] | | + + + + + Care Team Providers + +------+ + | Care Cloth Examiner Hand Name | Role | Phone | + +------+ + | Ayala Glasgow MD | PCP | | + +------+ + Reason for Visit + + + | Reason | Comments | + + + | Refill Request | Bupropion XL | + + + Encounter Details +--------+ + + + + | Date | Type | Department | Care Team | Description | +--------+ + + + + | 12/09/ | Telephone | [facility] | Ayala Glasgow MD | Refill Request | | 2018 | | Medicine [address] | (Bupropion XL) | | | | [address] [place], | [facility], [place] | | | | | [place] [address] | [address] | | | | | [phone] | | | | | | | [...]
--- OUTSIDE RECORDS SUMMARY | ~2019-05-02 | XMS | Encounter Summary ---
Demographics + + + | Address | [address] [facility] | | | [place] [address] | + + + | Home Phone | | + + + | Preferred Language | Unknown | + + + | Marital Status | | + + + | Lutheran Affiliation | UNK | + + + | Race | White | + + + | Ethnic Group | Not or | + + + Author + + + | Author | [facility] | + + + | Organization | [facility] | + + + | Address [...] [address] | | | | | [place], [place] | | | | | [address] | | + + + + + Care Team Providers + +------+ + | Care Lard Bleacher Name | Role | Phone | + [...] JA[place] | | | | | | [place] [address] | | | | | | [phone] | | | | | | | [...] | | Results for this | | 39437+ | e | 8:03 AM | | procedure are in the | | | | PDT | | results section. | + +--------+ + + + documented in this encounter Results CHEST WITH CONTRAST [id number]+ (03/07/2010 8:03 AM PDT) + + | [...]
--- OUTSIDE RECORDS SUMMARY | ~2019-05-02 | XMS | Encounter Summary ---
Demographics + + + | Address | [address] [facility] | | | [place] [address] | + + + | Home Phone [...] Author | [facility] | + + + | Organization | [facility] | + + + | Address | [...] [address] | | | | | [facility] [place] | | | | | [address] | | + + + + + Care Team Providers + +------+ + | Care Felt Puller Name | Role | Phone | + [...] Wise | | | | | | [place] [address] | | | | | | [address] | | | | | | [place] [address] | | | | | | [phone] | | | | | | | [...] | Results for this | | [place] [address] | e | 10:04 AM | | [...] + + documented in this encounter Results [facility] 389[address] (08/30/2014 10:04 AM PST) + + | [...] [place] | And | [place] [address] | [phone] | | MEDICAL CENTER | Streets | [...] | [place] | And | [place] [address] | [phone] | | MEDICAL CENTER | Streets | | | + + + + + documented in this encounter Visit Diagnoses Not on filedocumented in this encounter"
--- OUTSIDE RECORDS SUMMARY | ~2019-05-02 | XMS | Encounter Summary ---
Demographics + + + | Address | [address] [facility] | | | [place] [address] | + + + | Home Phone | | + + + | Preferred Language | Unknown | + + + | Marital Status | | + + + | Restorationist Affiliation | UNK | + + + | Race | White | + + + | Ethnic Group | Not or | + + + Author + + + | Author | [facility] | + + + | Organization | [facility] | + + + | Address [...] [address] | | | | | [place], [place] | | | | | [address] | | + + + + + Care Team Providers + +------+ + | Care Wagon Washer Name | Role | Phone | + [...] JAIM[place] | | | | | | [place] [address] | | | | | | [phone] | | | | | | | [...] | | Results for this | | 21392+ | e | 12:25 PM | | procedure are in the | | | | PST | | results section. | + +--------+ + + + documented in this encounter Results CHEST WITH CONTRAST [id number]+ (05/06/2010 12:25 PM PST) + + | [...] infiltrate is seen. 2. Small hiatal hernia. 194821 | | + + + + + [...] | 2. Small hiatal hernia. | | 410898 | + + + +---------+ + + [...]
--- OUTSIDE RECORDS SUMMARY | ~2019-05-02 | XMS | Encounter Summary ---
Demographics + + + | Address | [address] [facility] | | | [place] [address] | + + + | Home Phone | | + + + | Preferred Language | Unknown | + + + | Marital Status | | + + + | Presybeterian Affiliation | UNK | + + + [...] | | | | [facility] [place] | | | | | [address] | | + + + + + Care Team Providers + +------+ + | Care Checkroom Chief Name | Role | Phone | + +------+ + | Loreta Pierre | PCP | | + +------+ + Encounter Details +--------+ + + + + | Date | Type | Department | Care Team | Description | +--------+ + + + + | 07/26/ | Results | NON-[facility] EP[facility] | Aileen Cuadra MD | | | 2012 | Only | Department | [address] | | | | | | [place] [address] | | | | | | [address] | | | | | | [place] [address] | | | | | | [phone] | | | | | | | [...] | + +--------+ + + + | BREAST SPECIMEN | Routin | 07/26/2012 | | Results for this | | [address] | e | 11:29 AM | | procedure are in the | | | | PST | | results section. | + +--------+ + + + documented in this encounter Results BREAST SPECIMEN [id number] (07/26/2012 11:29 AM PST) + + | Specimen | + + | | + + + + + | Narrative | Performed At | + + + | Right breast specimen radiographs Comparison: 06/24/2012 | [facility] | | History: Postop, right breast mass. Findings / impression: Two | DEPARTMENT OF | | lumpectomy specimen radiographs are obtained, demonstrating the wire | RADIOLOGY | | and biopsy marker clip to be contained within the specimen. No | | | calcification is seen. | | + + + + + | Procedure Note | + + | Interface, Radiology Results - 01/29/2015 5:32 PM PDT Right breast specimen | | radiographsComparison: 06/24/2012History: Postop, right breast mass.Findings / | | impression: Two lumpectomy specimen radiographs areobtained, demonstrating the wire and | | biopsy marker clip to becontained within the specimen. No calcification is seen. | |obtained, demonstrating the wire and biopsy marker clip to be | |contained within the specimen. No calcification is seen. | + + + +---------+ + + [...]
--- OUTSIDE RECORDS SUMMARY | ~2019-05-02 | XMS | Clinical Summary ---
Demographics + + + | Address | [address] | | | [place] [address] | + + + | Home Phone | | + + + | Preferred Language | Unknown | + + + | Marital Status | Unknown | + + + | Sabianism Affiliation | Unknown | + + + | Race | Unknown | + + + | Ethnic Group | Unknown | + + + Author + + + | Author | [facility] (Historical as of | | | 02-12-19) | + + + | Organization | [email or web address] (Historical as of | | | 02-12-19) | + + + | Address | Unknown | + + + | Phone | Unavailable | + + + Care Team Providers + +------+ + | Care Cognos Analyst Name | Role | Phone | [...] +------+-------+---------+ | [employer] | FC-NET | [phone] | | | | | | WORK [...] | 02/25/ | Home: | [address] [facility] [address] | | | al/Fam | | [phone] | [place] | | | jewel | | | [phone] | [address] | + +--------+ +--------+ + +"
--- OUTSIDE RECORDS SUMMARY | ~2019-05-02 | XMS | Encounter Summary ---
Demographics + + + | Address | [address] [facility] | | | [place] [address] | + + + | Home Phone [...] [address] | | | | | [address] [place] [address] [place] | | | | | [address] | | + + + + + Care Team Providers + +------+ + | Care Milker Machine Name | Role | Phone | + +------+ + | Ayala Glasgow MD | PCP | | + +------+ + Encounter Details +--------+ + + + + | Date | Type | Department | Care Team | Description | +--------+ + + + + | 01/06/ | Results | NON[facility] | Alexys Cavanaugh, | | | 2007 | Only | Department | [facility] | | | | [facility] [address] | | | | [address] [place], | | | | | | [place] [address] | | | | | | [phone] | | | | | | | [...] + +--------+ + + + | [facility] ONLY | Routin | 01/07/2008 | | Results for this | | | e | 2:35 PM | | procedure are in the | | | | PDT | | results section. | + +--------+ + + + documented in this encounter Results [facility] ONLY (01/07/2008 2:35 PM PDT) + + + + + [...] + + + + | APPEARANCE | SL. CLOUDY | CLEAR | [place] | | [...] + + + | WHITE CELLS | NEG | 0 - 2 HPF | [place] [...] | [facility] | And | [place] [address] | | | [facility] | [facility] | | | + + + + + documented in this encounter Visit Diagnoses Not on filedocumented in this encounter"
--- OUTSIDE RECORDS SUMMARY | ~2019-05-02 | XMS | Encounter Summary ---
Demographics + + + | Address | [address] [facility] | | | [place] [address] | + + + | Home Phone | | + + + | Preferred Language | Unknown | + + + | Marital Status | | + + + | Baptism Affiliation | UNK | + + + | Race | White | + + + | Ethnic Group | Not or | + + + Author + + + | Author | [facility] | + + + | Organization | [facility] | + + + | [...] [address] | | | | | [place] | | | | | [address] | | + + + + + Care Team Providers + +------+ + | Care Solid Waste Manager Name | Role | Phone | [...] | | | | | | [place] [address] | | | | | | [phone] | | | | | | | [...] | | Results for this | | [address] | e | 2:39 PM | | procedure are in the | | | | PST | | results section. | + +--------+ + + + documented in this encounter Results SCREENING MAMMO [id number] (08/28/2006 2:39 PM PST) + + | [...] 07/06/01 done in | RADIOLOGY | | [place], [place]. There is no evidence of evolving [...] | cancers are not identified by x-ray. #[id number] | | + + + + + | Procedure Note | + + | Interface, Radiology Results - 02/16/2015 1:35 PM PDT BILATERAL SCREENING MAMMOGRAM: | | INDICATION: Screening, asymptomatic. On HRT. | | FINDINGS: Bilateral MLO and CC views are compared to outside studies | | from 09/13/02 and 07/06/01 done in [place], [place]. There is | | no evidence [...] are not identified by x-ray. | | #[id number] | + + + +---------+ + + [...]
--- OUTSIDE RECORDS SUMMARY | ~2019-05-02 | XMS | Encounter Summary ---
Demographics + + + | Address | [address] [facility] | | | [place] [address] | + + + | Home Phone | | + + + | Preferred Language | Unknown | + + + | Marital Status | | + + + | Church Affiliation | UNK | + + + | Race | White | + + + | Ethnic Group | Not or | + + + Author + + + | Author | [facility] | + + + | Organization | [facility] | + + + [...] [place] | | | | | [address] | | + + + + + Care Team Providers + +------+ + | Care Buffing Wheel Raker Name | Role | Phone | + [...] | Medicine [address] | [address] [place] [address] | | | | | [address] [place], | [place] | | | | | [place] [address] | [address] | | | | | [phone] | | | | | | | [...] | CARDIAC | 3.4 | RATIO | [facility] | | | RISK RATIO | | | A MEDICAL | | | | | | CENTER | | + +---------+ + + + | ESTIMATED | >60.0 | >60 | [facility] | | | GFR | | | A MEDICAL | | | | | | CENTER | | + +---------+ + + + | FASTING? | 9 HR PC | HR | [facility] | | | | | | [...] + | [place] | [address] | [place] [address] | [phone] | | [facility] | Streets | | | + + [...]
--- OUTSIDE RECORDS SUMMARY | ~2019-05-02 | XMS | Encounter Summary ---
Demographics + + + | Address | [address] [facility] | | | [place] [address] | + + + | Home Phone [...] [place] | | | | | [address] | | + + + + + Care Team Providers + +------+ + | Care Motor Runner Name | Role | Phone | + [...] | | | | | [address] [place], | [place], [place] | | | | | [place] [address] | [address] | | | | | [phone] | | | | | | | [...]
--- OUTSIDE RECORDS SUMMARY | ~2019-05-02 | XMS | Encounter Summary ---
Demographics + + + | Address | [address] [facility] | | | [place] [address] | + + + | Home Phone | | + + + | Preferred Language | Unknown | + + + | Marital Status | | + + + | Latter-Day Affiliation | UNK | + + + | Race | White | + + + | Ethnic Group | Not or | + + + Author + + + | Author | [facility] | + + + | Organization | [facility] | + + + | Address | [...] [address] | | | | | [facility] | | | | | [address] | | + + + + + Care Team Providers + +------+ + | Care Cytotechnologist Supervisor Name | Role | Phone | [...] [address] | | | | | | [place] | | | | | | [address] | | | +--------+ + + + [...]
--- OUTSIDE RECORDS SUMMARY | ~2019-05-02 | XMS | Encounter Summary ---
Demographics + + + | Address | [address] [facility] | | | [place] [address] | + + + | Home Phone | | + + + | Preferred Language | Unknown | + + + | Marital Status | | + + + | Hindu Affiliation | UNK | + + + [...] [place] | | | | | [address] | | + + + + + Care Team Providers + +------+ + | Care Dredge Hand Name | Role | Phone | + +------+ + | Ayala Glasgow MD | PCP | | + +------+ + Encounter Details +--------+ + + + + | Date | Type | Department | Care Team | Description | +--------+ + + + + | 01/20/ | Document-Sc | [facility] | Ayala Glasgow MD | | | 2017 | anned | Medicine [address] | | | | | [place], | [place], [place] | | | | | [place] [address] | [address] | | | | | [phone] | | | | | | | [...]
--- OUTSIDE RECORDS SUMMARY | ~2019-05-02 | XMS | Encounter Summary ---
Demographics + + + | Address | [address] [facility] | | | [place] [address] | + + + | Home Phone [...] [address] | | | | | [place], [place] | | | | | [address] | | + + + + + Care Team Providers + +------+ + | Care Repairer Pump Name | Role | Phone | + [...] [place] | | | | | | [place] [address] | | | | | | [phone] | | | | | | | [...] + +--------+ + + + | FINGER(S) [id number] | Routin | 01/01/2011 | | Results for this | | | e | 4:44 PM | | procedure are in the | | | | PDT | | results section. | + +--------+ + + + documented in this encounter Results FINGER(S) [id number] (01/01/2011 4:44 PM PDT) + + | [...]
--- OUTSIDE RECORDS SUMMARY | ~2019-05-02 | XMS | Encounter Summary ---
Demographics + + + | Address | [address] [facility] | | | [place] [address] | + + + | Home Phone [...] + + + | Author | [facility] | + + + | Organization | [facility] | + + + | Address [...] [address] | | | | | [place] | | | | | [address] | | + + + + + Care Team Providers + +------+ + | Care Rv Parts And Service Director Name | Role | Phone | + [...] | | | | | [facility] | Dari Branham | Wilmar Ansari | | | | | [facility] | WHITE | [address] | | | | | in [place] | [place], [place] | [place], [place] | | | | | JUN 2012, PT | [address] | [address] | | | | | HAD | Phone: | | | | | | LUMPECTOMY | [phone] | | | | | | [place] jul 26, | Fax: | | | | | | had | [phone] | | | | | | radiation | | | | | | | finished | | | | | | | 09/20. | | | | | | | Procedures | | | | | | | HENRIQUE | | | | | | | STELZER | | | | | | | [id number] | | | | | | | NPI | | | | | | | [phone] | | | | | | | A2K # | | | | | | | [id number] | | | | | | | [...] | | | | | | | [phone] | | | | | | | Fax | | | | | | | | | | | | | | [phone] | | | | | | | [...] | | | | | | | [address] | | | | | | | CIRILO RESTREPO | | | | | | | 113[address] | | | | | | | NPI | | | | | | | | | | | | | | [phone] | | | | | | | A2K # | | | | | | | [phone] | | | | | | | [...] | | | | | | | [phone] | | | | | | | Fax | | | | | | | | | | | | | | [phone] | | | | | | | [...] | | | | | | | [address] | | | | | | | [address] | | | | | | | VERONIKA | | | | | | | [id number] | | | | | | | NPI | | | | | | | [id number] | | | | | | | A2K # | | | | | | | [id number] | | | | | | | [...] | | | | | | | [phone] | | | | | | | Fax | | | | | | | | | | | | | | [phone] | | | | | | | | | | | | | | Address | | | | | | | Mid | | | | | | | [place] [facility] | | | | | | | Medical | | | | | | | Center | | | | | | | [facility] | | | | | | | Center | | | | | | | [address] | | | | | | [address] | | | | | | | [place], | | | | | | | [place] [address] | | | | | | | | | | +--------+--------+ + + + + Encounter Details +--------+---------+ + + + | Date | Type | Department | Care Team | Description | +--------+---------+ + + + | 10/19/ | Office | Hematology/Medical | Hung, | 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 [facility] Provider: Nayana Persaud MD DATE: 10/19/2012 Regla Daniel ([id number]) is a 57 year old female here [...] The lumpectomy specimen was reviewed here at [facility] and revealed elements of papiloma,atypica l ductal hyperplasia and DCIS. The DCIS component was completely excised with negative rese ction margins. The patient underwent radiaiton therapy to the R breast, completed in August. She has been hesitant to proceed with tamoxifen, despite a clear recommendation for this ap proach from Dr. Whitman of the [place], [place]. She is here to revisit this [...] 24. 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 Therefore, we will order ER [place] testing, and call her with the results. [...]
--- OUTSIDE RECORDS SUMMARY | ~2019-05-02 | XMS | Encounter Summary ---
Demographics + + + | Address | [address] [facility] | | | [place] [address] | + + + | Home Phone [...] [place] | | | | | [address] | | + + + + + Care Team Providers + +------+ + | Care Manager Continuous Improvement Name | Role | Phone | + [...] | | | | | | [place] [address] | | | | | | [phone] | | | +--------+ + + + [...]
--- OUTSIDE RECORDS SUMMARY | ~2019-05-02 | XMS | Clinical Summary ---
Demographics + + + | Address | [address] | | | [place] [address] | + + + | Home Phone | | + + + | Preferred Language | Unknown | + + + | Marital Status | Unknown | + + + | Mosque Affiliation | Unknown | + + + | Race | Unknown | + + + | Ethnic Group | Unknown | + + + Author + + + | Author | [facility] | | | and [place] | + + + | Organization | [facility] | | | and [place] | + + + | Address | Unknown | + + + | Phone | Unavailable | + + + Care Team Providers + +------+ + | Care Children'S Ministry Director Name | Role | Phone | [...]
--- OUTSIDE RECORDS SUMMARY | ~2019-05-02 | XMS | Encounter Summary ---
Demographics + + + | Address | [address] [facility] | | | [place] [address] | + + + | Home Phone | | + + + | Preferred Language | Unknown | + + + | Marital Status | | + + + | Congregational Affiliation | UNK | + + + | Race | White | + + + | Ethnic Group | Not or | + + + Author + + + | Author | [facility] | + + + | Organization | [facility] | + + + | [...] [place] | | | | | [address] | | + + + + + Care Team Providers + +------+ + | Care Development Intern Name | Role | Phone | + [...] [place], [place] | | | | | [address] | [address] | | | | | | [phone] | | | | | | | [...] Vimal Villalta MD - 05/23/2014 4:38 PM [facility] [address] [place] [address] REGLA DANIEL DATE OF SERVICE: May 23, 2014 RE: REGLA DANIEL CHIEF COMPLAINT: Breast cancer. 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 It was located in the periareolar area. It was ER positive, OK positive, and HER2 negative. She completed a [...] she is out 5 years. TEMO/REGLA Hand [id number] : 55 [id number] ADMIT DATE: /[id number] cc: KARLA Cota Electronically Signed 05/24/14 0840 Vimal Villalta MD, PhD REGLA DANIEL [id number] : 55 [id number] ADMIT DATE: documente d in this encounter Plan of Treatment Not on filedocumented as of this encounter Visit Diagnoses Not on filedocumented in this encounter"
--- OUTSIDE RECORDS SUMMARY | ~2019-05-02 | XMS | Encounter Summary ---
Demographics + + + | Address | [address] [facility] | | | [place] [address] | + + + | Home Phone [...] [place] | | | | | [address] | | + + + + + Care Team Providers + +------+ + | Care Fbi Field Agent Name | Role | Phone | [...] XL) | | | | [address] [place], | [facility], [place] | | | | | [place] [address] | [address] | | | | | [phone] | [phone] | | | | | | | [...]
--- OUTSIDE RECORDS SUMMARY | ~2019-05-02 | XMS | Encounter Summary ---
Demographics + + + | Address | [address] [facility] | | | [place] [address] | + + + | Home Phone | | + + + | Preferred Language | Unknown | + + + | Marital Status | | + + + | Cheondoism Affiliation | UNK | + + + [...] [place] | | | | | [address] | | + + + + + Care Team Providers + +------+ + | Care Inside Sales Trainer Name | Role | Phone | + [...] [place] | | | | [place] | [address] | [address] | | | | | | [phone] | | | | | | | [...]
--- OUTSIDE RECORDS SUMMARY | ~2019-05-02 | XMS | Encounter Summary ---
Demographics + + + | Address | [address] [facility] | | | [place] [address] | + + + | Home Phone | | + + + | Preferred Language | Unknown | + + + | Marital Status | | + + + | Evangelical Affiliation | UNK | + + + | Race | White | + + + | Ethnic Group | Not or | + + + Author + + + | Author | [facility] | + + + | Organization | [facility] | + + + | Address [...] [place] | | | | | [address] | | + + + + + Care Team Providers + +------+ + | Care Dish Person Name | Role | Phone | + [...] nevi | | 2016 | Visit | Jay Em Christa | ,PhD 1934 | (Primary Dx); | | | | Clinic 1934 | [address] [place], [place] | Seborrheic | | | | [place], [place] | [address] | keratosis; Skin tag | | | | [address] | [phone] | | | | | [phone] | | | +--------+---------+ + + + [...] skin cance rs including melanoma. ? The [place] [employer] (AAD) recommends you wear [...] information is available at the following websites: http://www.[facility].edu/xd/health/services/dermatology/for-patients/health_info.cfm - [facility] Derm atology http://www.aad.org/public/sun/smart.html - AAD Website documented in this encounter Progress Notes Ayala Glasgow MD - 05/06/2016 1:45 PM PSTNoted and agree .....................AYALA LOZADA MD, 1:45 PM 05/06/2016 iter, Margaret Macdonald MD,P hD - 05/06/2016 10:21 AM PST [facility] DERMATOLOGY FOLLOW-UP VISIT (Last Appointment in [facility] DERMAT[facility]Y CC was on 04/18/15 with [...] if symptoms worsen or fail to improve. Margaert Arriaga M.D. Ph.D. Stitch Welder Department of Dermatology [facility] ([facility]) Dermatology documented in th is encounter [...]
--- OUTSIDE RECORDS SUMMARY | ~2019-05-02 | XMS | Encounter Summary ---
Demographics + + + | Address | [address] [facility] | | | [place] [address] | + + + | Home Phone | | + + + | Preferred Language | Unknown | + + + | Marital Status | | + + + | Christian Affiliation | UNK | + + + | Race | White | + + + | Ethnic Group | Not or | + + + Author + + + | Author | [facility] | + + + | Organization | [facility] | + + + | [...] [address] | | | | | [address] [place] [address] [place] | | | | | [address] | | + + + + + Care Team Providers + +------+ + | Care Agricultural Equipment Sales Manager Name | Role | Phone | + +------+ + | Ayala Glasgow MD | PCP | | + +------+ + Encounter Details +--------+ + + + + | Date | Type | Department | Care Team | Description | +--------+ + + + + | 09/29/ | Results | NON-[facility] EPIC | Alexys Cavanaugh, | | | 2008 | Only | Department | [facility] | | [facility] [address] | | | | | [address] [place], | | | | | | [place] [address] | | | | | | [phone] | | | | | | | [...] + + | [facility] | [address] | [place] [address] | | | [facility] | Streets | | | + [...] DIAGNOSTICS | | | | | | -[place] | | | | Reference Range: | | | | | | | | | | | | | | | | | | [phone] | | | | | | indicates [...] + + + | [facility] | [address] [facility] | [place] [address] | [phone] | | [facility] | | | | + + + + + | [facility] | | | | | [facility] | | | | + + + [...] 38 | 35 - 90 MG/DL | [facility] | | | CHOLESTEROL | | | A MEDICAL | | | | | | CENTER | | + + + + + + | LDL CHOLEST | 134 (H) | 0 - 129 MG/DL | [facility] | | | | | | A MEDICAL | | | | | | CENTER | | + + + + + + | NON-HDL | 176Comment: The goal for | | [facility] | | | CHOLESTEROL | non-HDL cholesterol [...] | + + + + + | [facility] | And | [place] [address] | | | MEDICAL [place] | [facility] | | | + + + + + documented in this encounter Visit Diagnoses Not on filedocumented in this encounter"
--- OUTSIDE RECORDS SUMMARY | ~2019-05-02 | XMS | Encounter Summary ---
Demographics + + + | Address | [address] [facility] | | | [place] [address] | + + + | Home Phone [...] [place] | | | | | [address] | | + + + + + Care Team Providers + +------+ + | Care Mainframe Systems Administrator Name | Role | Phone | [...] | [address] | [place]ela[place], [place] | | | | Transcribed | [place], [place] | Orthopedics The | | | | | [address] | [place] [address] | | | | | | St [place], [place] | | | | | | [address] | | | | | | | [...] + + | 09/02/2010 4:54 PM [facility] | | REPORT OF [id number] [place] [address] | | REGLA DANIEL EDATE OF OPERATION: 09/02/2010SURGEON: Alexys Lu M.D.MAKE READY WORKER: | | KARLA Vargas-CANESTHESIOLOGIST: Brad Madison M.D.PREOPERATIVE [...] 2 mL an hourof Sensorcaine | | 0.5%.FLANGING MACHINE OPERATOR: The presence of the surgical technology instructor on this procedure | | waspivotal in [...] through the rotator cuff | | interval.DANIELREGLA [id number] : [id number] DATE:We then performed | | extensive synovectomy. [...] 09/02/2010 15:49:03DT: 09/02/2010 16:48:59Job #: | | [id number] Signed 09/04/10 | | 0746 | | | | | | | | | | | | | | Alexys | | MAE Lu SUE [id number] : [id number] DATE: | |in the arm philippe with 10 pounds longitudinal traction. She was prepped and draped | |sterilely. Standard posterior thoracic portal was established, inserting the | |camera through the glenohumeral joint. Noted the above-mentioned changes. An | |anterior portal was made, inserting the cannula through the rotator cuff interval. | |REGLA DANIEL E | |[id number] : 55 | |[id number] | |ADMIT DATE: | | | |We [...] |/Juani | | | | | | /[id number] | |Electronically Signed 09/04/10 0746 | | [...] | | | | |REGLA DANIEL | |[id number] : 55 | |[id number] | |ADMIT DATE: | + + documented in this encounter Visit Diagnoses Not on filedocumented in this encounter"
--- OUTSIDE RECORDS SUMMARY | ~2019-05-02 | XMS | Encounter Summary ---
Demographics + + + | Address | [address] [facility] | | | [place] [address] | + + + | Home Phone [...] NW | | | | | [facility] | | | | | [address] | | + + + + + Care Team Providers + +------+ + | Care Fraud Examiner Name | Role | Phone | + [...] [address] | | | | | | [place] [address] | | | | | | To [address] | | | | | | [place] [address] | | | | | | [phone] | | | | | | | [...] | | Results for this | | [address] | e | 11:29 AM | | procedure are in the | | | | PST | | results section. | + +--------+ + + + documented in this encounter Results BREAST SPECIMEN [id number] (07/26/2012 11:29 AM PST) + + | [...]
--- OUTSIDE RECORDS SUMMARY | ~2019-05-02 | XMS | Encounter Summary ---
Demographics + + + | Address | [address] [facility] | | | [place] [address] | + + + | Home Phone [...] [address] | | | | | [address] [place] [address] [place] | | | | | [address] | | + + + + + Care Team Providers + +------+ + | Care Heat And Frost Insulator Helper Name | Role | Phone | + [...] | | | | | | Drive [place], | | | | | | [place] [address] | | | | | | [phone] | | | | | | | [...] + | [facility] | And | [place] [address] | | | [facility] | [facility] | | | + + + + + documented in this encounter Visit Diagnoses Not on filedocumented in this encounter"
--- OUTSIDE RECORDS SUMMARY | ~2019-05-02 | XMS | Encounter Summary ---
Demographics + + + | Address | [address] [facility] | | | [place] [address] | + + + | Home Phone [...] [address] | | | | | [place] | | | | | [address] | | + + + + + Care Team Providers + +------+ + | Care Siene Maker Name | Role | Phone | + +------+ + | Loreta Pierre | PCP | | + +------+ + Encounter Details +--------+ + + + + | Date | Type | Department | Care Team | Description | +--------+ + + + + | 10/06/ | Results | NON-[facility] EPIC | Alexys Cavanaugh, | | | 2008 | Only | Department | [facility] | | | | [facility] [address] | | | | | [address] [place], | | | | | | [place] [address] | | | | | | [phone] | | | | | | | [...] + | SCREENING MAMMO | Routin | 10/06/2008 | | Results for this | | [address] | e | 3:28 PM | | procedure are in the | | | | PDT | | results section. | + +--------+ + + + documented in this encounter Results SCREENING MAMMO 47591 (10/06/2008 3:28 PM PDT) + + | Specimen | + + | | + + + + + | Narrative | Performed At | + + + | BILATERAL MAMMOGRAM INDICATION: Followup screening. FINDINGS: | [facility] | | Two views of each breast were obtained and compared to the study of | DEPARTMENT OF | | August 28, 2006. The breasts are normal in contour. No cluster of | RADIOLOGY | | microcalcifications or dominant mass lesion is seen. Benign-appearing | | | calcifications are noted. Routine followup is recommended. | | | CONCLUSIONS: Benign findings. Routine followup. BI-RADS 2. | | | BI-RADS 2: The final assessment is a benign finding, negative study. | | | The findings reported have no likelihood of malignancy and no | | | further evaluation is needed at this time. A negative x-ray report | | | should not delay biopsy if a dominant mass is present. 10% of all | | | cancers are not identified by x-ray. [address] | | + + + + + | Procedure Note | + + | Interface, Radiology Results - 02/16/2015 11:46 AM PDT BILATERAL MAMMOGRAM | | INDICATION: Followup screening. | | FINDINGS: Two views of each breast were obtained and compared to the | | study of August 28, 2006. The breasts are normal in contour. No | | cluster of microcalcifications or dominant mass lesion is seen. | | Benign-appearing calcifications are noted. Routine followup is | | recommended. | | CONCLUSIONS: Benign findings. Routine followup. BI-RADS 2. | | BI-RADS 2: The final assessment is a benign finding, negative study. | | The findings reported have no likelihood of malignancy and no further | | evaluation is needed at this time. | | A negative x-ray report should not delay biopsy if a dominant mass is | | present. 10% of all cancers are not identified by x-ray. | | [address] | + + + +---------+ + + [...]
--- OUTSIDE RECORDS SUMMARY | ~2019-05-02 | XMS | Encounter Summary ---
Demographics + + + | Address | [address] [facility] | | | [place] [address] | + + + | Home Phone [...] [place] | | | | | [address] | | + + + + + Care Team Providers + +------+ + | Care Palliative Care Specialist Name | Role | Phone | [...] | Medicine [address] | [address] [place] [address] | | | | | [address] [place], | [place] | | | | | [place] [address] | [address] | | | | | [phone] | | | | | | | [...]
--- OUTSIDE RECORDS SUMMARY | ~2019-05-02 | XMS | Encounter Summary ---
Demographics + + + | Address | [address] [facility] | | | [place] [address] | + + + | Home Phone | | + + + | Preferred Language | Unknown | + + + | Marital Status | | + + + | Gnosticism Affiliation | UNK | + + + [...] [place] | | | | | [address] | | + + + + + Care Team Providers + +------+ + | Care Dean Of Graduate Studies Name | Role | Phone | + [...] | | | in situ of | [place] | E | | | | | breast | [place] | [place], | | | | | | [place] | [place] [address] | | | | | | Med [address] | Phone: | | | | | | To [address]uniga | [phone] | | | | | | [place], | Fax: | | | | | | [place] [address] | [phone] | | | | | | Phone: | | | | | | | [phone] | | | | | | | Fax: | | | | | | | [phone] | | + +--------+ + + + [...] (Primary Dx) | | | | [place], | [address] | | | | | [place] [address] | [phone] | | | | | [phone] | | | +--------+---------+ + + + [...] the right breast. It was ER positive, KS positive , and HER2 negative. She had [...] September 2016. Vimal Villalta M.D., Ph.D. TEMO/STEF /[id number] signed by Vimal Villalta MD at 05/07/2016 [...]
--- OUTSIDE RECORDS SUMMARY | ~2019-05-02 | XMS | Encounter Summary ---
Demographics + + + | Address | [address] [facility] | | | [place] [address] | + + + | Home Phone [...] [place] | | | | | [address] | | + + + + + Care Team Providers + +------+ + | Care Animal Caretaker Name | Role | Phone | + [...] [place] | | | | | | [address] | | | +--------+ + + + [...] | + + + | [address] [place] [address] | [facility] | | [place] [address] [facility] | | [phone] Name: REGLA DANIEL Phys: | RADIOLOGY | | CIRILO AMIN Adelaida : 1955 Sex: F CSN: | | | [id number] MR# [id number] Exam Date: 10/17/2015 | | | EXAM: [...] Transcribed | | | Date/Time: 10/17/2015 23:00 Pocket Setter Lockstitch: FLUENCY | | + + + + + | Procedure Note | + + | Interface, Radiology Results - 10/17/2015 11:05 PM PDT [address] | | [place] [address] | | Name: REGLA DANIEL Phys: CIRILO AMIN : 1955 Sex: F CSN: | | [id number] MR# [id number] Exam Date: 10/17/2015 EXAM:BILATERAL SCREENING | | [...] | | |Transcribed Date/Time: 10/17/2015 23:00 | |Pocket Setter Lockstitch: FLUENCY | | | | | | [...]
--- OUTSIDE RECORDS SUMMARY | ~2019-05-02 | XMS | Encounter Summary ---
Demographics + + + | Address | [address] [facility] | | | [place] [address] | + + + | Home Phone | | + + + | Preferred Language | Unknown | + + + | Marital Status | | + + + | Adventist Affiliation | UNK | + + + [...] [address] | | | | | [address] [place] [address] [place] | | | | | [address] | | + + + + + Care Team Providers + +------+ + | Care Clinical Science Liaison Name | Role | Phone | + +------+ + | Ayala Glasgow MD | PCP | | + +------+ + Encounter Details +--------+ + + + + | Date | Type | Department | Care Team | Description | +--------+ + + + + | 07/12/ | Document-Sc | Health Information | Other, Faculty | | | 2015 | anned | Services [address] | [phone] | | | | | Wilmar Lee | | | | | | Mailcode: [id number] | | | | | | [facility] | | | | | | [place], [place] | | | | | | [address] | | | | | | [phone] | | | +--------+ + + + [...]
--- OUTSIDE RECORDS SUMMARY | ~2019-05-02 | XMS | Encounter Summary ---
Demographics + + + | Address | [address] [facility] | | | [place] [address] | + + + | Home Phone | | + + + | Preferred Language | Unknown | + + + | Marital Status | | + + + | Restoration Affiliation | UNK | + + + [...] [place] | | | | | [address] | | + + + + + Care Team Providers + +------+ + | Care Machine Assistant Name | Role | Phone | [...] | 2012 | | E The | [facility] | | | | Transcribed | [place] | Health [facility] Med [address] | | | | | [address] | To [address]uniga | | | | | | [place] [address] | | | | | | [phone] | | | | | | | [...] MD Khalif, Aileen - 07/26/2012 12:[address] [facility] | | REPORT OF [id number] [place] [address] | | REGLA DANIEL EDATE OF OPERATION: [...] and instrument counts | | REGLA Mcmillan [id number] : [id number] DATE:correct. Patient tolerated | | procedure without difficulty./MedQDD: 07/26/2012 11:29:03DT: 07/26/2012 11:49:35Job | | #: [id number] Signed 07/28/12 | | 1029 | | | | | | | | | | | | | | Aileen Benedict, | | MDREGLA DANIEL [id number] : [id number] DATE: | |marked with Vector surgical margin [...] counts were | |REGLA DANIEL E | |[id number] : 55 | |[id number] | |ADMIT DATE: | | | |correct. Patient tolerated procedure without difficulty. | | | | | |WALDEMAR/Juani | | | | | | /[id number] | |Electronically Signed 07/28/12 1029 | | [...] | | | |REGLA DANIEL José | |[id number] : 55 | |[id number] | |ADMIT DATE: | + + documented in this encounter Visit Diagnoses Not on filedocumented in this encounter"
--- OUTSIDE RECORDS SUMMARY | ~2019-05-02 | XMS | Encounter Summary ---
Demographics + + + | Address | [address] [facility] | | | [place] [address] | + + + | Home Phone | | + + + | Preferred Language | Unknown | + + + | Marital Status | | + + + | Confucianist Affiliation | UNK | + + + [...] [address] | | | | | [place] | | | | | [address] | | + + + + + Care Team Providers + +------+ + | Care Husker Operator Name | Role | Phone | [...] | | | | | | [place] [address] | | | | | | [phone] | | | | | | | [...] | | Results for this | | [address] | e | 3:28 PM | | procedure are in the | | | | PDT | | results section. | + +--------+ + + + documented in this encounter Results SCREENING MAMMO [id number] (10/06/2008 3:28 PM PDT) + + | [...] | cancers are not identified by x-ray. [address] | | + + + + + [...] are not identified by x-ray. | | [address] | + + + +---------+ + + [...]
--- OUTSIDE RECORDS SUMMARY | ~2019-05-02 | XMS | Encounter Summary ---
Demographics + + + | Address | [address] [facility] | | | [place] [address] | + + + | Home Phone | | + + + | Preferred Language | Unknown | + + + | Marital Status | | + + + | Faith Affiliation | UNK | + + + [...] [place] | | | | | [address] | | + + + + + Care Team Providers + +------+ + | Care Drying Oven Attendant Name | Role | Phone | + [...] [place] | | | | | [place] [address] | [address] | | | | | [phone] | | | | | | | [...]
--- OUTSIDE RECORDS SUMMARY | ~2019-05-02 | XMS | Encounter Summary ---
Demographics + + + | Address | [address] [facility] | | | [place] [address] | + + + | Home Phone | | + + + | Preferred Language | Unknown | + + + | Marital Status | | + + + | Sikhism Affiliation | UNK | + + + | Race | White | + + + | Ethnic Group | Not or | + + + Author + + + | Author | [facility] | + + + | Organization | [facility] | + + + | Address | [...] [address] | | | | | [place], [place] | | | | | [address] | | + + + + + Care Team Providers + +------+ + | Care Manufacturing Production Manager Name | Role | Phone | [...] | | | | | [place] [address] | | | | | | [phone] | | | | | | | [...] | 137 - 146 MEQ/L | [facility] | | | PLASMA | | [...] 14 | 8 - 30 MG/DL | [facility] | | | (LAB) | | | A MEDICAL | | | | | | CENTER | | + + + + + + | CREATININE | 0.63 | 0.6 - 1.1 MG/DL | [facility] | | | PLASMA | | | A MEDICAL | | | (LAB) | | | CENTER | | + + + + + + | BUN/CREATIN | 22 (H) | 6 - 20 RATIO | [facility] | | | INE RATIO | | [...] + + | [facility] | [address] [place] | [place] [address] | | | [facility] | [facility] | | | + + + + + documented in this encounter Visit Diagnoses Not on filedocumented in this encounter"
--- OUTSIDE RECORDS SUMMARY | ~2019-05-02 | XMS | Encounter Summary ---
Demographics + + + | Address | [address] [facility] | | | [place] [address] | + + + | Home Phone [...] [address] | | | | | [facility] [place] | | | | | [address] | | + + + + + Care Team Providers + +------+ + | Care Customer Retention Specialist Name | Role | Phone | + +------+ + | Loreta Pierre | PCP | | + +------+ + Encounter Details +--------+ + + + + | Date | Type | Department | Care Team | Description | +--------+ + + + + | 08/25/ | Results | NON-[facility] EPIC | Santo Whitman, | | | 2012 | Only | Department | [address] | | | | [address] | | | | | | [place] [address] | | | | | | [phone] | | | | | | (Fax) [...] | | DIAGNOSTICS | | | | DIAGNOSTICS-[id number] | | -[place] | | | | [address] | | | | | | [place], [place] | | | | | | [address]Kvvlicqq: | | | | | | AUGUSTA FLYNN MD | | | | + + + + + + | HEP B COREEN | NON-REACTIVEComment: | NON-REACTIV | [facility] | | | AG | Test performed at [facility] | | DIAGNOSTICS | | | | DIAGNOSTICS-[id number] | | -[facility] | | | | [address] | | | | | | [address], [place] | | | | | | [address]Uzcvizso: | | | | | | AUGUSTA FLYNN MD | | | | + + + + + + | HEP B SURF | <5Comment: Patient does | SEE COMMENT | [facility] | | | AB QUANT | not have immunity to | mIU/mL | DIAGNOSTICS | | | | hepatitis B virus.Test | | [facility] | | | | performed at [facility] | | | | | | DIAGNOSTICS-[id number] | | | | | | [address] | | | | | | [place], [place] | | | | | | [address]Uwlmguaw: | | | | | | AUGUSTA FLYNN MD | | | | + + + + + + | HEPATITIS B | NON-REACTIVEComment: | NON-REACTIV | [facility] | | | CORE AB, | Test performed at [facility] | | DIAGNOSTICS | | | SERUM | DIAGNOSTICS-[id number] | | -[place] | | | | [address] | | | | | | [address], [place] | | | | | | [address]Fjsjvagn: | | | | | | AUGUSTA FLYNN MD | | | | + + + + + + + + | Specimen | + + | | + + + + + + + | Performing | Address | City/State/Zipcode | Phone Number | | Organization | | | | + + + + + | [facility] | [address] [facility] | [place] [address] | [phone] | | [facility] | | | | + + + [...] + | [facility] | [address] | [place] [address] | [phone] | | [facility] | [facility] | | | + + + [...] | FASTING? | UNK | HR | [facility] | | | | | | A MEDICAL | | | | | | CENTER | | + + + + + + + + | Specimen | + + | | + + + + + + + | Performing | Address | City/State/Zipcode | Phone Number | | Organization | | | | + + + + + | [facility] | And | [place] [address] | [phone] | | MEDICAL CENTER | Streets | | | + + + + + documented in this encounter Visit Diagnoses Not on filedocumented in this encounter"
--- OUTSIDE RECORDS SUMMARY | ~2019-05-02 | XMS | Encounter Summary ---
Demographics + + + | Address | [address] [facility] | | | [place] [address] | + + + | Home Phone [...] [place] | | | | | [address] | | + + + + + Care Team Providers + +------+ + | Care Psychiatric Orderly Name | Role | Phone | + [...] | (omeprazole) | | | | [place], | [place], [place] | | | | | [place] [address] | [address] | | | | | [phone] | [phone] | | | | | | | [...]
--- OUTSIDE RECORDS SUMMARY | ~2019-05-02 | XMS | Encounter Summary ---
Demographics + + + | Address | [address] [facility] | | | [place] [address] | + + + | Home Phone | | + + + | Preferred Language | Unknown | + + + | Marital Status | | + + + | Pentecostal Affiliation | UNK | + + + | Race | White | + + + | Ethnic Group | Not or | + + + Author + + + | Author | [facility] | + + + | Organization | [facility] | + + + | Address [...] [address] | | | | | [place], [place] | | | | | [address] | | + + + + + Care Team Providers + +------+ + | Care Formula Bottler Name | Role | Phone | + [...] [place] | | | | | | [place] [address] | | | | | | [phone] | | | | | | | [...] + + + | CT BX LUNG [id number] | Routin | 03/27/2010 | | Results for this | | | e | 2:41 PM | | procedure are in the | | | | PDT | | results section. | + +--------+ + + + documented in this encounter Results CT BX LUNG 42146 (03/27/2010 2:41 PM PDT) + + | [...]
--- OUTSIDE RECORDS SUMMARY | ~2019-05-02 | XMS | Encounter Summary ---
Demographics + + + | Address | [address] [facility] | | | [place] [address] | + + + | Home Phone [...] [place] | | | | | [address] | | + + + + + Care Team Providers + +------+ + | Care Mining Teacher Name | Role | Phone | + +------+ + | Loreta Pierre | PCP | | + +------+ + Encounter Details +--------+ + + + + | Date | Type | Department | Care Team | Description | +--------+ + + + + | 07/04/ | Procedure - | [facility] | Alexys Lu | Operative Report | | 2004 | | [address] | MD Adelaida Sully | | | | Transcribed | [place], [place] | Orthopedics The | | | | | [phone] | [place] [address] | | | | | [address] [place], [place] | | | | | | [address] | | | | | | | [...] + + | OPERATION RECORD | | 07/04/2004 | | Results for this | | | | 10:59 AM | | procedure are in the | | | | PST | | results section. | + +--------+ + + + documented in this encounter Results OPERATION RECORD (07/04/2004 10:59 AM PST) + + | Transcriptions | + + | 07/04/2004 9:09 PM [facility] | | REPORT OF [id number] [place] [id number] | | REGLA DANIEL EDATE OF PROCEDURE: July 04, 2004PREPROCEDURE DIAGNOSIS: Right wrist | | dorsal ganglion.POSTPROCEDURE DIAGNOSIS: Right wrist dorsal ganglion.OPERATION | | PERFORMED: Right wrist dorsal ganglion excision.SURGEON: Alexys Lu | | ChandniANESTHESIA: Local MAC.ESTIMATED BLOOD LOSS: Minimal.TOURNIQUET TIME: 11 | | minutes.COMPLICATIONS: None.PREOPERATIVE ANTIBIOTIC: Given.PROCEDURE: The patient is | | properly identified, the operative site isinitialed, the patient is taken to the | | operative suite and placed onthe table in a supine position. Some channel sedation is | | given, andthe patient had a tourniquet placed high on her right arm. The rightarm was | | prepped and draped in a sterile fashion. The Esmarchtourniquet is applied and the | | tourniquet elevated to 250 mmHg. Thedorsal aspect of her wrist was injected then with 1% | | lidocaine withoutepinephrine, a total of 5 cc.A longitudinal incision 2.5 cm in length | | was applied sharply throughthe skin. The dissecting scissors were then used to dissect | | around thewrist ganglion, with approximately 0.25 cc of ganglion fluid oozingfrom the | | cyst itself in the process of removing it. It appeared to beclosely associated with the | | tendon sheath of the extensor pollicislongus. Needle-tipped cautery Bovie was used to | | obtain the hemostasisas we proceeded. Care was made to stay away from all | | neurovascularstructures. The cyst was then handed off to be sent for specimen | | topathology.The patient's deep tissues were then irrigated with the remainder oflocal | | anesthetic. The skin was closed with interrupted 4-0 nylonstitches. A sterile dressing | | was applied. The patient was then takento the recovery room in stable condition.JOB | | #[id number] | | | | | | | | Electronically | | Signed | | | | | | | | | | | | | | MAE Bolanos SUE [id number] DATE: | |as we proceeded. Care was made to stay away from all neurovascular | |structures. The cyst was then handed off to be sent for specimen to | |pathology. | | | |The patient's deep tissues were then irrigated with the remainder of | |local anesthetic. The skin was closed with interrupted 4-0 nylon | |stitches. A sterile dressing was applied. The patient was then taken | |to the recovery room in stable condition. | | | | | |JOB #[id number] | |07/04/04 | |07/04/04 | |MWS | | Electronically Signed | | | | | | | | Alexys Lu MD | | | | | | | | | | | |REGLA DANIEL E | |[id number] | |[id number] | |ADMIT DATE: | + + documented in this encounter Visit Diagnoses Not on filedocumented in this encounter"
--- OUTSIDE RECORDS SUMMARY | ~2019-05-02 | XMS | Encounter Summary ---
Demographics + + + | Address | [address] [facility] | | | [place] [address] | + + + | Home Phone [...] [place] | | | | | [phone] | | + + + + + Care Team Providers + +------+ + | Care Felt Coverer Name | Role | Phone | + [...] [address] | MD Adelaida Harris | | | | Transcribed | [place], [place] | Orthopedics The | | | | | [phone] | [place] [address] | | | | | [address] [place], [place] | | | | | | [address] | | | | | | | [...] | + + | 07/04/2004 9:09 PM [facility] | | REPORT OF [id number] [place] [address] | | REGLA DANIEL EDATE OF PROCEDURE: [...] recovery room in stable condition.JOB | | #[id number] | | | | | | | | Electronically | | Signed | | | | | | | | | | | | | | MAE Bolanos SUE [id number] DATE: | |as we proceeded. Care was [...] condition. | | | | | |JOB #[id number] | |07/04/04 | |07/04/04 | |MWS | | Electronically Signed | | | | | | | | Alexys Lu MD | | | | | | | | | | | |REGLA DANIEL E | |[id number] | |[id number] | |ADMIT DATE: | + + documented in this encounter Visit Diagnoses Not on filedocumented in this encounter"
[~2019-05-02 12:37] MED LIST changes: +ASPIR 8181 MG PO; +ASPIRIN325 MG PO; +CALCIUM + VITA1 EACH PO; +CRANBERRY CONC500 MG PO
--- OUTSIDE RECORDS SUMMARY | 2019-05-02 12:40 | XMS ---
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 No recent Security Events currently on file CRITERIA MET - [facility] CARE PROVIDERS CHAYA MICHELLE [facility] 04/10/2015-Current PHONE: Unknown [facility]: Pulmonary Disease 08/12/2018-Current PHONE: Unknown CHAYA MICHELLE Primary Care 04/10/2015-Current PHONE: [phone] TRISHA [facility] Primary Care 04/10/2015-Current PHONE: [phone] [facility] Mental Health Provider 02/25/2006-Current for Living PHONE: [phone] CIRILO AMIN Primary Care Current PHONE: Unknown Rosalina has no Care Guidelines for this patient. Care History Medical/Surgical 08/12/2018 [facility] - Patient is currently established with [facility]. If patient is seen in the ED during business hours. Please contact CHWs at [facility]. Care Recommendation: This patient has had 5 or more Emergency Department visits in the last 12 months.\T\nbsp; Patient requires education on the scope and purpose of the ED as an acute care provider not a Primary Care Provider and should not be utilized for chronic conditions.\T\nbsp; These are guidelines and the provider should exercise clinical judgment when providing care. E.D. VISIT COUNT (12 MO.) 3 [facility] TOTAL 3 NOTE: Visits indicate total known visits. 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 - Essential (primary) hypertension INPATIENT VISIT TRACKING (12 MO.) 08/11/2018 08:48 ELISE Rocha [place] TYPE: Observation COMPLAINT: - A FIB RVR DIAGNOSES: - Allergy status to sulfonamides status - Hypokalemia - Tachycardia, unspecified - Essential (primary) hypertension - Personal history of nicotine dependence - Hypomagnesemia - 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
[2019-05-02] MEDS ORDERED: DILTIAZEM ER240 M1 PO (12:50)
--- NOTE | 2019-05-02 17:42 | EKG ---
[facility] [address] [facility] [address] [place] [address] Signed Atrial fibrillation with rapid ventricular response Left axis deviation Abnormal ECG When compared with ECG of 11-AUG-2018 08:54, Vent. rate has decreased BY [address] no longer depressed in Anterolateral leads T wave inversion no longer evident in Lateral leads Confirmed by CHU CORTEZ DO ([id number]) on 05/02/2019 5:42:22 PM Electronically Signed By: CHU CORTEZ DO 05/02/19 1742 PATIENT NAME: QAMAR VALDEZ Electrocardiogram DATE OF : 55 PHYSICIAN: CHU CORTEZ DO REPORT #: [id number] REPORT IS CONFIDENTIAL AND NOT TO BE RELEASED WITHOUT AUTHORIZATION
[2019-05-02] MEDS ORDERED: DILTIAZEM ER300 M1 PO (18:29)
== END 2019-05-02 18:38 | disposition home or self-care (01) ==
LOC: ED 12:37
DX: I48.91 Unspecified atrial fibrillation (principal); I10 Essential (primary) hypertension; Z85.3 Personal history of malignant neoplasm of breast; F32.9 Major depressive disorder, single episode, unspecified; K21.9 Gastro-esophageal reflux disease without esophagitis; Z87.891 Personal history of nicotine dependence; Z88.2 Allergy status to sulfonamides; Z79.82 Long term (current) use of aspirin; Z79.899 Other long term (current) drug therapy
CPT/HCPCS: 71045; 80053; 83735; 84484; 85025; 85379; 93005; 93010; 96374; 99285-25

== ENCOUNTER 2019-09-03 22:00 | Emergency (ER) | payer SELFPAY ==
[~2019-09-03] VITALS: Ht 177.8 cm; Wt 81.8 kg
[~2019-09-03 22:00] MED LIST changes: +DILTIAZEM ER240 M1 PO; +DILTIAZEM ER300 M1 PO
--- OUTSIDE RECORDS SUMMARY | 2019-09-03 22:04 | XMS ---
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 No recent Security Events currently on file [place]IA [place] [facility] [place] CHAYA MICHELLE Family [facility] 04/10/2015-Current PHONE: Unknown PAYAM CHOWDHURY Internal Medicine: Pulmonary Disease 08/12/2018-Current PHONE: Unknown CHAYA MICHELLE Primary Care 04/10/2015-Current PHONE: Unknown TRISHA [facility] Primary Care 04/10/2015-Current PHONE: [phone] [facility] Mental Health Provider 02/25/2006-Current for Living PHONE: [phone] CIRILO AMIN Primary Care Current PHONE: Unknown Rosalina has no Care Guidelines for this patient. Care History Medical/Surgical 08/12/2018 [facility] - Patient is currently established with [facility]. If patient is seen in the ED during business hours. Please contact [facility] at [facility]. Care Recommendation: This patient has had 5 [...] providing care. E.D. VISIT COUNT (12 MO.) [address] [place] [address] TOTAL 2 NOTE: Visits indicate total known visits. ED/UCC VISIT TRACKING (12 MO.) 09/03/2019 22:01 [facility] [place] TYPE: Emergency COMPLAINT: - HEADACHE, BREATHING PROBLEMS 05/02/2019 12:38 [facility] [place] TYPE: Emergency COMPLAINT: - CHEST PAIN, DIZZINESS DIAGNOSES: - Major depressive disorder, single episode, unspecified - Unspecified atrial fibrillation - Other chest pain - Other skilled nursing (current) drug therapy - Essential (primary) hypertension - Personal history of nicotine dependence - Personal history of malignant neoplasm of breast - MCC (current) use of aspirin - Allergy status to sulfonamides status - Gastro-esophageal reflux disease without esophagitis INPATIENT VISIT TRACKING (12 MO.) No inpatient visits to display in this time frame [email or web address]
[2019-09-03] MEDS ORDERED: GUAIFENESIN AC473 ML PO (23:22)
== END 2019-09-03 23:29 | disposition home or self-care (01) ==
LOC: ED 22:00
DX: J20.9 Acute bronchitis, unspecified (principal); I10 Essential (primary) hypertension; Z85.3 Personal history of malignant neoplasm of breast; I48.91 Unspecified atrial fibrillation; F32.9 Major depressive disorder, single episode, unspecified; Z87.891 Personal history of nicotine dependence; Z88.2 Allergy status to sulfonamides; Z79.82 Long term (current) use of aspirin
CPT/HCPCS: 80053; 85025; 87502; 99283

== ENCOUNTER 2019-09-30 22:43 | Observation (INO) | payer OTHER ==
[~2019-09-30] VITALS: Ht 177.8 cm; Wt 87.1 kg
[~2019-09-30 22:43] MED LIST changes: -DILTIAZEM ER240 M1 PO; +DILTIAZEM ER300 MG PO; +GUAIFENESIN AC473 ML PO
[2019-10-01] MEDS ORDERED: ASPIR-LOW81 MG PO (01:24)
[2019-10-01] MEDS ORDERED: ENALAPRIL MALEA20 MG PO (09:08)
[2019-10-01] MEDS ORDERED: HYDROCHLOROTH12.5 MG PO (09:33)
[2019-10-01] MEDS ORDERED: DILTIAZEM ER180 M1 PO (09:34)
[2019-10-01] MEDS ORDERED: ZINC30 MG PO (09:46)
== END 2019-10-01 11:30 | disposition home or self-care (01) ==
LOC: ED 22:43 → MS 22:44
PROVIDERS: ADMIT Student in an Organized Health Care Education/Training Program
DX: K64.8 Other hemorrhoids (principal); I48.0 Paroxysmal atrial fibrillation; I10 Essential (primary) hypertension; K21.9 Gastro-esophageal reflux disease without esophagitis; F39 Unspecified mood [affective] disorder; Z88.2 Allergy status to sulfonamides; Z79.899 Other long term (current) drug therapy; Z79.82 Long term (current) use of aspirin
CPT/HCPCS: 36415; 80053; 81001; 83690; 85025; 86850; 86900; 86901; 87077; 87088; 87186; 99284; G0378; J3480

== ENCOUNTER 2024-09-05 10:51 | Emergency (ER) | payer MEDICARE ==
[~2024-09-05] VITALS: Ht 177.8 cm; Wt 91.9 kg
[~2024-09-05 10:51] MED LIST changes: +ASPIR-LOW81 MG PO; +DILTIAZEM ER180 M1 PO; +ENALAPRIL MALEA20 MG PO; +HYDROCHLOROTH12.5 MG PO; +ZINC30 MG PO
[2024-09-05] MEDS ORDERED: CELECOXIB100 MG PO (11:11)
[2024-09-05] MEDS ORDERED: ATENOLOL25 MG PO (11:12)
[2024-09-05] MEDS ORDERED: SPIRONOLACTONE25 MG PO (11:12)
[2024-09-05] MEDS ORDERED: AMOX TR-K CLV1 EAC1 PO (11:49)
[2024-09-05 11:53] VITALS: BP 143/105
== END 2024-09-05 11:57 | disposition home or self-care (01) ==
LOC: ED 10:51
DX: J32.9 Chronic sinusitis, unspecified (principal); I10 Essential (primary) hypertension; K21.9 Gastro-esophageal reflux disease without esophagitis; Z79.82 Long term (current) use of aspirin; Z79.899 Other long term (current) drug therapy; Z88.2 Allergy status to sulfonamides; Z87.891 Personal history of nicotine dependence
CPT/HCPCS: 87502; 99283; U0002